=== PATIENT | female | born 1985 | race Caucasian/White ===

== ENCOUNTER 2017-12-31 10:14 | Emergency (ER) | payer OTHER ==
[2017-12-31] MEDS ORDERED: ONDANSETRON 4 MG (ODT) TAB ONE (10:39)
[2017-12-31] MEDS ORDERED: predniSONE 20 MG TAB ONE (10:39)
[2017-12-31] MEDS ORDERED: PROMETHAZINE 25 MG TABLET ONE (10:43)
--- NOTE | 2017-12-31 11:43 | EDPHYS ---
Physician Documentation [facility] Name: Laura De La O Age: 32 yrs Sex: Female : 1985 Arrival Date: 12/31/2017 Time: 10:15 Bed 19 Private MD: Sandeep Yi ED Physician Juma Sterling HPI: 12/31 10:33 This 32 yrs old Female presents to ER via Ambulatory with complaints of "flu jr8 like symptoms". 10:33 The patient or guardian reports cough, that is intermittent, described as moderate, jr8 with no sputum, flu symptoms, arthralgias, low-grade fever, myalgias, no appetite. Onset: The symptoms/episode began/occurred acutely, today. Severity of symptoms: At their worst the symptoms were moderate, in the emergency department the symptoms are unchanged. Modifying factors: The symptoms are alleviated by nothing, the symptoms are aggravated by nothing. Associated signs and symptoms: Pertinent positives: chest pain, with cough, with breathing, earache, nausea, rhinorrhea, sore throat. The patient has not experienced similar symptoms in the past. The patient has been recently seen at an urgent care. 10:33 Tested for influenza at urgent care but was negative. Patient came to ED after feeling jr8 worse and having chest pain. [employer]: 10:21 LMP 12/08/2017 ph Historical: - Allergies: 10:23 Bactrim; ph 10:23 Vancomycin; ph 10:23 Sulfa (Sulfonamide Antibiotics); ph 10:23 NSAIDS; due to Gastric Bypass; ph - Home Meds: 10:23 Cymbalta 60 mg Oral cpDR 1 cap once daily [Active]; hydroxyzine HCl 50 mg Oral tab at ph bedtime [Active]; levothyroxine 125 mcg tab once daily [Active]; Tylenol #3 Oral PRN for Back pain [Active]; - PMHx: 10:23 Anxiety; Depression; Hypertension; Hypothyroidism; ibs; Panic Attacks; ph - PSHx: 10:23 Gastric Bypass; foot surgery; Tonsillectomy; cardiac ablation; ph - Immunization history:: Adult Immunizations up to date. - Social history:: Smoking status: unknown. ROS: 10:33 Eyes: Negative for injury, pain, redness, and discharge, Neck: Negative for injury, jr8 pain, and swelling, Back: Negative for injury and pain, MS/Extremity: Negative for injury and deformity, Skin: Negative for injury, rash, and discoloration, Neuro: Negative for headache, weakness, numbness, tingling, and seizure. 10:33 Constitutional: Positive for body aches, chills, fever. 10:33 ENT: Positive for ear pain, rhinorrhea, sinus congestion, sinus pain, sore throat, Negative for drainage from ear(s), tinnitus, nasal discharge. 10:33 Cardiovascular: Positive for chest pain, with cough, Negative for edema, orthopnea, palpitations, paroxysmal nocturnal dyspnea. 10:33 Respiratory: Positive for cough, with no reported sputum, Negative for shortness of breath, sputum production, wheezing. 10:33 Abdomen/GI: Positive for nausea, vomiting, Negative for abdominal pain, diarrhea, abdominal cramps, abdominal distension, anorexia, dysphagia, hematemesis, black/tarry stool, rectal pain, rectal bleeding, bowel incontinence, flatulence. Exam: 10:33 Head/Face: Normocephalic, atraumatic. Eyes: Pupils equal round and reactive to light, jr8 extra-ocular motions intact. Lids and lashes normal. Conjunctiva and sclera are non-icteric and not injected. Cornea within normal limits. Periorbital areas with no swelling, redness, or edema. Neck: Trachea midline, no thyromegaly or masses palpated, and no cervical lymphadenopathy. Supple, full range of motion without nuchal rigidity, or vertebral point tenderness. No Meningismus. Cardiovascular: Regular rate and rhythm with a normal S1 and S2. No gallops, murmurs, or rubs. Normal PMI, no JVD. No pulse deficits. Respiratory: Lungs have equal breath sounds bilaterally, clear to auscultation and percussion. No rales, rhonchi or wheezes noted. No increased work of breathing, no retractions or nasal flaring. Abdomen/GI: Soft, non-tender, with normal bowel sounds. No distension or tympany. No guarding or rebound. No evidence of tenderness throughout. Back: No spinal tenderness. No costovertebral tenderness. Full range of motion. Skin: Warm, dry with normal turgor. Normal color with no rashes, no lesions, and no evidence of cellulitis. MS/ Extremity: Pulses equal, no cyanosis. Neurovascular intact. Full, normal range of motion. Neuro: Awake and alert, GCS 15, oriented to person, place, time, and situation. Cranial nerves II-XII grossly intact. Motor strength 5/5 in all extremities. Sensory grossly intact. Cerebellar exam normal. Normal gait. 10:33 ENT: External ear(s): are unremarkable, Ear canal(s): are normal, clear, TM's: are normal, no evidence of bulging, no dullness, no erythema, no fluid levels, no hemotympanum, no rupture, normal bony landmarks, normal mobility, Nose: External nose: no obvious acute abnormality, Nasal septum: is midline, Nasal mucosa: erythematous, moist, Turbinates: are swollen bilaterally, Mouth: Lips: moist, Oral mucosa: pink and intact, moist, Gums: pink, Tongue: is moist, Posterior pharynx: Airway: patent, Tonsils: are normal in appearance, no enlargement, no erythema, no exudate, no ulcerations, Uvula: midline, non-edematous, no erythema, swelling, is not appreciated. Vital Signs: 10:21 BP 150 / 99; Pulse 76; Resp 18; Temp 98.2(TE); Pulse Ox 100% on R/A; Weight 144.7 kg; ph Height 5 ft. 6 in. (167.64 cm); 11:41 BP 145 / 88; Pulse 70; Resp 17; Pulse Ox 100% ; mh5 10:21 Body Mass Index 51.49 (144.70 kg, 167.64 cm) ph MDM: 10:23 Patient medically screened. 8 11:40 Differential Diagnosis: Bronchitis Influenza Upper Respiratory Infection Sinusitis jr8 Pharyngitis Otitis Media Viral Syndrome Pneumonia. Data reviewed: vital signs, nurses notes, EKG, radiologic studies, plain films, and as a result, I will discharge patient. Data interpreted: Pulse oximetry: on room air is 100 %. Interpretation: normal. Counseling: I had a detailed discussion with the patient and/or guardian regarding: the historical points, exam findings, and any diagnostic results supporting the discharge/admit diagnosis, radiology results, the need for outpatient follow up, a family practitioner, to return to the emergency department if symptoms worsen or persist or if there are any questions or concerns that arise at home. 12/31 11:25 Order name: Urine Dipstick--Ancillary (enter results); Complete Time: 12:00 [facility] 12/31 11:25 Order name: Urine --Ancillary (enter results); Complete Time: 12:00 [facility] 12/31 10:31 Order name: XRAY Chest Pa And Lat (2 Views); Complete Time: 12:00 [facility] 12/31 10:31 Order name: EKG - Nurse/Tech; Complete Time: 10:53 [facility] 12/31 10:31 Order name: EKG; Complete Time: 10: [facility] 12/31 10:31 Order name: Urine Test (obtain specimen); Complete Time: 11: [facility] 12/31 10:31 Order name: Urine Dipstick-Ancillary (obtain specimen); Complete Time: : [facility] Administered Medications: 10:52 Not Given (Patient Refused): Zofran 4 mg PO once aj1 10:52 Drug: predniSONE 60 mg Route: PO; aj1 11:22 Follow up: Response: No adverse reaction aj1 10:52 Drug: Phenergan 25 mg Route: PO; aj1 11:23 Follow up: Response: No adverse reaction aj1 Disposition: 12/31/17 11:42 Discharged to Home. Impression: Viral infection, unspecified, Acute upper respiratory infection, unspecified. - Condition is Stable. - Discharge Instructions: Upper Respiratory Infection, Adult, Viral Infections. - Prescriptions for Prednisone 20 mg Oral Tablet - take 1 tablet by ORAL route once daily for 5 days; 5 tablet. Tessalon Perles 100 mg Oral Capsule - take 1 capsule by ORAL route every 8 hours As needed; 15 capsule. Albuterol Sulfate 90 mcg/actuation - inhale 1-2 puff by INHALATION route every 4-6 hours; 1 Inhaler. promethazine 25 mg Oral Tablet - take 1 tablet by ORAL route every 6 hours As needed; 20 tablet. - Medication Reconciliation Form, Thank You Letter, Antibiotic Education, Prescription Opioid Use form. - Follow up: Sandeep Yi DO; When: 5 - 6 days; Reason: Recheck today's complaints, Continuance of care, Re-evaluation by your physician. - Problem is new. - Symptoms have improved. Addendum: 01/02/2018 07:27 Co-signature as Attending Physician, Juma Sterling MD I agree with the assessment and w a plan of care. Signatures: Dispatcher [employer] EDMS Damián, Madison, RN RN aj1 Ryan Kimball PA PA jr8 Breanna Molina RN RN ph [facility]alsJuma MD MD ga
--- NOTE | 2017-12-31 11:43 | ER ---
Nurse's Notes [facility] Name: Laura De La O Age: 32 yrs Sex: Female : 1985 Arrival Date: 12/31/2017 Time: 10:15 Bed 19 Private MD: Sandeep Yi Diagnosis: Viral infection, unspecified;Acute upper respiratory infection, unspecified Presentation: 12/31 10:17 Presenting complaint: Patient states: I went to urgent care today because I started ph feeling bad yesterday. I tested positive for the flu but they said they think I still have it. My chest has been hurting so they sent me here for an xray but my chest started hurting more so I decided to come to the ER instead." Pt reports sharp pain in R chest, worse w/ inspiration, also reports nasla congestion, cough, fever TMAX 101 and sore throat. Transition of care: patient was not received from another setting of care. Onset of symptoms was December 31, 2017. 10:17 Method Of Arrival: Ambulatory ph 10:17 Acuity: BILL 3 ph 12:06 Care prior to arrival: None. aj1 [employer]: 10:21 LMP 12/08/2017 ph Historical: - Allergies: 10:23 Bactrim; ph 10:23 Vancomycin; ph 10:23 Sulfa (Sulfonamide Antibiotics); ph 10:23 NSAIDS; due to Gastric Bypass; ph - Home Meds: 10:23 Cymbalta 60 mg Oral cpDR 1 cap once daily [Active]; hydroxyzine HCl 50 mg Oral tab at ph bedtime [Active]; levothyroxine 125 mcg tab once daily [Active]; Tylenol #3 Oral PRN for Back pain [Active]; - PMHx: 10:23 Anxiety; Depression; Hypertension; Hypothyroidism; ibs; Panic Attacks; ph - PSHx: 10:23 Gastric Bypass; foot surgery; Tonsillectomy; cardiac ablation; ph - Immunization history:: Adult Immunizations up to date. - Social history:: Smoking status: unknown. Screenin:31 Abuse screen: Denies threats or abuse. Denies injuries from another. Nutritional aj1 screening: No deficits noted. Tuberculosis screening: No symptoms or risk factors identified. 12:05 Fall Risk None identified. aj1 Assessment: 10:31 General: Appears in no apparent distress. uncomfortable, Behavior is cooperative, aj1 anxious. Pain: Complains of pain in anterior aspect of left upper chest Pain does not radiate. Quality of pain is described as sharp, Pain began at midnight last night Alleviated by nothing. Aggravated by cough, deep breathing. Neuro: Level of Consciousness is awake, alert, obeys commands, Oriented to person, place, time, situation, Speech is normal, Facial symmetry appears normal. Cardiovascular: Reports chest pain, Heart tones S1 S2 present Patient's skin is warm and dry. Rhythm is regular Chest pain quality is sharp, is located in left anterior chest wall is aggravated by breathing. Respiratory: Reports cough that is persistent Airway is patent Respiratory effort is even, unlabored, Respiratory pattern is regular, symmetrical, Breath sounds are clear bilaterally. GI: Abdomen is non-distended, Abd is soft and non tender X 4 quads. : No signs and/or symptoms were reported regarding the genitourinary system. EENT: Reports nasal congestion nasal discharge ear pain, sinus pressure. Derm: No signs and/or symptoms reported regarding the dermatologic system. Skin is pink, warm \\T\\ dry. normal. 11:26 Reassessment: Patient appears in no apparent distress at this time. No changes from aj1 previously documented assessment. Patient and/or family updated on plan of care and expected duration. Pain level reassessed. Patient is alert, oriented x 3, equal unlabored respirations, skin warm/dry/pink. Vital Signs: 10:21 BP 150 / 99; Pulse 76; Resp 18; Temp 98.2(TE); Pulse Ox 100% on R/A; Weight 144.7 kg; ph Height 5 ft. 6 in. (167.64 cm); 11:41 BP 145 / 88; Pulse 70; Resp 17; Pulse Ox 100% ; mh5 10:21 Body Mass Index 51.49 (144.70 kg, 167.64 cm) ph ED Course: 10:15 Patient arrived in ED. as 10:15 Sandeep Yi DO is Private Physician. as 10:21 Triage completed. ph 10:23 Ryan Kimball PA is PHCP. jr8 10:23 Juma Sterling MD is Attending Physician. jr8 10:24 Madison Steel RN is Primary Nurse. aj1 10:31 Patient has correct armband on for positive identification. Pulse ox on. NIBP on. aj1 10:31 Arm band placed on. aj1 10:31 No provider procedures requiring assistance completed. Patient maintains SpO2 aj1 saturation greater than 95% on room air. 10:48 EKG done, by instructor adjunct surgical technician. reviewed by Ryan AZEVEDO. at1 11:27 XRAY Chest Pa And Lat (2 Views) In Process Unspecified. EDMS 11:41 Sandeep Yi DO is Referral Physician. jr8 12:05 Patient did not have IV access during this emergency room visit. aj1 Administered Medications: 10:52 Not Given (Patient Refused): Zofran 4 mg PO once aj1 10:52 Drug: predniSONE 60 mg Route: PO; aj1 11:22 Follow up: Response: No adverse reaction aj1 10:52 Drug: Phenergan 25 mg Route: PO; aj1 11:23 Follow up: Response: No adverse reaction aj1 Outcome: 11:42 Discharge ordered by MD. jr8 12:05 Discharged to home ambulatory. aj1 12:05 Condition: good 12:05 Discharge instructions given to patient, Instructed on discharge instructions, follow up and referral plans. medication usage, Demonstrated understanding of instructions, follow-up care, medications, Prescriptions given X 4. 12:07 Patient left the ED. aj1 Signatures: Dispatcher [employer] EDCO Madison Steel, RN RN [email or web address] Rohini Romo Josh, PA PA jrLaura martinez, principal developer EKG Tat1 Breanna Molina RN RN Shantel Romo [facility]
[2017-12-31 11:50] LABS: Urine Blood NEGATIVE (NEG); Urine Glucose NEGATIVE (NEG); Urine Protein NEGATIVE (NEG); Urine pH 6.5 (5.0-7.0)
--- NOTE | 2017-12-31 11:53 | RAD REPORT ---
EXAM DESCRIPTION: RAD - Chest Pa And Lat (2 Views) - 12/31/2017 11:30 am CLINICAL HISTORY: Cough, fever. COMPARISON: None. FINDINGS: The lungs are clear. The heart is normal in size. No displaced fractures. IMPRESSION: No acute or concerning finding suspected.
--- NOTE | 2017-12-31 12:36 | EKG ---
Test Date: 2017-12-31 Test Time: 10:43:52 Visual Display Manager: ALICIA MEASUREMENT RESULTS: Intervals: Rate: 64 NC: 154 QRSD: 82 QT: 392 QTc: 404 Seeley: P: 47 NC: 154 QRS: 16 T: 7 INTERPRETIVE STATEMENTS: Normal sinus rhythm Normal ECG Compared to ECG 02/07/2017 20:37:20 no significant change from previous ECG Electronically Signed On 12-31-17 12:36:02 CDT by Isiah Fink
== END 2017-12-31 12:07 | disposition home or self-care (01) ==
LOC: ER 10:14
DX: B34.9 Viral infection, unspecified (principal); J06.9 Acute upper respiratory infection, unspecified; I10 Essential (primary) hypertension; F41.9 Anxiety disorder, unspecified; F32.9 Major depressive disorder, single episode, unspecified; E03.9 Hypothyroidism, unspecified; Z88.1 Allergy status to other antibiotic agents; Z88.2 Allergy status to sulfonamides; Z88.3 Allergy status to other anti-infective agents; Z88.6 Allergy status to analgesic agent
CPT/HCPCS: 71046; 81003; 81025; 93005; 99284; J7512

== ENCOUNTER 2019-02-08 14:54 | Emergency (ER) | payer OTHER ==
--- OUTSIDE RECORDS SUMMARY | 2019-02-08 14:56 | XMS REPORT ---
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 Depression with anxiety F41.8 Active Problem Vitamin D deficiency E55.9 Active Assessment Bipolar disorder F31.9 Active Problem Vitamin B12 deficiency E53.8 Active Assessment GERD (gastroesophageal reflux K21.9 Active disease) Problem Other chronic pain G89.29 Active Problem Environmental allergies Z91.09 Active Problem 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 Problem Autoimmune thyroiditis E06.3 Active Problem Sore throat J02.9 Active Problem DDD (degenerative disc disease), M50.30 Active cervical Problem Osteoarthritis of multiple joints M15.9 Active Problem Acquired hypothyroidism E03.9 Active Problem Hypothyroidism E03.9 Active Problem Depression, unspecified depression F32.9 Active type Problem Low back pain M54.5 Active Problem Sinusitis, unspecified chronicity, J32.9 Active unspecified location Problem History of Cuskz-Qrhzuyasb-Aagmn Z86.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
--- OUTSIDE RECORDS SUMMARY | 2019-02-08 14:56 | XMS REPORT ---
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 Problem Vitamin B12 deficiency E53.8 Active Assessment Depression with anxiety F41.8 Active Problem Other chronic pain G89.29 Active Problem [...] J32.9 Active unspecified location Problem History of Repxo-Vmwlyqdvc-Ldbzp Z86.79 Active (WPW) syndrome Problem 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 Problem Irritable bowel syndrome K58.9 Active Problem Depression with anxiety F41.8 Active Problem HSV (herpes simplex virus) A60.9 Active anogenital infection Problem Diverticulitis K57.92 Active Problem GERD (gastroesophageal reflux K21.9 Active disease) Problem Bipolar disorder F31.9 Active Problem Degenerative disc disease, lumbar M51.36 Active Medications Medication Code Code Instructions Start End Status Dosage System Date Date Nasonex [facility] 34728376223 50 MCG/ACT Active 2 sprays Nasally Once a in each day nostril Tylenol # 3 NDC 0 30-500-15 MG Active 2 tablets Orally every 6 as needed hrs Levothyroxine ND 86647155621 125 MCG Orally Active 1 tablet Sodium Once a day on an empty stomach in the morning Synthroid [facility] 75829359408 200 MCG Orally Deisy Active 1 tablet Once a day 2017 on an empty stomach in the morning HydrOXYzine HCl [facility] 32250257573 50 MG Orally Active 1 tablet Twice a day as as needed needed for for anxiety anxiety Cymbalta [facility] 24845683639 60 MG Orally Active 1 capsule Twice a day Results No Known Results Summary Purpose eClinicalWorks Submission
--- OUTSIDE RECORDS SUMMARY | 2019-02-08 14:56 | XMS REPORT ---
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 Problem Autoimmune thyroiditis E06.3 Active Problem DDD (degenerative disc disease), M50.30 Active cervical Problem Sore throat J02.9 Active Problem Osteoarthritis of multiple joints M15.9 Active Problem Hypothyroidism E03.9 Active Problem Acquired hypothyroidism E03.9 Active Problem Depression, unspecified depression F32.9 Active type Problem Low back pain M54.5 Active Problem Sinusitis, unspecified chronicity, J32.9 Active unspecified location Problem History of Clrvb-Utmlgvhjf-Erpwg Z86.79 Active (WPW) syndrome Problem 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
--- OUTSIDE RECORDS SUMMARY | 2019-02-08 14:56 | XMS REPORT ---
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 Problem Irritable bowel syndrome K58.9 Active Problem Depression with anxiety F41.8 Active Problem HSV (herpes simplex virus) A60.9 Active anogenital infection Problem Diverticulitis K57.92 Active Problem GERD (gastroesophageal reflux K21.9 Active disease) Assessment Depression with anxiety F41.8 Active Problem Bipolar disorder F31.9 Active Problem Vitamin D deficiency E55.9 Active Problem Degenerative disc disease, lumbar M51.36 Active Problem Vitamin B12 deficiency E53.8 Active Medications Medication Code Code Instructions Start End Status Dosage System Date Date HydrOXYzine HCl [facility] 54788458495 50 MG Orally Active 1 tablet Twice a day as as needed needed for anxiety Results No Known Results Summary Purpose eClinicalWorks Submission
--- OUTSIDE RECORDS SUMMARY | 2019-02-08 14:57 | XMS REPORT ---
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 Problem Low back pain M54.5 Active Problem Environmental allergies Z91.09 Active Problem Acquired hypothyroidism E03.9 Active Problem Autoimmune thyroiditis E06.3 Active Problem Depression with anxiety F41.8 Active Problem DDD (degenerative disc disease), M50.30 Active cervical Problem Adult BMI 50.0-59.9 kg/sq m Z68.43 Active Problem Osteoarthritis of multiple joints M15.9 Active Problem History of Sudss-Oomvrenuq-Ldpex Z86.79 Active (WPW) syndrome Problem Depression, unspecified depression F32.9 Active type Problem Sore throat J02.9 Active Problem Sinusitis, unspecified chronicity, J32.9 Active unspecified location Problem Irritable bowel syndrome K58.9 Active Problem Bipolar disorder F31.9 Active Problem HSV (herpes simplex virus) A60.9 Active anogenital infection Problem 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
--- OUTSIDE RECORDS SUMMARY | 2019-02-08 14:57 | XMS REPORT ---
:1985 Author Organization eClinicalWorks Care Team Providers Name Role Phone Tien Yih Provider Role Unavailable Allergies, Adverse Reactions, Alerts Substance Reaction Event Type Zoloft Info Not Available Drug Allergy Seroquel Info Not Available Drug Allergy Paxil Info Not Available Drug Allergy Keflex Info Not Available Drug Allergy Problems Problem Type Condition Code Onset Dates Condition Status Assessment Vitamin B12 deficiency E53.8 Active Assessment Adult BMI 50.0-59.9 kg/sq m Z68.43 Active Assessment Bipolar disorder F31.9 Active Assessment Vitamin D deficiency E55.9 Active Assessment Osteoarthritis of multiple joints M15.9 Active Assessment GERD (gastroesophageal reflux K21.9 Active disease) Assessment 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 Assessment Depression with anxiety F41.8 Active Assessment Well adult on routine health check Z00.00 Active Problem Vitamin B12 deficiency E53.8 Active [...] multiple joints M15.9 Active Problem History of Tlenx-Ebuqoprwz-Yvnzy Z86.79 Active (WPW) syndrome Problem Depression, unspecified depression F32.9 Active type Problem Sore throat J02.9 Active Problem Sinusitis, unspecified chronicity, J32.9 Active unspecified location Problem Irritable bowel syndrome K58.9 Active Assessment Refused influenza vaccine Z28.21 Active Problem Bipolar disorder F31.9 Active Problem HSV (herpes simplex virus) A60.9 Active anogenital infection Problem 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 Problem GERD (gastroesophageal reflux K21.9 Active disease) Problem Vitamin D deficiency E55.9 Active Problem Degenerative disc disease, lumbar M51.36 Active Problem Diverticulitis K57.92 Active Medications Medication Code Code Instructions Start End Status Dosage System Date Date Levothyroxine [facility] 80449842477 175 MCG Orally Active 1 tablet Sodium Once a day on an empty stomach in the morning Nasonex [facility] 55912421050 50 MCG/ACT Active 2 sprays Nasally Once a in each day nostril Cymbalta [facility] 36156946330 60 MG Orally Active 1 capsule Twice a day Levothyroxine [facility] 57664370662 175 MCG Orally Active 1 tablet Sodium Once a day on an empty stomach in the morning HydrOXYzine HCl [facility] 43957636334 50 MG Orally Active 1 tablet Twice a day as as needed needed for for anxiety anxiety Synthroid [facility] 23504361740 175 MCG Orally Deisy Active 1 tablet Once a day 2017 on an empty stomach in the morning Tylenol # 3 OKC 0 30-500-15 MG Active 2 tablets Orally every 6 as needed hrs Results No Known Results Summary Purpose eClinicalWorks Submission
--- OUTSIDE RECORDS SUMMARY | 2019-02-08 14:57 | XMS REPORT ---
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92 Active Problem Other chronic pain G89.29 Active Medications No Known Medications Results No Known Results Summary Purpose eClinicalWorks Submission
--- NOTE | 2019-02-08 15:37 | ER ---
Nurse's Notes [facility] Name: Laura De La O Age: 33 yrs Sex: Female : 1985 Arrival Date: 02/08/2019 Time: 14:55 Bed 6 Private MD: Sandeep Yi Diagnosis: Migraine without aura Presentation: 02/08 15:11 Presenting complaint: Patient states: yesterday i started having a sharp chest pain hj that moves to the back and radiates to my L arm; pain is 6/10; my BP is santosh high, 175/102; reports nausea;. Transition of care: patient was not received from another setting of care. Onset of symptoms was February 08, 2019. Risk Assessment: Do you want to hurt yourself or someone else? Patient reports no desire to harm self or others. Initial Sepsis Screen: Does the patient meet any 2 criteria? No. Patient's initial sepsis screen is negative. Does the patient have a suspected source of infection? No. Patient's initial sepsis screen is negative. Care prior to arrival: None. 15:11 Method Of Arrival: Ambulatory 15:11 Acuity: BILL 3 Triage Assessment: 15:16 General: Appears in no apparent distress. uncomfortable, obese, Behavior is hj cooperative, appropriate for age, anxious. Pain: Complains of pain in chest Pain radiates to back and left arm. Cardiovascular: Reports chest pain. 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 LMP N/A - Irregular menses hj Historical: - Allergies: 15:14 Bactrim; hj 15:14 NSAIDS; due to Gastric Bypass; hj 15:14 Sulfa (Sulfonamide Antibiotics); hj 15:14 Vancomycin; hj - Home Meds: 15:14 Cymbalta 60 mg Oral cpDR 1 cap once daily [Active]; hydroxyzine HCl 50 mg Oral tab at bedtime [Active]; levothyroxine 125 mcg tab once daily [Active]; Tylenol #3 Oral PRN for Back pain [Active]; Ativan Oral [Active]; - PMHx: 15:14 Anxiety; Depression; Hypertension; Hypothyroidism; ibs; Panic Attacks; hj - PSHx: 15:14 Gastric Bypass; foot surgery; Tonsillectomy; cardiac ablation; hj - Immunization history:: Adult Immunizations up to date. - Social history:: Smoking status: Patient/guardian denies using tobacco, Patient/guardian denies using alcohol, Patient/guardian denies using street drugs, The patient lives alone. - Ebola Screening: : Patient negative for fever greater than or equal to 101.5 degrees Fahrenheit, and additional compatible Ebola Virus Disease symptoms Patient denies exposure to infectious person Patient denies travel to an Ebola-affected area in the 21 days before illness onset. - Family history:: not pertinent. Screenin:16 Abuse screen: Denies threats or abuse. Denies injuries from another. Nutritional hj screening: No deficits noted. Tuberculosis screening: No symptoms or risk factors identified. Fall Risk None identified. Assessment: 15:17 Pain: Complains of pain in chest Pain radiates to left arm and back Pain began. hj 15:17 General: Appears in no apparent distress. uncomfortable, obese, Behavior is calm, hj cooperative, appropriate for age. Neuro: Level of Consciousness is awake, alert, obeys commands, Oriented to person, place, time, situation, Appropriate for age. Cardiovascular: Reports chest pain, Heart tones S1 S2 present Capillary refill < 3 seconds Patient's skin is warm and dry. Rhythm is regular. Respiratory: Airway is patent Respiratory effort is even, unlabored, Respiratory pattern is regular, symmetrical. GI: No signs and/or symptoms were reported involving the gastrointestinal system. : No signs and/or symptoms were reported regarding the genitourinary system. EENT: No signs and/or symptoms were reported regarding the EENT system. Derm: No signs and/or symptoms reported regarding the dermatologic system. Musculoskeletal: No signs and/or symptoms reported regarding the musculoskeletal system. 15:20 Reassessment: provider in room;. Vital Signs: 15:15 BP 143 / 64; Pulse 74; Resp 18; Temp 98.1(TE); Pulse Ox 100% on R/A; Weight 144.24 kg; hj Height 5 ft. 5 in. (165.10 cm); Pain 6/10; 15:15 Body Mass Index 52.92 (144.24 kg, 165.10 cm) ED Course: 14:55 Patient arrived in ED. as 14:56 Sandeep Yi DO is Private Physician. as 14:59 Tam Burger MD is Attending Physician. ma2 15:02 Eduard, Armand, RN is Primary Nurse. hj 15:11 EKG done, by central sterile supply technician. reviewed by Tam Burger MD. sm3 15:12 Triage completed. hj 15:17 Arm band placed on left wrist. hj 15:17 Patient has correct armband on for positive identification. Placed in gown. Bed in low hj position. Call light in reach. Side rails up X 1. Adult w/ patient. shactor helper on. Pulse ox on. NIBP on. 15:18 Patient maintains SpO2 saturation greater than 95% on room air. hj 15:46 No provider procedures requiring assistance completed. Patient did not have IV access hj during this emergency room visit. Administered Medications: No medications were administered Outcome: 15:36 Discharge ordered by . [facility] 15:46 Discharged to home ambulatory, with family. hj 15:46 Condition: stable 15:46 Discharge instructions given to patient, Instructed on discharge instructions, follow up and referral plans. medication usage, Demonstrated understanding of instructions, follow-up care, medications, Prescriptions given X 1. 15:47 Patient left the ED. hj Signatures: Rohini Romo as Armand Chapa, JUHI RN Tam Burger MD MD nh2 Katy Dahl 3 Corrections: (The following items were deleted from the chart) 15:18 15:15 Pulse 74bpm; Resp 18bpm; Pulse Ox 100% RA; Temp 98.1F Temporal; 144.24 kg; Height hj 5 ft. 5 in.; BMI: 52.9; Pain 6/10; hj
--- NOTE | 2019-02-08 15:37 | EDPHYS ---
Physician Documentation [facility] [place], [place] Name: Laura De La O Age: 33 yrs Sex: Female : 1985 Arrival Date: 02/08/2019 Time: 14:55 Bed 6 Private MD: [facility] ED Physician Tam Burger HPI: 02/08 15:33 This 33 yrs old Female presents to ER via Ambulatory with complaints of Chest ma2 Pain, High Blood Pressure. 15:33 The patient or guardian reports chest pain that is located primarily in the anterior ma2 chest wall. Associated signs and symptoms: Pertinent negatives: cough, dizziness, lower extremity pain, shortness of breath, syncope. The chest pain is described as burning, left sided chest pain that is worse with deep breath and let arm movement. Severity of pain: At its worst the pain was very mild in the emergency department the pain is unchanged. 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 LMP N/A - Irregular menses hj Historical: - Allergies: 15:14 Bactrim; hj 15:14 NSAIDS; due to Gastric Bypass; hj 15:14 Sulfa (Sulfonamide Antibiotics); hj 15:14 Vancomycin; hj - Home Meds: 15:14 Cymbalta 60 mg Oral cpDR 1 cap once daily [Active]; hydroxyzine HCl 50 mg Oral tab at bedtime [Active]; levothyroxine 125 mcg tab once daily [Active]; Tylenol #3 Oral PRN for Back pain [Active]; Ativan Oral [Active]; - PMHx: 15:14 Anxiety; Depression; Hypertension; Hypothyroidism; ibs; Panic Attacks; hj - PSHx: 15:14 Gastric Bypass; foot surgery; Tonsillectomy; cardiac ablation; hj - Immunization history:: Adult Immunizations up to date. - Social history:: Smoking status: Patient/guardian denies using tobacco, Patient/guardian denies using alcohol, Patient/guardian denies using street drugs, The patient lives alone. - Ebola Screening: : Patient negative for fever greater than or equal to 101.5 degrees Fahrenheit, and additional compatible Ebola Virus Disease symptoms Patient denies exposure to infectious person Patient denies travel to an Ebola-affected area in the 21 days before illness onset. - Family history:: not pertinent. ROS: 15:33 Constitutional: Negative for fever, chills, and weight loss. ma2 15:33 Respiratory: Negative for shortness of breath, cough, wheezing, and pleuritic chest pain, Abdomen/GI: Negative for abdominal pain, nausea, diarrhea, and constipation, Back: Negative for injury and pain, MS/Extremity: Negative for injury and deformity, Skin: Negative for injury, rash, and discoloration, Neuro: Negative for headache, weakness, numbness, tingling, and seizure, Psych: Negative for depression, anxiety, suicide ideation, homicidal ideation, and hallucinations. 15:33 Cardiovascular: Positive for chest pain, Negative for edema, orthopnea, palpitations, paroxysmal nocturnal dyspnea, acute changes. Exam: 15:33 Constitutional: This is a well developed, well nourished patient who is awake, alert, ma2 and in no acute distress. ENT: Nares patent. No nasal discharge, no septal abnormalities noted. Tympanic membranes are normal and external auditory canals are clear. Oropharynx with no redness, swelling, or masses, exudates, or evidence of obstruction, uvula midline. Mucous membranes moist. Chest/axilla: Normal chest wall appearance and motion. Nontender with no deformity. No lesions are appreciated. Cardiovascular: Regular rate and rhythm with a normal S1 and S2. No gallops, murmurs, or rubs. Normal PMI, no JVD. No pulse deficits. Respiratory: Lungs have equal breath sounds bilaterally, clear to auscultation and percussion. No rales, rhonchi or wheezes noted. No increased work of breathing, no retractions or nasal flaring. Abdomen/GI: Soft, non-tender, with normal bowel sounds. No distension or tympany. No guarding or rebound. No evidence of tenderness throughout. Skin: Warm, dry with normal turgor. Normal color with no rashes, no lesions, and no evidence of cellulitis. MS/ Extremity: Pulses equal, no cyanosis. Neurovascular intact. Full, normal range of motion. Neuro: Awake and alert, GCS 15, oriented to person, place, time, and situation. Cranial nerves II-XII grossly intact. Motor strength 5/5 in all extremities. Sensory grossly intact. Cerebellar exam normal. Normal gait. 15:33 Chest/axilla: Inspection: normal, Palpation: tenderness, that is mild, of the anterior aspect of left upper chest, Axilla: are normal, Breasts: are normal. Vital Signs: 15:15 BP 143 / 64; Pulse 74; Resp 18; Temp 98.1(TE); Pulse Ox 100% on R/A; Weight 144.24 kg; hj Height 5 ft. 5 in. (165.10 cm); Pain 6/10; 15:15 Body Mass Index 52.92 (144.24 kg, 165.10 cm) hj MDM: 14:59 Patient medically screened. ma2 15:33 Differential diagnosis: anxiety, chest wall pain, costochondritis. Data reviewed: vital ma2 signs, nurses notes. Response to treatment: decline pain medicine, has migraine headache as well will give reglan for that . 02/08 15:00 Order name: EKG - Nurse/Tech; Complete Time: 15:02 ma2 Administered Medications: No medications were administered Disposition: 02/08/19 15:36 Discharged to Home. Impression: Migraine without aura. - Condition is Stable. - Discharge Instructions: Migraine Headache. - Prescriptions for Reglan 10 mg Oral Tablet - take 1 tablet by ORAL route every 6 hours take 30 minutes before meals and at bedtime; 20 tablet. - Medication Reconciliation Form, Thank You Letter, Antibiotic Education, Prescription Opioid Use form. - Follow up: Private Physician; When: Tomorrow; Reason: Continuance of care. Signatures: Armand Chapa RN RN Tam Burger MD MD ma2 Corrections: (The following items were deleted from the chart) 15:47 15:36 02/08/2019 15:36 Discharged to Home. Impression: Migraine without aura. Condition hj is Stable. Forms are Medication Reconciliation Form, Thank You Letter, Antibiotic Education, Prescription Opioid Use. Follow up: Private Physician; When: Tomorrow; Reason: Continuance of care. ma2
--- NOTE | 2019-02-09 06:18 | EKG ---
Test Date: 2019-02-08 Test Time: 15:11:11 Residential Door Unit Installer: ZAC MEASUREMENT RESULTS: Intervals: Rate: 72 AK: 154 QRSD: 80 QT: 378 QTc: 413 Udell: P: 52 AK: 154 QRS: 52 T: 29 INTERPRETIVE STATEMENTS: Normal sinus rhythm Low voltage QRS Abnormal ECG Compared to ECG 12/31/2017 10:43:52 Low QRS voltage now present Electronically Signed On 02-09-19 06:17:51 CDT by Isiah Fink
== END 2019-02-08 15:47 | disposition home or self-care (01) ==
LOC: ER 14:54
DX: G43.009 Migraine without aura, not intractable, without status migrainosus (principal); F32.9 Major depressive disorder, single episode, unspecified; F41.9 Anxiety disorder, unspecified; I10 Essential (primary) hypertension; E03.9 Hypothyroidism, unspecified; Z88.6 Allergy status to analgesic agent; Z88.1 Allergy status to other antibiotic agents; Z88.2 Allergy status to sulfonamides
CPT/HCPCS: 93005; 99284

== ENCOUNTER 2019-04-08 11:12 | Emergency (ER) | payer OTHER ==
--- OUTSIDE RECORDS SUMMARY | 2019-04-08 11:15 | XMS REPORT ---
[...] J32.9 Active unspecified location Problem History of Lkhne-Qnibeledn-Qqgwc Z86.79 Active (WPW) syndrome Problem Dominique's thyroiditis [...] Status Dosage System Date Date HydrOXYzine HCl [facility] 65541894961 50 MG Orally Active 1 tablet Twice a day as as needed needed for anxiety Results No Known Results Summary Purpose eClinicalWorks Submission
--- OUTSIDE RECORDS SUMMARY | 2019-04-08 11:15 | XMS REPORT ---
[...] kg/sq m Z68.43 Active Problem History of Aqmko-Hwtzynria-Oyiks Z86.79 Active (WPW) syndrome Problem Depression, unspecified [...]
--- OUTSIDE RECORDS SUMMARY | 2019-04-08 11:15 | XMS REPORT ---
[...] multiple joints M15.9 Active Problem History of Yllso-Uxapbfqdt-Dssas Z86.79 Active (WPW) syndrome Problem Depression, unspecified [...] End Status Dosage System Date Date Levothyroxine [facility] 45153025346 175 MCG Orally Active 1 tablet Sodium Once a day on an empty stomach in the morning Nasonex [facility] 35436860149 50 MCG/ACT Active 2 sprays Nasally Once a in each day nostril Cymbalta [facility] 20793468662 60 MG Orally Active 1 capsule Twice a day Levothyroxine [facility] 04498049674 175 MCG Orally Active 1 tablet Sodium Once a day on an empty stomach in the morning HydrOXYzine HCl [facility] 62272515778 50 MG Orally Active 1 tablet Twice a day as as needed needed for for anxiety anxiety Synthroid [facility] 45314123005 175 MCG Orally Deisy Active 1 tablet Once a day 2017 on an empty stomach in the morning Tylenol # 3 DEC 0 30-500-15 MG Active 2 tablets Orally every 6 as needed hrs Results No Known Results Summary Purpose eClinicalWorks Submission
--- OUTSIDE RECORDS SUMMARY | 2019-04-08 11:16 | XMS REPORT ---
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 Problem Depression with anxiety F41.8 Active Problem Hypothyroidism E03.9 Active Problem Environmental allergies Z91.09 Active Problem Low back pain M54.5 Active Problem Osteoarthritis of multiple joints M15.9 Active Problem Depression, unspecified depression F32.9 Active type Problem History of Wexor-Zqudryihw-Kmjwh Z86.79 Active (WPW) syndrome Problem 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 Problem Otalgia of right ear H92.01 Active Problem Adult BMI 50.0-59.9 kg/sq m Z68.43 Active Problem 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 Problem HSV (herpes simplex virus) A60.9 Active anogenital infection Problem Seasonal allergies J30.2 Active Problem DDD (degenerative disc disease), M50.30 Active cervical Problem Sore throat J02.9 Active Problem Sinusitis, unspecified chronicity, J32.9 Active unspecified location Problem Acquired hypothyroidism E03.9 Active Problem Autoimmune thyroiditis E06.3 Active Problem Degenerative disc disease, lumbar M51.36 Active Problem Diverticulitis K57.92 Active Problem Irritable bowel syndrome K58.9 Active Problem Bipolar disorder F31.9 Active Problem Vitamin B12 deficiency E53.8 Active Problem Other chronic pain G89.29 Active Problem GERD (gastroesophageal reflux K21.9 Active disease) Problem Vitamin D deficiency E55.9 Active Medications Medication Code Code Instructions Start End Status Dosage System Date Date Levothyroxine [facility] 96382217154 125 MCG Orally Active 1 tablet Sodium Once a day on an empty stomach in the morning Synthroid [facility] 31544307750 175 MCG Orally December Inactive 1 tablet Once a day 2017 on an empty stomach in the morning Results No Known Results Summary Purpose eClinicalWorks Submission
--- OUTSIDE RECORDS SUMMARY | 2019-04-08 11:16 | XMS REPORT ---
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 Active Assessment Depression with anxiety F41.8 Active Problem Depression with anxiety F41.8 Active Problem Hypothyroidism E03.9 Active Problem Environmental allergies Z91.09 Active Problem Low back pain M54.5 Active Problem Osteoarthritis of multiple joints M15.9 Active Problem Depression, unspecified depression F32.9 Active type Problem History of Mcnys-Fcxvukaih-Pdmbq Z86.79 Active (WPW) syndrome Problem Dominique's disease [...] E03.9 Active Problem Autoimmune thyroiditis E06.3 Active Assessment Vitamin B12 deficiency E53.8 Active Problem Degenerative disc disease, lumbar M51.36 Active Assessment Vitamin D deficiency E55.9 Active Problem Diverticulitis K57.92 Active Problem Irritable bowel syndrome K58.9 Active Assessment Adult BMI 50.0-59.9 kg/sq m Z68.43 Active Problem Bipolar disorder F31.9 Active Problem Vitamin B12 deficiency E53.8 Active Problem Other chronic pain G89.29 Active Problem GERD (gastroesophageal reflux K21.9 Active disease) Problem Vitamin D deficiency E55.9 Active Medications Medication Code Code Instructions Start End Status Dosage System Date Date Synthroid [facility] 33770754351 175 MCG Orally December Active 1 tablet Once a day 2017 on an empty stomach in the morning Cetirizine HCl [facility] 37712494731 10 MG Orally February 13, Active 1 tablet Once a day for 2018 allergies HydrOXYzine HCl [facility] 30351422185 50 MG Orally Active 1 tablet Twice a day as as needed needed for for anxiety anxiety Nasonex [facility] 98480283088 50 MCG/ACT Active 2 sprays Nasally Once a in each day nostril Vitamin D3 [facility] [id number] 03645 UNIT March 03, Active 1 capsule Orally Once a 2019 week x 12 weeks Deconex DMX [facility] 67721400460 10-17.5-385 MG February 13, Active one tab Orally Four 2019 times a day Cymbalta [facility] 65430729593 60 MG Orally Active 1 capsule Twice a day Levothyroxine [facility] 59250662852 175 MCG Orally Active 1 tablet Sodium Once a day on an empty stomach in the morning Tylenol # 3 ND 0 30-500-15 MG Active 2 tablets Orally every 6 as needed hrs Results No Known Results Summary Purpose eClinicalWorks Submission
--- OUTSIDE RECORDS SUMMARY | 2019-04-08 11:16 | XMS REPORT ---
[...] multiple joints M15.9 Active Problem History of Nwuae-Qdprzufse-Wbfft Z86.79 Active (WPW) syndrome Problem Depression, unspecified [...] Status Dosage System Date Date Levothyroxine [facility] 04700739367 175 MCG Orally Active 1 tablet Sodium Once a day on an empty stomach in the morning Results No Known Results Summary Purpose eClinicalWorks Submission
--- OUTSIDE RECORDS SUMMARY | 2019-04-08 11:16 | XMS REPORT ---
:1985 Author Organization eClinicalWorks Care Team Providers Name Role Phone [place] Provider Role Unavailable Allergies No Known Allergies Problems Problem Type Condition Code Onset Dates Condition Status Problem Depression with anxiety F41.8 Active Problem Hypothyroidism E03.9 Active Problem Environmental allergies Z91.09 Active Problem Low back pain M54.5 Active Problem Osteoarthritis of multiple joints M15.9 Active Problem Depression, unspecified depression F32.9 Active type Problem History of Bnrgm-Wsqkwtuwe-Siajf Z86.79 Active (WPW) syndrome Problem Dominique's disease [...] Problem Vitamin D deficiency E55.9 Active Medications No Known Medications Results No Known Results Summary Purpose eClinicalWorks Submission
--- OUTSIDE RECORDS SUMMARY | 2019-04-08 11:16 | XMS REPORT ---
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 Assessment Pain, joint, knee, left M25.562 Active Problem Hypothyroidism E03.9 Active Problem Depression with anxiety F41.8 Active Problem Osteoarthritis of multiple joints M15.9 Active Problem DDD (degenerative disc disease), M50.30 Active cervical Problem Depression, unspecified depression F32.9 Active type Problem 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 Problem HSV (herpes simplex virus) A60.9 Active anogenital infection Problem History of Tgqcv-Awakqvtbg-Yxecz Z86.79 Active (WPW) syndrome Problem Sore throat J02.9 Active Problem Sinusitis, unspecified chronicity, J32.9 Active unspecified location Problem 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92 Active Problem Environmental allergies Z91.09 Active Problem Low back pain M54.5 Active Problem Vitamin B12 deficiency E53.8 Active Problem Other chronic pain G89.29 Active Medications Medication Code Code Instructions Start End Status Dosage System Date Date Cetirizine HCl [facility] 83955428834 10 MG Orally February 13, Active 1 tablet Once a day for [address]X [facility] 74363938297 10-17.5-385 MG February 13, Active one tab Orally Four 2019 times a day Vitamin D3 [facility] 14332106910 32954 UNIT March 03, Active 1 capsule Orally Once a 2019 week x [address] [facility] 85667187207 60 MG Orally Active 1 capsule Twice a day HydrOXYzine HCl [facility] 56329780317 50 MG Orally Active 1 tablet Twice a day as as needed needed for for anxiety anxiety Nasonex [facility] 05367770159 50 MCG/ACT Active 2 sprays Nasally Once a in each day nostril Synthroid [facility] [address]-63 Active not defined Levothyroxine [facility] 45422071415 125 MCG Orally Active 1 tablet Sodium Once a day on an empty stomach in the morning Tylenol # [address] [facility] 0 30-500-15 MG Active 2 tablets Orally every 6 as needed hrs Results No Known Results Summary Purpose eClinicalWorks Submission
--- OUTSIDE RECORDS SUMMARY | 2019-04-08 11:16 | XMS REPORT ---
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
[2019-04-08 13:00] LABS: Absolute Lymphocytes (CBC) 1.7 K/uL (0.7-4.9); Basophils % 0.7 % (0-1.3); Eosinophils % 0.9 % (0-4.4); Lymphocytes % 22.9 % (15.3-44.8); MPV 9.3 fL (7.6-11.3); Monocytes % 10.1 % (3.3-12.3); RBC Red Blood Cell Count 5.08 M/uL (3.86-4.86)
[2019-04-08 13:09] LABS: Urine Blood NEGATIVE (NEG); Urine Glucose NEGATIVE (NEG); Urine Protein NEGATIVE (NEG)
[2019-04-08] MEDS ORDERED: ONDANSETRON 4 MG/2 ML VIAL ONE (13:19)
[2019-04-08] MEDS ORDERED: NA CHLORIDE 0.9% 1,000 ML ONE (13:19)
[2019-04-08] MEDS ORDERED: MORPHINE 4 MG/ML SYR ONE (13:19)
[2019-04-08 14:11] LABS: ALT/SGPT 20 U/L (12-78); AST/SGOT 14 U/L (15-37); Albumin 3.4 g/dL (3.4-5.0); Alkaline Phosphatase 93 U/L (45-117); BUN Blood Urea Nitrogen 9 mg/dL (7-18); Bicarbonate 26 mmol/L (21-32); Bilirubin Direct < 0.1 mg/dL (0-0.2); Bilirubin Total 0.2 mg/dL (0.2-1.0); Glucose Level 95 mg/dL (74-106); Protein, Total 7.1 g/dL (6.4-8.2); Sodium Level 142 mmol/L (136-145)
--- NOTE | 2019-04-08 14:40 | EDPHYS ---
Physician Documentation [facility] Name: Laura De La O Age: 34 yrs Sex: Female : 1985 Arrival Date: 04/08/2019 Time: 11:15 Bed 17 Private MD: [facility] ED Physician Rodney Cuevas HPI: 04/08 13:15 This 34 yrs old Female presents to ER via Ambulatory with complaints of pm1 Weakness, Pain All Over, History of Autoimmune disease. 13:15 The patient presents to the emergency department with weakness of the entire body, pm1 generalized weakness, and generalized pain. 13:15 Onset: The symptoms/episode began/occurred 3 day(s) ago. Associated signs and symptoms: pm1 Pertinent negatives: chills, dizziness, fever, headache, nausea, cough. Severity of symptoms: in the emergency department the symptoms are unchanged. Patient reports polyuria, polydipsia and is concerned that she might have diabetes. 13:15 Patient also concerned about her thyroid levels. 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: 11:22 LMP 03/18/2019 hb Historical: - Allergies: 11:24 Bactrim; hb 11:24 NSAIDS; due to Gastric Bypass; hb 11:24 Sulfa (Sulfonamide Antibiotics); hb 11:24 Vancomycin; hb - Home Meds: 11:24 Ativan Oral [Active]; Cymbalta 60 mg Oral cpDR 1 cap once daily [Active]; hydroxyzine hb HCl 50 mg Oral tab at bedtime [Active]; levothyroxine 125 mcg tab once daily [Active]; Tylenol #3 Oral PRN for Back pain [Active]; - PMHx: 11:24 Anxiety; Depression; Hypertension; Hypothyroidism; ibs; Panic Attacks; hb - PSHx: 11:24 Gastric Bypass; foot surgery; Tonsillectomy; cardiac ablation; hb - Immunization history:: Adult Immunizations up to date. - Social history:: Smoking status: Patient/guardian denies using tobacco. - Ebola Screening: : No symptoms or risks identified at this time. ROS: 13:15 Eyes: Negative for injury, pain, redness, and discharge, ENT: Negative for injury, pm1 pain, and discharge, Neck: Negative for injury, pain, and swelling, Cardiovascular: Negative for chest pain, palpitations, and edema, Respiratory: Negative for shortness of breath, cough, wheezing, and pleuritic chest pain. 13:15 Abdomen/GI: Negative for abdominal pain, nausea, vomiting, diarrhea, and constipation, Back: Negative for injury and pain, MS/Extremity: Negative for injury and deformity, Skin: Negative for injury, rash, and discoloration, Neuro: Negative for headache, weakness, numbness, tingling, and seizure. 13:15 Constitutional: Positive for malaise, Negative for fever, poor PO intake. 13:15 : Positive for urinary frequency, Negative for burning with urination. Exam: 13:15 Constitutional: This is a well developed, well nourished patient who is awake, alert, pm1 and in no acute distress. Head/Face: Normocephalic, atraumatic. Eyes: Pupils equal round and reactive to light, extra-ocular motions intact. Lids and lashes normal. Conjunctiva and sclera are non-icteric and not injected. Cornea within normal limits. Periorbital areas with no swelling, redness, or edema. ENT: Nares patent. No nasal discharge, no septal abnormalities noted. Tympanic membranes are normal and external auditory canals are clear. Oropharynx with no redness, swelling, or masses, exudates, or evidence of obstruction, uvula midline. Mucous membranes moist. Neck: Trachea midline, no thyromegaly or masses palpated, and no cervical lymphadenopathy. Supple, full range of motion without nuchal rigidity, or vertebral point tenderness. No Meningismus. Chest/axilla: Normal chest wall appearance and motion. Nontender with no deformity. No lesions are appreciated. Cardiovascular: Regular rate and rhythm with a normal S1 and S2. No gallops, murmurs, or rubs. Normal PMI, no JVD. No pulse deficits. Respiratory: Lungs have equal breath sounds bilaterally, clear to auscultation and percussion. No rales, rhonchi or wheezes noted. No increased work of breathing, no retractions or nasal flaring. Abdomen/GI: Soft, non-tender, with normal bowel sounds. No distension or tympany. No guarding or rebound. No evidence of tenderness throughout. Back: No spinal tenderness. No costovertebral tenderness. Full range of motion. Skin: Warm, dry with normal turgor. Normal color with no rashes, no lesions, and no evidence of cellulitis. MS/ Extremity: Pulses equal, no cyanosis. Neurovascular intact. Full, normal range of motion. 13:15 Neuro: Orientation: is normal, Motor: is normal, moves all fours, Sensation: is normal, no obvious gross deficits. Vital Signs: 11:22 BP 188 / 85; Pulse 92; Resp 16; Temp 97.9; Pulse Ox 100% on R/A; Weight 143.34 kg; hb Height 5 ft. 5 in. (165.10 cm); Pain 7/10; 12:56 BP 119 / 77; Pulse 89; Resp 16; Temp 98.7(O); Pulse Ox 99% on R/A; mh5 14:32 BP 102 / 62; Pulse 52; Resp 17; Temp 98.4(O); Pulse Ox 99% on R/A; mh5 15:00 BP 112 / 68; Pulse 71; Resp 18; Temp 97.6; Pulse Ox 99% on R/A; ph 11:22 Body Mass Index 52.58 (143.34 kg, 165.10 cm) hb MDM: 11:45 Patient medically screened. pm1 14:26 ED course: Recommended urine microscopy. Patient does not think that it is a urinary pm1 tract infection with her frequency due to urinary frequency since delivery of her child. Since patient does not want to wait for result I recommended sending a sample and I will contact her if there are any abnormalities. 14:27 Data reviewed: vital signs. Data interpreted: Pulse oximetry: on room air is 99 %. pm1 Interpretation: normal. Counseling: I had a detailed discussion with the patient and/or guardian regarding: the historical points, exam findings, and any diagnostic results supporting the discharge/admit diagnosis, lab results, the need for outpatient follow up, to return to the emergency department if symptoms worsen or persist or if there are any questions or concerns that arise at home. 16:15 ED course: Called in a prescription for Diflucan 150 mg PO x 1 now to [facility] pm1 pharmacy for the patient after informing her of the yeast infection. 04/08 11:53 Order name: Basic Metabolic Panel; Complete Time: 14:14 pm1 04/08 11:53 Order name: CBC with Diff; Complete Time: 14:11 pm1 04/08 11:53 Order name: Hepatic Function; Complete Time: 14:14 pm1 04/08 11:53 Order name: TSH; Complete Time: 14:14 pm1 04/08 12:48 Order name: Urine Dipstick--Ancillary (enter results); Complete Time: 13:14 eb 04/08 12:48 Order name: Urine --Ancillary (enter results); Complete Time: 13:14 eb 04/08 11:53 Order name: IV Saline Lock; Complete Time: 12:40 pm1 04/08 11:53 Order name: Labs collected and sent; Complete Time: 12:40 pm1 04/08 11:53 Order name: Urine Dipstick-Ancillary (obtain specimen); Complete Time: 12:39 pm1 04/08 14:38 Order name: Urine Microscopic Only; Complete Time: 16:04 pm1 04/08 15:02 Order name: Urine Culture [facility] 04/08 11:53 Order name: Urine Test (obtain specimen); Complete Time: 12:39 pm1 Administered Medications: 13:12 Drug: morphine 4 mg Route: IVP; Site: right antecubital; ph 13:45 Follow up: Response: No adverse reaction; Pain is decreased ph 13:12 Drug: Zofran 4 mg Route: IVP; Site: right antecubital; ph 13:45 Follow up: Response: No adverse reaction ph 13:13 Drug: NS 0.9% 1000 ml Route: IV; Rate: 1000 ml; Site: right antecubital; ph 15:00 Follow up: Response: No adverse reaction; IV Status: Completed infusion; IV Intake: ph 1000ml Disposition: 04/08/19 14:39 Discharged to Home. Impression: Malaise and fatigue. - Condition is Stable. - Discharge Instructions: Fatigue. - Medication Reconciliation Form, Thank You Letter, Antibiotic Education, Prescription Opioid Use form. - Follow up: Emergency Department; When: As needed; Reason: Worsening of condition. Follow up: Private Physician; When: 2 - 3 days; Reason: Recheck today's complaints, Continuance of care, Re-evaluation by your physician. - Problem is new. - Symptoms have improved. Addendum: 04/10/2019 07:34 Co-signature as Attending Physician, Rodney Cuevas MD. g s Signatures: Dispatcher [employer] [facility] Breanna Molina RN Arie Farias ph, FULLING MACHINE OPERATOR FULLING MACHINE OPERATOR pm1 Luciana Gill RN RN hb Shantel Romo 5 Rodney Cuevas MD MD gs Corrections: (The following items were deleted from the chart) 04/08 15:02 14:39 04/08/2019 14:39 Discharged to Home. Impression: Malaise and fatigue. Condition mh5 is Stable. Forms are Medication Reconciliation Form, Thank You Letter, Antibiotic Education, Prescription Opioid Use. Follow up: Emergency Department; When: As needed; Reason: Worsening of condition. Follow up: Private Physician; When: 2 - 3 days; Reason: Recheck today's complaints, Continuance of care, Re-evaluation by your physician. Problem is new. Symptoms have improved. pm1
--- NOTE | 2019-04-08 14:40 | ER ---
Nurse's Notes [facility] Name: Laura De La O Age: 34 yrs Sex: Female : 1985 Arrival Date: 04/08/2019 Time: 11:15 Bed 17 Private MD: Sandeep Yi Diagnosis: Malaise and fatigue Presentation: 04/08 11:21 Presenting complaint: Pain all over, headache, fatigue, and malaise x 2-3 days, worse hb today. Transition of care: patient was not received from another setting of care. 11:21 Method Of Arrival: Ambulatory hb 11:22 Onset of symptoms was April 06, 2019. Risk Assessment: Do you want to hurt yourself or hb someone else? Patient reports no desire to harm self or others. Initial Sepsis Screen: Does the patient meet any 2 criteria? No. Patient's initial sepsis screen is negative. Does the patient have a suspected source of infection? No. Patient's initial sepsis screen is negative. Care prior to arrival: None. 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 03/18/2019 hb Historical: - Allergies: 11:24 Bactrim; hb 11:24 NSAIDS; due to Gastric Bypass; hb 11:24 Sulfa (Sulfonamide Antibiotics); hb 11:24 Vancomycin; hb - Home Meds: 11:24 Ativan Oral [Active]; Cymbalta 60 mg Oral cpDR 1 cap once daily [Active]; hydroxyzine hb HCl 50 mg Oral tab at bedtime [Active]; levothyroxine 125 mcg tab once daily [Active]; Tylenol #3 Oral PRN for Back pain [Active]; - PMHx: 11:24 Anxiety; Depression; Hypertension; Hypothyroidism; ibs; Panic Attacks; hb - PSHx: 11:24 Gastric Bypass; foot surgery; Tonsillectomy; cardiac ablation; hb - Immunization history:: Adult Immunizations up to date. - Social history:: Smoking status: Patient/guardian denies using tobacco. - Ebola Screening: : No symptoms or risks identified at this time. Screenin:30 Abuse screen: Denies threats or abuse. Denies injuries from another. Nutritional ph screening: No deficits noted. Tuberculosis screening: No symptoms or risk factors identified. Fall Risk None identified. Assessment: 11:45 General: Appears in no apparent distress. comfortable, obese, well groomed, Behavior is ph calm, cooperative, appropriate for age, Reports fatigue for 2-3 days, Denies fever. Pain: Complains of pain in "all over". Neuro: Level of Consciousness is awake, alert, obeys commands, Oriented to person, place, time, situation, Reports headache. Cardiovascular: Capillary refill < 3 seconds in bilateral fingers Patient's skin is warm and dry. Respiratory: Airway is patent Respiratory effort is even, unlabored, Respiratory pattern is regular, symmetrical. GI: Patient currently denies abdominal pain, nausea, vomiting. : Reports urinary frequency, Denies burning with urination, cramping. Derm: Skin is intact, is healthy with good turgor, Skin is pink, warm \\T\\ dry. Musculoskeletal: Circulation, motion, and sensation intact. Range of motion: intact in all extremities. 13:00 Reassessment: Patient appears in no apparent distress at this time. Patient and/or ph family updated on plan of care and expected duration. Pain level reassessed. Patient is alert, oriented x 3, equal unlabored respirations, skin warm/dry/pink. 14:00 Reassessment: Patient appears in no apparent distress at this time. Patient and/or ph family updated on plan of care and expected duration. Pain level reassessed. Patient is alert, oriented x 3, equal unlabored respirations, skin warm/dry/pink. 15:00 Reassessment: Patient appears in no apparent distress at this time. Patient and/or ph family updated on plan of care and expected duration. Pain level reassessed. Patient is alert, oriented x 3, equal unlabored respirations, skin warm/dry/pink. Vital Signs: 11:22 BP 188 / 85; Pulse 92; Resp 16; Temp 97.9; Pulse Ox 100% on R/A; Weight 143.34 kg; hb Height 5 ft. 5 in. (165.10 cm); Pain 7/10; 12:56 BP 119 / 77; Pulse 89; Resp 16; Temp 98.7(O); Pulse Ox 99% on R/A; mh5 14:32 BP 102 / 62; Pulse 52; Resp 17; Temp 98.4(O); Pulse Ox 99% on R/A; mh5 15:00 BP 112 / 68; Pulse 71; Resp 18; Temp 97.6; Pulse Ox 99% on R/A; ph 11:22 Body Mass Index 52.58 (143.34 kg, 165.10 cm) hb ED Course: 11:15 Patient arrived in ED. dp 11:16 Sandeep Yi DO is Private Physician. dp 11:22 Triage completed. hb 11:22 Arm band placed on. hb 11:37 Breanna Molina, RN is Primary Nurse. ph 11:45 Arie Gottlieb NP is PHCP. pm1 11:45 Rodney Cuevas MD is Attending Physician. pm1 12:41 Patient has correct armband on for positive identification. Bed in low position. Call mh5 light in reach. Side rails up X 1. Warm blanket given. Pulse ox on. NIBP on. 12:41 Urine collected: clean catch specimen, clear, Amount Voided: 240mL. mh5 13:15 Inserted saline lock: 22 gauge in right antecubital area, using aseptic technique. ph 15:00 No provider procedures requiring assistance completed. IV discontinued, intact, ph bleeding controlled, No redness/swelling at site. Pressure dressing applied. Administered Medications: 13:12 Drug: morphine 4 mg Route: IVP; Site: right antecubital; ph 13:45 Follow up: Response: No adverse reaction; Pain is decreased ph 13:12 Drug: Zofran 4 mg Route: IVP; Site: right antecubital; ph 13:45 Follow up: Response: No adverse reaction ph 13:13 Drug: NS 0.9% 1000 ml Route: IV; Rate: 1000 ml; Site: right antecubital; ph 15:00 Follow up: Response: No adverse reaction; IV Status: Completed infusion; IV Intake: ph 1000ml Intake: 15:00 IV: 1000ml; Total: 1000ml. ph Outcome: 14:39 Discharge ordered by . pm1 15:02 Patient left the ED. 5 15:02 Discharged to home ambulatory. ph 15:02 Condition: good 15:02 Discharge instructions given to patient, Instructed on discharge instructions, follow up and referral plans. Demonstrated understanding of instructions, follow-up care. Addendum: 04/11/2019 12:26 Addendum: Culture Results: Positive urine culture. Prescription called-in to pharmacy h b of choice. Macrobid 100mg PO BID x 10 days, #20 per SALES COMPENSATION ANALYST Vidya Arce called in to [facility]. Signatures: Breanna Molina, RN RN Arie Cisse, SALES COMPENSATION ANALYST SALES COMPENSATION ANALYST pm1 Luciana Gill RN RN Shantel Brice 5 Armando Looney
[2019-04-08 14:59] LABS: Urine Yeast FEW (NONE SEEN)
[2019-04-08 15:00] LABS: Urine Bacteria <20 /HPF (<20); Urine Culture Reflex Order REFLEXED; Urine RBC <5 /HPF (NONE SEEN)
== END 2019-04-08 15:02 | disposition home or self-care (01) ==
LOC: ER 11:12
DX: R53.83 Other fatigue (principal); R53.81 Other malaise; F41.9 Anxiety disorder, unspecified; F32.9 Major depressive disorder, single episode, unspecified; I10 Essential (primary) hypertension; E03.9 Hypothyroidism, unspecified; Z88.6 Allergy status to analgesic agent; Z88.1 Allergy status to other antibiotic agents; Z88.2 Allergy status to sulfonamides
CPT/HCPCS: 36415; 80048; 80076; 81003; 81015; 81025; 84443; 85025; 87077; 87086; 87088; 87186; 96361; 96374; 96375; 99284; J2405; J7030

== ENCOUNTER 2019-09-26 12:07 | Emergency (ER) | payer OTHER ==
--- OUTSIDE RECORDS SUMMARY | 2019-09-26 12:08 | XMS REPORT ---
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
--- OUTSIDE RECORDS SUMMARY | 2019-09-26 12:08 | XMS REPORT ---
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
--- OUTSIDE RECORDS SUMMARY | 2019-09-26 12:08 | XMS REPORT ---
:1985 Author Organization [facility] Address [address] [place] [address] Dr. Tron[address]o [address] [place] [id number] Care Team Providers Name Role Phone Unavailable Unavailable Unavailable Problems This patient has no known problems. Allergies, Adverse Reactions, Alerts This patient has no known allergies or adverse reactions. Medications This patient has no known medications.
--- OUTSIDE RECORDS SUMMARY | 2019-09-26 12:08 | XMS REPORT ---
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 03715784451 125 MCG Orally Active 1 tablet Sodium Once a day on an empty stomach in the morning Results No Known Results Summary Purpose eClinicalWorks Submission
--- OUTSIDE RECORDS SUMMARY | 2019-09-26 12:09 | XMS REPORT ---
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 Problem 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 Problem Sinusitis, unspecified chronicity, J32.9 Active unspecified location Problem Autoimmune thyroiditis E06.3 Active Problem Sore throat J02.9 Active Problem 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 Problem Primary osteoarthritis of left knee M17.12 Active Problem Degenerative disc disease, lumbar M51.36 Active Problem Bipolar disorder F31.9 Active Assessment Adult BMI 50.0-59.9 kg/sq m Z68.43 Active Problem Allergic rhinitis, unspecified J30.9 Active seasonality, unspecified trigger Problem Irritable bowel syndrome K58.9 Active Assessment Allergic rhinitis, unspecified J30.9 Active seasonality, unspecified trigger Problem Adult BMI 50.0-59.9 kg/sq m Z68.43 Active Problem Acquired hypothyroidism E03.9 Active Problem Seasonal allergies J30.2 Active Problem Otalgia of right ear H92.01 Active Assessment GERD (gastroesophageal reflux K21.9 Active disease) Problem Vitamin D deficiency E55.9 Active Assessment Prediabetes R73.03 Active Problem Vitamin B12 deficiency E53.8 Active Assessment Bipolar disorder F31.9 Active Problem Diverticulitis K57.92 Active Assessment Osteoarthritis of multiple joints M15.9 Active Problem GERD (gastroesophageal reflux K21.9 Active disease) Assessment Vitamin B12 deficiency E53.8 Active Problem Low back pain M54.5 Active Assessment Vitamin D deficiency E55.9 Active Problem Depression, unspecified depression F32.9 Active type Problem Other chronic pain G89.29 Active Problem Environmental allergies Z91.09 Active Medications Medication Code Code Instructions Start End Status Dosage System Date Date Tylenol # 3 [facility] 0 30-500-15 MG Active 2 tablets Orally every 6 as needed hrs HydrOXYzine HCl [facility] 73640375012 50 MG Orally Active 1 tablet Twice a day as as needed needed for for anxiety anxiety Azithromycin [facility] 12064791212 250 MG Orally Aug 09, Aug 14, Active 2 tablets Once a day 2018 2018 on the first day, then 1 tablet daily for 4 days Nasonex [facility] 91729582831 50 MCG/ACT Active 2 sprays Nasally Once a in each day nostril Cymbalta [facility] 91480870309 60 MG Orally Active 1 capsule Twice a day Acetaminophen-C [facility] [address]-02 Active not odeine defined Synthroid [facility] 29819813018 125 MCG Oral Active tk 1 t po Once a day qam oes Vitamin D3 [facility] 12327892098 42225 UNIT Active 1 capsule Orally Once a week x 12 weeks Deconex DMX [facility] 21200338269 10-17.5-385 MG February 13, Active one tab Orally Four 2019 times a day Cetirizine HCl [facility] 08972241257 10 MG Orally February 13, Active 1 tablet Once a day for 2019 allergies Results No Known Results Summary Purpose eClinicalWorks Submission
--- OUTSIDE RECORDS SUMMARY | 2019-09-26 12:09 | XMS REPORT ---
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 Active Problem Primary osteoarthritis of left knee M17.12 Active Problem Degenerative disc disease, lumbar M51.36 Active Problem Bipolar disorder F31.9 Active Problem Allergic rhinitis, unspecified J30.9 Active seasonality, unspecified trigger Problem Irritable bowel syndrome K58.9 Active Problem Adult BMI 50.0-59.9 kg/sq m Z68.43 Active Problem Acquired hypothyroidism E03.9 Active Problem Seasonal allergies J30.2 Active Problem Otalgia of right ear H92.01 Active Problem Vitamin D deficiency E55.9 Active Problem Vitamin B12 deficiency E53.8 Active Problem Diverticulitis K57.92 Active Problem GERD (gastroesophageal reflux K21.9 Active disease) Problem Low back pain M54.5 Active Problem Depression, unspecified depression F32.9 Active type Problem Other chronic pain G89.29 Active Problem Environmental allergies Z91.09 Active Medications No Known Medications Results No Known Results Summary Purpose eClinicalWorks Submission
[2019-09-26] MEDS ORDERED: IPRATROPIUM BROM 0.5MG/2.5ML ONE (12:42)
[2019-09-26] MEDS ORDERED: Levofloxacin 750mg IV 0 MG/0 ML BAG IV ONE (12:42)
[2019-09-26] MEDS ORDERED: ALBUTEROL 2.5 MG/3 ML NEB SOL ONE (12:42)
[2019-09-26] MEDS ORDERED: METHYLPREDNISOLONE 125 MG INJ ONE (12:42)
[2019-09-26] MEDS ORDERED: NA CHLORIDE 0.9% 100 ML IV ONE (12:42)
[2019-09-26] MEDS ORDERED: NA CHLORIDE 0.9% 2,000 ML ONE (12:43)
[2019-09-26] MEDS ORDERED: CEFTRIAXONE/SWI 1gm 1 GM/10 ML SYR ONE (12:43)
--- NOTE | 2019-09-26 13:16 | RAD REPORT ---
EXAM DESCRIPTION: RAD - Chest Single View - 09/26/2019 1:06 pm CLINICAL HISTORY: Congestion;Cough;Dyspnea Chest pain. COMPARISON: Chest Pa And Lat (2 Views) dated 12/31/2017 FINDINGS: Portable technique limits examination quality. The lungs are grossly clear. The heart is upper limit of normal in size. No displaced fractures. IMPRESSION: No acute intrathoracic process suspected.
[2019-09-26 13:17] LABS: Absolute Lymphocytes (CBC) 1.8 K/uL (0.7-4.9); Basophils % 0.8 % (0-1.3); Hematocrit 36.2 % (36.0-45.0); Lymphocytes % 37.8 % (15.3-44.8); MPV 8.6 fL (7.6-11.3); RBC Red Blood Cell Count 4.82 M/uL (3.86-4.86)
[2019-09-26 13:17] LABS: Urine Blood 2+ (NEG); Urine Glucose NEGATIVE (NEG); Urine Protein NEGATIVE (NEG); Urine Specific Gravity 1.015 (1.005-1.030)
[2019-09-26 13:33] LABS: Protime INR 0.94
[2019-09-26 13:41] LABS: ALT/SGPT 23 U/L (12-78); AST/SGOT 19 U/L (15-37); Albumin 3.3 g/dL (3.4-5.0); Alkaline Phosphatase 96 U/L (45-117); BUN Blood Urea Nitrogen 11 mg/dL (7-18); Bicarbonate 28 mmol/L (21-32); Bilirubin Direct < 0.1 mg/dL (0-0.2); Bilirubin Total 0.2 mg/dL (0.2-1.0); Glucose Level 97 mg/dL (74-106); Magnesium 2.2 mg/dL (1.8-2.4); NT PRO-BNP 85 pg/mL (<125); Potassium 3.8 mmol/L (3.5-5.1); Sodium Level 143 mmol/L (136-145); Troponin (Emerg Dept Use Only) < 0.02 ng/mL (0.0-0.045)
--- NOTE | 2019-09-26 14:48 | RAD REPORT ---
EXAM DESCRIPTION: CT - Chest For Pe Angio - 09/26/2019 2:39 pm CLINICAL HISTORY: Chest pain. Chest pain;Dyspnea;Cough;PE COMPARISON: <Comparisons> TECHNIQUE: CT angiogram of the pulmonary arteries was performed with MIP. All CT scans are performed using dose optimization technique as appropriate and may include automated exposure control or mA/KV adjustment according to patient size. FINDINGS: No evidence of pulmonary thromboembolism. No acute aortic finding demonstrated. Small ground-glass opacity is seen in superior segment left lower lobe most compatible with mild infi ltrate. 8 mm noncalcified nodule is seen the anterior right upper lobe (38/79). No significant pericardial or pleural fluid. No concerning bony finding. IMPRESSION: No evidence of pulmonary thromboembolism. Mild infiltrate is noted superior segment left lower lobe. 8 mm noncalcified pulmonary nodule anterior right upper lobe. Consider follow-up CT chest 6-12 months for surveillance purposes.
--- NOTE | 2019-09-26 15:01 | ER ---
Nurse's Notes [facility] Name: Laura De La O Age: 34 yrs Sex: Female : 1985 Arrival Date: 09/26/2019 Time: 12:08 Bed 20 Private MD: Sandeep Yi Diagnosis: Pneumonia due to other specified bacteria;Solitary pulmonary nodule;Dyspnea;Urinary tract infection, site not specified Presentation: 09/26 12:21 Presenting complaint: Patient states: L sided chest pain, hurts to breathe and laying ca1 flat and during coughing. Reports cough x 1 week. "[facility]ent [facility] 5 days ago they said there was "infiltration on the L lung", was prescribed antibiotics and inhaler but I still do not feel better, I feel dizzy after walking a few steps and short of breath". Transition of care: patient was not received from another setting of care. Onset of symptoms was September 26, 2019. Risk Assessment: Do you want to hurt yourself or someone else? Patient reports no desire to harm self or others. Initial Sepsis Screen: Does the patient meet any 2 criteria? No. Patient's initial sepsis screen is negative. Does the patient have a suspected source of infection? No. Patient's initial sepsis screen is negative. Care prior to arrival: None. 12:21 Method Of Arrival: Ambulatory ca1 12:21 Acuity: BILL 3 ca1 Triage Assessment: 12:30 General: Appears in no apparent distress. comfortable, obese, Behavior is cooperative, bp appropriate for age, anxious. Pain: Complains of pain in chest. 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 - Social history:: Smoking status: Patient/guardian denies using tobacco. - Ebola Screening: : Patient negative for fever greater than or equal to 101.5 degrees Fahrenheit, and additional compatible Ebola Virus Disease symptoms Patient denies exposure to infectious person Patient denies travel to an Ebola-affected area in the 21 days before illness onset No symptoms or risks identified at this time. - Family history:: not pertinent. Screenin:45 Abuse screen: Denies threats or abuse. Denies injuries from another. Nutritional bp screening: No deficits noted. Tuberculosis screening: No symptoms or risk factors identified. Fall Risk None identified. Assessment: 12:30 General: SEE TRIAGE NOTE. Pain: Complains of pain in back and chest Pain does not bp radiate. Pain began 1 day ago. Cardiovascular: Rhythm is sinus rhythm. 13:30 Reassessment: SECOND BLOOD CX SENT. HOSPITALIST AT B/S. bp 15:12 Reassessment: PT REFUSING ADMIT. D/C HOME AMBULATORY WITH FAMILY, DX WITH PNEUMONIA. bp GIVEN INCENTIVE SPIROMETER FOR HOME CARE. Vital Signs: 12:25 BP 162 / 110; Pulse 76; Resp 17 S; Pulse Ox 100% on R/A; Weight 145.15 kg (R); Height 5 ca1 ft. 5 in. (165.10 cm) (R); Pain 7/10; 13:40 BP 139 / 92; Pulse 78; Resp 16; Pulse Ox 100% ; bp 15:13 BP 137 / 95; Pulse 81; Resp 17; Temp 98.5; Pulse Ox 99% ; bp 12:25 Body Mass Index 53.25 (145.15 kg, 165.10 cm) ca1 ED Course: 12:08 Patient arrived in ED. mr 12:09 Sandeep Yi, is Private Physician. mr 12:12 Gabriel Cardozo MD is Attending Physician. chadd 12:12 Priyank Gallegos, JUHI is Primary Nurse. bp 12:23 Triage completed. ca1 12:25 Arm band placed on right wrist. ca1 12:26 Patient maintains SpO2 saturation greater than 95% on room air. ca1 12:27 Patient has correct armband on for positive identification. Placed in gown. Bed in low ca1 position. Call light in reach. Side rails up X 1. front desk monitor on. Pulse ox on. NIBP on. 12:33 Radiology exam delayed due to lab results not completed at this time. (BUN/Creatinine) mw3 test not completed at this time. 12:45 No provider procedures requiring assistance completed. IV discontinued, intact, bp bleeding controlled, No redness/swelling at site. Pressure dressing applied. 13:02 XRAY Chest (1 view) In Process Unspecified. EDMS 13:11 Inserted saline lock: 22 gauge in right antecubital area, using aseptic technique. ss Blood collected. 14:08 Radiology exam delayed due to IV insertion attempt and/or patient not having bq appropriate IV at this time. 14:40 CT Chest For PE Angio In Process Unspecified. EDMS 14:59 Sandeep Yi DO is Referral Physician. chadd 15:14 INCENTIVE SPIROMETRY Sent. bp Administered Medications: Discontinued: NS 0.9% 1000 ml IV at 1 bolus Per protocol; 1000 mL bolus 12:45 Drug: Albuterol - atroVENT (3:1) (2.5 mg - 0.5 mg) 3 ml Route: Nebulizer; bp 15:15 Follow up: Response: Marked relief of symptoms bp 13:11 Drug: SOLU-Medrol 125 mg Route: IVP; Site: right antecubital; bp 15:15 Follow up: Response: Marked relief of symptoms bp 13:11 Drug: NS 0.9% 1000 ml Route: IV; Rate: 1 bolus; Site: right antecubital; bp 15:15 Follow up: IV Status: Completed infusion bp 13:30 Drug: Rocephin 1 grams Route: IV; Rate: per protocol; Site: right antecubital; bp 15:16 Follow up: IV Status: Completed infusion; IV Intake: 50ml bp 13:30 Drug: NS 0.9% 1000 ml Route: IV; Rate: 1 bolus; Site: right antecubital; bp 15:17 Not Given (Patient Refused): LevaQUIN 750 mg 150 ml IVPB once over 90 mins bp Intake: 15:16 IV: 50ml; Total: 50ml. bp Outcome: 14:59 Discharge ordered by . chadd 15:12 Discharged to home ambulatory, with family. bp 15:12 Condition: stable 15:12 Discharge instructions given to patient, Instructed on discharge instructions, follow up and referral plans. medication usage, Demonstrated understanding of instructions, follow-up care, medications, Prescriptions given X 3. 15:17 Patient left the ED. bp Signatures: Dispatcher [employer] EDGabriel Tracy MD MD cha Rivera, Susan mr Annie Freedman Shelby, RN RN ss Priyank Gallegos RN RN Albertina Villagran 3 Elise Dc RN RN ca1
--- NOTE | 2019-09-26 15:02 | EDPHYS ---
Physician Documentation [facility] Name: Laura De La O Age: 34 yrs Sex: Female : 1985 Arrival Date: 09/26/2019 Time: 12:08 Bed 20 Private MD: [facility] ED Physician Gabriel Cardozo HPI: 09/26 12:26 This 34 yrs old Female presents to ER via Ambulatory with complaints of Chest chadd Pain, Shortness Of Breath. 12:26 The patient or guardian reports chest pain that is located primarily in the anterior chadd chest wall, left. The pain does not radiate. Associated signs and symptoms: Pertinent positives: cough, lightheadedness, shortness of breath. The chest pain is described as aching. Duration: The patient or guardian reports a single episode, that is still ongoing. Severity of pain: At its worst the pain was mild in the emergency department the pain is actually worse. The patient has not experienced similar symptoms in the past. 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 - Social history:: Smoking status: Patient/guardian denies using tobacco. - Ebola Screening: : Patient negative for fever greater than or equal to 101.5 degrees Fahrenheit, and additional compatible Ebola Virus Disease symptoms Patient denies exposure to infectious person Patient denies travel to an Ebola-affected area in the 21 days before illness onset No symptoms or risks identified at this time. - Family history:: not pertinent. ROS: 12:26 Constitutional: Negative for fever, chills, and weight loss, Eyes: Negative for injury, chadd pain, redness, and discharge, ENT: Negative for injury, pain, and discharge, Neck: Negative for injury, pain, and swelling, Cardiovascular: Negative for chest pain, palpitations, and edema, Abdomen/GI: Negative for abdominal pain, nausea, vomiting, diarrhea, and constipation, Back: Negative for injury and pain, : Negative for injury, bleeding, discharge, and swelling, MS/Extremity: Negative for injury and deformity, Skin: Negative for injury, rash, and discoloration, Neuro: Negative for headache, weakness, numbness, tingling, and seizure, Psych: Negative for depression, anxiety, suicide ideation, homicidal ideation, and hallucinations, Allergy/Immunology: Negative for hives, rash, and allergies, Endocrine: Negative for neck swelling, polydipsia, polyuria, polyphagia, and marked weight changes, Hematologic/Lymphatic: Negative for swollen nodes, abnormal bleeding, and unusual bruising. 12:26 Respiratory: Positive for cough, shortness of breath, wheezing, inspiratory, expiratory, of the left posterior upper lobe and left posterior lower lobe. Exam: 12:26 Constitutional: This is a well developed, well nourished patient who is awake, alert, chadd and in no acute distress. Head/Face: Normocephalic, atraumatic. Eyes: Pupils equal round and reactive to light, extra-ocular motions intact. Lids and lashes normal. Conjunctiva and sclera are non-icteric and not injected. Cornea within normal limits. Periorbital areas with no swelling, redness, or edema. ENT: Nares patent. No nasal discharge, no septal abnormalities noted. Tympanic membranes are normal and external auditory canals are clear. Oropharynx with no redness, swelling, or masses, exudates, or evidence of obstruction, uvula midline. Mucous membranes moist. Neck: Trachea midline, no thyromegaly or masses palpated, and no cervical lymphadenopathy. Supple, full range of motion without nuchal rigidity, or vertebral point tenderness. No Meningismus. Chest/axilla: Normal chest wall appearance and motion. Nontender with no deformity. No lesions are appreciated. Cardiovascular: Regular rate and rhythm with a normal S1 and S2. No gallops, murmurs, or rubs. Normal PMI, no JVD. No pulse deficits. Abdomen/GI: Soft, non-tender, with normal bowel sounds. No distension or tympany. No guarding or rebound. No evidence of tenderness throughout. Back: No spinal tenderness. No costovertebral tenderness. Full range of motion. Skin: Warm, dry with normal turgor. Normal color with no rashes, no lesions, and no evidence of cellulitis. MS/ Extremity: Pulses equal, no cyanosis. Neurovascular intact. Full, normal range of motion. Neuro: Awake and alert, GCS 15, oriented to person, place, time, and situation. Cranial nerves II-XII grossly intact. Motor strength 5/5 in all extremities. Sensory grossly intact. Cerebellar exam normal. Normal gait. Psych: Awake, alert, with orientation to person, place and time. Behavior, mood, and affect are within normal limits. 12:26 Respiratory: mild respiratory distress is noted, Respirations: labored breathing, is not present, Breath sounds: bronchial sounds, decreased breath sounds, rhonchi, wheezing: inspiratory expiratory that is mild, is heard in the left posterior upper lobe and left posterior lower lobe. Vital Signs: 12:25 BP 162 / 110; Pulse 76; Resp 17 S; Pulse Ox 100% on R/A; Weight 145.15 kg (R); Height 5 ca1 ft. 5 in. (165.10 cm) (R); Pain 7/10; 13:40 BP 139 / 92; Pulse 78; Resp 16; Pulse Ox 100% ; bp 15:13 BP 137 / 95; Pulse 81; Resp 17; Temp 98.5; Pulse Ox 99% ; bp 12:25 Body Mass Index 53.25 (145.15 kg, 165.10 cm) ca1 MDM: 12:13 Patient medically screened. [facility] 12:33 Data reviewed: vital signs, nurses notes, lab test result(s), EKG, radiologic studies, [facility] CT scan, plain films. 09/26 12:26 Order name: Basic Metabolic Panel; Complete Time: 13:53 [facility] 09/26 12:26 Order name: CBC with Diff; Complete Time: 13:36 [facility] 09/26 12:26 Order name: LFT's; Complete Time: 13:53 [facility] 09/26 12:26 Order name: Magnesium; Complete Time: 13:53 [facility] 09/26 12:26 Order name: NT PRO-BNP; Complete Time: 13:53 [facility] 09/26 12:26 Order name: PT-INR; Complete Time: 13:53 [facility] 09/26 12:26 Order name: Troponin (emerg Dept Use Only); Complete Time: 13:53 [facility] 09/26 12:26 Order name: XRAY Chest (1 view); Complete Time: 13:19 [facility] 09/26 12:26 Order name: Urine Culture 09/26 12:26 Order name: Blood Culture Adult (2) 09/26 12:54 Order name: Urine Dipstick--Ancillary (enter results); Complete Time: 13:19 ms 09/26 12:54 Order name: Urine --Ancillary (enter results); Complete Time: 13:19 ms 09/26 13:12 Order name: Procalcitonin; Complete Time: 14:58 [facility] 09/26 13:12 Order name: Lactate; Complete Time: 14:58 [facility] 09/26 12:26 Order name: EKG; Complete Time: 12:27 [facility] 09/26 12:26 Order name: Cardiac monitoring; Complete Time: 12:28 [facility] 09/26 12:26 Order name: EKG - Nurse/Tech; Complete Time: 12:27 [facility] 09/26 12:26 Order name: IV Saline Lock; Complete Time: 13:11 [facility] 09/26 12:26 Order name: Labs collected and sent; Complete Time: 13:11 [facility] 09/26 12:26 Order name: O2 Per Protocol; Complete Time: 12:27 [facility] 09/26 12:26 Order name: O2 Sat Monitoring; Complete Time: 12:27 [facility] 09/26 12:26 Order name: Urine Dipstick-Ancillary (obtain specimen); Complete Time: 13:03 [facility] 09/26 12:26 Order name: CT Chest For PE Angio; Complete Time: 14:58 [facility] 09/26 15:01 Order name: INCENTIVE SPIROMETRY 09/26 12:26 Order name: Urine Test (obtain specimen); Complete Time: 13:03 [facility] Administered Medications: Discontinued: NS 0.9% 1000 ml IV at 1 bolus Per protocol; 1000 mL bolus 12:45 Drug: Albuterol - atroVENT (3:1) (2.5 mg - 0.5 mg) 3 ml Route: Nebulizer; bp 15:15 Follow up: Response: Marked relief of symptoms bp 13:11 Drug: SOLU-Medrol 125 mg Route: IVP; Site: right antecubital; bp 15:15 Follow up: Response: Marked relief of symptoms bp 13:11 Drug: NS 0.9% 1000 ml Route: IV; Rate: 1 bolus; Site: right antecubital; bp 15:15 Follow up: IV Status: Completed infusion bp 13:30 Drug: Rocephin 1 grams Route: IV; Rate: per protocol; Site: right antecubital; bp 15:16 Follow up: IV Status: Completed infusion; IV Intake: 50ml bp 13:30 Drug: NS 0.9% 1000 ml Route: IV; Rate: 1 bolus; Site: right antecubital; bp 15:17 Not Given (Patient Refused): LevaQUIN 750 mg 150 ml IVPB once over 90 mins bp Disposition: 09/26/19 14:59 Discharged to Home. Impression: Pneumonia due to other specified bacteria, Solitary pulmonary nodule, Dyspnea, Urinary tract infection, site not specified. - Condition is Stable. - Discharge Instructions: Community-Acquired Pneumonia, Adult, Urinary Tract Infection, Adult, Urinary Tract Infection, Adult, Qdup-[id number], Community-Acquired Pneumonia, Adult, Laax-fz-Gmem, Pulmonary Nodule, Pulmonary Nodule, [id number]-[id number]. - Prescriptions for Levaquin 750 mg Oral Tablet - take 1 tablet by ORAL route once daily for 8-10 days; 9 tablet. Albuterol Sulfate 90 mcg/actuation - inhale 1-2 puff by INHALATION route every 4-6 hours; 1 Inhaler. Fluconazole 200 mg Oral Tablet - take 1 tablet by ORAL route once daily; 2 tablet. - Medication Reconciliation Form, Thank You Letter, Antibiotic Education, Prescription Opioid Use form. - Follow up: Sandeep Yi, DO; When: 2 - 3 days; Reason: Recheck today's complaints, Continuance of care, Re-evaluation by your physician. - Problem is new. - Symptoms have improved. Signatures: Dispatcher [employer] EDAK Garbiel Cardozo MD MD cha Roszak, Josh, PA PA [id number] Priyank Gallegos RN RN Elise Roberson RN RN ca1 Corrections: (The following items were deleted from the chart) 15:01 14:59 09/26/2019 14:59 Discharged to Home. Impression: Pneumonia due to other specified chadd bacteria; Solitary pulmonary nodule; Dyspnea. Condition is Stable. Forms are Medication Reconciliation Form, Thank You Letter, Antibiotic Education, Prescription Opioid Use. Follow up: Sandeep Yi; When: 2 - 3 days; Reason: Recheck today's complaints, Continuance of care, Re-evaluation by your physician. Problem is new. Symptoms have improved. [facility] 15:17 15:01 09/26/2019 14:59 Discharged to Home. Impression: Pneumonia due to other specified bp bacteria; Solitary pulmonary nodule; Dyspnea; Urinary tract infection, site not specified. Condition is Stable. Discharge Instructions: Community-Acquired Pneumonia, Adult, Community-Acquired Pneumonia, Adult, Dxfr-rf-Qcuy, Pulmonary Nodule, Pulmonary Nodule, Fmbx-sd-[id number]. Prescriptions for Levaquin 750 mg Oral Tablet - take 1 tablet by ORAL route once daily for 8-10 days; 9 tablet, Albuterol Sulfate 90 mcg/actuation - inhale 1-2 puff by INHALATION route every 4-6 hours; 1 Inhaler. and Forms are Medication Reconciliation Form, Thank You Letter, Antibiotic Education, Prescription Opioid Use. Follow up: Sandeep Yi; When: 2 - 3 days; Reason: Recheck today's complaints, Continuance of care, Re-evaluation by your physician. Problem is new. Symptoms have improved. [facility]
[2019-09-26 15:28] VITALS: BP 137/95; TEMP 98.5; O2SAT 99
--- NOTE | 2019-09-27 05:32 | EKG ---
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
== END 2019-09-26 15:17 | disposition home or self-care (01) ==
LOC: ER 12:07
DX: J15.8 Pneumonia due to other specified bacteria (principal); R91.1 Solitary pulmonary nodule; N39.0 Urinary tract infection, site not specified; R06.00 Dyspnea, unspecified; I10 Essential (primary) hypertension; E03.9 Hypothyroidism, unspecified; F32.9 Major depressive disorder, single episode, unspecified; Z88.1 Allergy status to other antibiotic agents; Z88.2 Allergy status to sulfonamides; Z88.6 Allergy status to analgesic agent
CPT/HCPCS: 96365; 93005; 87040 ×2; 87088; 85025; 87086; 80048; 36415; 83735; 81025; 85610; 80076; 83605; 81003; 84484; 84145; 83880; 71275; 71045; 94640; 96375; 99285; 96366; Q9967; J0696; J7030; J2930

== ENCOUNTER 2019-11-12 07:24 | Emergency (ER) | payer OTHER ==
--- OUTSIDE RECORDS SUMMARY | 2019-11-12 07:26 | XMS REPORT ---
[...] A60.9 Active anogenital infection Problem History of Mlclz-Cnedmdjlx-Ntywm Z86.79 Active (WPW) syndrome Problem Sore throat [...] Status Dosage System Date Date HydrOXYzine HCl [facility] 84838283776 50 MG Orally Active 1 tablet Twice a day as needed for anxiety Results No Known Results Summary Purpose eClinicalWorks Submission
--- OUTSIDE RECORDS SUMMARY | 2019-11-12 07:26 | XMS REPORT ---
[...] A60.9 Active anogenital infection Problem History of Otepy-Lqhrvvgge-Kgqjp Z86.79 Active (WPW) syndrome Problem Sore throat [...]
--- OUTSIDE RECORDS SUMMARY | 2019-11-12 07:26 | XMS REPORT ---
:1985 [facility] Address [address] [place] [address] Dr. Troncoso [address] [place] [id number] Care Team Providers Name Role Phone Unavailable Unavailable Unavailable Problems This patient has no known problems. Allergies, Adverse Reactions, Alerts This patient has no known allergies or adverse reactions. Medications This patient has no known medications.
--- OUTSIDE RECORDS SUMMARY | 2019-11-12 07:26 | XMS REPORT ---
[...] A60.9 Active anogenital infection Problem History of Lhpme-Norykhnzh-Ovham Z86.79 Active (WPW) syndrome Problem Sore throat [...] System Date Date Levothyroxine [facility] 44896049656 125 MCG Orally Active 1 tablet Sodium Once a day on an empty stomach in the morning Results No Known Results Summary Purpose eClinicalWorks Submission
--- OUTSIDE RECORDS SUMMARY | 2019-11-12 07:27 | XMS REPORT ---
:1985 Author Organization eClinicalWorks Care Team Providers Name Role Phone Kd Sandeep Provider Role Unavailable Allergies, Adverse Reactions, Alerts Substance Reaction Event Type Zoloft Info Not Available Drug Allergy Seroquel Info Not Available Drug Allergy Paxil Info Not Available Drug Allergy Keflex Info Not Available Drug Allergy Problems Problem Type Condition Code Onset Dates Condition Status Assessment Left hand pain M79.642 Active Assessment Laceration of left hand, foreign S61.412D Active body presence unspecified, subsequent encounter Problem Hypothyroidism E03.9 Active Problem Depression with anxiety F41.8 Active Assessment Allergic rhinitis, unspecified J30.9 Active seasonality, unspecified trigger Problem Osteoarthritis of multiple joints M15.9 Active Assessment Adult BMI 50.0-59.9 kg/sq m Z68.43 Active Problem DDD (degenerative disc disease), M50.30 Active cervical Problem HSV (herpes simplex virus) A60.9 Active anogenital infection Problem 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 Problem Irritable bowel syndrome K58.9 Active Problem Sinusitis, unspecified chronicity, J32.9 Active unspecified location Problem Sore throat J02.9 Active Problem Bipolar disorder F31.9 Active Problem Autoimmune thyroiditis E06.3 Active Problem Adult BMI 50.0-59.9 kg/sq m Z68.43 Active Problem Acquired hypothyroidism E03.9 Active Problem Right upper lobe pulmonary nodule R91.1 Active Problem Allergic rhinitis, unspecified J30.9 Active seasonality, unspecified trigger Problem GERD (gastroesophageal reflux K21.9 Active disease) Problem Diverticulitis K57.92 Active Assessment GERD (gastroesophageal reflux K21.9 Active disease) Problem Pulmonary nodule, right R91.1 Active Problem Degenerative disc disease, lumbar M51.36 Active Assessment Osteoarthritis of multiple joints M15.9 Active Problem Seasonal allergies J30.2 Active Assessment Bipolar disorder F31.9 Active Problem Otalgia of right ear H92.01 Active Assessment Vitamin D deficiency E55.9 Active Problem 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 Assessment Vitamin B12 deficiency E53.8 Active Problem Primary osteoarthritis of left M17.12 Active knee Assessment Acute bronchitis, unspecified J20.9 Active organism Problem Other chronic pain G89.29 Active Assessment Right upper lobe pulmonary nodule R91.1 Active Problem Environmental allergies Z91.09 Active Assessment Chondromalacia, left knee M94.262 Active Problem Vitamin D deficiency E55.9 Active Assessment Depression with anxiety F41.8 Active Problem Vitamin B12 deficiency E53.8 Active Assessment Prediabetes R73.03 Active Problem 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 Assessment 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 Problem History of Irxfn-Atdiwisro-Yvzvv Z86.79 Active (WPW) syndrome Problem Low back pain M54.5 Active Problem Depression, unspecified depression F32.9 Active type Medications Medication Code Code Instructions Start End Status Dosage System Date Date Levothyroxine [facility] 18848926858 125 MCG Active TAKE 1 Sodium TABLET BY MOUTH EVERY MORNING ON AN EMPTY STOMACH Zofran [facility] 78301176239 4 MG Orally Sep 27, Oct 04, Active 1 tablet Twice a day 2019 2019 as needed for nausea HydrOXYzine HCl [facility] 47572919281 50 MG Orally Active 1 tablet Twice a day as as needed needed for for anxiety anxiety Tylenol # 3 NDC 0 30-500-15 MG Active 2 tablets Orally every 6 as needed hrs Nasonex [facility] 49120291602 50 MCG/ACT Active 2 sprays Nasally Once a in each day nostril Deconex DMX [facility] 84196684527 10-17.5-385 MG February 13, Active one tab Orally Four 2019 times a day Cymbalta [facility] 65640361775 60 MG Orally Active 1 capsule Twice a day Synthroid [facility] 19019768834 125 MCG Oral Active tk 1 t po Once a day qam oes Vitamin D3 [facility] 71509624254 28408 UNIT Active 1 capsule Orally Once a week x 12 weeks Cetirizine HCl [facility] 94609584712 10 MG Orally February 13, Active 1 tablet Once a day for 2019 allergies Acetaminophen-Co [facility] [address]-97 Active not deine defined Results No Known Results Summary Purpose eClinicalWorks Submission
--- OUTSIDE RECORDS SUMMARY | 2019-11-12 07:27 | XMS REPORT ---
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 Problem History of Rjvuk-Qxkeaxunr-Urzfa Z86.79 Active (WPW) syndrome Problem Dominique's thyroiditis [...] Dosage System Date Date Tylenol # 3 [facility] 0 30-500-15 MG Active 2 tablets Orally every 6 as needed hrs HydrOXYzine HCl [facility] 10652828388 50 MG Orally Active 1 tablet Twice a day as as needed needed for for anxiety anxiety Azithromycin [facility] 46574467335 250 MG Orally Aug 09, Aug 14, Active 2 tablets Once a day 2018 2018 on the first day, then 1 tablet daily for 4 days Nasonex [facility] 93729903398 50 MCG/ACT Active 2 sprays Nasally Once a in each day nostril Cymbalta [facility] 98331608206 60 MG Orally Active 1 capsule Twice a day Acetaminophen-C [facility] [address]-09 Active not odeine defined Synthroid [facility] 92653016195 125 MCG Oral Active tk 1 t po Once a day qam oes Vitamin D3 [facility] 29361125857 25504 UNIT Active 1 capsule Orally Once a week x 12 weeks Deconex DMX [facility] 56625021387 10-17.5-385 MG February 13, Active one tab Orally Four 2019 times a day Cetirizine HCl [facility] 60480508757 10 MG Orally February 13, Active 1 tablet Once a day for 2019 allergies Results No Known Results Summary Purpose eClinicalWorks Submission
--- OUTSIDE RECORDS SUMMARY | 2019-11-12 07:27 | XMS REPORT ---
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
--- OUTSIDE RECORDS SUMMARY | 2019-11-12 07:27 | XMS REPORT ---
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
--- OUTSIDE RECORDS SUMMARY | 2019-11-12 07:27 | XMS REPORT ---
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
--- OUTSIDE RECORDS SUMMARY | 2019-11-12 07:28 | XMS REPORT ---
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 Problem Irritable bowel syndrome K58.9 Active Problem Bipolar disorder F31.9 Active Problem Sore throat J02.9 Active Problem Acquired hypothyroidism E03.9 Active Problem Degenerative disc disease, lumbar M51.36 Active Problem Autoimmune thyroiditis E06.3 Active Problem Otalgia of right ear H92.01 Active Problem Adult BMI 50.0-59.9 kg/sq m Z68.43 Active Problem Pulmonary nodule, right R91.1 Active Problem Right upper lobe pulmonary nodule R91.1 Active Problem Vitamin D deficiency E55.9 Active Problem GERD (gastroesophageal reflux K21.9 Active disease) Problem Anxiety F41.9 Active Problem Diverticulitis K57.92 Active Problem Primary osteoarthritis of left knee M17.12 Active Problem Seasonal allergies J30.2 Active Problem Allergic rhinitis, unspecified J30.9 Active seasonality, unspecified trigger Problem 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 Active Assessment Upper respiratory tract infection, J06.9 Active unspecified type Problem 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 55268407008 50 MG Orally Active 1 tablet every 8 hrs PRN as needed Anxiety for anxiety Levothyroxine [facility] 91829486938 125 MCG Active TAKE 1 Sodium TABLET BY MOUTH EVERY MORNING ON AN EMPTY STOMACH Tylenol # [address] [facility] 0 30-500-15 MG Active 2 tablets Orally every 6 as needed hrs Xofluza [facility] 19805104873 2 x 40 MG Nov 09, Active as Orally Once 2019 directed Azithromycin [facility] 39458431322 250 MG Orally Nov 09, Oct Active 2 tablets Once a day 2019, on the 2019 first day, then 1 tablet daily for 4 days Acetaminophen-Co [facility] [address]-81 Active not deine defined Cymbalta [facility] 41460424973 60 MG Orally Active 1 capsule Twice a day Vitamin D3 [facility] 00776353680 14196 UNIT Active 1 capsule Orally Once a week x 12 weeks Cetirizine HCl [facility] 19153546422 10 MG Orally February 13, Active 1 tablet Once a day for 2018 allergies Results Name Result Date Reference Range Unit Abnormality Flag STREP A RAPID ----Result Neg [id number] FLU TEST A/B ----B Neg [id number] ----A Pos [id number] Summary Purpose eClinicalWorks Submission
[2019-11-12] MEDS ORDERED: LORazepam 2 MG/ML VIAL ONE (08:31)
[2019-11-12] MEDS ORDERED: LEVALBUTEROL 1.25 MG/3 ML NEB ONE (08:31)
[2019-11-12] MEDS ORDERED: NA CHLORIDE 0.9% 1,000 ML ONE (08:31)
[2019-11-12] MEDS ORDERED: ONDANSETRON 4 MG/2 ML VIAL ONE (09:11)
[2019-11-12 09:12] LABS: Absolute Lymphocytes (CBC) 0.9 K/uL (0.7-4.9); Basophils % 0.4 % (0-1.3); Hematocrit 38.8 % (36.0-45.0); Lymphocytes % 14.3 % (15.3-44.8); MPV 8.9 fL (7.6-11.3); RBC Red Blood Cell Count 5.28 M/uL (3.86-4.86)
--- NOTE | 2019-11-12 09:12 | RAD REPORT ---
EXAM DESCRIPTION: RAD - Chest Pa And Lat (2 Views) - 11/12/2019 8:27 am CLINICAL HISTORY: fever, cough COMPARISON: Chest Single View dated 09/26/2019; Chest Pa And Lat (2 Views) dated 12/31/2017 TECHNIQUE: Frontal and lateral views of the chest were obtained. FINDINGS: The lungs are clear. Interstitial pattern matches comparison studies. Heart size is cristian l and central vasculature is within normal limits. No pleural effusion or pneumothorax seen. No acu te bony finding noted. No aortic abnormality. IMPRESSION: No acute cardiopulmonary process.
[2019-11-12 09:39] LABS: Albumin 3.9 g/dL (3.4-5.0); Bilirubin Total 0.2 mg/dL (0.2-1.0); Potassium 3.4 mmol/L (3.5-5.1); Protein, Total 7.9 g/dL (6.4-8.2)
--- NOTE | 2019-11-12 09:56 | EDPHYS ---
Physician Documentation [facility] Name: Laura De La O Age: 34 yrs Sex: Female : 1985 Arrival Date: 11/12/2019 Time: 07:25 Bed 14 Private MD: ED Physician Stefan Alvarez HPI: 11/12 07:46 This 34 yrs old Female presents to ER via Ambulatory with complaints of jmm Shortness Of Breath, Cough - flu a+. 07:46 The patient has shortness of breath at rest. Onset: The symptoms/episode began/occurred jmm gradually, 5 day(s) ago. Duration: The symptoms are continuous. The patient's shortness of breath is aggravated by nothing, is alleviated by nothing. Associated signs and symptoms: Pertinent positives: non-productive cough, fever, nausea, vomiting. This is a 34 year old female with a history of htn that presents to the ED with complaints of cough, body aches, congestion, vomiting, diarrhea, nausea beginning 5 days ago. Patient states being diagnosed with influenza this past Friday. . Historical: - Allergies: 07:43 Bactrim; hb 07:43 NSAIDS; due to Gastric Bypass; hb 07:43 Sulfa (Sulfonamide Antibiotics); hb 07:43 Vancomycin; hb - Home Meds: 07:43 Ativan Oral [Active]; Cymbalta 60 mg Oral cpDR 1 cap once daily [Active]; Cymbalta Oral hb [Active]; Hydroxyzine Oral [Active]; hydroxyzine HCl 50 mg Oral tab at bedtime [Active]; levothyroxine 125 mcg tab once daily [Active]; Loratab [Active]; Tylenol #3 Oral PRN for Back pain [Active]; Synthroid Oral [Active]; - PMHx: 07:43 Chronic pain; Hypothyroidism; ibs; Hypertension; Dominique's; Depression; Anxiety; hb Panic Attacks; WPW; - PSHx: 07:43 Gastric Bypass; Cardiac Ablation for WPW; hb - Immunization history:: Adult Immunizations up to date. - Coronavirus screen:: The patient has NOT traveled to [place] in the past 14 days. The patient has NOT had contact with known/suspected case of Coronavirus? Proceed with normal triage procedures. - Social history:: Smoking status: Patient denies any tobacco usage or history of. - Ebola Screening: : No symptoms or risks identified at this time. ROS: 07:46 Constitutional: Positive for body aches, fever. [facility] 07:46 Respiratory: Positive for cough, shortness of breath, wheezing. 07:46 Abdomen/GI: Positive for nausea and vomiting, diarrhea. 07:46 All other systems are negative. Exam: 07:46 Head/Face: atraumatic. Eyes: EOMI, no conjunctival erythema appreciated ENT: Moist [facility] Mucus Membranes Neck: Trachea midline, Supple Chest/axilla: Normal chest wall appearance and motion. Cardiovascular: Regular rate and rhythm. No edema appreciated 07:46 Constitutional: The patient appears alert, awake, anxious, uncomfortable. 07:46 Respiratory: the patient does not display signs of respiratory distress, Respirations: normal, Breath sounds: wheezing: that is mild, is scattered. 07:46 Abdomen/GI: Inspection: abdomen appears normal, Bowel sounds: normal. 07:46 Back: ROM is normal. 07:46 Musculoskeletal/extremity: ROM: intact in all extremities. 07:46 Skin: Appearance: Color: normal in color. 07:46 Neuro: Orientation: is normal, Mentation: is normal, Memory: is normal, Gait: is steady. 07:46 Psych: Behavior/mood is pleasant, cooperative. Vital Signs: 07:43 BP 159 / 109; Pulse 84; Resp 18; Temp 98.2; Pulse Ox 98% on R/A; Weight 145.15 kg; hb Height 5 ft. 4 in. (162.56 cm); Pain 8/10; 09:41 BP 98 / 77; Pulse 80; Resp 16; Pulse Ox 100% on R/A; em1 10:07 BP 112 / 087; Pulse 82; Resp 18; Temp 97.9; Pulse Ox 99% on R/A; ph 07:43 Body Mass Index 54.93 (145.15 kg, 162.56 cm) hb [facility]: 07:46 Patient medically screened. [facility] 09:54 Data reviewed: vital signs, nurses notes. Counseling: I had a detailed discussion with roderick the patient and/or guardian regarding: the historical points, exam findings, and any diagnostic results supporting the discharge/admit diagnosis, lab results, radiology results, the need for outpatient follow up, to return to the emergency department if symptoms worsen or persist or if there are any questions or concerns that arise at home. ED course: Patient is alert and non toxic in appearance in the ED. Patient is advised to follow up with pcp. No signs of resp distress in the ED. Patient is otherwise given strict return precautions. patient understood and agrees with the plan of care. . 11/12 07:50 Order name: CBC with Diff; Complete Time: 09:18 [facility] 11/12 07:50 Order name: CMP; Complete Time: 09:40 [facility] 11/12 07:50 Order name: Procalcitonin; Complete Time: 09:47 [facility] 11/12 07:50 Order name: Blood Culture Adult (2) [facility] 11/12 07:51 Order name: Chest Pa And Lat (2 Views) XRAY; Complete Time: 09:17 [facility] 11/12 07:50 Order name: Saline Lock; Complete Time: 09:56 [facility] 11/12 09:11 Order name: Labs - recollect needed: Lactic acid; Complete Time: 09:52 dh4 Administered Medications: 08:55 Drug: NS 0.9% 1000 ml Route: IV; Rate: 1 bolus; Site: right antecubital; ph 10:16 Follow up: Response: No adverse reaction; IV Status: Completed infusion; IV Intake: ph 1000ml 08:55 Drug: Xopenex (3) 1.25 mg Route: Inhalation; ph 10:17 Follow up: Response: No adverse reaction ph 08:55 Drug: Ativan 0.5 mg Route: IVP; Site: right antecubital; ph 10:18 Follow up: Response: No adverse reaction ph 09:05 Drug: Zofran 4 mg Route: IVP; Site: right antecubital; ph 10:18 Follow up: Response: No adverse reaction; Nausea is decreased ph Disposition: 12:59 Co-signature as Attending Physician, Stefan Alvarez MD I agree with the assessment and kdr plan of care. Disposition: 11/12/19 09:55 Discharged to Home. Impression: Acute bronchitis. - Condition is Stable. - Discharge Instructions: Acute Bronchitis, Adult. - Prescriptions for Ativan 1 mg Oral Tablet - take 1 tablet by ORAL route every 8 hours As needed; 10 tablet. Medrol (Ernesto) 4 mg Oral Tablets, Dose Pack - take 1 tablet by ORAL route as directed - follow package instructions; 1 packet. Albuterol Sulfate 90 mcg/actuation - inhale 1-2 puff by INHALATION route every 4-6 hours; 1 Inhaler. - Medication Reconciliation Form, Thank You Letter, Antibiotic Education, Prescription Opioid Use form. - Follow up: Private Physician; When: 2 - 3 days; Reason: Recheck today's complaints, Continuance of care, Re-evaluation by your physician. Signatures: Dispatcher [employer] EDStefan Waldron MD MD kdr Mickail, Joel, PA PA jmm Hall, Patricia, RN RN Luciana Gill RN RN Bennie Reid [facility] Corrections: (The following items were deleted from the chart) 10:19 09:55 11/12/2019 09:55 Discharged to Home. Impression: Acute bronchitis. Condition is ph Stable. Forms are Medication Reconciliation Form, Thank You Letter, Antibiotic Education, Prescription Opioid Use. Follow up: Private Physician; When: 2 - 3 days; Reason: Recheck today's complaints, Continuance of care, Re-evaluation by your physician. roderick
--- NOTE | 2019-11-12 09:56 | ER ---
Nurse's Notes [facility] Name: Laura De La O Age: 34 yrs Sex: Female : 1985 Arrival Date: 11/12/2019 Time: 07:25 Bed 14 [facility] MD: Diagnosis: Acute bronchitis Presentation: 11/12 07:38 Presenting complaint: N/V/D, body aches, cough, and SOB x [address] Kd calvin Friday, given Xofluza for Flu A. Pt stated "I feel like I am going to .". Transition of care: patient was not received from another setting of care. Onset of symptoms was November 12, 2019. Risk Assessment: Do you want to hurt yourself or someone else? Patient reports no desire to harm self or others. 07:38 Method Of Arrival: Ambulatory hb 07:38 Acuity: BILL 3 hb 10:08 Initial Sepsis Screen: Does the patient meet any 2 criteria? No. Patient's initial ph sepsis screen is negative. Does the patient have a suspected source of infection? No. Patient's initial sepsis screen is negative. Care prior to arrival: None. Historical: - Allergies: 07:43 Bactrim; hb 07:43 NSAIDS; due to Gastric Bypass; hb 07:43 Sulfa (Sulfonamide Antibiotics); hb 07:43 Vancomycin; hb - Home Meds: 07:43 Ativan Oral [Active]; Cymbalta 60 mg Oral cpDR 1 cap once daily [Active]; Cymbalta Oral hb [Active]; Hydroxyzine Oral [Active]; hydroxyzine HCl 50 mg Oral tab at bedtime [Active]; levothyroxine 125 mcg tab once daily [Active]; Loratab [Active]; Tylenol #3 Oral PRN for Back pain [Active]; Synthroid Oral [Active]; - PMHx: 07:43 Chronic pain; Hypothyroidism; ibs; Hypertension; Dominique's; Depression; Anxiety; hb Panic Attacks; WPW; - PSHx: 07:43 Gastric Bypass; Cardiac Ablation for WPW; hb - Immunization history:: Adult Immunizations up to date. - Coronavirus screen:: The patient has NOT traveled to [place] in the past 14 days. The patient has NOT had contact with known/suspected case of Coronavirus? Proceed with normal triage procedures. - Social history:: Smoking status: Patient denies any tobacco usage or history of. - Ebola Screening: : No symptoms or risks identified at this time. Screenin:07 Abuse screen: Denies threats or abuse. Denies injuries from another. Nutritional ph screening: No deficits noted. Tuberculosis screening: No symptoms or risk factors identified. Fall Risk None identified. Assessment: 08:30 General: Appears in no apparent distress. uncomfortable, obese, well groomed, Behavior ph is cooperative, appropriate for age, anxious, crying, Reports feeling ill for 1-2 days, Denies fever. Pain: Complains of pain in abdomen, right arm, left arm, right leg and left leg. Neuro: Level of Consciousness is awake, alert, obeys commands, Oriented to person, place, time, situation. Cardiovascular: Capillary refill < 3 seconds in bilateral fingers Patient's skin is warm and dry. Rhythm is regular. Respiratory: Reports shortness of breath cough that is Airway is patent Respiratory effort is even, unlabored, Respiratory pattern is regular, symmetrical, Breath sounds with wheezes. GI: Reports lower abdominal pain, upper abdominal pain, nausea. Derm: Skin is intact, is healthy with good turgor, Skin is pink, warm \\T\\ dry. 09:30 Reassessment: Patient appears in no apparent distress at this time. Patient and/or ph family updated on plan of care and expected duration. Pain level reassessed. Patient is alert, oriented x 3, equal unlabored respirations, skin warm/dry/pink. Vital Signs: 07:43 BP 159 / 109; Pulse 84; Resp 18; Temp 98.2; Pulse Ox 98% on R/A; Weight 145.15 kg; hb Height 5 ft. 4 in. (162.56 cm); Pain 8/10; 09:41 BP 98 / 77; Pulse 80; Resp 16; Pulse Ox 100% on R/A; em1 10:07 BP 112 / 087; Pulse 82; Resp 18; Temp 97.9; Pulse Ox 99% on R/A; ph 07:43 Body Mass Index 54.93 (145.15 kg, 162.56 cm) hb ED Course: 07:25 Patient arrived in ED. as 07:37 Crow Johnston PA is PHCP. [facility] 07:37 Stefan Alvarez MD is Attending Physician. jmm 07:42 Triage completed. hb 07:43 Arm band placed on. hb 07:56 Breanna Molina, RN is Primary Nurse. ph 08:32 Chest Pa And Lat (2 Views) XRAY In Process Unspecified. EDMS 08:55 Inserted saline lock: 22 gauge in right antecubital area, using aseptic technique. ph Blood collected. 10:13 No provider procedures requiring assistance completed. IV discontinued, intact, ph bleeding controlled, No redness/swelling at site. Pressure dressing applied. 10:15 Patient has correct armband on for positive identification. Placed in gown. Bed in low ph position. Call light in reach. Side rails up X 1. Pulse ox on. NIBP on. Door closed. Noise minimized. Warm blanket given. Head of bed elevated. Administered Medications: 08:55 Drug: NS 0.9% 1000 ml Route: IV; Rate: 1 bolus; Site: right antecubital; ph 10:16 Follow up: Response: No adverse reaction; IV Status: Completed infusion; IV Intake: ph 1000ml 08:55 Drug: Xopenex (3) 1.25 mg Route: Inhalation; ph 10:17 Follow up: Response: No adverse reaction ph 08:55 Drug: Ativan 0.5 mg Route: IVP; Site: right antecubital; ph 10:18 Follow up: Response: No adverse reaction ph 09:05 Drug: Zofran 4 mg Route: IVP; Site: right antecubital; ph 10:18 Follow up: Response: No adverse reaction; Nausea is decreased ph Intake: 10:16 IV: 1000ml; Total: 1000ml. ph Outcome: 09:55 Discharge ordered by . [facility] 10:15 Discharged to home ambulatory, with significant other. ph 10:15 Condition: improved 10:15 Discharge instructions given to patient, Instructed on discharge instructions, follow up and referral plans. medication usage, Demonstrated understanding of instructions, follow-up care, Prescriptions given X 3. 10:19 Patient left the ED. ph Signatures: Dispatcher [employer] EDMS Crow Johnston PA PA jmm Martinez, Amelia as Martinez, Eric em1 Breanna Molina, RN RN ph Luciana Gill, JUHI RN hb
[2019-11-12 10:51] VITALS: BP 159/109; TEMP 98.2; O2SAT 98
== END 2019-11-12 10:19 | disposition home or self-care (01) ==
LOC: ER 07:24
DX: J20.9 Acute bronchitis, unspecified (principal); Z88.1 Allergy status to other antibiotic agents; Z88.2 Allergy status to sulfonamides; Z88.3 Allergy status to other anti-infective agents; E03.9 Hypothyroidism, unspecified; I10 Essential (primary) hypertension; F41.9 Anxiety disorder, unspecified
CPT/HCPCS: 96361; 87040 ×2; 85025; 80053; 84145; 71046; 96375; 96374; 99284; J7030; J2405

== ENCOUNTER 2020-04-27 18:08 | Emergency (ER) | payer OTHER ==
--- OUTSIDE RECORDS SUMMARY | 2020-04-27 18:11 | XMS REPORT ---
:1985 Author Organization [employer] Care Team Providers Name Role Phone Tien Yih Provider Role Unavailable Allergies, Adverse Reactions, Alerts Substance Reaction Event Type Zoloft Info Not Available Drug Allergy Seroquel Info Not Available Drug Allergy Paxil Info Not Available Drug Allergy Keflex Info Not Available Drug Allergy Problems Problem Type Condition Code Onset Dates Condition Statu s Problem DDD (degenerative disc disease), M50.30 Active cervical Problem Osteoarthritis of multiple joints M15.9 Active Problem Irritable bowel syndrome K58.9 Act tobi Problem Depression with anxiety F41.8 Acti ve Problem Bipolar disorder F31.9 Active Problem Degenerative disc disease, lumbar M51.36 Active Problem HSV (herpes simplex virus) A60.9 A ctive anogenital infection Problem 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 ve Problem Hypothyroidism E03.9 Active Problem Diverticulitis K57.92 Active Problem Acquired hypothyroidism E03.9 Acti ve Problem Adult BMI 50.0-59.9 kg/sq m Z68.43 Active Problem GERD (gastroesophageal reflux K21.9 Active disease) Problem Otalgia of right ear H92.01 Active Problem Primary osteoarthritis of left knee M17.12 Active Problem Seasonal allergies J30.2 Active Problem Panic disorder [episodic paroxysmal F41.0 Active anxiety] Problem Anxiety F41.9 Active Problem Depression, unspecified depression F32.9 Active type Problem Vitamin B12 deficiency E53.8 Activ e Assessment Generalized anxiety disorder F41.1 Active Problem Generalized anxiety disorder F41.1 Active Problem Vitamin D deficiency E55.9 Active Problem Allergic rhinitis, unspecified J30.9 Active seasonality, unspecified trigger Problem 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 Active Problem Pulmonary nodule, right R91.1 Acti ve Problem Right upper lobe pulmonary nodule R91.1 Active Assessment of Z63.4 Active Problem History of Nlbfb-Tyhexramg-Wmlbd Z86.79 Active (WPW) syndrome Problem Other chronic pain G89.29 Active Assessment Depression with anxiety F41.8 Acti ve Problem 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 Assessment Bereavement counseling Z71.89 Activ e Problem Environmental allergies Z91.09 Acti ve Assessment Panic disorder [episodic paroxysmal F41.0 Active anxiety] Problem Sinusitis, unspecified chronicity, J32.9 Active unspecified location Assessment Bipolar disorder F31.9 Active Problem Autoimmune thyroiditis E06.3 Activ e Problem Low back pain M54.5 Active Problem Sore throat J02.9 Active Medications Medication Code Code Instructions Start End Status Dosage System Date Date Vitamin D3 [facility] 88562280780 [id number] UNIT Active 1 caps ule Orally Once a week x 12 weeks Alprazolam [facility] 65055590609 0.5 MG Orally February 14, Active 1 t ablet Once a DAY PRN 2019 SEVERE ANXIETY Levothyroxine [facility] [id number] 125 MCG Orally Active 1 tablet Sodium Once a day in the morning on an empty stomach HydrOXYzine HCl [facility] 62259971359 50 MG Orally Active 1 tablet Twice a day as as needed needed for for anxiety anxiety Tylenol # 3 NDC 0 30-500-15 MG Active 2 table ts Orally every 6 as needed hrs Cymbalta [facility] 31872172978 60 MG Orally Active 1 caps ule Twice a day Acetaminophen-Co [facility] [address]-36 Active n ot deine defined Cetirizine HCl [facility] 06317139270 10 MG Orally February 13, Active 1 tablet Once a day for 2019 allergies Results No Known Results Summary Purpose [employer]ClinicalWorks Submission
--- OUTSIDE RECORDS SUMMARY | 2020-04-27 18:11 | XMS REPORT ---
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
--- OUTSIDE RECORDS SUMMARY | 2020-04-27 18:11 | XMS REPORT ---
[...] pulmonary nodule R91.1 Active Problem History of Ilzqd-Imgoihjqe-Yecqp Z86.79 Active (WPW) syndrome Problem Other chronic [...]
--- OUTSIDE RECORDS SUMMARY | 2020-04-27 18:11 | XMS REPORT ---
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 ve Problem Irritable bowel syndrome K58.9 Act tobi Problem Bipolar disorder F31.9 Active Problem Sore throat J02.9 Active Problem Acquired hypothyroidism E03.9 Acti ve Problem Degenerative disc disease, lumbar M51.36 Active Problem Autoimmune thyroiditis E06.3 Activ e Problem Otalgia of right ear H92.01 Active Problem Adult BMI 50.0-59.9 kg/sq m Z68.43 Active Problem Pulmonary nodule, right R91.1 Acti [...] patellae of left knee M22.42 Active Problem 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
--- OUTSIDE RECORDS SUMMARY | 2020-04-27 18:11 | XMS REPORT | Continuity of Care Document ---
:1985 Author Organization Formerly [facility] t Address [address] [place] [address] Care Team Providers Name Role Phone Unavailable Unavailable Unavailable Problems Condition Condition Condition Status Onset Resolution Last Treating Co mments Source Name Details Category Date Date Treatment Clinician Date HSV HSV Problem Active [facility] (herpes (herpes [facility] - simplex simplex Memoria virus) virus) l anogenital anogenital Ou tpati infection infection ent Clinics Depression Depression Problem Active [facility] with with [facility] - anxiety anxiety Mem[facility] l Outpat[facility] ent Clinics Autoimmune Autoimmune Problem Active [facility] thyroiditi thyroiditi Emma kes - s s [facility] ent Clin[facility] Vitamin D Vitamin D Problem Active [facility] deficiency deficiency Emma kes - Memoria l Outpati ent Clinics GERD GERD Problem Active [facility] (gastroeso (gastroeso Emma kes - phageal phageal Memoria reflux reflux l disease) disease) Outpat i ent Clinics Vitamin Vitamin Problem Active [facility] B12 B12 [facility] - deficiency deficiency Me moria l Outpati ent Clinics Bipolar Bipolar Problem Active [facility] disorder disorder [facility] Irritable Irritable Problem Active [facility] bowel bowel [facility] - syndrome syndrome Memori a l Outpati ent Clinics Diverticul Diverticul Problem Active [facility] itis itis [facility] - [facility] Degenerati Degenerati Problem Active [facility] ve disc ve disc [facility] - disease, disease, Memori a lumbar lumbar l Outpati ent Clinics Osteoarthr Osteoarthr Problem Active [facility] itis of itis of [facility] - multiple multiple Memori a joints joints l Outpati ent Clinics Acquired Acquired Problem Active [facility] hypothyroi hypothyroi Emma kes - dism dism [facility] l Out[facility] ent Clinics DDD DDD Problem Active [facility] (degenerat (degenerat Emma kes - tobi disc tobi disc Memori a disease), disease), l cervical cervical Outpat i ent Clinics Sinusitis, Sinusitis, Problem Active [facility] unspecifie unspecifie Emma kes - d d Memoria chronicity chronicity l , , Outpati unspecifie unspecifie en t d location d location Cl inics Sore Sore Problem Active [facility] throat throat [facility] - [facility] l [facility] Other Other Problem Active [facility] chronic chronic [facility] - pain pain Memoria l [facility]ics Environmen Environmen Problem Active [facility] tavon tavon Lukes - allergies allergies Og keke l [facility] Clinics Depression Depression Problem Active [facility] , , L[facility] - unspecifie unspecifie Me moria d d l depression depression Ou tpati type type ent Clinics Low back Low back Problem Active [facility] pain pain [facility] History of History of Problem Active [facility] [place] Emma kes - inson-Whit inson-Whit Me moria e (WPW) e (WPW) l syndrome syndrome Outpat i ent Clinics Adult BMI Adult BMI Problem Active [facility] 50.0-59.9 50.0-59.9 Luke s - kg/sq m kg/sq m Memoria l [facility] Clinics Otalgia of Otalgia of Problem Active [facility] right ear right ear Luke s - Memoria l [facility]ics Seasonal Seasonal Problem Active [facility] allergies allergies Luke s - Memoria l [facility]ics Chondromal Chondromal Problem Active [facility] acia acia [facility] - patellae patellae Memori a of left of left l knee knee [facility]ics Primary Primary Problem Active [facility] osteoarthr osteoarthr Emma kes - itis of itis of Memoria left knee left knee l [facility] Clinics Allergic Allergic Problem Active [facility] rhinitis, rhinitis, Luke s - unspecifie unspecifie Me moria d d l seasonalit seasonalit Ou tpati y, y, ent unspecifie unspecifie Cl inics d trigger d trigger Pulmonary Pulmonary Problem Active [facility] nodule, nodule, [facility] - right right Memoria l [facility]ics Anxiety Anxiety Problem Active [facility] - [facility] Panic Panic Problem Active [facility] disorder disorder [facility] - [episodic [episodic Og keke paroxysmal paroxysmal l anxiety] anxiety] Outpat i ent Clinics Generalize Generalize Problem Active [facility] d anxiety d anxiety Luke s - disorder disorder Memori a l [facility] ent Clinics Contact Contact Problem Active [facility] with and with and [facility] - (suspected (suspected Me moria ) exposure ) exposure l to other to other Outpat i viral viral ent communicab communicab Cl inics le le diseases diseases Allergies, Adverse Reactions, Alerts Allergy Allergy Status Severity Reaction(s) Onset Inactive Treating Comm ents Source Name Type Date Date Clinician Zoloft Adverse Active Info Not [facility] Reaction Available [facility] Seroquel Adverse Active Info Not [facility] Reaction Available [facility] Paxil Adverse Active Info Not [facility] Reaction Available [facility] Keflex Adverse Active Info Not [facility] Reaction Available [facility] Medications Ordered Filled Start Stop Current Ordering Indication Dosage Frequency Signature Comments Components Source Medication Medication Date Date Medication? Clinician (SIG) Name Name Valacyclovi Valacyclovi 2019- Yes Sandeep [address] [facility] r HCl r HCl 804-29 Yi [facility] - 00:00: 00:00 Memoria 00 :00 [facility] ent [facility] Procedures This patient has no known procedures. Encounters Start End Encounter Admission Attending Care Care Encounter Source Date/Time Date/Time Type Type Clinicians Facility Department ID 2020-04-21 2020-04-21 [facility] [id number] [facility] 15:55:00 15:55:[address] 2020-03-23 2020-03-23 [facility] [id number] 13:15:00 13:15:00 [employer] [facility] Medicine [facility] 2020-03-22 2020-03-22 [facility] [id number] 17:02:00 17:02:00 [employer] [facility] ent Clinics 2020-03-21 2020-03-21 [facility] [id number] 13:23:00 13:23:[address] [facility] Clinics 2020-03-21 2020-03-21 [facility] [id number] 13:00:00 13:00:00 [place] [employer] [facility] Medicine l Medicine Outpati ent Clinics 2020-03-20 2020-03-20 [facility] [id number] [address] 16:07:00 16:07:00 [place] [employer] [facility] [employer] [facility] Medicine l Medicine Outpati ent Clinics 2020-03-13 2020-03-13 [facility] [id number] 10:08:00 10:08:00 [place] [employer] [facility] Medicine l Medicine Outpati ent Clinics 2020-02-15 2020-02-15 [facility] [id number] [facility] 09:30:00 09:30:00 t [employer] [facility] l Medicine Outpati ent Clinics 2020-02-15 2020-02-15 [facility] [id number] 08:12:00 08:12:00 t [employer] [facility] Medicine l Medicine Outpati ent Clinics 2020-02-01 2020-02-01 [facility] [id number] [facility] 16:14:00 16:14:00 [facility] l Medicine Outpati ent Clinics 2019-12-16 2019-12-16 [facility] [id number] [facility] 15:26:00 15:26:00 t [employer] [facility] Medicine l Medicine Outpati ent Clinics 2019-12-07 2019-12-07 [facility] [id number] [facility] 10[facility]43:00 10:43:00 t [employer] [facility] Medicine l Medicine Outpati ent Clinics 2019-11-09 2019-11-09 [facility] [id number] [facility] 16[facility]30:00 16:30:00 t [employer] [facility] Medicine l Medicine Outpati ent Clinics 2019-10-27 2019-10-27 [facility] [id number] [facility] 16:00:00 16:00:00 t [employer] [facility] l Medicine Outpati ent Clinics 2019-10-04 2019-10-04 [facility] [id number] 14:30:00 14:30:00 [place] [employer] [facility] Medicine Outpati ent Clinics 2019-09-27 2019-09-27 [facility] [id number] [facility] 11:30:00 11:30:00 [place] [employer] [facility] - Drive [facility] Medicine Outpati ent Clinics 2019-08-18 2019-08-18 [facility] [id number] 09:36:00 09:36:00 [place] [employer] [facility] - Drive [facility] Medicine Outpati ent Clinics 2019-08-09 2019-08-09 [facility] [id number] 09:30:00 09:30:00 [place] [employer] - Drive [facility] Medicine Outpati ent Clinics 2019-08-05 2019-08-05 [facility] [id number] [address] 08:38:00 08:38:00 [place] [employer] - Drive [facility] Medicine Outpati ent Clinics 2019-07-30 2019-07-30 [facility] [id number] 15:01:00 15:01:00 [place] [employer] - Drive [facility] Medicine Outpati ent Clinics 2019-07-12 2019-07-12 [facility] [id number] 10:46:00 10:46:00 [place] [employer] [facility] Medicine Outpati ent Clinics 2019-06-15 2019-06-15 [facility] [id number] 11:16:00 11:16:00 t [facility] - [facility] ent Clinics 2019-06-02 2019-06-02 [facility] [id number] [address] 11:19:00 11:19:00 t [facility] and [facility] - [facility] ent Clinics 2019-05-25 2019-05-25 [facility] [id number] 16:16:00 16:16:00 t [facility] and [facility] - and Joint Joint [facility] a Clinic of [facility] ent Clinics 2019-05-17 2019-05-17 [facility] [id number] 13:07:00 13:07:00 t [facility] and [facility] - and Joint [facility] ent Clinics 2019-05-04 2019-05-04 [facility] [id number] 13:49:00 13:49:00 t [facility] and [facility] - [facility] Clinic of [facility] ent Clinics 2019-05-03 2019-05-03 [facility] [id number] [address] 10:30:00 10:30:00 t [facility] - [facility] ent Clinics 2019-03-23 2019-03-23 [facility] [id number] 17:29:00 17:29:00 t [facility] - [facility] of [facility] ent Clinics 2019-03-23 2019-03-23 [facility] [id number] 08:00:00 08:00:00 t [facility] - [facility] ent Clinics 2019-03-16 2019-03-16 [facility] [id number] [facility] 10:12:00 10:12:00 t [facility] 2019-03-04 2019-03-04 [facility] [id number] 13:46:00 13:46:00 t Bone [facility] and [facility] - [facility] of [facility] ent Clinics 2019-03-03 2019-03-03 [facility] [id number] 16:30:00 16:30:00 t [facility] 2019-02-01 2019-02-01 [facility] [id number] [facility] 16:45:00 16:45:[address] Luke s - [address] [facility] l Medicine Outpati ent Clinics 2019-01-01 2019-01-01 [facility] [id number] 11:02:00 11:02:[address] Luke s - [address] [facility] Medicine l Medicine Outpati ent Clinics 2018-11-30 2018-11-30 [facility] [id number] 16:30:00 16:30:[address] Luke s - [address] [facility] Medicine l Medicine Outpati ent Clinics 2018-07-08 2018-07-08 [facility] [id number] 10:02:00 10:02:[address] Luke s - Drive [facility] Medicine l Medicine Outpati ent Clinics 2018-03-16 2018-03-16 [facility] [id number] 11:00:00 11:00:[address] Luke s - [address] [facility] Medicine l Medicine Outpati ent Clinics 2018-03-09 2018-03-09 [facility] [id number] 09:15:00 09:15:[address] Luke s - [address] [facility] Medicine l Medicine Outpati ent Clinics 2018-03-02 2018-03-02 [facility] [id number] 09:32:00 09:32:[address] Luke s - [address] [facility] Medicine l Medicine Outpati ent Clinics 2018-01-12 2018-01-12 [facility] [id number] [facility] 12:15:00 12:15:[address] Luke s - Drive [facility] Medicine l Medicine Outpati ent Clinics 2018-01-12 2018-01-12 [facility] [id number] [facility] 08:45:00 08:45:[address] Luke s - Drive [facility] Medicine l Medicine Outpati ent Clinics 2018-01-08 2018-01-08 [facility] [id number] [facility] 09:53:00 09:53:[address] Luke s - Drive [facility] Medicine l Medicine Outpati ent Clinics 2018-01-01 2018-01-01 Outpatient Jose Navarro [id number] [facility] 09:15:00 09:15:00 t [employer] [facility] Clinics 2017-12-09 2017-12-09 Outpatient Jose Navarro [id number] [facility] [address] 15:15:00 15:15:00 [employer] [facility] Clinics Results This patient has no known results.
--- OUTSIDE RECORDS SUMMARY | 2020-04-27 18:12 | XMS REPORT ---
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 Problem Hypothyroidism E03.9 Active Problem Diverticulitis K57.92 Active Problem GERD (gastroesophageal reflux K21.9 Active disease) Problem Adult BMI 50.0-59.9 kg/sq m Z68.43 Active Problem Otalgia of right ear H92.01 Active Problem Vitamin D deficiency E55.9 Active Problem Seasonal allergies J30.2 Active Problem 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 Problem Primary osteoarthritis of left knee M17.12 Active Problem Panic disorder [episodic paroxysmal F41.0 Active anxiety] Problem Generalized anxiety disorder F41.1 Active Problem 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 Problem Environmental allergies Z91.09 Acti ve Problem Contact with and (suspected) Z20.828 Active exposure to other viral communicable diseases Problem Vitamin B12 deficiency E53.8 Activ e Problem Right upper lobe pulmonary nodule R91.1 Active Problem Allergic rhinitis, unspecified J30.9 Active seasonality, unspecified trigger Problem Anxiety F41.9 Active Problem Pulmonary nodule, right R91.1 Acti ve Problem Other chronic pain G89.29 Active Problem Depression with anxiety F41.8 Acti ve Problem Low back pain M54.5 Active Problem Depression, unspecified depression F32.9 Active type Problem 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
--- OUTSIDE RECORDS SUMMARY | 2020-04-27 18:12 | XMS REPORT ---
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
--- OUTSIDE RECORDS SUMMARY | 2020-04-27 18:13 | XMS REPORT ---
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9 Active seasonality, unspecified trigger Assessment Vitamin D deficiency E55.9 Active Assessment Osteoarthritis of multiple joints M15.9 Active Assessment GERD (gastroesophageal reflux K21.9 Active disease) Assessment Prediabetes R73.03 Active Problem Adult BMI 50.0-59.9 kg/sq m Z68.43 Active Assessment Vitamin B12 deficiency E53.8 Activ e Problem Otalgia of right ear H92.01 Active Problem Seasonal allergies J30.2 Active Problem 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 Problem Primary osteoarthritis of left knee M17.12 Active Problem Panic disorder [episodic paroxysmal F41.0 Active anxiety] Problem Generalized anxiety disorder F41.1 Active Problem Contact with and (suspected) Z20.828 Active exposure to other viral communicable diseases Assessment Right upper lobe pulmonary nodule R91.1 Active Problem Right upper lobe pulmonary nodule R91.1 Active Assessment Panic disorder [episodic paroxysmal F41.0 Active anxiety] Problem Allergic rhinitis, unspecified J30.9 Active seasonality, unspecified trigger Assessment Generalized anxiety disorder F41.1 Active Problem Anxiety F41.9 Active Assessment Chondromalacia, left knee M94.262 Ac tive Problem Pulmonary nodule, right R91.1 Acti ve Assessment 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 ve Problem Depression with anxiety F41.8 Acti ve Assessment Bereavement counseling Z71.89 Activ e Assessment of Z63.4 Active Assessment Bipolar disorder F31.9 Active Assessment Depression with anxiety F41.8 Acti ve Medications Medication Code Code Instructions Start End Status Dosage System Date Date Synthroid [facility] 85687621139 125 MCG Active TAKE 1 TABLET BY MOUTH EVERY DAY IN THE MORNING ON AN EMPTY STOMACH Acetaminophen-C [facility] [address]-82 Active no t odeine defined Alprazolam [facility] 48088760159 0.5 MG Orally Active 1 t ablet Once a DAY PRN SEVERE ANXIETY Vitamin D3 [facility] 89014024050 09050 UNIT Active 1 caps ule Orally Once a week x 12 weeks Tylenol # 3 [facility] 0 30-500-15 MG Active 2 table ts Orally every 6 as needed hrs Cetirizine HCl [facility] 20452487996 10 MG Orally February 13, Active 1 tablet Once a day for 2019 allergies HydrOXYzine HCl [facility] 07598458794 50 MG Orally Active 1 tablet Twice a day as as needed needed for for anxiety anxiety Cymbalta [facility] 89975416214 60 MG Orally Active 1 caps ule Twice a day Synthroid [facility] 74173877776 150 MCG Oral Active 1 tab let Once a day in the morning on an empty stomach Results No Known Results Summary Purpose eClinicalWorks Submission
--- OUTSIDE RECORDS SUMMARY | 2020-04-27 18:13 | XMS REPORT ---
[...] depression F32.9 Active type Problem History of Ecuuy-Izzdfbfyu-Bhmhh Z86.79 Active (WPW) syndrome Problem Acquired hypothyroidism E03.9 Acti ve Problem Autoimmune thyroiditis E06.3 Activ e Problem Sore throat J02.9 Active Problem Sinusitis, unspecified chronicity, J32.9 Active unspecified location Medications No Known Medications Results No Known Results Summary Purpose eClinicalWorks Submission
--- OUTSIDE RECORDS SUMMARY | 2020-04-27 18:13 | XMS REPORT ---
:1985 Author Organization eClinicalWorks Care Team Providers Name Role Phone Ferrera, Na Provider Role Unavailable Allergies No Known Allergies [...] ve Problem Low back pain M54.5 Active Assessment Intractable headache, unspecified R51 Active chronicity pattern, unspecified headache type Problem Depression, unspecified depression F32.9 Active type Assessment Contact with and (suspected) Z20.828 Active exposure to other viral communicable diseases Problem History of Osqsq-Vbnyscaod-Rfkmy Z86.79 Active (WPW) syndrome Problem Acquired hypothyroidism E03.9 Acti ve Problem Autoimmune thyroiditis E06.3 Activ e Problem Sore throat J02.9 Active Problem Sinusitis, unspecified chronicity, J32.9 Active unspecified location Medications Medication Code Code Instructions Start End Status Dosage System Date Date Tylenol # [address] [facility] 0 30-500-15 MG Active 2 table ts Orally every 6 as needed hrs Cymbalta [facility] 38139667233 60 MG Orally Active 1 caps ule Twice a day Synthroid [facility] 62483004050 125 MCG Active TAKE 1 TABLET BY MOUTH EVERY DAY IN THE MORNING ON AN EMPTY STOMACH Acetaminophen-Co [facility] [address]-56 Active n ot deine defined Cetirizine HCl [facility] 38161407395 10 MG Orally February 13, Active 1 tablet Once a day for 2019 allergies Levothyroxine [facility] 72030798995 125 MCG Orally Active 1 tablet Sodium Once a day in the morning on an empty stomach Vitamin D3 [facility] 17168014856 71602 UNIT Active 1 caps ule Orally Once a week x 12 weeks HydrOXYzine HCl [facility] 57600720785 50 MG Orally Active 1 tablet Twice a day as as needed needed for for anxiety anxiety Alprazolam [facility] 44553576595 0.5 MG Orally February 14, Active 1 t ablet Once a DAY PRN 2019 SEVERE ANXIETY Results No Known Results Summary Purpose eClinicalWorks Submission
--- OUTSIDE RECORDS SUMMARY | 2020-04-27 18:14 | XMS REPORT ---
[...] depression F32.9 Active type Problem History of Zxxnu-Rdyididba-Ifaal Z86.79 Active (WPW) syndrome Problem Acquired hypothyroidism E03.9 Acti ve Problem Autoimmune thyroiditis E06.3 Activ e Problem Sore throat J02.9 Active Problem Sinusitis, unspecified chronicity, J32.9 Active unspecified location Medications Medication Code Code Instructions Start End Status Dosage System Date Date Valacyclovir HCl [facility] [id number] 500 MG Orally Apr 24, Apr 29, Activ e 1 tablet Once a day 2019 2019 Results No Known Results Summary Purpose eClinicalWorks Submission
[2020-04-27] MEDS ORDERED: METOCLOPRAMIDE 10 MG/2mL INJ ONE (19:45)
[2020-04-27] MEDS ORDERED: DIPHENHYDRAMINE 50 MG/ML VIAL ONE (19:45)
[2020-04-27] MEDS ORDERED: TETRACAINE HCL 0.5% 4ML OPTH ONE (19:46)
[2020-04-27] MEDS ORDERED: ACETAMINOPHEN 500 MG TAB ONE (19:46)
[2020-04-27] MEDS ORDERED: NA CHLORIDE 0.9% 1,000 ML ONE (19:46)
[2020-04-27] MEDS ORDERED: FLUORESCEIN SODIUM 1 MG/WRAP ONE (19:46)
--- NOTE | 2020-04-27 20:09 | RAD REPORT ---
EXAM DESCRIPTION: CT - Head Brain Wo Cont - 04/27/2020 7:58 pm CLINICAL HISTORY: HEADACHE Headache, drowsiness, blurry vision COMPARISON: No comparisons TECHNIQUE: All CT scans are performed using dose optimization technique as appropriate and may inclu de automated exposure control or mA/KV adjustment according to patient size. FINDINGS: No intracranial hemorrhage, hydrocephalus or extra-axial fluid collection.No areas of brai n edema or evidence of midline shift. The paranasal sinuses and mastoids are clear. The calvarium is intact. IMPRESSION: No acute intracranial abnormality.
[2020-04-27 20:10] LABS: Absolute Lymphocytes (CBC) 2.3 K/uL (0.7-4.9); Basophils % 0.7 % (0-1.3); Hematocrit 38.4 % (36.0-45.0); Lymphocytes % 22.8 % (15.3-44.8); MPV 9.5 fL (7.6-11.3); RBC Red Blood Cell Count 5.36 M/uL (3.86-4.86)
[2020-04-27 20:22] LABS: Protime INR 1.07
[2020-04-27 20:23] LABS: Albumin 4.3 g/dL (3.4-5.0); Barbiturates NEGATIVE (NEGATIVE); Benzodiazepines POSITIVE (NEGATIVE); Bilirubin Direct 0.1 mg/dL (0-0.2); Bilirubin Total 0.3 mg/dL (0.2-1.0); C-Reactive Protein 4.95 mg/L (<3.00); Cocaine NEGATIVE (NEGATIVE); METHAMPHETAM NEGATIVE (NEGATIVE); Methadone NEGATIVE (NEGATIVE); Opiates POSITIVE (NEGATIVE); Phencyclidine NEGATIVE (NEGATIVE); Potassium 3.5 mmol/L (3.5-5.1); Protein, Total 8.4 g/dL (6.4-8.2); THC Cannibis NEGATIVE (NEGATIVE)
[2020-04-27 21:17] LABS: Urine Blood NEGATIVE (NEG); Urine Glucose NEGATIVE (NEG); Urine Protein NEGATIVE (NEG); Urine Specific Gravity 1.025 (1.005-1.030); Urine pH 5.5 (5.0-7.0)
--- NOTE | 2020-04-27 22:13 | EDPHYS ---
Physician Documentation [facility] Name: Laura De La O Age: 35 yrs Sex: Female : 1985 Arrival Date: 04/27/2020 Time: 18:11 Bed 26 Private MD: ED Physician Nader Mccormack HPI: 04/27 20:39 This 35 yrs old Female presents to ER via Ambulatory with complaints of mh7 Blurred Vision R Eye, Headache. 20:39 The patient complains of pain to the right frontal area and right temporal area. The mh7 patient describes the headache as intermittent, waxing and waning, burning. Onset: The symptoms/episode began/occurred today. Associated signs and symptoms: Pertinent positives: blurred vision, Pertinent negatives: altered mental status, dizziness, fever, malaise, nausea, neck stiffness, paresthesias, rash, sinus congestion, sinus tenderness, vision loss, vomiting, weakness, vertigo. Severity of symptoms: At its worst the pain was moderate, earlier today, in the emergency department the pain has improved, moderately. Headache History: The patient has had previous headaches and this one is similar to previous episodes. The symptoms are alleviated by Darkened room, quiet, the symptoms are aggravated by lights, noise, stress. Historical: - Allergies: 18:28 Sulfa (Sulfonamide Antibiotics); ll1 18:28 Vancomycin; ll1 18:28 NSAIDS; due to Gastric Bypass; ll1 18:28 Bactrim; ll1 - PMHx: 18:28 Chronic pain; Hypothyroidism; Dominique's; Depression; Hypertension; WPW; Panic ll1 Attacks; Anxiety; ibs; - PSHx: 18:28 Gastric Bypass; ll1 18:29 Cardiac Ablation for WPW; ll1 - Immunization history:: Flu vaccine is up to date. - Social history:: Smoking status: Patient reports the use of cigarette tobacco products, smokes one-half pack cigarettes per day, Patient/guardian denies using alcohol, street drugs. ROS: 20:39 Constitutional: Negative for fever, chills, and weight loss, ENT: Negative for injury, mh7 pain, and discharge, Neck: Negative for injury, pain, and swelling, Cardiovascular: Negative for chest pain, palpitations, and edema, Respiratory: Negative for shortness of breath, cough, wheezing, and pleuritic chest pain, Abdomen/GI: Negative for abdominal pain, nausea, vomiting, diarrhea, and constipation, Back: Negative for injury and pain, : Negative for injury, bleeding, discharge, and swelling, MS/Extremity: Negative for injury and deformity, Skin: Negative for injury, rash, and discoloration, Psych: Negative for depression, anxiety, suicide ideation, homicidal ideation, and hallucinations, Allergy/Immunology: Negative for hives, rash, and allergies, Endocrine: Negative for neck swelling, polydipsia, polyuria, polyphagia, and marked weight changes, Hematologic/Lymphatic: Negative for swollen nodes, abnormal bleeding, and unusual bruising. 20:39 Eyes: Positive for wears soft contact lenses. mh7 Exam: 20:39 Constitutional: This is a well developed, well nourished patient who is awake, alert, mh7 and in no acute distress. 20:39 ENT: Nares patent. No nasal discharge, no septal abnormalities noted. Tympanic membranes are normal and external auditory canals are clear. Oropharynx with no redness, swelling, or masses, exudates, or evidence of obstruction, uvula midline. Mucous membranes moist. Neck: Trachea midline, no thyromegaly or masses palpated, and no cervical lymphadenopathy. Supple, full range of motion without nuchal rigidity, or vertebral point tenderness. No Meningismus. Chest/axilla: Normal chest wall appearance and motion. Nontender with no deformity. No lesions are appreciated. Cardiovascular: Regular rate and rhythm with a normal S1 and S2. No gallops, murmurs, or rubs. Normal PMI, no JVD. No pulse deficits. Respiratory: Lungs have equal breath sounds bilaterally, clear to auscultation and percussion. No rales, rhonchi or wheezes noted. No increased work of breathing, no retractions or nasal flaring. Abdomen/GI: Soft, non-tender, with normal bowel sounds. No distension or tympany. No guarding or rebound. No evidence of tenderness throughout. Back: No spinal tenderness. No costovertebral tenderness. Full range of motion. Skin: Warm, dry with normal turgor. Normal color with no rashes, no lesions, and no evidence of cellulitis. MS/ Extremity: Pulses equal, no cyanosis. Neurovascular intact. Full, normal range of motion. Neuro: Awake and alert, GCS 15, oriented to person, place, time, and situation. Cranial nerves II-XII grossly intact. Motor strength 5/5 in all extremities. Sensory grossly intact. Cerebellar exam normal. Normal gait. Psych: Awake, alert, with orientation to person, place and time. Behavior, mood, and affect are within normal limits. 20:39 Eyes: Periorbital structures: appear normal, Pupils: equal, round, and reactive to light and accomodation, Extraocular movements: intact throughout, Conjunctiva: normal, Corneas: abrasion, that is small, on the right, at 6 o'clock, a fluorescein strip employed to appreciate the findings, Sclera: no appreciated abnormality, Lids and lashes: appear normal, funduscopic exam reveals no obvious abnormalities, Nystagmus: is not appreciated, Examination of the other eye reveals no obvious gross abnormality. 04/28 05:33 Eyes: Intraocular pressure: right eye = 17mmHg, left eye = 17mmHg. [facility] Vital Signs: 04/27 18:29 BP 149 / 84; Pulse 79; Resp 18; Temp 98.3; Pulse Ox 100% ; Weight 127.01 kg; Height 5 ll1 ft. 5 in. (165.10 cm); Pain 8/10; 21:00 BP 152 / 80; Pulse 80; Resp 18; Pulse Ox 100% on R/A; vc 18:29 Body Mass Index 46.59 (127.01 kg, 165.10 cm) ll1 Bill[place] Coma Score: 22:08 Eye Response: spontaneous(4). Verbal Response: oriented(5). Motor Response: obeys [facility] commands(6). Total: 15. Visual Acuity: 20:58 Left Eye Visual acuity 20/25, ; Right Eye Visual acuity 20/50, ; Both Eyes Visual vc acuity 20/25; With Lenses; MDM: 19:25 Patient medically screened. 7 22:08 Differential diagnosis: cluster headache, hypertensive headache, hypoglycemia, mh7 intracerebral hemorrhage, migraine, neoplasm, temporal arteritis, tension headache, vasomotor headache, Corneal Abrasion, Corneal Ulcer, Iritis. Data reviewed: vital signs, nurses notes, lab test result(s), CBC, electrolytes, urinalysis, urine drug screen, radiologic studies, CT scan. Data interpreted: Pulse oximetry: on room air is 100 %. Interpretation: normal. Counseling: I had a detailed discussion with the patient and/or guardian regarding: the historical points, exam findings, and any diagnostic results supporting the discharge/admit diagnosis, the presence of at least one elevated blood pressure reading (>120/80) during this emergency department visit, lab results, radiology results. Response to treatment: the patient's symptoms have resolved after treatment, the patient's blood pressure is in an acceptable range, mental status has returned to baseline, the patient no longer shows bradycardia, the patient is not short of breath, the patient is not tachycardic, the patient's pain is gone, the patient's temperature has normalized. 04/28 05:33 Refusal of service: The patient/guardian displays adequate decision making capability [facility] and despite a detailed discussion of alternatives, benefits, risks, and consequences refuses: Medications. 04/27 19:27 Order name: CBC with Diff [facility] 04/27 19:27 Order name: Basic Metabolic Panel [facility] 04/27 19:27 Order name: Protime (+inr) [facility] 04/27 19:27 Order name: Ptt, Activated [facility] 04/27 19:27 Order name: C-Reactive Protein [facility] 04/27 19:27 Order name: Westergren Sedrate [facility] 04/27 19:27 Order name: LFT's [facility] 04/27 19:27 Order name: UDS [facility] 04/27 20:05 Order name: Urine Dipstick--Ancillary (enter results) [facility] 04/27 20:05 Order name: Urine --Ancillary (enter results) [facility] 04/27 20:15 Order name: CBC with Automated Diff; Complete Time: 21:17 [facility] 04/27 20:23 Order name: Protime (+INR); Complete Time: 20:25 [facility] 04/27 20:23 Order name: PTT, Activated Partial Thromb; Complete Time: 20:25 [facility] 04/27 20:23 Order name: Basic Metabolic Panel; Complete Time: 20:25 [facility] 04/27 19:27 Order name: Urine Dipstick-Ancillary (obtain specimen); Complete Time: 21:29 [facility] 04/27 19:27 Order name: Urine Test (obtain specimen); Complete Time: 21:29 [facility] 04/27 19:27 Order name: CT Head Brain wo Cont [facility] 04/27 19:30 Order name: Fluoresene Opth strip; Complete Time: 01:41 [facility] 04/27 20:10 Order name: CT; Complete Time: 20:25 EDMS 04/27 20:23 Order name: Liver (Hepatic) Function; Complete Time: 20:25 EDMS 04/27 20:23 Order name: C-Reactive Protein; Complete Time: 20:25 EDMS 08 20:23 Order name: Urine Drug Screen; Complete Time: 20:25 EDMS 04/27 21:00 Order name: Sedimentation Rate, Westergren; Complete Time: 21:17 EDMS 04/27 21:18 Order name: Urine --Ancillary; Complete Time: 21:58 EDMS 04/27 21:18 Order name: Urine Dipstick-Ancillary; Complete Time: 21:58 EDMS 04/27 19:30 Order name: Visual Acuity; Complete Time: 20:59 7 Administered Medications: 04/27 20:00 Drug: Reglan 10 mg Route: IVP; Site: right antecubital; vc 21:00 Follow up: Response: No adverse reaction vc 20:00 Drug: NS 0.9% 1000 ml Route: IV; Rate: 1000 ml; Site: right antecubital; vc 20:20 Follow up: IV Status: Completed infusion; IV Intake: 250ml ; Patient didn't want fluids vc 20:39 Not Given (Patient Refused): Tylenol 1000 mg PO once vc 21:00 Drug: Tetracaine Drops 0.5 % 1 drops Route: Ophthalmic; Site: right eye; vc 21:30 Follow up: Response: No adverse reaction vc 21:30 Not Given (Patient Refused): Benadryl 50 mg IVP once vc Disposition: 04/28 05:34 Co-signature as Attending Physician, Nader Mccormack MD. [facility] Disposition: 04/27/20 22:12 Discharged to Home. Impression: Headache, Corneal Abrasion, Blurred Vision. - Condition is Stable. - Discharge Instructions: Blurred Vision, Adult, Corneal Abrasion, [id number], General Headache Without Cause, [id number]. - Prescriptions for Ciloxan 0.3 % Ophthalmic Drops - instill 2 drop by OPHTHALMIC route every 6 hours for 7 days; 5 milliliter. - Medication Reconciliation Form, Thank You Letter, Antibiotic Education, Prescription Opioid Use form. - Follow up: Private Physician; When: 1 - 2 days; Reason: Worsening of condition, Recheck today's complaints, Continuance of care, Re-evaluation by your physician. Follow up: Mitchel Valles MD; When: 1 - 2 days; Reason: Worsening of condition, Recheck today's complaints. Follow up: Brigitte Kim MD; When: Tomorrow; Reason: Worsening of condition, Recheck today's complaints. - Problem is an acute exacerbation. - Symptoms have improved. Signatures: Dispatcher [employer] EDMS Xiomy Resendez RN RN Jam Johnson RN RN ll1 Nader Mccormack MD MD mh7 Corrections: (The following items were deleted from the chart) 04/27 22:36 22:12 04/27/2020 22:12 Discharged to Home. Impression: Headache; Corneal Abrasion; vc Blurred Vision. Condition is Stable. Forms are Medication Reconciliation Form, Thank You Letter, Antibiotic Education, Prescription Opioid Use. Follow up: Private Physician; When: 1 - 2 days; Reason: Worsening of condition, Recheck today's complaints, Continuance of care, Re-evaluation by your physician. Follow up: Mitchel Valles; When: 1 - 2 days; Reason: Worsening of condition, Recheck today's complaints. Follow up: Brigitte Kim; When: Tomorrow; Reason: Worsening of condition, Recheck today's complaints. Problem is an acute exacerbation. Symptoms have improved. mh7
--- NOTE | 2020-04-27 22:13 | ER ---
Nurse's Notes [facility] Name: Laura De La O Age: 35 yrs Sex: Female : 1985 Arrival Date: 04/27/2020 Time: 18:11 Bed 26 Private MD: Diagnosis: Headache;Corneal Abrasion;Blurred Vision Presentation: 04/27 18:29 Coronavirus screen: Client denies travel out of the [place] in the last 14 days. At this ll1 time, the client does not indicate any symptoms associated with coronavirus-19. The client reports previous COVID testing was negative. Ebola Screen: Patient denies travel to an Ebola-affected area in the 21 days before illness onset. Initial Sepsis Screen: Does the patient meet any 2 criteria? No. Patient's initial sepsis screen is negative. Risk Assessment: Do you want to hurt yourself or someone else? Patient reports no desire to harm self or others. Onset of symptoms was April 27, 2020. 18:29 Method Of Arrival: Ambulatory ll1 18:29 Acuity: BILL 3 ll1 18:31 Chief complaint: Patient states: Driving home at 1730 today. Started to have distorted ll1 vision out of her right eye. States it seems the vision is smaller through that eye. Reports burning behind right eye and JIMENEZ. Right eye feels "gritty". 19:00 Initial Sepsis Screen: Does the patient have a suspected source of infection? No. vc Patient's initial sepsis screen is negative. Triage Assessment: 19:00 Headache History: The patient has had previous headaches and this one is less severe vc than previous episodes. General: Appears in no apparent distress. uncomfortable, obese, Behavior is agitated, anxious, crying. Pain: Complains of pain in right temporal area Pain currently is 2 out of 10 on a pain scale. Pain began suddenly, Also complains of photophobia. Neuro: Level of Consciousness is awake, alert, obeys commands, Oriented to person, place, time, situation. Historical: - Allergies: 18:28 Sulfa (Sulfonamide Antibiotics); ll1 18:28 Vancomycin; ll1 18:28 NSAIDS; due to Gastric Bypass; ll1 18:28 Bactrim; ll1 - PMHx: 18:28 Chronic pain; Hypothyroidism; Dominique's; Depression; Hypertension; WPW; Panic ll1 Attacks; Anxiety; ibs; - PSHx: 18:28 Gastric Bypass; ll1 18:29 Cardiac Ablation for WPW; ll1 - Immunization history:: Flu vaccine is up to date. - Social history:: Smoking status: Patient reports the use of cigarette tobacco products, smokes one-half pack cigarettes per day, Patient/guardian denies using alcohol, street drugs. Screenin:00 Abuse screen: Denies threats or abuse. Nutritional screening: No deficits noted. vc Tuberculosis screening: No symptoms or risk factors identified. Fall Risk None identified. Assessment: 19:00 General: Appears in no apparent distress. uncomfortable, obese, well groomed, Behavior vc is agitated, anxious, crying. Pain: Complains of pain in right temporal area. Neuro: Level of Consciousness is awake, alert, obeys commands, Oriented to person, place, time, situation. Cardiovascular: Denies chest pain, lightheadedness, Capillary refill < 3 seconds Patient's skin is warm and dry. Respiratory: Airway is patent Respiratory effort is even, unlabored, Respiratory pattern is regular, symmetrical. GI: No signs and/or symptoms were reported involving the gastrointestinal system. : No signs and/or symptoms were reported regarding the genitourinary system. EENT: Reports blurred vision in right eye. 20:00 Reassessment: Patient appears in no apparent distress at this time. Patient and/or vc family updated on plan of care and expected duration. Pain level reassessed. Patient is alert, oriented x 3, equal unlabored respirations, skin warm/dry/pink. 20:00 Reassessment: Patient refuses to take Tylenol and benadryl the provider ordered,patient vc states, "I would rather just take my Tylenol #4's, plus I take a lot of medication at night to sleep and I don't want the Benadryl to interfere with any of it.". 21:00 Reassessment: Patient appears in no apparent distress at this time. Patient and/or vc family updated on plan of care and expected duration. Pain level reassessed. Patient is alert, oriented x 3, equal unlabored respirations, skin warm/dry/pink. 21:30 Reassessment: Patient states her IV is hurting and she would like it taken out. Removed vc IV, notified provider. 22:00 Reassessment: Patient appears in no apparent distress at this time. Patient and/or vc family updated on plan of care and expected duration. Pain level reassessed. Patient is alert, oriented x 3, equal unlabored respirations, skin warm/dry/pink. Vital Signs: 18:29 BP 149 / 84; Pulse 79; Resp 18; Temp 98.3; Pulse Ox 100% ; Weight 127.01 kg; Height 5 ll1 ft. 5 in. (165.10 cm); Pain 8/10; 21:00 BP 152 / 80; Pulse 80; Resp 18; Pulse Ox 100% on R/A; vc 18:29 Body Mass Index 46.59 (127.01 kg, 165.10 cm) ll1 Visual Acuity: 20:58 Left Eye Visual acuity 20/25, ; Right Eye Visual acuity 20/50, ; Both Eyes Visual vc acuity 20/25; With Lenses; [place] Coma Score: 22:08 Eye Response: spontaneous(4). Verbal Response: oriented(5). Motor Response: obeys [facility] commands(6). Total: 15. ED Course: 18:11 Patient arrived in ED. ds1 18:29 Arm band placed on Patient notified of wait time. ll1 18:31 Triage completed. ll1 19:00 Patient has correct armband on for positive identification. Bed in low position. Call vc light in reach. Side rails up X 1. Pulse ox on. NIBP on. 19:04 Nader Mccormack MD is Attending Physician. 7 19:09 Xiomy Resendez, RN is Primary Nurse. vc 21:30 No provider procedures requiring assistance completed. IV discontinued. vc 22:11 Mitchel Valles MD is Referral Physician. 7 22:11 Brigitte Kim MD is Referral Physician. [facility] 04/28 01:29 Urine --Ancillary (enter results) Sent. vc 01:29 Urine Dipstick--Ancillary (enter results) Sent. vc Administered Medications: 04/27 20:00 Drug: Reglan 10 mg Route: IVP; Site: right antecubital; vc 21:00 Follow up: Response: No adverse reaction vc 20:00 Drug: NS 0.9% 1000 ml Route: IV; Rate: 1000 ml; Site: right antecubital; vc 20:20 Follow up: IV Status: Completed infusion; IV Intake: 250ml ; Patient didn't want fluids vc 20:39 Not Given (Patient Refused): Tylenol 1000 mg PO once vc 21:00 Drug: Tetracaine Drops 0.5 % 1 drops Route: Ophthalmic; Site: right eye; vc 21:30 Follow up: Response: No adverse reaction vc 21:30 Not Given (Patient Refused): Benadryl 50 mg IVP once vc Intake: 20:20 IV: 250ml; Total: 250ml. vc Outcome: 22:12 Discharge ordered by MD. piper 22:35 Discharged to home ambulatory. vc 22:35 Condition: good 22:35 Discharge instructions given to patient. 22:35 Discharge instructions given to patient, Instructed on discharge instructions, follow vc up and referral plans. medication usage, Demonstrated understanding of instructions, follow-up care, medications, Prescriptions given X 1. 22:36 Patient left the ED. vc Signatures: Nilda Sharif ds1 Xiomy Resendez RN RN vc Lewis, Lynsay, RN RN 1 Nader Mccormack MD MD mh7 Corrections: (The following items were deleted from the chart) 04/28 01:35 01:33 Condition: good vc vc 01:35 01:33 Discharged to home ambulatory, vc vc 01:35 01:33 Discharge instructions given to patient, vc vc
[2020-04-27 22:42] VITALS: BP 149/84; TEMP 98.3; O2SAT 100
== END 2020-04-27 22:36 | disposition home or self-care (01) ==
LOC: ER 18:08
DX: S05.01XA Injury of conjunctiva and corneal abrasion without foreign body, right eye, initial encounter (principal); H53.8 Other visual disturbances; F17.210 Nicotine dependence, cigarettes, uncomplicated; I10 Essential (primary) hypertension; Z88.1 Allergy status to other antibiotic agents; Z88.2 Allergy status to sulfonamides; Z88.6 Allergy status to analgesic agent; Z98.84 Bariatric surgery status
CPT/HCPCS: 85025; 80048; 36415; 81025; 85610; 80076; 80307 ×8; 85730; 85652; 81003; 86140; 70450; 96374; 99284; J2765; J1200; J7030

== ENCOUNTER 2023-07-14 18:05 | Emergency (ER) | payer OTHER ==
--- OUTSIDE RECORDS SUMMARY | 2023-07-14 18:12 | XMS REPORT | Continuity of Care Document ---
:1985 Author Organization [facility] t Address [address] [facility] [address] [place] [address] Care Team Providers Name Role Phone Sandeep Yi Primary Care Physician Sandeep Yi Attending Clinician Unavailable TORREY YI Attending Clinician Unavailable Therapy, [facility] Attending Clinician Unavailable Torrey Yi MD Attending Clinician Doctor Unassigned, [place] Attending Clinician Unavailable Courtney Leung RN Attending Clinician Unavailable Only, Ang Db Test Attending Clinician Unavailable Yanet Pettit Attending Clinician YANET CAMPBELL Attending Clinician Unavailable ZACH LESTER Attending Clinician Unavailable Pcp-Lab Attending Clinician Unavailable Zach Lester DO Attending Clinician Payers Payer Name Policy Type Policy Number Effective Date Expiration Date Tammy RIVERANA 53 [id number] 2021 Common 00:00:00 [facility] [employer] C1 [id number] 2016 Common 00:00:00 [facility] [employer] C1 [id number] 2016 Common 00:00:00 [facility] [id number] 2016 CHOICE 00:00:00 [facility] Market[employer] C1 [id number] 2016 Common 00:00:00 [facility] [employer] [id number] 2016 Common 00:00:00 [facility] Problems Condition Condition Condition Status Onset Resolution Last Treating Co mments Source Name Details Category Date Date Treatment Clinician Date Primary Primary Disease Active Univers hypothyroi hypothyroi 7-10 it y of dism dism 00:00: [place] [address] Medical Branch Abnormal Abnormal Disease Active Unive rs weight weight 7-10 ity of gain gain 00:00: [place] [facility] Fatigue, Fatigue, Disease Active Unive rs unspecifie unspecifie 7-10 it y of d type d type 00:00: [place] [facility] Cushingoid Cushingoid Disease Active U nivers facies facies 7-10 ity of 00:00: [address] Branch [id number] Rheumatoid Problem Co mmon arthritis Spirit involving - [facility] multiple [facility] unspecifie Medica l d whether Center rheumatoid factor present Diverticul Diverticul Problem C ommon itis itis [facility] [id number] Vitamin D Problem Comm on deficiency [facility] disease [facility] Gastroesop GERD Problem Commo n hageal (gastroeso Spirit reflux phageal - [facility] disease reflux St disease) [facility] [id number] Other Problem Common chronic [facility] pain [facility] [id number] Vitamin Problem Commo n B12 Spirit deficiency [facility] [id number] Low back Problem Comm on pain [facility] Dominique' Dominique' Problem C ommon s s Spirit thyroiditi thyroiditi - CHI s s [facility] [id number] Allergic Problem Commo n rhinitis, Spirit unspecifie - CHI d [facility]ie Center d trigger [id number] Degenerati Problem Com mon ve disc Spirit disease, - CHI lumbar [facility] [id number] Chondromal Problem C ommon [id number] acia Spirit patellae - CHI of left knee [facility] Bipolar Bipolar Problem Common disorder disorder [facility] Hypothyroi Hypothyroi Problem C ommon dism dism Spirit - CHI [facility] Mixed Depression Problem Commo n anxiety with Spirit and anxiety - CHI depressive [facility] [id number] Sore Problem Common throat [facility] [id number] Sinusitis, Problem Com mon unspecifie Spirit d - CHI chronicity [facility] unspecifie Medica l d location Center Autoimmune Autoimmune Problem C ommon thyroiditi thyroiditi Sp ricarda s s - [facility] 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 [facility] infection [facility] Acquired Acquired Problem Commo n hypothyroi hypothyroi Sp ricarda dism dism - CHI [facility] [id number] Otalgia of Problem C ommon [id number] right ear [facility] Osteoarthr Osteoarthr Problem C ommon itis of itis of Spirit multiple multiple - CHI joints joints [facility] [id number] BMI Problem Common 40.0-44.9, Spirit adult - CHI [facility] [id number] Primary Problem Comm on osteoarthr Spirit itis of - CHI left knee [facility] Irritable Irritable Problem Com mon bowel bowel Spirit syndrome syndrome - [facility] [id number] Seasonal Problem Comm on allergies [facility] Cervical DDD Problem Common disc (degenerat Spirit disorder tobi disc - CHI disease), cervical [facility] [id number] Pulmonary Problem Com mon nodule, Spirit right [facility] [id number] Anxiety Problem Common Spirit CHI [facility] [id number] Depression Problem Com mon , Spirit unspecifie - CHI d [facility] [id number] Systemic Problem Commo n lupus Spirit erythemato - [facility] Medical type, Center unspecifie d organ involvemen t status [id number] Environmen Problem Co mmon tavon Spirit allergies - [facility] [id number] History of Problem Co mmon [place] Spirit inson-Whit - CHI e (WPW) [facility] [id number] Generalize Problem Com mon d anxiety Spirit disorder [facility] [id number] Panic Problem Common disorder Spirit [episodic - CHI paroxysmal St anxiety] [facility] [id number] Contact Problem Commo n with and Spirit (suspected - CHI ) exposure St to [facility] le diseases Chronic Chronic Problem Common fatigue fatigue Spirit [facility] Allergies, Adverse Reactions, Alerts Allergy Allergy Status Severity Reaction(s) Onset Inactive Treating Comm ents Source Name Type Date Date Clinician Nsaids Propensi Active Other - See Uni vers (Non-[place] ty to comments 4-22 ity of roidal adverse 00:00: [place] Anti-Inf reaction 00 Medica l lammator s Branch y Drug) Sulfa Propensi Active Rash Univers (Sulfona ty to 422 ity of mide adverse 00:00: [place] Antibiot reaction 00 Medica l ics) s Branch Vancomyc Propensi Active Rash Univer s in ty to 422 ity of (Bulk) adverse 00:00: [place] reaction 00 Medical s Branch NSAIDS Drug Active Other-Cmnt Univer s (NON-VINNIE Class 4-22 ity of ROIDAL 00:00: [place] ANTI-INF 00 Medical LAMMATOR Branch Y DRUG) SULFA Drug Active Rash Univers (SULFONA Class 4-22 ity of MIDE 00:00: [place] ANTIBIOT 00 Medical ICS) Branch VANCOMYC DRUG Active Rash Univers IN 4-22 ity of (BULK) 00:00: [place] 00 Medical Branch Nsaids Propensi Active Other - See Uni vers (Non-[place] ty to comments 4-22 ity of roidal adverse 00:00: [place] Anti-Inf reaction 00 Medica l lammator s Branch y Drug) Sulfa Propensi Active Rash Univers (Sulfona ty to 4-22 ity of mide adverse 00:00: [place] Antibiot reaction 00 Medica l ics) s Branch Vancomyc Vancomyc Active Unknown Commo n in in [facility] 8091 Drug Active Unknown Common allergy [facility] sertrali sertrali Active Unknown Commo n ne ne [facility] paroxeti paroxeti Active Unknown Commo n ne ne [facility] tramadol tramadol Active Unknown Commo n [facility] quetiapi quetiapi Active Unknown Commo n ne ne [facility] Social History Social Habit Start Date Stop Date Quantity Comments Source Sexual orientation Univer sity [facility] Exposure to Not sure University of SARS-CoV-2 (event) [facility] History of Tobacco Current Smoker Co mmon Spirit - Use [facility] Sex Assigned At Common Sp ricarda - [facility] Alcohol intake 2020-10-11 2020-10-11 0 /d University of 00:00:00 00:00:00 [facility] History of Social 2020-10-11 2020-10-11 Univers ity of function 00:00:00 00:00:00 [facility] Tobacco use and 2016-12-18 2016-12-18 Smokeless Universit y of exposure 00:00:00 00:00:00 tobacco non-user [facility] Smoking Status Start Date Stop Date Source Current Smoker 2022-09-06 00:00:00 Common Spiri t - [facility] Never smoked tobacco [facility] Medications Ordered Filled Start Stop Current Ordering Indication Dosage Frequency Signature Comments Components Source Medication Medication Date Date Medication? Clinician (SIG) Name Name Benzonatate Benzonatate 2021-09- No 1{capsu TID Benzonatat 200 MG 200 MG 2-16 12-30 le} e 200 MG 00:00: 00:00 00 :00 Benzonatate Benzonatate 2021-09- No 1{capsu TID Benzonatat 200 MG 200 MG 2-16 12-30 le} e 200 MG 00:00: 00:00 00 :00 Benzonatate Benzonatate 2021-09- No 1{capsu TID Benzonatat 200 MG 200 MG 2-16 12-30 le} e 200 MG 00:00: 00:00 00 :00 Benzonatate Benzonatate 2021-09- No 1{capsu TID Benzonatat 200 MG 200 MG 2-16 12-30 le} e 200 MG 00:00: 00:00 00 :00 Ondansetron Ondansetron No 1{table Ondansetro 4 MG 4 MG 3-07 t_on_th n 4 MG 00:00: e_tongu 00 e_and_a llow_to _dissol ve} Ondansetron Ondansetron 2022-0 No 1{table Ondansetro 4 MG 4 MG 3-07 t_on_th n 4 MG 00:00: e_tongu 00 e_and_a llow_to _dissol ve} Ondansetron Ondansetron 2021-0 No 1{table Ondansetro 4 MG 4 MG 3-07 t_onth n 4 MG 00:00: e_tongu 00 e_and_a llow_to _dissol ve} Ondansetron Ondansetron 2021-0 No 1{table Ondansetro 4 MG 4 MG 3-07 t_on n 4 MG 00:00: e_tongu 00 e_and_a llow_to _dissol ve} Ondansetron Ondansetron 2021-0 No 1{table Ondansetro 4 MG 4 MG 3-07 t_on n 4 MG 00:00: e_tongu 00 e_and_a llow_to _dissol ve} Ondansetron Ondansetron 2021-0 No 1{table Ondansetro 4 MG 4 MG 3-07 t_on n 4 MG 00:00: e_tongu 00 e_and_a llow_to _dissol ve} Ondansetron Ondansetron 2021-0 No 1{table Ondansetro 4 MG 4 MG 3-07 t_on n 4 MG 00:00: e_tongu 00 e_and_a llow_to _dissol ve} Ondansetron Ondansetron 2021-0 No 1{table Ondansetro 4 MG 4 MG 3-07 t_on n 4 MG 00:00: e_tongu 00 e_and_a llow_to _dissol ve} Ondansetron Ondansetron 2-0 No 1{table Ondansetro 4 MG 4 MG 3-07 t_on n 4 MG 00:00: e_tongu 00 e_and_a llow_to _dissol ve} Ondansetron Ondansetron 2-0 No 1{table Ondansetro 4 MG 4 MG 3-07 t_on n 4 MG 00:00: e_tongu 00 e_and_a llow_to _dissol ve} valACYclovi valACYclovi 2021- No 1{table QD valACYclov r HCl 500 r HCl 500 11-2605 t} ir HCl 500 MG MG 00:00: 00:00 MG 00 :00 valACYclovi valACYclovi 0 2022- No 1{table QD valACYclov r HCl 500 r HCl 500 11-26 t} ir HCl 500 MG MG 00:00: 00:00 MG 00 :00 valACYclovi valACYclovi 2021-0 2021- No 1{table QD valACYclov r HCl 500 r HCl 500 11-26 t} ir HCl 500 MG MG 00:00: 00:00 MG 00 :00 valACYclovi valACYclovi 0 2021- No 1{table QD valACYclov r HCl 500 r HCl 500 11-26 t} ir HCl 500 MG MG 00:00: 00:00 MG 00 :00 Azithromyci Azithromyci 2020-09- No QD Azithromyc n 250 MG n 250 MG 2-20 12-25 in 250 MG 00:00: 00:00 00 :00 Azithromyci Azithromyci 2020-09- No QD Azithromyc n 250 MG n 250 MG 2-20 12-25 in 250 MG 00:00: 00:00 00 :00 casirivimab 2020-0 2020- No [id number] 1200mg 1,200 mg, Univers -imdevimab 05-25 Subcutaneo it y of (REGEN-COV 17:13: 17:08 us, ONCE, [place] (EUA)) 00 :00 1 dose, Medical injection 05/25/21 Bran ch 1,200 mg at 1215, Routine Vitamin B12 Vitamin B12 No 1000ug Common (Cyanocobal (Cyanocobal 1-12 S pirit tobin) tobin) 00:00: - CHI 00 [facility] Vitamin B12 Vitamin B12 No 1000ug Common (Cyanocobal (Cyanocobal 1-12 S pirit tobin) tobin) 00:00: - CHI [facility] Vitamin B12 Vitamin B12 2021-0 No 1000ug Common (Cyanocobal (Cyanocobal 1-12 S pirit tobin) tobin) 00:00: - CHI 00 [facility] Vitamin B12 Vitamin B12 2020-0 No 1000ug Common (Cyanocobal (Cyanocobal 1-12 S pirit tobni) tobin) 00:00: - CHI 00 [facility] Vitamin B12 Vitamin B12 2020-0 No 1000ug Common (Cyanocobal (Cyanocobal 1-12 S pirit tobin) tobin) 00:00: - CHI 00 [facility] Vitamin B12 Vitamin B12 2020-0 No 1000ug Common (Cyanocobal (Cyanocobal 1-12 S pirit tobin) tobin) 00:00: - CHI 00 [facility] Vitamin B12 Vitamin B12 2020-0 No 1000ug Common (Cyanocobal (Cyanocobal 1-12 S pirit tobin) tobin) 00:00: - CHI 00 [facility] Vitamin B12 Vitamin B12 2020-0 No 1000ug Common (Cyanocobal (Cyanocobal 1-12 S pirit tobin) tobin) 00:00: - CHI 00 [facility] Vitamin B12 Vitamin B12 2020-0 No 1000ug Common (Cyanocobal (Cyanocobal 1-12 S pirit tobin) tobin) 00:00: - CHI 00 [facility] Vitamin B12 Vitamin B12 2020-0 No 1000ug Common (Cyanocobal (Cyanocobal 1-12 S pirit tobin) tobin) 00:00: - CHI 00 [facility] DULoxetine 2019- Yes 60mg Take 60 mg U nivers (CYMBALTA) 2-15 by mouth ity o f 60 mg 15:35: daily. [place] capsule 30 Medical Branch acetaminoph 2019-09 Yes 1{tbl} Take 1 Un diana en-codeine 2-15 tablet by ity of (TYLENOL 15:35: mouth at [place] #3) 300-30 30 bedtime. Medic al mg tablet Branch DULoxetine 2019-09 Yes 60mg Take 60 mg U nivers (CYMBALTA) 2-15 by mouth ity o f 60 mg 15:35: daily. [place] capsule 30 Medical [place] acetaminoph 2019-09 Yes 1{tbl} Take 1 Un diana en-codeine 2-15 tablet by ity of (TYLENOL 15:35: mouth at [place] #3) 300-30 30 bedtime. Medic al mg tablet Branch DULoxetine 2019-09 Yes 60mg Take 60 mg U nivers (CYMBALTA) 2-15 by mouth ity o f 60 mg 15:35: daily. [place] capsule 30 Medical Branch acetaminoph 2019-09 Yes 1{tbl} Take 1 Un diana en-codeine 2-15 tablet by ity of (TYLENOL 15:35: mouth at [place] #3) 300-30 30 bedtime. Medic al mg tablet Branch DULoxetine 2019-09 Yes 60mg Take 60 mg U nivers (CYMBALTA) 2-15 by mouth ity o f 60 mg 15:35: daily. [place] capsule 30 Medical Branch acetaminoph 2019-09 Yes 1{tbl} Take 1 Un diana en-codeine 2-15 tablet by ity of (TYLENOL 15:35: mouth at [place] #3) 300-30 30 bedtime. Medic al mg tablet Branch DULoxetine 2019-09 Yes 60mg Take 60 mg U nivers (CYMBALTA) 2-15 by mouth ity o f 60 mg 15:35: daily. [place] capsule 30 Medical Branch acetaminoph 2019-09 Yes 1{tbl} Take 1 Un diana en-codeine 2-15 tablet by ity of (TYLENOL 15:35: mouth at [place] #3) 300-30 30 bedtime. Medic al mg tablet Branch DULoxetine 2019-09 Yes 60mg Take 60 mg U nivers (CYMBALTA) 2-15 by mouth ity o f 60 mg 15:35: daily. [place] capsule 30 Medical Branch acetaminoph 2019-09 Yes 1{tbl} Take 1 Un diana en-codeine 2-15 tablet by ity of (TYLENOL 15:35: mouth at [place] #3) 300-30 30 bedtime. Medic al mg tablet Branch DULoxetine 2019-09 Yes 60mg Take 60 mg U nivers (CYMBALTA) 2-15 by mouth ity o f 60 mg 15:35: daily. [place] capsule 30 Medical Branch acetaminoph 2019-09 Yes 1{tbl} Take 1 Un diana en-codeine 2-15 tablet by ity of (TYLENOL 15:35: mouth at [place] #3) 300-30 30 bedtime. Medic al mg tablet Branch DULoxetine 2019-09 Yes 60mg Take 60 mg U nivers (CYMBALTA) 2-15 by mouth ity o f 60 mg 15:35: daily. [place] capsule 30 [facility] [place] acetaminoph 2019-09 Yes 1{tbl} Take 1 Un diana en-codeine 2-15 tablet by ity of (TYLENOL 15:35: mouth at [place] #3) 300-30 30 bedtime. Medic al mg tablet Branch DULoxetine 2019-09 Yes 60mg Take 60 mg U nivers (CYMBALTA) 2-15 by mouth ity o f 60 mg 15:35: daily. [place] capsule 30 Medical [place] acetaminoph 2019-09 Yes 1{tbl} Take 1 Un diana en-codeine 2-15 tablet by ity of (TYLENOL 15:35: mouth at [place] #3) 300-30 30 bedtime. Medic al mg tablet Branch DULoxetine 2019-09 Yes 60mg Take 60 mg U nivers (CYMBALTA) 2-15 by mouth ity o f 60 mg 09:35: daily. [place] capsule 30 [facility] acetaminoph 2019-09 Yes 1{tbl} Take 1 Un diana en-codeine 2-15 tablet by ity of (TYLENOL 09:35: mouth at [place] #3) 300-30 30 bedtime. Medic al mg tablet Branch DULoxetine 2019-09 Yes 60mg Take 60 mg U nivers (CYMBALTA) 2-15 by mouth ity o f 60 mg 09:35: daily. [place] capsule 30 [facility] acetaminoph 2019-09 Yes 1{tbl} Take 1 Un diana en-codeine 2-15 tablet by ity of (TYLENOL 09:35: mouth at [place] #3) 300-30 30 bedtime. Medic al mg tablet Branch ALPRAZolam 2019-09 Yes Univers 0.5 mg 1-23 ity of tablet 00:00: [facility] ALPRAZolam 2019-09 Yes Univers 0.5 mg 1-23 ity of tablet 00:00: [facility] ALPRAZolam 2019-09 Yes Univers 0.5 mg 1-23 ity of tablet 00:00: [facility] ALPRAZolam 2019-09 Yes Univers 0.5 mg 1-23 ity of tablet 00:00: Medical Branch ALPRAZolam 2020- Yes Univers 0.5 mg 1-23 ity of tablet 00:00: [place] [facility] ALPRAZolam 2020-1 Yes Univers 0.5 mg 1-23 ity of tablet 00:00: [place] [facility] ALPRAZolam 2020-1 Yes Univers 0.5 mg 1-23 ity of tablet 00:00: [place] [facility] ALPRAZolam 2020- Yes Univers 0.5 mg 1-23 ity of tablet 00:00: [place] [facility] ALPRAZolam 2020- Yes Univers 0.5 mg 1-23 ity of tablet 00:00: [place] [facility] ALPRAZolam 2020- Yes Univers 0.5 mg 1-23 ity of tablet 00:00: [place] [facility] ALPRAZolam 2020- Yes Univers 0.5 mg 1-23 ity of tablet 00:00: [place] [facility] Vitamin B12 Vitamin B12 2020- No 1000ug Common (Cyanocobal (Cyanocobal 0-08 S pirit tobin) tobin) 00:00: - CHI 00 [facility] Vitamin B12 Vitamin B12 2020-1 No 1000ug Common (Cyanocobal (Cyanocobal 0-08 S pirit tobin) tobin) 00:00: - CHI 00 [facility] Vitamin B12 Vitamin B12 2020-1 No 1000ug Common (Cyanocobal (Cyanocobal 0-08 S pirit tobin) tobin) 00:00: - CHI 00 [facility] Vitamin B12 Vitamin B12 2020-1 No 1000ug Common (Cyanocobal (Cyanocobal 0-08 S pirit tobin) tobin) 00:00: - CHI 00 [facility] Vitamin B12 Vitamin B12 2020-1 No 1000ug Common (Cyanocobal (Cyanocobal 0-08 S pirit tobin) tobin) 00:00: - CHI 00 [facility] Vitamin B12 Vitamin B12 2020-1 No 1000ug Common (Cyanocobal (Cyanocobal 0-08 S pirit tobin) tobin) 00:00: - CHI 00 [facility] Vitamin B12 Vitamin B12 2020-1 No 1000ug Common (Cyanocobal (Cyanocobal 0-08 S pirit tobin) tobin) 00:00: - CHI 00 [facility] Vitamin B12 Vitamin B12 2020-1 No 1000ug Common (Cyanocobal (Cyanocobal 0-08 S pirit tobin) tobin) 00:00: - CHI 00 [facility] Vitamin B12 Vitamin B12 2020-1 No 1000ug Common (Cyanocobal (Cyanocobal 0-08 S pirit tboin) tobin) 00:00: - CHI 00 [facility] Vitamin B12 Vitamin B12 2020-1 No 1000ug Common (Cyanocobal (Cyanocobal 0-08 S pirit tobin) tobin) 00:00: - CHI 00 [facility] valACYclovi 2020-0 Yes Univer s r 500 mg 9-22 ity of tablet 00:00: [place] 00 Medical Branch valACYclovi 2020-0 Yes Univer s r 500 mg 9-22 ity of tablet 00:00: [place] [address] Medical Branch valACYclovi 2020-0 Yes Univer s r 500 mg 9-22 ity of tablet 00:00: [place] [address] Medical Branch valACYclovi 2020-0 Yes Univer s r 500 mg 9-22 ity of tablet 00:00: [place] [address] Medical Branch valACYclovi 2020-0 Yes Univer s r 500 mg 9-22 ity of tablet 00:00: [place] [address] Medical Branch valACYclovi 2020-0 Yes Univer s r 500 mg 9-22 ity of tablet 00:00: [place] [address] Medical Branch valACYclovi 2020-0 Yes Univer s r 500 mg 9-22 ity of tablet 00:00: [place] [address] Medical Branch valACYclovi 2020-0 Yes Univer s r 500 mg 9-22 ity of tablet 00:00: [place] [address] Medical Branch valACYclovi 2020-0 Yes Univer s r 500 mg 9-22 ity of tablet 00:00: [place] [address] Medical Branch valACYclovi 2020-0 Yes Univer s r 500 mg 9-22 ity of tablet 00:00: [place] [address] Medical Branch valACYclovi 2020-0 Yes Univer s r 500 mg 9-22 ity of tablet 00:00: [place] [address] Medical Branch Valacyclovi Valacyclovi 2020-0 2020- No Sandeep 1 tablet Common r HCl r HCl 8-03 08-08 Yi Spirit 00:00: 00:00 - CHI 00 :00 [facility] Vitamin B12 Vitamin B12 2020-0 No 1000ug Common (Cyanocobal (Cyanocobal 1-14 S pirit tobin) tobin) 00:00: - CHI 00 [facility] Vitamin B12 Vitamin B12 2020-0 No 1000ug Common (Cyanocobal (Cyanocobal 1-14 S pirit tobin) tobin) 00:00: - CHI 00 [facility] Vitamin B12 Vitamin B12 2020-0 No 1000ug Common (Cyanocobal (Cyanocobal 1-14 S pirit tobin) tobin) 00:00: - CHI 00 [facility] Vitamin B12 Vitamin B12 2020-0 No 1000ug Common (Cyanocobal (Cyanocobal 1-14 S pirit tobin) tobin) 00:00: - CHI 00 [facility] Vitamin B12 Vitamin B12 2020-0 No 1000ug Common (Cyanocobal (Cyanocobal 1-14 S pirit tobin) tobin) 00:00: - CHI 00 [facility] Vitamin B12 Vitamin B12 2020-0 No 1000ug Common (Cyanocobal (Cyanocobal 1-14 S pirit tobin) tobin) 00:00: - CHI 00 [facility] Vitamin B12 Vitamin B12 2020-0 No 1000ug Common (Cyanocobal (Cyanocobal 1-14 S pirit tobin) tobin) 00:00: - CHI 00 [facility] Vitamin B12 Vitamin B12 2020-0 No 1000ug Common (Cyanocobal (Cyanocobal 1-14 S pirit tobin) tobin) 00:00: - CHI 00 [facility] Vitamin B12 Vitamin B12 2020-0 No 1000ug Common (Cyanocobal (Cyanocobal 1-14 S pirit tobin) tobin) 00:00: - CHI 00 [facility] Vitamin B12 Vitamin B12 2020-0 No 1000ug Common (Cyanocobal (Cyanocobal 1-14 S pirit tobin) tobin) 00:00: - CHI 00 [facility] Vitamin B12 Vitamin B12 2019-1 No 1000ug Common (Cyanocobal (Cyanocobal 1-18 S pirit tobin) tobin) 00:00: - CHI 00 [facility] Vitamin B12 Vitamin B12 2019-1 No 1000ug Common (Cyanocobal (Cyanocobal 1-18 S pirit tobin) tobin) 00:00: - CHI 00 [facility] Vitamin B12 Vitamin B12 2019-1 No 1000ug Common (Cyanocobal (Cyanocobal 1-18 S pirit tobin) tobin) 00:00: - CHI 00 [facility] Vitamin B12 Vitamin B12 2019-1 No 1000ug Common (Cyanocobal (Cyanocobal 1-18 S pirit tobin) tobin) 00:00: - CHI 00 [facility] Vitamin B12 Vitamin B12 2019-1 No 1000ug Common (Cyanocobal (Cyanocobal 1-18 S pirit tobin) tobin) 00:00: - CHI 00 [facility] Vitamin B12 Vitamin B12 2019-1 No 1000ug Common (Cyanocobal (Cyanocobal 1-18 S pirit tobin) tobin) 00:00: - CHI 00 [facility] Vitamin B12 Vitamin B12 2019-1 No 1000ug Common (Cyanocobal (Cyanocobal 1-18 S pirit tobin) tobin) 00:00: - CHI 00 [facility] Vitamin B12 Vitamin B12 2019-1 No 1000ug Common (Cyanocobal (Cyanocobal 1-18 S pirit tobin) tobin) 00:00: - CHI 00 [facility] Vitamin B12 Vitamin B12 2019-1 No 1000ug Common (Cyanocobal (Cyanocobal 1-18 S pirit tobin) tobin) 00:00: - CHI 00 [facility] Vitamin B12 Vitamin B12 2019-1 No 1000ug Common (Cyanocobal (Cyanocobal 1-18 S pirit tobin) tobin) 00:00: - CHI 00 [facility] Vitamin B12 Vitamin B12 2019-1 No 1000ug Common (Cyanocobal (Cyanocobal 0-08 S pirit tobin) tobin) 00:00: - CHI 00 [facility] Vitamin B12 Vitamin B12 2019-1 No 1000ug Common (Cyanocobal (Cyanocobal 0-08 S pirit tobin) tobin) 00:00: - CHI 00 [facility] Vitamin B12 Vitamin B12 2019-1 No 1000ug Common (Cyanocobal (Cyanocobal 0-08 S pirit tobin) tobin) 00:00: - CHI 00 [facility] Vitamin B12 Vitamin B12 2019-1 No 1000ug Common (Cyanocobal (Cyanocobal 0-08 S pirit tobin) tobin) 00:00: - CHI 00 [facility] Vitamin B12 Vitamin B12 2019-1 No 1000ug Common (Cyanocobal (Cyanocobal 0-08 S pirit tobin) tobin) 00:00: - CHI 00 [facility] Vitamin B12 Vitamin B12 2019-1 No 1000ug Common (Cyanocobal (Cyanocobal 0-08 S pirit tobin) tobin) 00:00: - CHI 00 [facility] Vitamin B12 Vitamin B12 2019-1 No 1000ug Common (Cyanocobal (Cyanocobal 0-08 S pirit tobin) tobin) 00:00: - CHI 00 [facility] Vitamin B12 Vitamin B12 2019-1 No 1000ug Common (Cyanocobal (Cyanocobal 0-08 S pirit tobin) tobin) 00:00: - CHI 00 [facility] Vitamin B12 Vitamin B12 2019-1 No 1000ug Common (Cyanocobal (Cyanocobal 0-08 S pirit tobin) tobin) 00:00: - CHI 00 [facility] Vitamin B12 Vitamin B12 2019-1 No 1000ug Common (Cyanocobal (Cyanocobal 0-08 S pirit tobin) tobin) 00:00: - CHI 00 [facility] Vitamin B12 Vitamin B12 2019-0 No 1000ug Common (Cyanocobal (Cyanocobal 9-10 S pirit tobin) tobin) 00:00: - CHI 00 [facility] Vitamin B12 Vitamin B12 2019-0 No 1000ug Common (Cyanocobal (Cyanocobal 9-10 S pirit tobin) tobin) 00:00: - CHI 00 [facility] Vitamin B12 Vitamin B12 2019-0 No 1000ug Common (Cyanocobal (Cyanocobal 9-10 S pirit tobin) tobin) 00:00: - [facility] Vitamin B12 Vitamin B12 2019-0 No 1000ug Common (Cyanocobal (Cyanocobal 9-10 S pirit tobin) tobin) 00:00: - [facility] Vitamin B12 Vitamin B12 2019-0 No 1000ug Common (Cyanocobal (Cyanocobal 9-10 S pirit tobin) tobin) 00:00: - [facility] Vitamin B12 Vitamin B12 2019-0 No 1000ug Common (Cyanocobal (Cyanocobal 9-10 S pirit tobin) tobin) 00:00: - [facility] Vitamin B12 Vitamin B12 2019-0 No 1000ug Common (Cyanocobal (Cyanocobal 9-10 S pirit tobin) tobin) 00:00: - [facility] Vitamin B12 Vitamin B12 2019-0 No 1000ug Common (Cyanocobal (Cyanocobal 9-10 S pirit tobin) tobin) 00:00: - [facility] Vitamin B12 Vitamin B12 2019-0 No 1000ug Common (Cyanocobal (Cyanocobal 9-10 S pirit tobin) tobin) 00:00: - [facility] Vitamin B12 Vitamin B12 2019-0 No 1000ug Common (Cyanocobal (Cyanocobal 9-10 S pirit tobin) tobin) 00:00: - [facility] LIDOCAINE LIDOCAINE 2019-0 No 4mL Com mon HCL 10MG/ML HCL 10MG/ML 8-12 S pirit 00:00: - [facility] Kenalog Kenalog 2019-0 No 1mL Common (Triamcinol (Triamcinol 8-12 S pirit one) one) 00:00: - [facility] LIDOCAINE LIDOCAINE 2019-0 No 4mL Com mon HCL 10MG/ML HCL 10MG/ML 8-12 S pirit 00:00: - [facility] Kenalog Kenalog 2019-0 No 1mL Common (Triamcinol (Triamcinol 8-12 S pirit one) one) 00:00: - [facility] LIDOCAINE LIDOCAINE 2019-0 No 4mL Com mon HCL 10MG/ML HCL 10MG/ML 8-12 S pirit 00:00: - [facility] Kenalog Kenalog 2019-0 No 1mL Common (Triamcinol (Triamcinol 8-12 S pirit one) one) 00:00: - [facility] LIDOCAINE LIDOCAINE 2019-0 No 4mL Com mon HCL 10MG/ML HCL 10MG/ML 8-12 S pirit 00:00: - [facility] Kenalog Kenalog 2019-0 No 1mL Common (Triamcinol (Triamcinol 8-12 S pirit one) one) 00:00: - [facility] LIDOCAINE LIDOCAINE 2019-0 No 4mL Com mon HCL 10MG/ML HCL 10MG/ML 8-12 S pirit 00:00: - [facility] Kenalog Kenalog 2019-0 No 1mL Common (Triamcinol (Triamcinol 8-12 S pirit one) one) 00:00: - [facility] LIDOCAINE LIDOCAINE 2019-0 No 4mL Com mon HCL 10MG/ML HCL 10MG/ML 8-12 S pirit 00:00: - [facility] Kenalog Kenalog 2019-0 No 1mL Common (Triamcinol (Triamcinol 8-12 S pirit one) one) 00:00: - [facility] LIDOCAINE LIDOCAINE 2019-0 No 4mL Com mon HCL 10MG/ML HCL 10MG/ML 8-12 S pirit 00:00: - [facility] Kenalog Kenalog 2019-0 No 1mL Common (Triamcinol (Triamcinol 8-12 S pirit one) one) 00:00: - [facility] LIDOCAINE LIDOCAINE 2019-0 No 4mL Com mon HCL 10MG/ML HCL 10MG/ML 8-12 S pirit 00:00: - [facility] Kenalog Kenalog 2019-0 No 1mL Common (Triamcinol (Triamcinol 8-12 S pirit one) one) 00:00: - [facility] LIDOCAINE LIDOCAINE 2019-0 No 4mL Com mon HCL 10MG/ML HCL 10MG/ML 8-12 S pirit 00:00: - [facility] Kenalog Kenalog 2019-0 No 1mL Common (Triamcinol (Triamcinol 8-12 S pirit one) one) 00:00: - [facility] LIDOCAINE LIDOCAINE 2019-0 No 4mL Com mon HCL 10MG/ML HCL 10MG/ML 8-12 S pirit 00:00: - [facility] Kenalog Kenalog 2019-0 No 1mL Common (Triamcinol (Triamcinol 8-12 S pirit one) one) 00:00: - [facility] Vitamin B12 Vitamin B12 2019-0 No 1000ug Common (Cyanocobal (Cyanocobal 6-12 S pirit tobin) tobin) 00:00: - [facility] Vitamin B12 Vitamin B12 2019-0 No 1000ug Common (Cyanocobal (Cyanocobal 6-12 S pirit tobin) tobin) 00:00: - [facility] Vitamin B12 Vitamin B12 2019-0 No 1000ug Common (Cyanocobal (Cyanocobal 6-12 S pirit tobin) tobin) 00:00: - [facility] Vitamin B12 Vitamin B12 2019-0 No 1000ug Common (Cyanocobal (Cyanocobal 6-12 S pirit tobin) tobin) 00:00: - [facility] Vitamin B12 Vitamin B12 2019-0 No 1000ug Common (Cyanocobal (Cyanocobal 6-12 S pirit tobin) tobin) 00:00: - [facility] Vitamin B12 Vitamin B12 2019-0 No 1000ug Common (Cyanocobal (Cyanocobal 6-12 S pirit tobin) tobin) 00:00: - [facility] Vitamin B12 Vitamin B12 2019-0 No 1000ug Common (Cyanocobal (Cyanocobal 6-12 S pirit tobin) tobin) 00:00: - [facility] Vitamin B12 Vitamin B12 2019-0 No 1000ug Common (Cyanocobal (Cyanocobal 6-12 S pirit tobin) tobin) 00:00: - [facility] Vitamin B12 Vitamin B12 2019-0 No 1000ug Common (Cyanocobal (Cyanocobal 6-12 S pirit tobin) tobin) 00:00: - [facility] Vitamin B12 Vitamin B12 2019-0 No 1000ug Common (Cyanocobal (Cyanocobal 6-12 S pirit tobin) tobin) 00:00: - [facility] Cetirizine Cetirizine 2019-0 No 1{table Cetirizine HCl 10 MG HCl 10 MG 5-25 t} HCl 10 MG 00:00: 00 Cetirizine Cetirizine 2019-0 No 1{table Cetirizine HCl 10 MG HCl 10 MG 5-25 t} HCl 10 MG 00:00: 00 Cetirizine Cetirizine 2019-0 No 1{table Cetirizine HCl 10 MG HCl 10 MG 5-25 t} HCl 10 MG 00:00: 00 Cetirizine Cetirizine 2019-0 No 1{table Cetirizine HCl 10 MG HCl 10 MG 5-25 t} HCl 10 MG 00:00: 00 Cetirizine Cetirizine 2019-0 No 1{table Cetirizine HCl 10 MG HCl 10 MG 5-25 t} HCl 10 MG 00:00: 00 Cetirizine Cetirizine 2018-0 No 1{table Cetirizine HCl 10 MG HCl 10 MG 5-25 t} HCl 10 MG 00:00: 00 Cetirizine Cetirizine 2018-0 No 1{table Cetirizine HCl 10 MG HCl 10 MG 5-25 t} HCl 10 MG 00:00: 00 Cetirizine Cetirizine 2018-0 No 1{table Cetirizine HCl 10 MG HCl 10 MG 5-25 t} HCl 10 MG 00:00: 00 Cetirizine Cetirizine 2018-0 No 1{table Cetirizine HCl 10 MG HCl 10 MG 5-25 t} HCl 10 MG 00:00: 00 Cetirizine Cetirizine 2018-0 No 1{table Cetirizine HCl 10 MG HCl 10 MG 5-25 t} HCl 10 MG 00:00: 00 Cetirizine Cetirizine 2018-0 No 1{table Cetirizine HCl 10 MG HCl 10 MG 5-25 t} HCl 10 MG 00:00: 00 Cetirizine Cetirizine 2018-0 No 1{table Cetirizine HCl 10 MG HCl 10 MG 5-25 t} HCl 10 MG 00:00: 00 Cetirizine Cetirizine 2018-0 No 1{table Cetirizine HCl 10 MG HCl 10 MG 5-25 t} HCl 10 MG 00:00: 00 Cetirizine Cetirizine 2018-0 No 1{table Cetirizine HCl 10 MG HCl 10 MG 5-25 t} HCl 10 MG 00:00: 00 Cetirizine Cetirizine 2018-0 No 1{table Cetirizine HCl 10 MG HCl 10 MG 5-25 t} HCl 10 MG 00:00: 00 Cetirizine Cetirizine 2018-0 No 1{table Cetirizine HCl 10 MG HCl 10 MG 5-25 t} HCl 10 MG 00:00: 00 Cetirizine Cetirizine 2018-0 No 1{table Cetirizine HCl 10 MG HCl 10 MG 5-25 t} HCl 10 MG 00:00: 00 levothyroxi 2017-0 Yes 175ug Take 1 Uni vers ne 175 mcg 7-14 tablet by ity of tablet 00:00: mouth [place] 00 every Medical morning. Branch levothyroxi 2017-0 Yes 175ug Take 1 Uni vers ne 175 mcg 7-14 tablet by ity of tablet 00:00: mouth [place] 00 every Medical morning. Branch levothyroxi 2017-0 Yes 175ug Take 1 Uni vers ne 175 mcg 7-14 tablet by ity of tablet 00:00: mouth [place] 00 every Medical morning. Branch levothyroxi 2017-0 Yes 175ug Take 1 Uni vers ne 175 mcg 7-14 tablet by ity of tablet 00:00: mouth [place] 00 every Medical morning. Branch levothyroxi 2017-0 Yes 175ug Take 1 Uni vers ne 175 mcg 7-14 tablet by ity of tablet 00:00: mouth [place] 00 every Medical morning. Branch levothyroxi 2016-0 Yes 175ug Take 1 Uni vers ne 175 mcg 7-14 tablet by ity of tablet 00:00: mouth [place] 00 every Medical morning. Branch levothyroxi 2016- Yes 175ug Take 1 Uni vers ne 175 mcg 7-14 tablet by ity of tablet 00:00: mouth [place] 00 every Medical morning. Branch levothyroxi 2016- Yes 175ug Take 1 Uni vers ne 175 mcg 7-14 tablet by ity of tablet 00:00: mouth [place] 00 every Medical morning. Branch levothyroxi 2016- Yes 175ug Take 1 Uni vers ne 175 mcg 7-14 tablet by ity of tablet 00:00: mouth [place] 00 every Medical morning. Branch levothyroxi Yes 175ug Take 1 Uni vers ne 175 mcg 7-14 tablet by ity of tablet 00:00: mouth [place] 00 every Medical morning. Branch levothyroxi 2016-0 Yes 175ug Take 1 Uni vers ne 175 mcg 7-14 tablet by ity of tablet 00:00: mouth [place] 00 every Medical morning. Branch levothyroxi Yes 175ug Take 1 Uni vers ne 175 mcg 7-14 tablet by ity of tablet 00:00: mouth [place] 00 every Medical morning. Branch acetaminoph Yes 1{tbl} Take 1 Un diana en-codeine 3-29 tablet by ity of (TYLENOL 18:18: mouth at [place] #3) 300-30 48 bedtime. Medic al mg tablet Branch DULoxetine Yes 60mg Take 60 mg U nivers (CYMBALTA) 3-29 by mouth ity o f 60 mg 18:17: daily. [facility] 30 [facility] Synthroid Synthroid No QD Synthroid 150 MCG 150 MCG 150 MCG Synthroid Synthroid No QD Synthroid 150 MCG 150 MCG 150 MCG Tylenol # 3 Tylenol # 3 No 2{table QID Tylenol # 500500 ts_as_n 3 MG MG eeded} 500-15 MG Cymbalta 60 Cymbalta 60 No 1{capsu BID Cymbalta MG MG le} 60 MG hydrOXYzine hydrOXYzine No hydrOXYzin HCl 50 MG HCl 50 MG e HCl 50 MG valACYclovi valACYclovi No 1{table QD valACYclov r HCl 500 r HCl 500 t} ir HCl 500 MG MG MG ALPRAZolam ALPRAZolam No 1{table ALPRAZolam 0.5 MG 0.5 MG t} 0.5 MG Vitamin D3 Vitamin D3 No 1{capsu Vitamin D3 28727 UNIT 92815 UNIT le} 17433 UNIT Acetaminoph Acetaminoph No Acetaminop en-Codeine en-Codeine hen-Codein e Synthroid Synthroid No Synthroid 125 MCG 125 MCG 125 MCG Montelukast Montelukast No Montelukas Sodium 10 Sodium 10 t Sodium MG MG 10 MG predniSONE predniSONE No QD predniSONE 10 MG 10 MG 10 MG Synthroid Synthroid No Synthroid 125 MCG 125 MCG 125 MCG Tylenol # 3 Tylenol # 3 No 2{table QID Tylenol # 500 ts_as_n 3 MG MG eeded} 50015 MG Azithromyci Azithromyci No QD Azithromyc n 250 MG n 250 MG in 250 MG Synthroid Synthroid No QD Synthroid 150 MCG 150 MCG 150 MCG Benzonatate Benzonatate No 1{capsu TID Benzonatat 200 MG 200 MG le} e 200 MG Cymbalta 60 Cymbalta 60 No 1{capsu BID Cymbalta MG MG le} 60 MG hydrOXYzine hydrOXYzine No hydrOXYzin HCl 50 MG HCl 50 MG e HCl 50 MG valACYclovi valACYclovi No 1{table QD valACYclov r HCl 500 r HCl 500 t} ir HCl 500 MG MG MG Synthroid Synthroid No QD Synthroid 150 MCG 150 MCG 150 MCG ALPRAZolam ALPRAZolam No 1{table ALPRAZolam 0.5 MG 0.5 MG t} 0.5 MG Vitamin D3 Vitamin D3 No 1{capsu Vitamin D3 02509 UNIT 31592 UNIT le} 93776 UNIT Azelastine- Azelastine- No 1{spray BID Azelastine Fluticasone Fluticasone _in_eac -Fluticaso 137-50 137-50 h_nostr ne 137-50 MCG/ACT MCG/ACT il} MCG/ACT Acetaminoph Acetaminoph No Acetaminop en-Codeine en-Codeine hen-Codein e Montelukast Montelukast No Montelukas Sodium 10 Sodium 10 t Sodium MG MG 10 MG predniSONE predniSONE No QD predniSONE 10 MG 10 MG 10 MG hydrOXYzine hydrOXYzine No hydrOXYzin HCl 50 MG HCl 50 MG e HCl 50 MG valACYclovi valACYclovi No 1{table QD valACYclov r HCl 500 r HCl 500 t} ir HCl 500 MG MG MG Azithromyci Azithromyci No QD Azithromyc n 250 MG n 250 MG in 250 MG Tylenol # 3 Tylenol # 3 No 2{table QID Tylenol # 30-500-15 30-500-15 ts_as_n 3 MG MG eeded} 30-500-15 MG Benzonatate Benzonatate No 1{capsu TID Benzonatat 200 MG 200 MG le} e 200 MG Vitamin D3 Vitamin D3 No 1{capsu Vitamin D3 51607 UNIT 42243 UNIT le} 98167 UNIT Cymbalta 60 Cymbalta 60 No 1{capsu BID Cymbalta MG MG le} 60 MG Synthroid Synthroid No QD Synthroid 150 MCG 150 MCG 150 MCG Synthroid Synthroid No Synthroid 125 MCG 125 MCG 125 MCG Synthroid Synthroid No QD Synthroid 150 MCG 150 MCG 150 MCG Azelastine- Azelastine- No 1{spray BID Azelastine Fluticasone Fluticasone _in_eac -Fluticaso 137-50 137-50 h_nostr ne 137-50 MCG/ACT MCG/ACT il} MCG/ACT ALPRAZolam ALPRAZolam No 1{table ALPRAZolam 0.5 MG 0.5 MG t} 0.5 MG Acetaminoph Acetaminoph No Acetaminop en-Codeine en-Codeine hen-Codein e Montelukast Montelukast No Montelukas Sodium 10 Sodium 10 t Sodium MG MG 10 MG predniSONE predniSONE No QD predniSONE 10 MG 10 MG 10 MG Cymbalta 60 Cymbalta 60 No 1{capsu BID Cymbalta MG MG le} 60 MG Azithromyci Azithromyci No QD Azithromyc n 250 MG n 250 MG in 250 MG Tylenol # 3 Tylenol # 3 No 2{table QID Tylenol # 30500-15 30-500-15 ts_as_n 3 MG MG eeded} 30-500-15 MG Benzonatate Benzonatate No 1{capsu TID Benzonatat 200 MG 200 MG le} e 200 MG Synthroid Synthroid No QD Synthroid 150 MCG 150 MCG 150 MCG Vitamin D3 Vitamin D3 No 1{capsu Vitamin D3 70225 UNIT 10479 UNIT le} 62260 UNIT ALPRAZolam ALPRAZolam No 1{table ALPRAZolam 0.5 MG 0.5 MG t} 0.5 MG Acetaminoph Acetaminoph No Acetaminop en-Codeine en-Codeine hen-Codein e hydrOXYzine hydrOXYzine No hydrOXYzin HCl 50 MG HCl 50 MG e HCl 50 MG Synthroid Synthroid No QD Synthroid 150 MCG 150 MCG 150 MCG Azelastine- Azelastine- No 1{spray BID Azelastine Fluticasone Fluticasone _in_eac -Fluticaso 137-50 137-50 h_nostr ne 137-50 MCG/ACT MCG/ACT il} MCG/ACT Synthroid Synthroid No Synthroid 125 MCG 125 MCG 125 MCG valACYclovi valACYclovi No 1{table QD valACYclov r HCl 500 r HCl 500 t} ir HCl 500 MG MG MG Synthroid Synthroid No QD Synthroid 150 MCG 150 MCG 150 MCG Cymbalta 60 Cymbalta 60 No 1{capsu BID Cymbalta MG MG le} 60 MG Benzonatate Benzonatate No 1{capsu TID Benzonatat 200 MG 200 MG le} e 200 MG Vitamin D3 Vitamin D3 No 1{capsu Vitamin D3 85098 UNIT 22212 UNIT le} 61334 UNIT Synthroid Synthroid No Synthroid 125 MCG 125 MCG 125 MCG Synthroid Synthroid No QD Synthroid 150 MCG 150 MCG 150 MCG Azelastine- Azelastine- No 1{spray BID Azelastine Fluticasone Fluticasone _in_eac -Fluticaso 137-50 137-50 h_nostr ne 137-50 MCG/ACT MCG/ACT il} MCG/ACT Montelukast Montelukast No Montelukas Sodium 10 Sodium 10 t Sodium MG MG 10 MG Acetaminoph Acetaminoph No Acetaminop en-Codeine en-Codeine hen-Codein e ALPRAZolam ALPRAZolam No 1{table ALPRAZolam 0.5 MG 0.5 MG t} 0.5 MG valACYclovi valACYclovi No 1{table QD valACYclov r HCl 500 r HCl 500 t} ir HCl 500 MG MG MG predniSONE predniSONE No QD predniSONE 10 MG 10 MG 10 MG Tylenol # 3 Tylenol # 3 No 2{table QID Tylenol # 30500-15 30500-15 ts_as_n 3 MG MG eeded} 30500-15 MG Azithromyci Azithromyci No QD Azithromyc n 250 MG n 250 MG in 250 MG hydrOXYzine hydrOXYzine No hydrOXYzin HCl 50 MG HCl 50 MG e HCl 50 MG Vitamin D3 Vitamin D3 No 1{capsu Vitamin D3 78948 UNIT 45760 UNIT le} 29811 UNIT Synthroid Synthroid No Synthroid 125 MCG 125 MCG 125 MCG Synthroid Synthroid No QD Synthroid 150 MCG 150 MCG 150 MCG ALPRAZolam ALPRAZolam No 1{table ALPRAZolam 0.5 MG 0.5 MG t} 0.5 MG valACYclovi valACYclovi No 1{table QD valACYclov r HCl 500 r HCl 500 t} ir HCl 500 MG MG MG Cymbalta 60 Cymbalta 60 No 1{capsu BID Cymbalta MG MG le} 60 MG Azithromyci Azithromyci No QD Azithromyc n 250 MG n 250 MG in 250 MG Synthroid Synthroid No QD Synthroid 150 MCG 150 MCG 150 MCG Montelukast Montelukast No Montelukas Sodium 10 Sodium 10 t Sodium MG MG 10 MG Azelastine- Azelastine- No 1{spray BID Azelastine Fluticasone Fluticasone _in_eac -Fluticaso 137-50 137-50 h_nostr ne 137-50 MCG/ACT MCG/ACT il} MCG/ACT Tylenol # 3 Tylenol # 3 No 2{table QID Tylenol # ts_as_n 3 MG MG eeded} MG Acetaminoph Acetaminoph No Acetaminop en-Codeine en-Codeine hen-Codein e hydrOXYzine hydrOXYzine No hydrOXYzin HCl 50 MG HCl 50 MG e HCl 50 MG Benzonatate Benzonatate No 1{capsu TID Benzonatat 200 MG 200 MG le} e 200 MG predniSONE predniSONE No QD predniSONE 10 MG 10 MG 10 MG Vitamin D3 Vitamin D3 No 1{capsu Vitamin D3 88950 UNIT 79332 UNIT le} 82182 UNIT Synthroid Synthroid No Synthroid 125 MCG 125 MCG 125 MCG Synthroid Synthroid No QD Synthroid 150 MCG 150 MCG 150 MCG ALPRAZolam ALPRAZolam No 1{table ALPRAZolam 0.5 MG 0.5 MG t} 0.5 MG valACYclovi valACYclovi No 1{table QD valACYclov r HCl 500 r HCl 500 t} ir HCl 500 MG MG MG Cymbalta 60 Cymbalta 60 No 1{capsu BID Cymbalta MG MG le} 60 MG Azithromyci Azithromyci No QD Azithromyc n 250 MG n 250 MG in 250 MG Synthroid Synthroid No QD Synthroid 150 MCG 150 MCG 150 MCG Montelukast Montelukast No Montelukas Sodium 10 Sodium 10 t Sodium MG MG 10 MG Azelastine- Azelastine- No 1{spray BID Azelastine Fluticasone Fluticasone _in_eac -Fluticaso 137-50 137-50 h_nostr ne 137-50 MCG/ACT MCG/ACT il} MCG/ACT Tylenol # 3 Tylenol # 3 No 2{table QID Tylenol # ts_as_n 3 MG MG eeded} MG Acetaminoph Acetaminoph No Acetaminop en-Codeine en-Codeine hen-Codein e hydrOXYzine hydrOXYzine No hydrOXYzin HCl 50 MG HCl 50 MG e HCl 50 MG Benzonatate Benzonatate No 1{capsu TID Benzonatat 200 MG 200 MG le} e 200 MG predniSONE predniSONE No QD predniSONE 10 MG 10 MG 10 MG ALPRAZolam ALPRAZolam No 1{table ALPRAZolam 0.5 MG 0.5 MG t} 0.5 MG Tylenol # 3 Tylenol # 3 No 2{table QID Tylenol # 50015 30500-15 ts_as_n 3 MG MG eeded} 30500-15 MG Acetaminoph Acetaminoph No Acetaminop en-Codeine en-Codeine hen-Codein e predniSONE predniSONE No QD predniSONE 10 MG 10 MG 10 MG Synthroid Synthroid No Synthroid 150 MCG 150 MCG 150 MCG Azelastine- Azelastine- No 1{spray BID Azelastine Fluticasone Fluticasone _in_eac -Fluticaso 137-50 137-50 h_nostr ne 137-50 MCG/ACT MCG/ACT il} MCG/ACT Synthroid Synthroid No QD Synthroid 150 MCG 150 MCG 150 MCG valACYclovi valACYclovi No 1{table QD valACYclov r HCl 500 r HCl 500 t} ir HCl 500 MG MG MG Cymbalta 60 Cymbalta 60 No 1{capsu BID Cymbalta MG MG le} 60 MG Synthroid Synthroid No Synthroid 125 MCG 125 MCG 125 MCG Vitamin D3 Vitamin D3 No 1{capsu Vitamin D3 02008 UNIT 26613 UNIT le} 41138 UNIT Benzonatate Benzonatate No 1{capsu TID Benzonatat 200 MG 200 MG le} e 200 MG Montelukast Montelukast No Montelukas Sodium 10 Sodium 10 t Sodium MG MG 10 MG Azithromyci Azithromyci No QD Azithromyc n 250 MG n 250 MG in 250 MG ALPRAZolam ALPRAZolam No 1{table ALPRAZolam 0.5 MG 0.5 MG t} 0.5 MG Tylenol # 3 Tylenol # 3 No 2{table QID Tylenol # 500500-15 ts_as_n 3 MG MG eeded} 30500-15 MG Acetaminoph Acetaminoph No Acetaminop en-Codeine en-Codeine hen-Codein e predniSONE predniSONE No QD predniSONE 10 MG 10 MG 10 MG Synthroid Synthroid No Synthroid 150 MCG 150 MCG 150 MCG Azelastine- Azelastine- No 1{spray BID Azelastine Fluticasone Fluticasone _in_eac -Fluticaso 137-50 137-50 h_nostr ne 137-50 MCG/ACT MCG/ACT il} MCG/ACT Synthroid Synthroid No QD Synthroid 150 MCG 150 MCG 150 MCG valACYclovi valACYclovi No 1{table QD valACYclov r HCl 500 r HCl 500 t} ir HCl 500 MG MG MG Cymbalta 60 Cymbalta 60 No 1{capsu BID Cymbalta MG MG le} 60 MG Synthroid Synthroid No Synthroid 125 MCG 125 MCG 125 MCG Vitamin D3 Vitamin D3 No 1{capsu Vitamin D3 70254 UNIT 27408 UNIT le} 67381 UNIT Benzonatate Benzonatate No 1{capsu TID Benzonatat 200 MG 200 MG le} e 200 MG Montelukast Montelukast No Montelukas Sodium 10 Sodium 10 t Sodium MG MG 10 MG Azithromyci Azithromyci No QD Azithromyc n 250 MG n 250 MG in 250 MG ALPRAZolam ALPRAZolam No 1{table ALPRAZolam 0.5 MG 0.5 MG t} 0.5 MG Tylenol # 3 Tylenol # 3 No 2{table QID Tylenol # 30-500-15 30-500-15 ts_as_n 3 MG MG eeded} 30-500-15 MG Acetaminoph Acetaminoph No Acetaminop en-Codeine en-Codeine hen-Codein e predniSONE predniSONE No QD predniSONE 10 MG 10 MG 10 MG Synthroid Synthroid No Synthroid 150 MCG 150 MCG 150 MCG Azelastine- Azelastine- No 1{spray BID Azelastine Fluticasone Fluticasone _in_eac -Fluticaso 137-50 137-50 h_nostr ne 137-50 MCG/ACT MCG/ACT il} MCG/ACT Synthroid Synthroid No QD Synthroid 150 MCG 150 MCG 150 MCG valACYclovi valACYclovi No 1{table QD valACYclov r HCl 500 r HCl 500 t} ir HCl 500 MG MG MG Cymbalta 60 Cymbalta 60 No 1{capsu BID Cymbalta MG MG le} 60 MG Synthroid Synthroid No Synthroid 125 MCG 125 MCG 125 MCG Vitamin D3 Vitamin D3 No 1{capsu Vitamin D3 50263 UNIT 88453 UNIT le} 17188 UNIT Benzonatate Benzonatate No 1{capsu TID Benzonatat 200 MG 200 MG le} e 200 MG Montelukast Montelukast No Montelukas Sodium 10 Sodium 10 t Sodium MG MG 10 MG Azithromyci Azithromyci No QD Azithromyc n 250 MG n 250 MG in 250 MG Vitamin D3 Vitamin D3 No 1{capsu Vitamin D3 63254 UNIT 21790 UNIT le} 89366 UNIT Azithromyci Azithromyci No QD Azithromyc n 250 MG n 250 MG in 250 MG Synthroid Synthroid No Synthroid 125 MCG 125 MCG 125 MCG Synthroid Synthroid No Synthroid 150 MCG 150 MCG 150 MCG Montelukast Montelukast No Montelukas Sodium 10 Sodium 10 t Sodium MG MG 10 MG Cymbalta 60 Cymbalta 60 No 1{capsu BID Cymbalta MG MG le} 60 MG hydrOXYzine hydrOXYzine No hydrOXYzin HCl 50 MG HCl 50 MG e HCl 50 MG Synthroid Synthroid No QD Synthroid 150 MCG 150 MCG 150 MCG ALPRAZolam ALPRAZolam No 1{table ALPRAZolam 0.5 MG 0.5 MG t} 0.5 MG Azelastine- Azelastine- No 1{spray BID Azelastine Fluticasone Fluticasone _in_eac -Fluticaso 137-50 137-50 h_nostr ne 137-50 MCG/ACT MCG/ACT il} MCG/ACT Acetaminoph Acetaminoph No Acetaminop en-Codeine en-Codeine hen-Codein e predniSONE predniSONE No QD predniSONE 10 MG 10 MG 10 MG Tylenol # 3 Tylenol # 3 No 2{table QID Tylenol # 30-500-15 30-500-15 ts_as_n 3 MG MG eeded} 30-500-15 MG valACYclovi valACYclovi No 1{table QD valACYclov r HCl 500 r HCl 500 t} ir HCl 500 MG MG MG Benzonatate Benzonatate No 1{capsu TID Benzonatat 200 MG 200 MG le} e 200 MG Acetaminoph Acetaminoph No Acetaminop en-Codeine en-Codeine hen-Codein e valACYclovi valACYclovi No 1{table QD valACYclov r HCl 500 r HCl 500 t} ir HCl 500 MG MG MG Synthroid Synthroid No Synthroid 125 MCG 125 MCG 125 MCG predniSONE predniSONE No QD predniSONE 10 MG 10 MG 10 MG Albuterol Albuterol No 2{puff_ 6xD Albuterol Sulfate HFA Sulfate HFA as_need Sulfate 108 (90 108 (90 ed} HFA 108 Base) Base) (90 Base) MCG/ACT MCG/ACT MCG/ACT Azithromyci Azithromyci No QD Azithromyc n 250 MG n 250 MG in 250 MG Montelukast Montelukast No Montelukas Sodium 10 Sodium 10 t Sodium MG MG 10 MG Benzonatate Benzonatate No 1{capsu TID Benzonatat 200 MG 200 MG le} e 200 MG Vitamin D3 Vitamin D3 No 1{capsu Vitamin D3 81624 UNIT 18823 UNIT le} 73287 UNIT Cymbalta 60 Cymbalta 60 No 1{capsu BID Cymbalta MG MG le} 60 MG hydrOXYzine hydrOXYzine No hydrOXYzin HCl 50 MG HCl 50 MG e HCl 50 MG Azelastine- Azelastine- No 1{spray BID Azelastine Fluticasone Fluticasone _in_eac -Fluticaso 137-50 137-50 h_nostr ne 137-50 MCG/ACT MCG/ACT il} MCG/ACT Azithromyci Azithromyci No QD Azithromyc n 250 MG n 250 MG in 250 MG ALPRAZolam ALPRAZolam No 1{table ALPRAZolam 0.5 MG 0.5 MG t} 0.5 MG Tylenol # 3 Tylenol # 3 No 2{table QID Tylenol # 500-15 500-15 ts_as_n 3 MG MG eeded} 500-15 MG Benzonatate Benzonatate No 1{capsu TID Benzonatat 200 MG 200 MG le} e 200 MG Synthroid Synthroid No QD Synthroid 150 MCG 150 MCG 150 MCG Acetaminoph Acetaminoph No Acetaminop en-Codeine en-Codeine hen-Codein e valACYclovi valACYclovi No 1{table QD valACYclov r HCl 500 r HCl 500 t} ir HCl 500 MG MG MG Synthroid Synthroid No Synthroid 125 MCG 125 MCG 125 MCG predniSONE predniSONE No QD predniSONE 10 MG 10 MG 10 MG Albuterol Albuterol No 2{puff_ 6xD Albuterol Sulfate HFA Sulfate HFA as_need Sulfate 108 (90 108 (90 ed} HFA 108 Base) Base) (90 Base) MCG/ACT MCG/ACT MCG/ACT Azithromyci Azithromyci No QD Azithromyc n 250 MG n 250 MG in 250 MG Montelukast Montelukast No Montelukas Sodium 10 Sodium 10 t Sodium MG MG 10 MG Benzonatate Benzonatate No 1{capsu TID Benzonatat 200 MG 200 MG le} e 200 MG Vitamin D3 Vitamin D3 No 1{capsu Vitamin D3 06031 UNIT 67416 UNIT le} 80250 UNIT Cymbalta 60 Cymbalta 60 No 1{capsu BID Cymbalta MG MG le} 60 MG hydrOXYzine hydrOXYzine No hydrOXYzin HCl 50 MG HCl 50 MG e HCl 50 MG Azelastine- Azelastine- No 1{spray BID Azelastine Fluticasone Fluticasone _in_eac -Fluticaso 137-50 137-50 h_nostr ne 137-50 MCG/ACT MCG/ACT il} MCG/ACT Azithromyci Azithromyci No QD Azithromyc n 250 MG n 250 MG in 250 MG ALPRAZolam ALPRAZolam No 1{table ALPRAZolam 0.5 MG 0.5 MG t} 0.5 MG Tylenol # 3 Tylenol # 3 No 2{table QID Tylenol # 500-15 30500-15 ts_as_n 3 MG MG eeded} 30-500-15 MG Benzonatate Benzonatate No 1{capsu TID Benzonatat 200 MG 200 MG le} e 200 MG Synthroid Synthroid No QD Synthroid 150 MCG 150 MCG 150 MCG Levothyroxi Levothyroxi No Levothyrox ne Sodium ne Sodium ine Sodium 150 MCG 150 MCG 150 MCG Vitamin D3 Vitamin D3 No 1{capsu Vitamin D3 53371 UNIT 10458 UNIT le} 44661 UNIT Benzonatate Benzonatate No 1{capsu TID Benzonatat 200 MG 200 MG le} e 200 MG Montelukast Montelukast No Montelukas Sodium 10 Sodium 10 t Sodium MG MG 10 MG predniSONE predniSONE No QD predniSONE 10 MG 10 MG 10 MG Tylenol # 3 Tylenol # 3 No 2{table QID Tylenol # ts_as_n 3 MG MG eeded} MG hydrOXYzine hydrOXYzine No hydrOXYzin HCl 50 MG HCl 50 MG e HCl 50 MG Synthroid Synthroid No QD Synthroid 150 MCG 150 MCG 150 MCG Albuterol Albuterol No 2{puff_ 6xD Albuterol Sulfate HFA Sulfate HFA as_need Sulfate 108 (90 108 (90 ed} HFA 108 Base) Base) (90 Base) MCG/ACT MCG/ACT MCG/ACT Azithromyci Azithromyci No QD Azithromyc n 250 MG n 250 MG in 250 MG Azithromyci Azithromyci No QD Azithromyc n 250 MG n 250 MG in 250 MG ALPRAZolam ALPRAZolam No 1{table ALPRAZolam 0.5 MG 0.5 MG t} 0.5 MG Synthroid Synthroid No QD Synthroid 150 MCG 150 MCG 150 MCG Acetaminoph Acetaminoph No Acetaminop en-Codeine en-Codeine hen-Codein e Benzonatate Benzonatate No 1{capsu TID Benzonatat 200 MG 200 MG le} e 200 MG valACYclovi valACYclovi No 1{table QD valACYclov r HCl 500 r HCl 500 t} ir HCl 500 MG MG MG Synthroid Synthroid No Synthroid 125 MCG 125 MCG 125 MCG Azelastine- Azelastine- No 1{spray BID Azelastine Fluticasone Fluticasone _in_eac -Fluticaso 137-50 137-50 h_nostr ne 137-50 MCG/ACT MCG/ACT il} MCG/ACT Pseudoeph-B Pseudoeph-B No 5{ml_as QID Pseudoeph- romphen-DM romphen-DM _needed Bromphen-D } M MG/5ML MG/5ML MG/5ML Cymbalta 60 Cymbalta 60 No 1{capsu BID Cymbalta MG MG le} 60 MG Tylenol # 3 Tylenol # 3 No 2{table QID Tylenol # -500-15 ts_as_n 3 MG MG eeded} 500-15 MG Vitamin D3 Vitamin D3 No 1{capsu Vitamin D3 97442 UNIT 03241 UNIT le} 73151 UNIT Azithromyci Azithromyci No QD Azithromyc n 250 MG n 250 MG in 250 MG Synthroid Synthroid No QD Synthroid 150 MCG 150 MCG 150 MCG predniSONE predniSONE No QD predniSONE 10 MG 10 MG 10 MG Montelukast Montelukast No Montelukas Sodium 10 Sodium 10 t Sodium MG MG 10 MG hydrOXYzine hydrOXYzine No hydrOXYzin HCl 50 MG HCl 50 MG e HCl 50 MG Synthroid Synthroid No Synthroid 125 MCG 125 MCG 125 MCG Azithromyci Azithromyci No QD Azithromyc n 250 MG n 250 MG in 250 MG Albuterol Albuterol No 2{puff_ 6xD Albuterol Sulfate HFA Sulfate HFA as_need Sulfate 108 (90 108 (90 ed} HFA 108 Base) Base) (90 Base) MCG/ACT MCG/ACT MCG/ACT Levothyroxi Levothyroxi No QD Levothyrox ne Sodium ne Sodium ine Sodium 150 MCG 150 MCG 150 MCG ALPRAZolam ALPRAZolam No 1{table ALPRAZolam 0.5 MG 0.5 MG t} 0.5 MG Synthroid Synthroid No QD Synthroid 150 MCG 150 MCG 150 MCG Acetaminoph Acetaminoph No Acetaminop en-Codeine en-Codeine hen-Codein e Azelastine- Azelastine- No 1{spray BID Azelastine Fluticasone Fluticasone _in_eac -Fluticaso 137-50 137-50 h_nostr ne 137-50 MCG/ACT MCG/ACT il} MCG/ACT valACYclovi valACYclovi No 1{table QD valACYclov r HCl 500 r HCl 500 t} ir HCl 500 MG MG MG Benzonatate Benzonatate No 1{capsu TID Benzonatat 200 MG 200 MG le} e 200 MG Benzonatate Benzonatate No 1{capsu TID Benzonatat 200 MG 200 MG le} e 200 MG Pseudoeph-B Pseudoeph-B No 5{ml_as QID Pseudoeph- romphen-DM romphen-DM _needed Bromphen-D 30-2-10 30-2-10 } M 30-2-10 MG/5ML MG/5ML MG/5ML Cymbalta 60 Cymbalta 60 No 1{capsu BID Cymbalta MG MG le} 60 MG Tylenol # 3 Tylenol # 3 No 2{table QID Tylenol # 500-15 30500-15 ts_as_n 3 MG MG eeded} 500-15 MG Vitamin D3 Vitamin D3 No 1{capsu Vitamin D3 86911 UNIT 38483 UNIT le} 29391 UNIT Azithromyci Azithromyci No QD Azithromyc n 250 MG n 250 MG in 250 MG Synthroid Synthroid No QD Synthroid 150 MCG 150 MCG 150 MCG predniSONE predniSONE No QD predniSONE 10 MG 10 MG 10 MG Montelukast Montelukast No Montelukas Sodium 10 Sodium 10 t Sodium MG MG 10 MG hydrOXYzine hydrOXYzine No hydrOXYzin HCl 50 MG HCl 50 MG e HCl 50 MG Synthroid Synthroid No Synthroid 125 MCG 125 MCG 125 MCG Azithromyci Azithromyci No QD Azithromyc n 250 MG n 250 MG in 250 MG Albuterol Albuterol No 2{puff_ 6xD Albuterol Sulfate HFA Sulfate HFA as_need Sulfate 108 (90 108 (90 ed} HFA 108 Base) Base) (90 Base) MCG/ACT MCG/ACT MCG/ACT Levothyroxi Levothyroxi No QD Levothyrox ne Sodium ne Sodium ine Sodium 150 MCG 150 MCG 150 MCG ALPRAZolam ALPRAZolam No 1{table ALPRAZolam 0.5 MG 0.5 MG t} 0.5 MG Synthroid Synthroid No QD Synthroid 150 MCG 150 MCG 150 MCG Acetaminoph Acetaminoph No Acetaminop en-Codeine en-Codeine hen-Codein e Azelastine- Azelastine- No 1{spray BID Azelastine Fluticasone Fluticasone _in_eac -Fluticaso 137-50 137-50 h_nostr ne 137-50 MCG/ACT MCG/ACT il} MCG/ACT valACYclovi valACYclovi No 1{table QD valACYclov r HCl 500 r HCl 500 t} ir HCl 500 MG MG MG Benzonatate Benzonatate No 1{capsu TID Benzonatat 200 MG 200 MG le} e 200 MG Benzonatate Benzonatate No 1{capsu TID Benzonatat 200 MG 200 MG le} e 200 MG Pseudoeph-B Pseudoeph-B No 5{ml_as QID Pseudoeph- romphen-DM romphen-DM _needed Bromphen-D 30-2-10 30-2-10 } M 30-2-10 MG/5ML MG/5ML MG/5ML Cymbalta 60 Cymbalta 60 No 1{capsu BID Cymbalta MG MG le} 60 MG Tylenol # 3 Tylenol # 3 No 2{table QID Tylenol # 500-15 500-15 ts_as_n 3 MG MG eeded} 500-15 MG Vitamin D3 Vitamin D3 No 1{capsu Vitamin D3 83514 UNIT 16675 UNIT le} 72644 UNIT Azithromyci Azithromyci No QD Azithromyc n 250 MG n 250 MG in 250 MG Synthroid Synthroid No QD Synthroid 150 MCG 150 MCG 150 MCG predniSONE predniSONE No QD predniSONE 10 MG 10 MG 10 MG Montelukast Montelukast No Montelukas Sodium 10 Sodium 10 t Sodium MG MG 10 MG hydrOXYzine hydrOXYzine No hydrOXYzin HCl 50 MG HCl 50 MG e HCl 50 MG Synthroid Synthroid No Synthroid 125 MCG 125 MCG 125 MCG Azithromyci Azithromyci No QD Azithromyc n 250 MG n 250 MG in 250 MG Albuterol Albuterol No 2{puff_ 6xD Albuterol Sulfate HFA Sulfate HFA as_need Sulfate 108 (90 108 (90 ed} HFA 108 Base) Base) (90 Base) MCG/ACT MCG/ACT MCG/ACT Levothyroxi Levothyroxi No QD Levothyrox ne Sodium ne Sodium ine Sodium 150 MCG 150 MCG 150 MCG ALPRAZolam ALPRAZolam No 1{table ALPRAZolam 0.5 MG 0.5 MG t} 0.5 MG Synthroid Synthroid No QD Synthroid 150 MCG 150 MCG 150 MCG Acetaminoph Acetaminoph No Acetaminop en-Codeine en-Codeine hen-Codein e Azelastine- Azelastine- No 1{spray BID Azelastine Fluticasone Fluticasone _in_eac -Fluticaso 137-50 137-50 h_nostr ne 137-50 MCG/ACT MCG/ACT il} MCG/ACT valACYclovi valACYclovi No 1{table QD valACYclov r HCl 500 r HCl 500 t} ir HCl 500 MG MG MG Benzonatate Benzonatate No 1{capsu TID Benzonatat 200 MG 200 MG le} e 200 MG Benzonatate Benzonatate No 1{capsu TID Benzonatat 200 MG 200 MG le} e 200 MG Pseudoeph-B Pseudoeph-B No 5{ml_as QID Pseudoeph- romphen-DM romphen-DM _needed Bromphen-D 30-2-10 30-2-10 } M 30-2-10 MG/5ML MG/5ML MG/5ML Cymbalta 60 Cymbalta 60 No 1{capsu BID Cymbalta MG MG le} 60 MG Vital Signs Vital Name Observation Time Observation Value Comments Source height 2022-05-21 65 [in_i] [facility]00 [facility] weight 2022-05-21 240 [lb_av] [facility] 09:20:00 [facility] bmi 2022-05-21 39.93 kg/m2 [facility] - 09:20:00 [facility] height 2022-02-27 65 [in_i] [facility] - 11:20:00 [facility] weight 2022-02-27 250 [lb_av] [facility] - 11:20:00 [facility] temperature 2022-02-27 98 [degF] [facility] - 11:20:00 [facility] bmi 2022-02-27 41.60 kg/m2 [facility] - 11:20:00 [facility] blood pressure 2022-02-27 130 mm[Hg] [facility] - systolic 11:20:00 [facility] blood pressure 2022-02-27 70 mm[Hg] [facility] - diastolic 11:20:00 [facility] height 2021-11-26 65 [in_i] [facility] - 15:40:00 [facility] weight 2021-11-26 256.9 [lb_av] [facility] - 15:40:00 [facility] temperature 2021-11-26 97.4 [degF] [facility] - 15:40:00 [facility] bmi 2021-11-26 42.75 kg/m2 [facility] - 15:40:00 [facility] oximetry 2021-11-26 100 % [facility] - 15:40:00 [facility] respiratory rate 2021-11-26 17 /min [facility] - 15:40:00 [facility] blood pressure 2021-11-26 135 mm[Hg] [facility] - systolic 15:40:00 [facility] blood pressure 2021-11-26 74 mm[Hg] [facility] - diastolic 15:40:00 [facility] height 2021-09-10 65 [in_i] [facility] - 10:50:00 [facility] weight 2021-09-10 240 [lb_av] [facility] - 10:50:00 [facility] temperature 2021-09-10 97.4 [degF] [facility] - 10:50:00 [facility] bmi 2021-09-10 39.93 kg/m2 [facility] - 10:50:00 [facility] Systolic blood 2021-05-25 143 mm[Hg] [facility] pressure 17:53:00 [facility] Diastolic blood 2021-05-25 98 mm[Hg] [facility] f pressure 17:53:00 [facility] Heart rate 2021-05-25 70 /min University 17:53:00 [facility] Body temperature 2021-05-25 36.67 Myriam University of 17:53:00 [facility] Respiratory rate 2021-05-25 20 /min [facility] of 17:53:00 [facility] Oxygen saturation 2021-05-25 98 /min [facility] Arterial blood 17:53:00 [facility] Pulse oximetry [place] Body height 2021-05-25 162.6 cm University of 17:07:00 [facility] Body weight 2021-05-25 108.863 kg [facility] 17:07:00 [facility] BMI 2021-05-25 41.20 kg/m2 [facility] of 17:07:00 [facility] height 2021-05-24 65 [in_i] [facility] - 10:30:00 [facility] weight 2021-05-24 240 [lb_av] [facility] - 10:30:00 [facility] temperature 2021-05-24 98 [degF] [facility] - 10:30:00 [facility] bmi 2021-05-24 39.93 kg/m2 [facility] - 10:30:00 [facility] blood pressure 2021-05-24 131 mm[Hg] [facility] - systolic 10:30:00 [facility] blood pressure 2021-05-24 70 mm[Hg] [facility] - diastolic 10:30:00 [facility] Body weight 2020-09-05 116.983 kg [facility] 15:24: [facility] BMI 2020-09-05 44.27 kg/m2 University 15:24: [facility] Oxygen saturation 2020-09-05 99 /min room air [facility] Arterial blood 15:24:00 [facility] by Pulse oximetry [place] Systolic blood 2020-09-05 153 mm[Hg] pt states being [facility] pressure 15:24:00 [facility] Diastolic blood 2020-09-05 104 mm[Hg[facility]:24[facility]00 [facility] Heart rate 2020-09-05 86 /min [facility] 15:24:00 [facility] Body temperature 2020-09-05 37 Myriam University 15:24: [facility] Respiratory rate 2020-09-05 18 /min [facility] 15:24:00 [facility] Body height 2020-09-05 162.6 cm [facility] 15:24:00 [facility] Procedures Procedure Date / Time Performing Clinician Source Performed [id number] CONSENT 2021-05-25 05:01:00 Doctor Unassigned, No [facility] [place] URINALYSIS 2020-09-05 16:56:00 Zach Lester [facility] CREATINE KINASE 2020-09-05 16:25:00 Zach Lester [facility] RHEUMATOID FACTOR 2020-09-05 16:25:00 [facility] C-REACTIVE PROTEIN 2020-09-05 16:25:00 Zach Lester [facility] C4 COMPLEMENT 2020-09-05 16:25:00 Zach Lester [facility] THYROID STIMULATING 2020-09-05 16:25:00 [facility] HORMONE [facility] COMP. METABOLIC PANEL 2020-09-05 16:25:00 Zach Lester [facility] ([id number]) [facility] SEDIMENTATION RATE 2020-09-05 16:25:00 Zach Lester [facility] CBC WITH DIFF 2020-09-05 16:25:00 Zach Lester [facility] HEPATITIS B SURFACE 2020-09-05 16:25:00 [facility] ANTIGEN [facility] HCV ANTIBODY 2020-09-05 16:25:00 Zach Lester [facility] VITAMIN D, 25-OH 2020-09-05 16:25:00 Zach Lester [facility] ANTI-CENTROMERE B 2020-09-05 16:25:00 [facility] ANTI-SSA(RO) 2020-09-05 16:25:00 Zach Lester [facility] ANTI-DOUBLE STRANDED DNA 2020-09-05 16:25:[address] [facility] ASSIGNMENT OF BENEFITS 2020-09-05 15:13:04 [facility] Encounters Start End Encounter Admission Attending Care Care Encounter Source Date/Time Date/Time Type Type Clinicians Facility Department ID 2023-06-03 Outpatient Yi, [facility] [id number] Common 16:08:00 Sandeep [id number] [facility] 2022-12-31 Outpatient Yi, [facility] [id number] Common 08:38:00 Sandeep 87775 [facility] 2022-12-26 Outpatient Yi, [facility] [id number] Common 16:43:00 Sandeep 66065 [facility] 2022-05-21 Outpatient Yi, [facility] [id number] Common 09:02:01 Sandeep 22724 [facility] 2021-10-17 Outpatient Yi, STLMLC ST[facility] [id number] Common 14:22:29 Sandeep 95060 [facility] 2021-10-17 Outpatient Yi, STLMLC STLMLC [id number] Common 14:16:37 Sandeep 29225 [facility] 2021-10-17 Outpatient Yi, STLMLC STLMLC [id number] Common 13:27:44 Sandeep 20635 [facility] 2021-10-17 Outpatient Yi, STLMLC STLMLC [id number] Common 13:24:52 Sandeep 81319 [facility] 2021-10-17 Outpatient Yi, STLMLC STLMLC [id number] Common 12:44:19 Sandeep 13518 [facility] 2021-10-17 Outpatient Yi, STLMLC STLMLC [id number] Common 12:37:26 Sandeep [id number] [facility] 2021-10-17 Outpatient Yi, STLMLC STLMLC [id number] Common 12:35:43 Sandeep [id number] [facility] 2021-10-17 Outpatient Yi, STLMLC STLMLC [id number] Common 12:35:24 Sandeep 52792 [facility] 2021-10-17 Outpatient Yi, STLMLC STLMLC [id number] Common 12:20:04 Sandeep [id number] [facility] 2021-10-17 Outpatient Yi, STLMLC STLMLC [id number] Common 12:09:05 Sandeep 22500 [facility] 2021-10-17 Outpatient Yi, STLMLC STL[facility]C [id number] Common 11:53:31 Asndeep 02973 [facility] 2021-10-17 Outpatient Yi, STLMLC STLMLC [id number] Common 11:28:47 Sandeep [id number] [facility] 2021-10-17 Outpatient Yi, STLMLC STLMLC [id number] Common 11:24:19 Sandeep 72534 [facility] 2021-10-17 Outpatient Yi, STLMLC STLMLC [id number] Common 11:17:40 [facility] [address] [facility] 2021-10-17 Outpatient Yi, STLMLC STLMLC [id number] Common 11:00:14 [facility] [address] [facility] 2022-09-11 2022-09-11 (TEL) STLMLC STLMLC [id number] Co mmon 00:00:00 00:00:00 [facility] 2022-09-06 2022-09-06 OFFICE STLMLC STLMLC [id number] Co mmon 00:00:00 00:00:00 VISIT [facility] PT - CHI LEVEL 4 [facility] 2022-09-05 2022-09-05 (TEL) STLMLC STLMLC [id number] Co mmon 00:00:00 00:00:00 [facility] 2022-09-05 2022-09-05 (TEL) STLMLC STLMLC [id number] Co mmon 00:00:00 00:00:00 [facility] 2022-05-21 2022-05-21 OFFICE STLMLC STLMLC [id number] Co mmon 00:00:00 00:00:00 VISIT [facility] PT LEVEL 3 [facility] 2022-05-21 2022-05-21 (TEL) STLMLC STLMLC [id number] Co mmon 00:00:00 00:00:00 [facility] 2022-02-27 2022-02-27 OFFICE STLMLC STLMLC [id number] Co mmon 00:00:00 00:00:00 VISIT [facility] PT - CHI LEVEL 4 [facility] 2021-11-27 2021-11-27 (TEL) STLMLC STLMLC [id number] Co mmon 00:00:00 00:00:00 [facility] 2021-11-26 2021-11-26 (TEL) STLMLC STLMLC [id number] Co mmon 00:00:00 00:00:00 [facility] 2021-11-26 2021-11-26 PREV VISIT STLMLC STLMLC [id number] Common 00:00:00 00:00:00 EST AGE [facility] 18-39 - [facility] 2021-09-10 2021-09-10 OFFICE STLMLC STLMLC [id number] Co mmon 00:00:00 00:00:00 VISIT [facility] PT LEVEL 3 - [facility] 2021-09-10 2021-09-10 (TEL) STLMLC STLMLC [id number] Co mmon 00:00:00 00:00:00 [facility] 2021-08-29 2021-08-29 (TEL) STLMLC STLMLC [id number] Co mmon 00:00:00 00:00:00 [facility] 2021-07-03 2021-07-03 (TEL) STLMLC STLMLC [id number] Co mmon 00:00:00 00:00:00 [facility] 2021-06-18 2021-06-18 (TEL) STLMLC STLMLC [id number] Co mmon 00:00:00 00:00:00 [facility] 2021-05-25 2021-05-25 Outpatient R JUSTEN [facility] [id number] Univers 12:00:00 12:00:00 TORREY combs of [facility] 2021-05-25 2021-05-25 Nurse Therapy, Adc Covid Infusion [facility] [id number] Univers 09:31:54 10:31:54 Visit Torrey Yi [id number] [id number] [phone] [facility] [address] 2021-05-25 2021-05-25 Orders Doctor GALINA [id number] Univers 00:00:00 00:00:00 Only Unassigned, HANNAH [id number] [place] [facility] [id number] Gt as [phone] [place] [address] [place] 2021-05-24 2021-05-24 OFFICE STLMLC STLMLC [id number] Co mmon 00:00:00 00:00:00 VISIT [facility] LEVEL 4 [facility] 2021-05-24 2021-05-24 Patient Doctor GALINA [id number] Univers 00:00:00 00:00:00 Secure Msg Unassigned, HANNAH [id number] [place] [facility] [id number] [place] [phone] [address] 2021-05-24 2021-05-24 Letter GALINA Leung [id number] Univers 00:00:00 00:00:00 (Out) Courtney Nunez HANNAH [id number] it y of [facility] [id number] [place]t as [phone] [address] 2021-05-23 2021-05-23 (TEL) [facility] [id number] Co mmon 00:00:00 00:00:00 [facility] 2021-05-22 2021-05-22 Laboratory Only, Ang Db Test [facility] [id number] Univers 15:09:54 15:24:54 Only Fredo [facility] [id number] ity of [place] [id number] Gt as Leland?Blea [phone] [address] Medical Office Building 2021-05-22 2021-05-22 Outpatient Bill CAMPBELL [facility] [id number] Univers 15:10:00 15:10:00 YANET [facility] 2021-04-02 2021-04-02 [facility] [id number] Common 00:00:00 00:00:00 [facility] 2021-03-13 2021-03-13 Outpatient Bill LESTER [facility] [id number] Univers 09:20:00 09:20:00 [facility] 2021-01-10 2021-01-10 Outpatient Bill LESTER [facility] [id number] Univers 10:20:00 10:20:00 [facility] 2020-12-28 2020-12-28 Outpatient STLMLC STLMLC [id number] Common 00:00:00 00:00:00 [facility] 2020-12-14 2020-12-14 Outpatient STLMLC STLMLC [id number] Common 00:00:00 00:00:00 [facility] 2020-12-14 2020-12-14 Outpatient STLMLC STLMLC [id number] Common 00:00:00 00:00:00 [facility] 2020-12-01 2020-12-01 Outpatient STLMLC STLMLC [id number] Common 00:00:00 00:00:00 [facility] 2020-11-29 2020-11-29 Outpatient STLMLC STLMLC [id number] Common 00:00:00 00:00:00 [facility] 2020-10-25 2020-10-25 Outpatient STLMLC STLMLC [id number] Common 00:00:00 00:00:00 [facility] 2020-10-11 2020-10-11 Outpatient R HEIDE [facility] [id number] Univers 11:20:00 11:20:00 [facility] 2020-09-05 2020-09-05 [employer] Pcp-Lab [facility] [id number] Univers 10:07:02 11:18:11 Visit Zach Lester PRIMARY [id number] [id number] [phone] [facility] [address] [place] 2020-09-05 2020-09-05 Office Heide [facility] [id number] Univers 09:13:13 10:04:30 Visit Zach Ann PRIMARY [id number] [id number] [phone] [facility] [address] [place] 2020-09-05 2020-09-05 Outpatient Bill LESTER [facility] [id number] Univers 09:00:00 09:00:00 [facility] 2020-09-05 2020-09-05 Orders Doctor GALINA [id number] Univers 00:00:00 00:00:00 Only Unassigned, HANNAH [id number] [place] [facility] [id number] [place]t as [phone] [address] 2020-08-22 2020-08-22 Outpatient STLMLC STL[facility]C [id number] Common 00:00:00 00:00:00 [facility] 2020-06-29 2020-06-29 Outpatient STLMLC STLMLC [id number] Common 00:00:00 00:00:00 [facility] 2020-06-26 2020-06-26 Outpatient STLMLC STLMLC [id number] Common 00:00:00 00:00:00 [facility] 2020-06-22 2020-06-22 Outpatient STLMLC STLMLC [id number] Common 00:00:00 00:00:00 [facility] 2020-04-21 2020-04-21 [id number] Common 15:55:00 15:55:[address] [facility] 2020-03-23 2020-03-23 [facility] [id number] Common 13:15:00 13:15:[address] [facility] 2020-03-22 2020-03-22 [facility] [id number] Common 17:02:00 17:02:[address] [facility] 2020-03-21 2020-03-21 [facility] [id number] Common 13:23:00 13:23:[address] [facility] 2020-03-21 2020-03-21 [facility] [id number] Common 13:00:00 13:00:[address] [facility] 2020-03-20 2020-03-20 [facility] [id number] Common 16:07:00 16:07:[address] [facility] 2020-03-13 2020-03-13 [facility] [id number] Common 10:08:00 10:08:[address] [facility] 2020-02-15 2020-02-15 [facility] [id number] Common 09:30:00 09:30:[address] [facility] 2020-02-15 2020-02-15 [facility] [id number] Common 08:12:00 08:12:[address] [facility] 2020-02-01 2020-02-01 [facility] [id number] Common 16:14:00 16:14:[address] [facility] 2019-12-16 2019-12-16 [facility] [id number] Common 15:26:00 15:26:[address] [facility] 2019-12-07 2019-12-07 [facility] [id number] Common 10:43:00 10:43:[address] [facility] 2019-11-09 2019-11-09 [facility] [id number] Common 16:30:00 16:30:[address] [facility] 2019-10-27 2019-10-27 [facility] [id number] Common 16:00:00 16:00:[address] [facility] 2019-10-04 2019-10-04 [facility] [id number] Common 14:30:00 14:30:[address] [facility] 2019-09-27 2019-09-27 [facility] [id number] Common 11:30:00 11:30:[address] [facility] [place] 2019-08-18 2019-08-18 [id number] Common 09:36:00 09:36:[address] [facility] 2019-08-09 2019-08-09 [facility] [id number] Common 09:30:00 09:30:[address] [facility] 2019-08-05 2019-08-05 [facility] [id number] Common 08:38:00 08:38:[address] [facility] 2019-07-30 2019-07-30 [facility] [id number] Common 15:01:00 15:01:[address] [facility] 2019-07-12 2019-07-12 [facility] [id number] Common 10:46:00 10:46:[address] [facility] 2019-06-15 2019-06-15 [facility] [id number] Common 11:16:00 11:16:00 t [facility] 2019-06-02 2019-06-02 [facility] [id number] Common 11:19:00 11:19:00 t Bone Bone and Spiri t and Joint Joint - [facility] 2019-05-25 2019-05-25 [facility] [id number] Common 16:16:00 16:16:00 t Bone Bone and Spiri t and Joint Joint - [facility] 2019-05-17 2019-05-17 [facility] [id number] Common 13:07:00 13:07:00 t Bone Bone and Spiri t and Joint Joint - [facility] 2019-05-04 2019-05-04 [facility] [id number] Common 13:49:00 13:49:00 t Bone Bone and Spiri t and Joint [facility] 2019-05-03 2019-05-03 [facility] [id number] Common 10:30:00 10:30:00 t Bone Bone and Spiri t and Joint Joint - [facility] 2019-03-23 2019-03-23 [facility] [id number] Common 17:29:00 17:29:00 t Bone Bone and Spiri t and Joint Joint - [facility] 2019-03-23 2019-03-23 [facility] [id number] Common 08:00:00 08:00:00 t Bone Bone and Spiri t and Joint Joint - [facility] 2019-03-16 2019-03-16 [facility] [id number] Common 10:12:00 10:12:[address] [facility] 2019-03-04 2019-03-04 [facility] [id number] Common 13:46:00 13:46:00 t Bone Bone and Spiri t and Joint Joint - [facility] 2019-03-03 2019-03-03 [facility] [id number] Common 16:30:00 16:30:[address] [facility] 2019-02-01 2019-02-01 [facility] [id number] Common 16:45:00 16:45:[address] [facility] 2019-01-01 2019-01-01 [facility] [id number] Common 11:02:00 11:02:[address] [facility] 2018-11-30 2018-11-30 [facility] [id number] Common 16:30:00 16:30:[address] [facility] 2018-07-08 2018-07-08 [facility] [id number] Common 10:02:00 10:02:[address] [facility] 2018-03-16 2018-03-16 [facility] [id number] Common 11:00:00 11:00:[address] [facility] 2018-03-09 2018-03-09 [facility] [id number] Common 09:15:00 09:15:[address] [facility] 2018-03-02 2018-03-02 [facility] [id number] Common 09:32:00 09:32:[address] [facility] 2018-01-12 2018-01-12 [facility] [id number] Common 12:15:00 12:15:[address] [facility] 2018-01-12 2018-01-12 [facility] [id number] Common 08:45:00 08:45:[address] [facility] 2018-01-08 2018-01-08 [facility] [id number] Common 09:53:00 09:53:[address] [facility] 2018-01-01 2018-01-01 [facility] 13 [id number] Common 09:15:00 09:15:[address] [facility] 2017-12-09 2017-12-09 [facility] [id number] Common 15:15:00 15:15:[address] [facility] Results Test Description Test Time Test Comments Results Result Comments Source Lipid Panel With LDL/HDL Ratio 2021-11-26 00:00:00 Test Item Value Reference Range Interpretation Comme nts Cholesterol, Total (test code = 2093-3) 176 100-199 Triglycerides (test code = 2571-8) 87 0-149 HDL Cholesterol (test code = 2085-9) 62 >39 UA/M w/rflx Culture, [id number] 00:00:00 Test Item Value Reference Range Interpretation Comments Specific [place] (test code = 1.020 1.005-1.030 2965-2) pH (test code = 5803-2) 5.5 5.0-7.5 Urine-Color (test code = 5778-6) Yellow Yellow Appearance (test code = 5767-9) Clear Clear WBC Esterase (test code = 5799-2) Negative Negative Protein (test code = 23311-7) Negative Negative/Trace Glucose (test code = 2349-9) Negative Negative Ketones (test code = 2514-8) Negative Negative Occult Blood (test code = 5794-3) 2+ Negative Bilirubin (test code = 5770-3) Negative Negative Urobilinogen,Semi-Qn (test code = 0.2 0.2-1.0 83165-1) Nitrite, Urine (test code = Negative Negative 5802-4) Microscopic Examination (test code See below: = 41897-4) Urinalysis Reflex (test code = UNLOINC) Hemoglobin [id number] 00:00:00 Test Item Value Reference Range Interpretation Comments Hemoglobin A1c (test code = 4548-4) 5.5 4.8-5.6 Comp. Metabolic Panel (14) (CMP)2021-11-26 00:00:00 Test Item Value Reference Range Interpretation Comments Glucose (test code = 2345-7) 93 65-99 BUN (test code = 3094-0) 10 6-20 Creatinine (test code = 2160-0) 0.81 0.57-1.00 BUN/Creatinine Ratio (test code = 06-14 3097-3) Sodium (test code = 2951-2) 141 134-144 Potassium (test code = 2823-3) 4.5 3.5-5.2 Chloride (test code = 2075-0) 104 96-106 Carbon Dioxide, Total (test code = -2028-05) Calcium (test code = 88053-1) 9.2 8.7-10.2 Protein, Total (test code = 2885-2) 7.0 6.0-8.5 Albumin (test code = 1751-7) 4.3 3.8-4.8 Globulin, Total (test code = 88441-2) 2.7 1.5-4.5 A/G Ratio (test code = 1759-0) 1.6 1.2-2.2 Bilirubin, Total (test code = 1974-2) <0.2 0.0-1.2 Alkaline Phosphatase (test code = 85 44-121 6768-6) AST (SGOT) (test code = 1920-8) 15 0-40 ALT (SGPT) (test code = 1742-6) 10 0-32 Uric Acid, [id number] 00:00:00 Test Item Value Reference Range Interpretation Comments Uric Acid (test code = 3084-1) 4.1 2.6-6.2 CBC With Differential/[id number] 00:00:00 Test Item Value Reference Range Interpretation Comments WBC (test code = 6690-2) 8.0 3.4-10.8 RBC (test code = 789-8) 4.79 3.77-5.28 Hemoglobin (test code = 718-7) 10.4 11.1-15.9 Hematocrit (test code = 4544-3) 35.5 34.0-46.6 MCV (test code = 787-2) 74 79-97 MCH (test code = 785-6) 21.7 26.6-33.0 MCHC (test code = 786-4) 29.3 31.5-35.7 RDW (test code = 788-0) 16.1 11.7-15.4 Platelets (test code = 777-3) 405 150-450 Neutrophils (test code = 770-8) 66 Not Estab. Lymphs (test code = 736-9) 24 Not Estab. Monocytes (test code = 5905-5) 7 Not Estab. Eos (test code = 713-8) 2 Not Estab. Basos (test code = 706-2) 1 Not Estab. Immature Cells (test code = UNLOINC) Neutrophils (Absolute) (test code = 5.3 1.4-7.0 751-8) Lymphs (Absolute) (test code = 731-0) 1.9 0.7-3.1 Monocytes(Absolute) (test code = 742-7) 0.6 0.1-0.9 Eos (Absolute) (test code = 711-2) 0.2 0.0-0.4 Baso (Absolute) (test code = 704-7) 0.1 0.0-0.2 Immature Granulocytes (test code = 0 Not Estab. 65509-2) Immature Grans (Abs) (test code = 0.0 0.0-0.1 53793-1) NRBC (test code = 36657-0) Hematology Comments: (test code = 56558-8) TSH reflex to [id number] 00:00:00 Test Item Value Reference Range Interpretation Comments TSH (test code = 61566-5) 4.210 0.450-4.500 ANTI-CENTROMERE [id number] 15:51:00 Test Item Value Reference Range Interpretation Comments ANTI-CENTR (test code = Negative Negative 4233073435) ESTELLA (test code = ESTELLA) Positive - Antibody detected.Negative - No antibody detected. Lab Interpretation (test Normal code = 75310-1) [facility]-DOUBLE STRANDED [id number] 15:51:00 Test Item Value Reference Range Interpretation Comments ANTI-DSDNA (test code See_Comment H [Auto mated = [id number]) message] The system which generated this result transmit nicole reference range : 0.0 - 4.0 IU/mL . The reference range was not u sed to interpret th is result as normal/abnormal . ESTELLA (test code = ESTELLA) Negative ? ?< or = 4 IU/mLPositive ? ? ?> or = 10 IU/mLIndetermin ate ?5-9 IU/mL Lab Interpretation Abnormal (test code = 38469-8) [facility]-[id number] 15:51:00 Test Item Value Reference Range Interpretation Comments ANTI-SCL70 (test code = Negative Negative 2398398457) ESTELLA (test code = ESTELLA) Positive - Antibody detected.Negative - No antibody detected. Lab Interpretation (test Normal code = 31667-2) [facility]-SM/[id number] 15:51:00 Test Item Value Reference Range Interpretation Comments ANTI-SMRNP (test code = Negative Negative 8372068603) ESTELLA (test code = ESTELLA) Positive - Antibody detected.Negative - No antibody detected. Lab Interpretation (test Normal code = 66516-9) [facility] 15:51:00 Test Item Value Reference Range Interpretation Comments ANTI-SSA(RO) (test code = Negative Negative 8472526896) ESTELLA (test code = ESTELLA) Positive - Antibody detected.Negative - No antibody detected. Lab Interpretation (test Normal code = 55354-2) [facility] D, [id number] 04:42:00 Test Item Value Reference Range Interpretation Comments VIT D 25OH (test code = 28 ng/mL 25-80 59833-0) ESTELLA (test code = ESTELLA) Deficiency: <20 ng/mLInsufficiency : 20-24 ng/mLOptimal: 25-80 ng/mL Lab Interpretation (test Normal code = 53208-9) [facility] Hospital[facility]HEUMATOID [id number] 21:16:00 Test Item Value Reference Range Interpretation Comments RF (test code = <20 See_Comment [Automated message] 9238388506) The system [employer] generated this result transmitted ref erence range: <20 IU/m L. The reference range was not used to int erpret this result as normal/abnormal . Lab Interpretation (test Normal code = 49459-9) [facility]-REACTIVE [id number] 21:15:00 Test Item Value Reference Range Interpretation Comments CRP (test code = 1954798243) 0.3 mg/dL <0.8 Lab Interpretation (test code = Normal 61725-0) [facility] [id number] 21:15:00 Test Item Value Reference Range Interpretation Comments C4 (test code = 4935562192) 23 mg/dL 20-59 Lab Interpretation (test code = Normal 31353-9) [facility] [id number] 21:14:00 Test Item Value Reference Range Interpretation Comments C3 (test code = 0544654448) 97 mg/dL 86-184 Lab Interpretation (test code = Normal 53561-8) [facility] [id number] 20:24:00 Test Item Value Reference Range Interpretation Comments HCV Ab (test code = 66326-0) Negative HCV Semi-Quantitative (test code = 44816-2) [facility] HospitalSEDIMENTATION [id number] 20:23:00 Test Item Value Reference Range Interpretation Comments ESR (test code = See_Comment [Automated message] 3064579394) The system [employer] generated this result transmitted ref erence range: 0 - 20 m m/HR. The reference r cuong was not used to interpret this result as normal/abnor mal. Lab Interpretation (test Normal code = 82702-0) [facility]IS2020-12-15 20:13:00 Test Item Value Reference Range Interpretation Comments APPEARANCE (test code = Clear Clear 3642318313) COLOR (test code = Straw Yellow A 9377545095) PH (test code = 4.8-8.0 6359290437) SP GRAVITY (test code = 1.003-1.030 3923496938) GLU U QUAL (test code = Normal Normal 6413266677) BLOOD (test code = 2+ Negative A 8795325517) KETONES (test code = Negative Negative 0235687482) PROTEIN (test code = Negative Negative 2887-8) UROBILIN (test code = Normal Normal 7928397264) BILIRUBIN (test code = Negative Negative 0376634686) NITRITE (test code = Negative Negative 5564001518) LEUK OBED (test code = Negative Negative 2657873113) RBC/HPF (test code = See_Comment [Autom ated message] 3637508340) The system [employer] generated this result transmitted ref erence range: 0 - 3 HP F. The reference range was not used to int erpret this result as normal/abnormal . WBC/HPF (test code = See_Comment [Autom ated message] 1670696270) The system [employer] generated this result transmitted ref erence range: 0 - 5 HP F. The reference range was not used to int erpret this result as normal/abnormal . BACTERIA (test code = Few Negative A 4035268950) SQ EPITH (test code = See_Comment [Auto mated message] 0137763184) The system [employer] generated this result transmitted ref erence range: <=2 HPF. The reference range was not used to int erpret this result as normal/abnormal . Lab Interpretation (test Abnormal code = 95093-5) [facility] HospitalTHYROID STIMULATING [id number] 20:06:00 Test Item Value Reference Range Interpretation Comments TSH (test code = See_Comment [Automated message] 4077035511) The system [employer] generated this result transmitted ref erence range: 0.45 - 4 .70 mIU/L. The refe rence range was not u sed to interpret this result as normal/abnor mal. Lab Interpretation (test Normal code = 57617-7) [facility] HospitalHEPATITIS B SURFACE [id number] 20:06:00 Test Item Value Reference Range Interpretation Comments HBsAg Semi-Quantitative (test code = Negative Negative 5195-3) [facility] HospitalCOM[facility] METABOLIC PANEL (32454)2020-09-05 19:33:00 Test Item Value Reference Range Interpretation Comments NA (test code = 140 mmol/L 135-145 1751220933) K (test code = 4.3 mmol/L 3.5-5 7443811406) CL (test code = 106 mmol/L 98-108 6916626870) CO2 TOTAL (test code = 23 mmol/L 23-31 7145075959) AGAP (test code = 2-16 8445087117) BUN (test code = 13 mg/dL 7-23 2867718209) GLUCOSE (test code = 101 mg/dL 70-110 7284709054) CREATININE (test code 0.66 mg/dL 0.5-1.04 = 8351616913) TOTAL BILI (test code 0.3 mg/dL 0.1-1.1 = 7185865178) CALCIUM (test code = 9.5 mg/dL 8.6-10.6 1853082997) T PROTEIN (test code = 7.4 g/dL 6.3-8.2 4456473762) ALBUMIN (test code = 4.4 g/dL 3.5-5 9079085750) ALK PHOS (test code = 77 U/L 34-122 8327219822) ALTv (test code = 16 U/L 5-35 1742-6) AST(SGOT) (test code = 29 U/L 13-40 5581441066) eGFR Calculation mL/min/1.73m2 (Non-) (test code = 9754221769) eGFR Calculation mL/min/1.73m2 () (test code = 9342191925) ESTELLA (test code = ESTELLA) Association of Glomerular Filtration Rate (GFR) and Staging of Kidney Disease* + -+ + ---+| GFR (mL/min/1.73 m2) ?| With Kidney Damage ?| ?Without Kidney Damage+ -------+ ------+ ---------+| ?>90 ?| ?Stage one ?| ? Normal ?+ --+ -+ ----+| ?60-89 ?| ?Stage two ?| ? Decreased GFR ? + -+ + ---+| ?30-59 ?| ?Stage three ?| ? Stage three ? + -+ + ---+| ?15-29 ?| ?Stage four ? | ? Stage four ?+ --+ -+ ----+| ?<15 (or dialysis) ? ?| ?Stage five ? | ? Stage five ?+ --+ -+ ----+ *Each stage assumes the associated GFR level has been in effect for at least three months. ?Stages 1 to 5, with or without kidney disease, indicate chronic kidney disease. Notes: Determination of stages one and two (with eGFR >59mL/min/1.73 m2) requires estimation of kidney damage for at least three months as defined by structural or functional abnormalities of the kidney, manifested by either:Pathological abnormalities or Markers of kidney damage (including abnormalities in the composition of the blood or urine or abnormalities in imaging tests). [facility] HospitalCREAT[facility] [id number] 19:33:00 Test Item Value Reference Range Interpretation Comments CK (test code = 9577096045) 335 U/L 33-194 H Lab Interpretation (test code = Abnormal 59370-7) [facility] WITH [id number] 19:00:00 Test Item Value Reference Range Interpretation Comments WBC (test code = See_Comment [Automated 1492-2) message] The sy stem which generated this result transmitted reference range : 4.30 - 11.10 10*3/?L. The reference range was not used to interpret this result as normal/abnormal . RBC (test code = See_Comment [Automated 157-8) message] The sy stem which generated this result transmitted reference range : 3.93 - 5.25 10*6/?L. The reference range was not used to interpret this result as normal/abnormal . HGB (test code = 11.9 g/dL 11.6-15 718-7) HCT (test code = 39.1 % 35.7-45.2 4544-3) MCV (test code = 75.8 fL 80.6-95.5 L 787-2) MCH (test code = 23.1 pg 25.9-32.8 L 785-6) MCHC (test code = 30.4 g/dL 31.6-35.1 L 786-4) RDW-SD (test code = 45.8 fL 39-49.9 90238-1) RDW-CV (test code = 16.9 % 12-15.5 H 788-0) PLT (test code = See_Comment [Automated 777-3) message] The sy stem which generated this result transmitted reference range : 166 - 358 10*3/ ?L. The reference r cuong was not used to interpret this result as normal/abnormal . MPV (test code = 11.6 fL 9.5-12.9 39438-9) NRBC/100 WBC (test See_Comment [Automat ed code = 7863073976) message] The system which generated this result transmitted reference range : 0.0 - 10.0 /100 WBCs. The refer ence range was not u sed to interpret th is result as normal/abnormal . NRBC x10^3 (test code <0.01 See_Comment [Auto mated = 5031455040) message] The s ystem which generated this result transmitted reference range : 10*3/?L. The reference range was not used to interpret this result as normal/abnormal . GRAN MAT (NEUT) % 77.5 % (test code = 770-8) IMM GRAN % (test code 0.30 % = 7133792232) LYMPH % (test code = 16.8 % 736-9) MONO % (test code = 4.4 % 5905-5) EOS % (test code = 0.4 % 713-8) BASO % (test code = 0.6 % 706-2) GRAN MAT x10^3(ANC) 6.14 10*3/uL 1.88-7.09 (test code = 6735820946) IMM GRAN x10^3 (test <0.03 0-0.06 code = 1291931911) LYMPH x10^3 (test code 1.33 10*3/uL 1.32-3.29 = 731-0) MONO x10^3 (test code 0.35 10*3/uL 0.33-0.92 = 742-7) EOS x10^3 (test code = 0.03 10*3/uL 0.03-0.39 711-2) BASO x10^3 (test code 0.05 10*3/uL 0.01-0.07 = 704-7) Lab Interpretation Abnormal (test code = 40541-8) [facility]"
[2023-07-14 19:05] LABS: Absolute Lymphocytes (CBC) 1.7 K/uL (0.7-4.9); Hematocrit 31.2 % (36.0-45.0); Lymphocytes % 24.2 % (15.3-44.8); MCV 66.1 fL (80-100); MPV 8.3 fL (7.6-11.3); Platelets 381 thou/uL (152-406); RBC Red Blood Cell Count 4.72 M/uL (3.86-4.86)
[2023-07-14 19:17] LABS: Protime INR 0.96
[2023-07-14 19:22] LABS: Specific Gravity 1.005 (1.005-1.030)
[2023-07-14 19:25] LABS: Specific Gravity 1.005 (1.005-1.030); Urine Bacteria None Seen /HPF (<20); Urine Bilirubin NEGATIVE (Negative); Urine Blood 3+ (OVER) (Negative); Urine Clarity Turbid (Clear); Urine Color Colorless (Yellow); Urine Crystals Unidentified Few /HPF (None Seen); Urine Glucose NEGATIVE (Negative); Urine Protein NEGATIVE (Negative); Urine RBC >50 /HPF (None Seen); Urine Urobilinogen Normal (Normal); Urine pH 5.5 (5.0-7.0)
[2023-07-14 19:27] LABS: Albumin 3.5 g/dL (3.4-5.0); Bilirubin Total 0.2 mg/dL (0.2-1.0); Ferritin 3.7 ng/mL (8-388); Potassium 3.8 mEq/L (3.5-5.1); Protein, Total 7.3 g/dL (6.4-8.2)
[2023-07-14 20:16] LABS: White Blood Cell Scan OK (OK)
[2023-07-14 20:17] LABS: Anisocytosis 1+; Blood Morphology Comment NOTED (NOT SEEN); Platelet Estimate ADEQ; Poikilocytosis 2+
--- NOTE | 2023-07-14 20:18 | RAD REPORT ---
EXAM DESCRIPTION: CT - Abdomen Pelvis Wo Contrast - 07/14/2023 7:50 pm CLINICAL HISTORY: Abdominal pain COMPARISON: 2017 TECHNIQUE: Computed axial tomography of the abdomen and pelvis was obtained. IV and oral contrast we re not requested. All CT scans are performed using dose optimization technique as appropriate and may include automated exposure control or mA/KV adjustment according to patient size. FINDINGS: The evaluation of solid organs, vessels and bowel is limited secondary to the lack of con trast administration. The liver, spleen, pancreas, adrenals and kidneys appear grossly normal. No adnexal mass No evidence diverticulitis Postsurgical changes involve stomach small bowel. Mild dilatation of a loop of jejunum within the lef t abdomen has diminished in caliber since the prior exam and probably is not significant. An abnormal appendix is not visualized IMPRESSION: No acute abnormality is displayed.
--- NOTE | 2023-07-14 20:34 | EDPHYS ---
Physician Documentation [facility] Name: Laura Lopez Age: 38 yrs Sex: Female : 1985 Arrival Date: 07/14/2023 Time: 18:05 Bed 24 Private MD: ED Physician Ken Garcia HPI: 07/14 18:47 This 38 yrs old Unknown Female presents to ER via Ambulatory with complaints of rn Confusion, Abdominal Pain, Fatigue. 18:47 Patient reports history of anemia, for the last 2 months has been seeing her PCP who rn has been ordering test to evaluate anemia without clear etiology. Has had an iron transfusion. Infusion. Reports last hemoglobin in the eights and has results with her, drawn a month ago. Reports currently on her menstrual cycle but not heavy bleeding and is regular for her. Denies blood in the stool or hematemesis. Denies hematuria. Patient has brother with hemophilia but patient denies any bleeding episodes. Reports increased fatigue and malaise. Told by PCP to come to ER if felt worse. Onset: The symptoms/episode began/occurred at an unknown time. Severity of symptoms: At their worst the symptoms were moderate in the emergency department the symptoms are unchanged. The patient has experienced similar episodes in the past. 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 - Social history:: Smoking status: Patient reports the use of cigarette tobacco products, unknown amount Reported history of juuling and/or vaping. - Family history:: not pertinent. - Hospitalizations: : No recent hospitalization is reported. ROS: 18:47 Constitutional: Negative for fever, chills, and weight loss, Cardiovascular: Negative rn for chest pain, palpitations, and edema, Respiratory: Negative for shortness of breath, cough, wheezing, and pleuritic chest pain, Abdomen/GI: Positive for abdominal cramping, negative for vomiting or diarrhea, negative for blood in stool Back: Negative for injury and pain, MS/Extremity: Negative for injury and deformity, Skin: Negative for injury, rash, and discoloration, Neuro: Positive for generalized weakness Exam: 18:47 Constitutional: This is a well developed, well nourished patient who is awake, alert, rn and in no acute distress. Head/Face: Normocephalic, atraumatic. Eyes: Pale conjunctiva Cardiovascular: Regular rate and rhythm. No pulse deficits. Respiratory: No increased work of breathing, no retractions or nasal flaring. Abdomen/GI: Soft, non-tender Skin: Warm, dry MS/ Extremity: Pulses equal, no cyanosis Neuro: Awake and alert, GCS 15 Vital Signs: 18:34 BP 145 / 83; Pulse 82; Resp 18 S; Temp 98.4(TE); Pulse Ox 100% ; Weight 122.47 kg (R); cm10 Height 5 ft. 4 in. (R); Pain 4/10; 19:10 BP 138 / 77; Pulse 62; Resp 18; Pulse Ox 99% ; jj7 20:35 BP 143 / 84; Pulse 61; Resp 17; Pulse Ox 100% ; Pain 0/10; jj7 18:34 Body Mass Index 46.34 (122.47 kg, 162.56 cm) cm10 18:34 Pain Scale: Adult cm10 20:35 Pain Scale: Adult jj7 MDM: 18:33 Patient medically screened. rn 20:33 Differential Diagnosis Anemia, iron deficiency anemia, fibroids, malabsorption. Data rn reviewed: vital signs, nurses notes, lab test result(s), radiologic studies, CT scan, and as a result, I will discharge patient. Care significantly affected by the following chronic conditions: Anemia. Counseling: I had a detailed discussion with the patient and/or guardian regarding the historical points, exam findings, and any diagnostic results supporting the discharge/admit diagnosis, lab results, radiology results, the need for outpatient follow up, to return to the emergency department if symptoms worsen or persist or if there are any questions or concerns that arise at home. Special discussion: I discussed with the patient/guardian in detail that at this point there is no indication for admission to the hospital. It is understood, however, that if the symptoms persist or worsen the patient needs to return immediately for re-evaluation. Based on the history and exam findings, there is no indication for further emergent testing or inpatient evaluation. I discussed with the patient/guardian the need to see the primary care provider for further evaluation of the symptoms. 07/14 18:43 Order name: CBC with Diff; Complete Time: 20:28 rn 07/14 18:43 Order name: CMP; Complete Time: 20:28 rn 07/14 18:43 Order name: Lipase; Complete Time: 20: rn 07/14 18:43 Order name: Test, Urine; Complete Time: 19:26 rn 07/14 18:43 Order name: Urinalysis w/ reflexes; Complete Time: 19: rn 07/14 18:43 Order name: Protime (+inr); Complete Time: 19: rn 07/14 18:43 Order name: Ptt, Activated; Complete Time: 19:22 rn 07/14 18:43 Order name: Ferritin; Complete Time: 20:28 07/14 18:43 Order name: TRANSFERRIN SAT/IRON BINDING; Complete Time: 20: 07/14 20:18 Order name: CBC Smear Scan; Complete Time: 20:28 [facility] 07/14 18:57 Order name: CT Abd/Pelvis - Without Contrast; Complete Time: 20: rn 07/14 18:43 Order name: IV Saline Lock; Complete Time: 18:58 rn 07/14 18:43 Order name: Labs collected and sent; Complete Time: 18:58 rn Administered Medications: No medications were administered Disposition Summary: 07/14/23 20:34 Discharge Ordered Notes: Location: Home rn Problem: an ongoing problem rn Symptoms: have improved rn Condition: Stable rn Diagnosis - Anemia, unspecified rn - Iron deficiency anemia, unspecified rn Followup: rn - With: Private Physician - When: As needed - Reason: Recheck today's complaints, Re-evaluation by your physician Discharge Instructions: - Discharge Summary Sheet rn - Iron Deficiency Anemia, Adult rn - Anemia rn Forms: - Medication Reconciliation Form rn - Thank You Letter rn - Antibiotic tangled yarn spool straightener - Prescription Opioid Use rn - Patient Portal Instructions rn - Leadership Thank You Letter rn Signatures: Dispatcher [employer] EDKen Loo MD MD rn Martinez, Clarissa, RN RN 10
--- NOTE | 2023-07-14 20:34 | ER ---
Nurse's Notes [facility] Name: Laura Lopez Age: 38 yrs Sex: Female : 1985 Arrival Date: 07/14/2023 Time: 18:05 Bed 24 Private MD: Diagnosis: Anemia, unspecified;Iron deficiency anemia, unspecified Presentation: 07/14 18:34 Chief complaint: Patient states: RUQ abdominal pain onset months ago that is worse with cm10 eating. Pt also reports that she has been feeling more tired. Pt states that she has a history of anemia. Coronavirus screen: Vaccine status: Patient reports being unvaccinated. Client denies travel out of the [place] in the last 14 days. Ebola Screen: Patient denies travel to an Ebola-affected area in the 21 days before illness onset. No symptoms or risks identified at this time. Initial Sepsis Screen: Does the patient meet any 2 criteria? No. Patient's initial sepsis screen is negative. Does the patient have a suspected source of infection? No. Patient's initial sepsis screen is negative. Risk Assessment: Do you want to hurt yourself or someone else? Patient reports no desire to harm self or others. Onset of symptoms was July 14, 2023. 18:34 Method Of Arrival: Ambulatory cm10 18:34 Acuity: BILL 3 cm10 Triage Assessment: 18:39 General: Appears in no apparent distress. comfortable. General: Behavior is calm, cm10 cooperative. Neuro: No deficits noted. Kohli Agitation-Sedation Scale (RASS): 0 - Alert and Calm Level of Consciousness is awake, alert, obeys commands, Oriented to person, place, time, situation. Cardiovascular: Patient's skin is warm and dry. Respiratory: No deficits noted. Airway is patent Respiratory effort is even, unlabored, Respiratory pattern is regular, symmetrical. 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 - Social history:: Smoking status: Patient reports the use of cigarette tobacco products, unknown amount Reported history of juuling and/or vaping. - Family history:: not pertinent. - Hospitalizations: : No recent hospitalization is reported. Screenin:04 [facility] ED Fall Risk Assessment (Adult) History of falling in the last 3 months, ap3 including since admission No falls in past 3 months (0 pts). Abuse screen: Denies threats or abuse. Nutritional screening: No deficits noted. Tuberculosis screening: No symptoms or risk factors identified. Assessment: 19:10 Reassessment: ASSUMED CARE OF PT. PT MOVED TO BE. PT STATES SHE IS ANEMIC AND HAS BEEN jj7 FEELING VERY TIRED, TACHY AND CAN'T SLEEP. VS STABLE. AT BEDSIDE. General: Appears in no apparent distress. uncomfortable, PALE. Behavior is calm, cooperative, appropriate for age. 19:24 Pain: Denies pain. GI: No deficits noted. jj7 Vital Signs: 18:34 BP 145 / 83; Pulse 82; Resp 18 S; Temp 98.4(TE); Pulse Ox 100% ; Weight 122.47 kg (R); cm10 Height 5 ft. 4 in. (R); Pain 4/10; 19:10 BP 138 / 77; Pulse 62; Resp 18; Pulse Ox 99% ; jj7 20:35 BP 143 / 84; Pulse 61; Resp 17; Pulse Ox 100% ; Pain 0/10; jj7 18:34 Body Mass Index 46.34 (122.47 kg, 162.56 cm) cm10 18:34 Pain Scale: Adult cm10 20:35 Pain Scale: Adult jj7 ED Course: 18:09 Patient arrived in ED. mg5 18:33 Ken Garcia MD is Attending Physician. rn 18:37 Triage completed. cm10 18:39 Arm band placed on Patient placed in waiting room. cm10 18:58 Initial lab(s) drawn, by me, sent to lab. Inserted saline lock: 22 gauge in right ap3 antecubital area, using aseptic technique. Blood collected. 19:10 Patient has correct armband on for positive identification. Bed in low position. Call jj7 light in reach. Side rails up X2. Adult w/ patient. Warm blanket given. 19:10 Provided Education on: HGB LEVELS AND AND POSSIBILITY FOR BLOOD TRANSFUSION. jj7 19:13 Urinalysis w/ reflexes Sent. ap3 19:13 Test, Urine Sent. ap3 19:16 Juan Steel, RN is Primary Nurse. jj7 19:42 No provider procedures requiring assistance completed. IV discontinued, intact, jj7 bleeding controlled, No redness/swelling at site. Pressure dressing applied. 19:52 CT Abd/Pelvis - Without Contrast In Process Unspecified. EDMS Administered Medications: No medications were administered Medication: 19:10 VIS not applicable for this client. jj7 Outcome: 19:42 Discharged to home ambulatory, with significant other, jj7 19:42 Condition: good 19:42 Discharge instructions given to patient, Instructed on discharge instructions, follow up and referral plans. Demonstrated understanding of instructions, follow-up care, 20:34 Discharge ordered by MD. rn 20:47 Patient left the ED. jj7 Signatures: Dispatcher [employer] EDMS Ken Garcia MD MD rn Prokisch, Amanda RN RN ap3 Juan Steel, RN RN jjAlison Santoyo RN RN cm10 Michelle Basurto mg5 Corrections: (The following items were deleted from the chart) 19:25 19:10 Reassessment: ASSUMED CARE OF PT. PT MOVED TO BE. PT STATES SHE IS ANEMIC AND HAS jj7 BEEN FEELING VERY TIRED, TACHY AND CAN'T SLEEP. VS STABLE. AT BEDSIDE. jj7
== END 2023-07-14 20:47 | disposition home or self-care (01) ==
LOC: ER 18:05
DX: D50.9 Iron deficiency anemia, unspecified (principal); R10.11 Right upper quadrant pain; R53.83 Other fatigue; Z88.2 Allergy status to sulfonamides; Z88.1 Allergy status to other antibiotic agents; Z88.8 Allergy status to other drugs, medicaments and biological substances; F41.9 Anxiety disorder, unspecified; G89.29 Other chronic pain; I10 Essential (primary) hypertension; L93.0 Discoid lupus erythematosus
CPT/HCPCS: 36415; 74176; 80053; 81001; 81025; 82728; 83540; 83690; 84466; 85025; 85610; 85730

== ENCOUNTER 2024-08-11 04:43 | Observation (INO) | payer OTHER ==
--- OUTSIDE RECORDS SUMMARY | 2024-08-11 04:46 | XMS REPORT | Continuity of Care Document ---
Author Name Unknown Address [address] [facility] [facility] [address] [place] [address] [facility] thconnect Address [address] [place] [address] Care Team Providers Care Machine Operations Supervisor Name Role Phone Sandeep Yi Primary Care Physician [phone] Sandeep Yi Attending Clinician Unavailable Nita Attending Clinician Unavaila TORREY Tavares Attending Clinician Unavailable Therapy, [facility] Attending Clinician Unavailable Torrey Yi MD Attending Clinician [phone] Doctor Unassigned, [place]ador Attending Clinician U odette Leung RN, Courtney Nunez Attending Clinician Unavailab le Only, Ang Db Test Attending Clinician UnavailYanet Marcelo Attending Clinician [phone] YANET CAMPBELL Attending Clinician Unavailable ZACH JAEGER Attending Clinician Unavailab ted Pcp-Lab Attending Clinician Unavailable Zach Jaeger DO Attending Clinician [phone] Nita Admitting Clinician Unavaila ble Payers Payer Name Policy Type Policy Number Effective Date Expirati on Date Source [employer]ET[employer] 53 [id number] 2021 00:00:00 [facility] AETNA (EPO) [id number] 2021 00:00:00 [facility] [employer] C1 [id number] 2016 00:00:00 [facility] [employer] C1 [id number] 2016 00:00:00 [facility] [employer] [id number] 2016 00:00:00 [facility] [employer] C1 [id number] 2016 00:00:00 [facility] [employer] [id number] 2016 00:00:00 [facility] Problems Condition Name Condition Details Condition Category Status Onset Date Resolution Date Last Treatment Date Treating Clinician Comments Source Chondromal acia of bilateral patellas Chondromal acia of Bilateral Patellas Problem Active 11-23 00:00: 00 [facility] Primary hypothyroi dism Primary hypothyroi dism Disease Active 03-31 00:00: 00 [facility] Abnormal weight gain Abnormal weight gain Disease Active 03-31 00:00: 00 [facility] Fatigue, unspecifie d type Fatigue, unspecifie d type Disease Active 03-31 00:00: 00 [facility] Cushingoid facies Cushingoid facies Disease Active 03-31 00:00: 00 [facility] [id number] Primary osteoarthr itis of both knees Problem [facility] [id number] Rheumatoid arthritis involving multiple sites, unspecifie d whether rheumatoid factor present Problem [facility] Diverticul itis Diverticul itis Problem [facility] [id number] Morbid obesity due to excess calories Problem [facility] [id number] Vitamin D deficiency disease Problem [facility] Iron deficiency anemia Iron deficiency anemia, unspecifie d iron deficiency anemia type Problem [facility] Gastroesop hageal reflux disease GERD (gastroeso phageal reflux disease) Problem [facility] [id number] Other chronic pain Problem [facility] [id number] Vitamin B12 deficiency Problem [facility] [id number] Low back pain Problem [facility] Dominique' s thyroiditi s Dominique' s thyroiditi s Problem [facility] [id number] Allergic rhinitis, unspecifie d seasonalit y, unspecifie d trigger Problem [facility] [id number] Degenerati ve disc disease, lumbar Problem [facility] [id number] Chondromal acia patellae of left knee Problem [facility] Bipolar disorder Bipolar disorder Problem [facility] Hypothyroi dism Hypothyroi dism Problem [facility] Mixed anxiety and depressive disorder Depression with anxiety Problem [facility] [id number] Sore throat Problem [facility] [id number] Sinusitis, unspecifie d chronicity , unspecifie d location Problem [facility] Autoimmune thyroiditi s Autoimmune thyroiditi s Problem [facility] Genital herpes simplex HSV (herpes simplex virus) anogenital infection Problem [facility] Acquired hypothyroi dism Acquired hypothyroi dism Problem [facility] [id number] Otalgia of right ear Problem [facility] Osteoarthr itis of multiple joints Osteoarthr itis of multiple joints Problem [facility] [id number] BMI 40.0-44.9, adult Problem [facility] [id number] Primary osteoarthr itis of left knee Problem [facility] Irritable bowel syndrome Irritable bowel syndrome Problem [facility] [id number] Seasonal allergies Problem [facility] Chronic anemia Anemia in other chronic diseases classified elsewhere Problem [facility] Cervical disc disorder DDD (degenerat tobi disc disease), cervical Problem [facility] [id number] Pulmonary nodule, right Problem [facility] [id number] Anxiety Problem [facility] [id number] Depression , unspecifie d depression type Problem [facility] [id number] Systemic lupus erythemato edwin, unspecifie d SLE type, unspecifie d organ involvemen t status Problem [facility] Anemia due to chronic blood loss Iron deficiency anemia secondary to blood loss (chronic) Problem [facility] [id number] Environmen tavon allergies Problem [facility] [id number] History of Hansa-Park inson-Whit e (WPW) syndrome Problem [facility] [id number] Generalize d anxiety disorder Problem [facility] [id number] Panic disorder [episodic paroxysmal anxiety] Problem [facility] [id number] Contact with and (suspected ) exposure to other viral communicab le diseases Problem [facility] Chronic fatigue syndrome Chronic fatigue Problem [facility] Allergies, Adverse Reactions, Alerts Allergy Name Allergy Type Status Severity Reaction(s) Onset Date Inactive Date Treating Clinician Comments Source Nsaids (Non-Vinnie roidal Anti-Inf lammator y Drug) Propensi ty to adverse reaction s Active Other - See comments 01-11 00:00: 00 [facility] Sulfa (Sulfona mide Antibiot ics) Propensi ty to adverse reaction s Active Rash 01-11 00:00: 00 [facility] Nsaids (Non-Vinnie roidal Anti-Inf lammator y Drug) Propensi ty to adverse reaction s Active Other - See comments 01-11 00:00: 00 [facility] Sulfa (Sulfona mide Antibiot ics) Propensi ty to adverse reaction s Active Rash 01-11 00:00: 00 [facility] Vancomyc in (Bulk) Propensi ty to adverse reaction s Active Rash 01-11 00:00: 00 [facility] NSAIDS (NON-VINNIE ROIDAL ANTI-INF LAMMATOR Y DRUG) Drug Class Active Other-Cmnt 01-11 00:00: 00 [facility] SULFA (SULFONA MIDE ANTIBIOT ICS) Drug Class Active Rash 01-11 00:00: 00 [facility] VANCOMYC IN (BULK) DRUG Active Rash 01-11 00:00: 00 [facility] Vancomyc in Vancomyc in Active Unknown [facility] 8091 Drug allergy Active Unknown [facility] sertrali ne sertrali ne Active Unknown [facility] quetiapi ne quetiapi ne Active Unknown [facility] paroxeti ne paroxeti ne Active Unknown [facility] tramadol tramadol Active Unknown [facility] Lactose Allergy to substanc e Active [facility] Mold Allergy to substanc e Active [facility] Social History Social Habit Start Date Stop Date Quantity Comments Source Sexual orientation U [facility] Exposure to SARS-CoV-2 (event) Not sure [facility] History of Tobacco Use Current Smoker [facility] Sex Assigned At [facility] Alcohol intake 2020-10-11 00:00:00 2020-10-11 00:00:00 0 /d [facility] History of Social function 2020-10-11 00:00:00 2020-10-11 00:00:00 [facility] Tobacco use and exposure 2016-12-18 00:00:00 2016-12-18 00:00:00 Smokeless tobacco non-user [facility] Smoking Status Start Date Stop Date Source Light Tobacco Smoker [facility] Current Smoker 2024-07-23 00:00:00 [facility] Never smoked tobacco [facility] Medications Ordered Medication Name Filled Medication Name Start Date Stop Date Current Medication? Ordering Clinician Indication Dosage Frequency Signature (SIG) Comments Components Source Cyanocobala min Cyanocobala min 2022-09 2-13 00:00: 00 No 1000ug [facility] casirivimab -imdevimab (REGEN-COV (EUA)) injection 1,200 mg 05-25 17:13: 00 05-25 17:08 :00 No [id number] 1200mg 1,200 mg, Subcutaneo us, ONCE, 1 dose, Fri05/25/21 at 1215, Routine [facility] Vitamin B12 (Cyanocobal tobin) Vitamin B12 (Cyanocobal tobin) 10-03 00:00: 00 No 1000ug [facility] acetaminoph en-codeine (TYLENOL #3) 300-30 mg tablet 2019-09 15:35: 30 Yes 1{tbl} Take 1 tablet by mouth at bedtime. [facility] acetaminoph en-codeine (TYLENOL #3) 300-30 mg tablet 2019-09 09:35: 30 Yes 1{tbl} Take 1 tablet by mouth at bedtime. [facility] valACYclovi r 500 mg tablet 06-13 00:00: 00 Yes [facility] LIDOCAINE HCL 10MG/ML LIDOCAINE HCL 10MG/ML 05-03 00:00: 00 No 4mL [facility] Kenalog (Triamcinol one) Kenalog (Triamcinol one) 05-03 00:00: 00 No 1mL [facility] levothyroxi ne 175 mcg tablet 04-04 00:00: 00 Yes 175ug Take 1 tablet by mouth every morning. [facility] acetaminoph en-codeine (TYLENOL #3) 300-30 mg tablet 12-18 18:18: 48 Yes 1{tbl} Take 1 tablet by mouth at bedtime. [facility] acetaminoph en 300 mg-codeine 60 mg tablet TAKE ONE (1) TABLET(S) BY MOUTH EVERY SIX HOURS NEEDED. acetaminoph en 300 mg-codeine 60 mg tablet TAKE ONE (1) TABLET(S) BY MOUTH EVERY SIX HOURS NEEDED. No acetaminop hen 300 mg-codeine 60 mg tablet TAKE ONE (1) TABLET(S) BY MOUTH EVERY SIX HOURS NEEDED. [facility] cholecalcif chhaya (vitamin D3) 1,250 mcg (50,000 unit) capsule TAKE ONE (1) CAPSULE(S) BY MOUTH ONCE A WEEK. cholecalcif chhaya (vitamin D3) 1,250 mcg (50,000 unit) capsule TAKE ONE (1) CAPSULE(S) BY MOUTH ONCE A WEEK. No cholecalci ferol (vitamin D3) 1,250 mcg (50,000 unit) capsule TAKE ONE (1) CAPSULE(S) BY MOUTH ONCE A WEEK. [facility] clindamycin 2 % vaginal cream clindamycin 2 % vaginal cream No clindamyci n 2 % vaginal cream [facility] cyanocobala min (vit B-12) 1,000 mcg/mL injection solution INJECT ONE (1) ML(S) SUBCUTANEOU SLY ONCE EVERY WEEK. cyanocobala min (vit B-12) 1,000 mcg/mL injection solution INJECT ONE (1) ML(S) SUBCUTANEOU SLY ONCE EVERY WEEK. No cyanocobal tobin (vit B-12) 1,000 mcg/mL injection solution INJECT ONE (1) ML(S) SUBCUTANEO USLY ONCE EVERY WEEK. [facility] diclofenac 1 % topical gel diclofenac 1 % topical gel No diclofenac 1 % topical gel [facility] duloxetine 60 mg capsule,del ayed release TAKE ONE (1) CAPSULE(S) BY MOUTH ONCE A DAY. duloxetine 60 mg capsule,del ayed release TAKE ONE (1) CAPSULE(S) BY MOUTH ONCE A DAY. No duloxetine 60 mg capsule,de layed release TAKE ONE (1) CAPSULE(S) BY MOUTH ONCE A DAY. [facility] fluconazole 150 mg tablet fluconazole 150 mg tablet No fluconazol e 150 mg tablet [facility] folic acid 1 mg tablet TAKE ONE (1) TABLET(S) BY MOUTH DAILY. folic acid 1 mg tablet TAKE ONE (1) TABLET(S) BY MOUTH DAILY. No folic acid 1 mg tablet TAKE ONE (1) TABLET(S) BY MOUTH DAILY. [facility] levothyroxi ne 150 mcg tablet TAKE ONE (1) TABLET(S) BY MOUTH DAILY IN THE MORNING ON AN EMPTY STOMACH. levothyroxi ne 150 mcg tablet TAKE ONE (1) TABLET(S) BY MOUTH DAILY IN THE MORNING ON AN EMPTY STOMACH. No levothyrox ine 150 mcg tablet TAKE ONE (1) TABLET(S) BY MOUTH DAILY IN THE MORNING ON AN EMPTY STOMACH. [facility] lidocaine 5 % topical patch lidocaine 5 % topical patch No lidocaine 5 % topical patch [facility] methotrexat e sodium 2.5 mg tablet TAKE FOUR (4) TABLET(S) BY MOUTH ONCE WEEKLY. methotrexat e sodium 2.5 mg tablet TAKE FOUR (4) TABLET(S) BY MOUTH ONCE WEEKLY. No methotrexa te sodium 2.5 mg tablet TAKE FOUR (4) TABLET(S) BY MOUTH ONCE WEEKLY. [facility] metronidazo le 500 mg tablet metronidazo le 500 mg tablet No metronidaz ole 500 mg tablet [facility] morphine ER 15 mg tablet,exte nded release TAKE ONE (1) TABLET(S) BY MOUTH EVERY EIGHT HOURS. morphine ER 15 mg tablet,exte nded release TAKE ONE (1) TABLET(S) BY MOUTH EVERY EIGHT HOURS. No morphine ER 15 mg tablet,ext ended release TAKE ONE (1) TABLET(S) BY MOUTH EVERY EIGHT HOURS. [facility] omeprazole 20 mg capsule,del ayed release TAKE ONE (1) CAPSULE(S) BY MOUTH DAILY. omeprazole 20 mg capsule,del ayed release TAKE ONE (1) CAPSULE(S) BY MOUTH DAILY. No omeprazole 20 mg capsule,de layed release TAKE ONE (1) CAPSULE(S) BY MOUTH DAILY. [facility] ondansetron 4 mg disintegrat ing tablet TAKE ONE (1) TABLET(S) BY MOUTH DAILY. ondansetron 4 mg disintegrat ing tablet TAKE ONE (1) TABLET(S) BY MOUTH DAILY. No ondansetro n 4 mg disintegra ting tablet TAKE ONE (1) TABLET(S) BY MOUTH DAILY. [facility] ondansetron HCl 4 mg tablet TAKE ONE (1) TABLET(S) BY MOUTH DAILY. ondansetron HCl 4 mg tablet TAKE ONE (1) TABLET(S) BY MOUTH DAILY. No ondansetro n HCl 4 mg tablet TAKE ONE (1) TABLET(S) BY MOUTH DAILY. [facility] Xtampza ER 9 mg capsule sprinkle Xtampza ER 9 mg capsule sprinkle No Xtampza ER 9 mg capsule sprinkle [facility] Ondansetron 4 MG Ondansetron 4 MG No 1{table t__ e_tongu e_and_a llow_to _dissol ve} Ondansetro n 4 MG ALPRAZolam 0.5 MG ALPRAZolam 0.5 MG No 1{table t} ALPRAZolam 0.5 MG Cymbalta 60 MG Cymbalta 60 MG No 1{capsu le} BID Cymbalta 60 MG Valtrex 500 MG Valtrex 500 MG No 1{table t} QD Valtrex 500 MG Levothyroxi ne Sodium 150 MCG Levothyroxi ne Sodium 150 MCG No QD Levothyrox ine Sodium 150 MCG Zofran 4 MG Zofran 4 MG No 1{capsu le} BID Zofran 4 MG Vital Signs Vital Name Observation Time Observation Value Comments S ource height 2024-07-23 11:00:00 65 [in_i] [facility] weight 2024-07-23 11:00:00 240 [lb_av] [facility] bmi 2024-07-23 11:00:00 39.93 kg/m2 [facility] height 2024-05-10 16:20:00 65 [in_i] [facility] weight 2024-05-10 16:20:00 260 [lb_av] [facility] bmi 2024-05-10 16:20:00 43.26 kg/m2 [facility] blood pressure systolic 2024-05-10 16:20:00 129 mm[Hg] [facility] blood pressure diastolic 2024-05-10 16:20:00 87 mm[Hg] [facility] height 2024-01-29 08:20:00 65 [in_i] [facility] weight 2024-01-29 08:20:00 265 [lb_av] [facility] bmi 2024-01-29 08:20:00 44.09 kg/m2 [facility] oximetry 2024-01-29 08:20:00 97 % [facility] blood pressure systolic 2024-01-29 08:20:00 138 mm[Hg] [facility] blood pressure diastolic 2024-01-29 08:20:00 80 mm[Hg] [facility] BMI (Body Mass Index) 2023-11-24 00:00:00 48.1 kg/m2 [facility] Height 2023-11-24 00:00:00 64 [in_i] [facility] Body Weight 2023-11-24 00:00:00 280 [lb_av] [facility] bmi 2023-09-24 16:20:00 44.09 kg/m2 [facility] blood pressure systolic 2023-09-24 16:20:00 128 mm[Hg] [facility] blood pressure diastolic 2023-09-24 16:20:00 72 mm[Hg] [facility] height 2023-09-24 16:20:00 65 [in_i] [facility] weight 2023-09-24 16:20:00 265 [lb_av] [facility] height 2023-06-05 11:00:00 65 [in_i] [facility] weight 2023-06-05 11:00:00 264.0 [lb_av] [facility] temperature 2023-06-05 11:00:00 98.0 [degF] [facility] bmi 2023-06-05 11:00:00 43.93 kg/m2 [facility] oximetry 2023-06-05 11:00:00 99 % [facility] respiratory rate 2023-06-05 11:00:00 18 /min [facility] blood pressure systolic 2023-06-05 11:00:00 124 mm[Hg] [facility] blood pressure diastolic 2023-06-05 11:00:00 72 mm[Hg] [facility] height 2023-01-22 10:30:00 65 [in_i] [facility] weight 2023-01-22 10:30:00 258 [lb_av] [facility] temperature 2023-01-22 10:30:00 98 [degF] [facility] bmi 2023-01-22 10:30:00 42.93 kg/m2 [facility] blood pressure systolic 2023-01-22 10:30:00 132 mm[Hg] [facility] blood pressure diastolic 2023-01-22 10:30:00 72 mm[Hg] [facility] height 2022-12-31 08:40:00 65 [in_i] [facility] weight 2022-12-31 08:40:00 260.7 [lb_av] [facility] temperature 2022-12-31 08:40:00 96.8 [degF] [facility] bmi 2022-12-31 08:40:00 43.38 kg/m2 [facility] oximetry 2022-12-31 08:40:00 100 % [facility] respiratory rate 2022-12-31 08:40:00 16 /min [facility] blood pressure systolic 2022-12-31 08:40:00 138 mm[Hg] [facility] blood pressure diastolic 2022-12-31 08:40:00 76 mm[Hg] [facility] height 2022-05-21 09:20:00 65 [in_i] [facility] weight 2022-05-21 09:20:00 240 [lb_av] [facility] bmi 2022-05-21 09:20:00 39.93 kg/m2 [facility] height 2022-02-27 11:20:00 65 [in_i] [facility] weight 2022-02-27 11:20:00 250 [lb_av] [facility] temperature 2022-02-27 11:20:00 98 [degF] [facility] bmi 2022-02-27 11:20:00 41.60 kg/m2 [facility] blood pressure systolic 2022-02-27 11:20:00 130 mm[Hg] [facility] blood pressure diastolic 2022-02-27 11:20:00 70 mm[Hg] [facility] height 2021-11-26 15:40:00 65 [in_i] [facility] weight 2021-11-26 15:40:00 256.9 [lb_av] [facility] temperature 2021-11-26 15:40:00 97.4 [degF] [facility] bmi 2021-11-26 15:40:00 42.75 kg/m2 [facility] oximetry 2021-11-26 15:40:00 100 % [facility] respiratory rate 2021-11-26 15:40:00 17 /min [facility] blood pressure systolic 2021-11-26 15:40:00 135 mm[Hg] [facility] blood pressure diastolic 2021-11-26 15:40:00 74 mm[Hg] [facility] height 2021-09-10 10:50:00 65 [in_i] [facility] weight 2021-09-10 10:50:00 240 [lb_av] [facility] temperature 2021-09-10 10:50:00 97.4 [degF] [facility] bmi 2021-09-10 10:50:00 39.93 kg/m2 [facility] Systolic blood pressure 2021-05-25 17:53:00 143 mm[Hg] [facility] Diastolic blood pressure 2021-05-25 17:53:00 98 mm[Hg] [facility] Heart rate 2021-05-25 17:53:00 70 /min [facility] Body temperature 2021-05-25 17:53:00 36.67 Myriam [facility] Respiratory rate 2021-05-25 17:53:00 20 /min [facility] Oxygen saturation in Arterial blood by Pulse oximetry 2021-05-25 17:53:00 98 /min [facility] Body height 2021-05-25 17:07:00 162.6 cm [facility] Body weight 2021-05-25 17:07:00 108.863 kg [facility] BMI 2021-05-25 17:07:00 41.20 kg/m2 [facility] height 2021-05-24 10:30:00 65 [in_i] [facility] weight 2021-05-24 10:30:00 240 [lb_av] [facility] temperature 2021-05-24 10:30:00 98 [degF] [facility] bmi 2021-05-24 10:30:00 39.93 kg/m2 [facility] blood pressure systolic 2021-05-24 10:30:00 131 mm[Hg] [facility] blood pressure diastolic 2021-05-24 10:30:00 70 mm[Hg] [facility] Body weight 2020-09-05 15:24:00 116.983 kg [facility] BMI 2020-09-05 15:24:00 44.27 kg/m2 [facility] Oxygen saturation in Arterial blood by Pulse oximetry 2020-09-05 15:24:00 99 /min room air [facility] Systolic blood pressure 2020-09-05 15:24:00 153 mm[Hg] pt states being nervous [facility] Diastolic blood pressure 2020-09-05 15:24:00 104 mm[Hg] pt states being nervous [facility] Heart rate 2020-09-05 15:24:00 86 /min [facility] Body temperature 2020-09-05 15:24:00 37 Myriam [facility] Respiratory rate 2020-09-05 15:24:00 18 /min [facility] Body height 2020-09-05 15:24:00 162.6 cm [facility] Procedures Procedure Date / Time Performed Performing Clinician Source [id number] CONSENT 2021-05-25 05:01:00 Doctor Ambrose signed, Matador [facility] URINALYSIS 2020-09-05 16:56:00 Zach Jaeger [facility] CREATINE KINASE 2020-09-05 16:25:00 Zach Jaeger [facility] RHEUMATOID FACTOR 2020-09-05 16:25:00 Zach Jaeger [facility] C-REACTIVE PROTEIN 2020-09-05 16:25:00 Bertin Jaeger [facility] C4 COMPLEMENT 2020-09-05 16:25:00 Zach Jaeger [facility] THYROID STIMULATING HORMONE 2020-09-05 16:25:00 Zach Jaeger [facility] COMP. METABOLIC PANEL ([id number]) 2020-09-05 16:25:00 Zach Jaeger [facility] SEDIMENTATION RATE 2020-09-05 16:25:00 Bertin Jaeger [facility] CBC WITH DIFF 2020-09-05 16:25:00 Zach Jaeger [facility] HEPATITIS B SURFACE ANTIGEN 2020-09-05 16:25:00 Zach Jaeger [facility] HCV ANTIBODY 2020-09-05 16:25:00 Zach Jaeger [facility] VITAMIN D, 25-OH 2020-09-05 16:25:00 Zach Jaeger [facility] ANTI-CENTROMERE B 2020-09-05 16:25:00 Zach Jaeger [facility] ANTI-SSA(RO) 2020-09-05 16:25:00 [facility] 2020-09-05 16:25:00 Zach Jaeger [facility] ASSIGNMENT OF BENEFITS 2020-09-05 15:13:04 Shadito r Unassigned, Matador [facility] Encounters Start Date/Time End Date/Time Encounter Type Admission Type Attending [facility] Care Department Encounter ID Source 2024-05-07 10:30:00 Outpatient Yi, Sandeep [facility] [id number] [facility] 2024-01-28 11:02:00 Outpatient Yi, Sandeep [facility] [id number] [facility] 2023-06-03 16:08:00 Outpatient Yi, Sandeep [facility] [id number] [facility] 2022-12-31 08:38:00 Outpatient Yi, Sandeep [facility] [id number] [facility] 2022-12-26 16:43:00 Outpatient Yi, Sandeep [facility] [id number] [facility] 2022-05-21 09:02:01 Outpatient Yi, Sandeep STLC STLMLC [id number] [facility] 2021-10-17 14:22:29 Outpatient Yi, Sandeep STLC STLMLC [id number] [facility] 2021-10-17 14:16:37 Outpatient Yi, Sandeep STLC STLMLC [id number] [facility] 2021-10-17 13:27:44 Outpatient Yi, Sandeep STLC STLMLC [id number] [facility] 2021-10-17 13:24:52 Outpatient Yi, Sandeep STLC STLMLC [id number] [facility] 2021-10-17 12:44:19 Outpatient Yi, Sandeep STLC STLMLC [id number] [facility] 2021-10-17 12:37:26 Outpatient Yi, Sandeep STLMLC STLMLC [id number] [facility] 2021-10-17 12:35:43 Outpatient Yi, Sandeep STLMLC STLMLC [id number] [facility] 2021-10-17 12:35:24 Outpatient Yi, Sandeep STLMLC STLMLC [id number] [facility] 2021-10-17 12:20:04 Outpatient Yi, Sandeep STLMLC STLMLC [id number] [facility] 2021-10-17 12:09:05 Outpatient Yi, Sandeep STLMLC STLMLC [id number] [facility] 2021-10-17 11:53:31 Outpatient Yi, Sandeep STLMLC STLMLC [id number] [facility] 2021-10-17 11:28:47 Outpatient Yi, Sandeep STLMLC STLMLC [id number] [facility] 2021-10-17 11:24:19 Outpatient Yi, Sandeep STLMLC STLMLC [id number] [facility] 2021-10-17 11:17:40 Outpatient Yi, Sandeep STLMLC STLMLC [id number] [facility] 2021-10-17 11:00:14 Outpatient Yi, Sandeep STLMLC STLMLC [id number] [facility] 2024-07-23 00:00:00 2024-07-23 00:00:00 OFFICE VISIT ESTAB PT LEVEL 3 STLMLC STLMLC [id number] [facility] 2024-07-09 00:00:00 2024-07-09 00:00:00 (TEL) STLMLC STLMLC [id number] [facility] 2024-07-09 00:00:00 2024-07-09 00:00:00 (TEL) STLMLC STLMLC [id number] [facility] 2024-05-12 00:00:00 2024-05-12 00:00:00 (TEL) STLMLC STLMLC [id number] [facility] 2024-05-10 00:00:00 2024-05-10 00:00:00 OFFICE VISIT ESTAB PT LEVEL 4 STLMLC STLMLC [id number] [facility] 2024-05-05 00:00:00 2024-05-05 00:00:00 (TEL) STLMLC STLMLC [id number] [facility] 2024-05-04 00:00:00 2024-05-04 00:00:00 (TEL) STLMLC STLMLC [id number] [facility] 2024-04-27 00:00:00 2024-04-27 00:00:00 (TEL) STLMLC STLMLC [id number] [facility] 2024-04-22 00:00:00 2024-04-22 00:00:00 (TEL) STLMLC STLMLC [id number] [facility] 2024-02-27 00:00:00 2024-02-27 00:00:00 (TEL) STLMLC STLMLC [id number] [facility] 2024-02-08 00:00:00 2024-02-08 00:00:00 (TEL) STLMLC STLMLC [id number] [facility] 2024-01-29 00:00:00 2024-01-29 00:00:00 OFFICE VISIT ESTAB PT LEVEL 4 STLMLC STLMLC [id number] [facility] 2024-01-21 00:00:00 2024-01-21 00:00:00 (TEL) STLMLC STLMLC [id number] [facility] 2024-01-12 00:00:00 2024-01-12 00:00:00 (TEL) STLMLC STLMLC [id number] [facility] 2023-11-25 00:00:00 2023-11-25 00:00:00 (TEL) STLC STLC [id number] [facility] 2023-11-24 00:00:00 2023-11-24 00:00:00 Outpatient FOG_Adi_Bill Love AOSM AOSM [id number] [facility] 2023-11-24 00:00:00 2023-11-24 00:00:00 Tray Joshi MD: [id number] [place] [address] , Ph. AOSM [place] [facility] - FOG_Ofc [facility] [id number] [facility] 2023-11-23 00:00:00 2023-11-23 00:00:00 Outpatient FOG_Robbie Love AOSM AOSM [id number] [facility] 2023-11-21 00:00:00 2023-11-21 00:00:00 Outpatient FOG_Austine_R Ivan AOSM AOSM [id number] [facility] 2023-11-18 00:00:00 2023-11-18 00:00:00 Outpatient FOG_Robbie Love AOSM AOSM [id number] [facility] 2023-09-30 00:00:00 2023-09-30 00:00:00 (WEB) STLC STLC [id number] [facility] 2023-09-24 00:00:00 2023-09-24 00:00:00 (TEL) STLC STLC [id number] [facility] 2023-09-24 00:00:00 2023-09-24 00:00:00 OFFICE VISIT ESTAB PT LEVEL 4 STLC STLC [id number] [facility] 2023-06-06 00:00:00 2023-06-06 00:00:00 (WEB) STLMLC STLMLC [id number] [facility] 2023-06-05 00:00:00 2023-06-05 00:00:00 OFFICE VISIT ESTAB PT LEVEL 4 STLMLC STLMLC [id number] [facility] 2023-05-31 00:00:00 2023-05-31 00:00:00 (TEL) STLMLC STLMLC [id number] [facility] 2023-04-23 00:00:00 2023-04-23 00:00:00 (TEL) STLMLC STLMLC [id number] [facility] 2023-01-24 00:00:00 2023-01-24 00:00:00 (TEL) STLMLC STLMLC [id number] [facility] 2023-01-22 00:00:00 2023-01-22 00:00:00 OFFICE VISIT ESTAB PT LEVEL 4 STLMLC STLMLC [id number] [facility] 2023-01-03 00:00:00 2023-01-03 00:00:00 (TEL) STLMLC STLMLC [id number] [facility] 2022-12-31 00:00:00 2022-12-31 00:00:00 PREV VISIT EST AGE 17-39 STLMLC STLMLC [id number] [facility] 2022-12-23 00:00:00 2022-12-23 00:00:00 (TEL) STLMLC STLMLC [id number] [facility] 2022-09-11 00:00:00 2022-09-11 00:00:00 (TEL) STLMLC STLMLC [id number] [facility] 2022-09-06 00:00:00 2022-09-06 00:00:00 OFFICE VISIT ESTAB PT LEVEL 4 STLMLC STLMLC [id number] [facility] 2022-09-05 00:00:00 2022-09-05 00:00:00 (TEL) STLMLC STLMLC [id number] [facility] 2022-09-05 00:00:00 2022-09-05 00:00:00 (TEL) STLMLC STLMLC [id number] [facility] 2022-05-21 00:00:00 2022-05-21 00:00:00 OFFICE VISIT EST PT LEVEL 3 STLMLC STLMLC [id number] [facility] 2022-05-21 00:00:00 2022-05-21 00:00:00 (TEL) STLMLC STLMLC [id number] [facility] 2022-02-27 00:00:00 2022-02-27 00:00:00 OFFICE VISIT ESTAB PT LEVEL 4 STLMLC STLMLC [id number] [facility] 2021-11-27 00:00:00 2021-11-27 00:00:00 (TEL) STLMLC STLMLC [id number] [facility] 2021-11-26 00:00:00 2021-11-26 00:00:00 (TEL) STLMLC STLMLC [id number] [facility] 2021-11-26 00:00:00 2021-11-26 00:00:00 PREV VISIT EST AGE 17-39 STLMLC STLMLC [id number] [facility] 2021-09-10 00:00:00 2021-09-10 00:00:00 OFFICE VISIT EST PT LEVEL 3 STLMLC STLMLC [id number] [facility] 2021-09-10 00:00:00 2021-09-10 00:00:00 (TEL) STLMLC STLMLC [id number] [facility] 2021-08-29 00:00:00 2021-08-29 00:00:00 (TEL) STLMLC STLMLC [id number] [facility] 2021-07-03 00:00:00 2021-07-03 00:00:00 (TEL) STLMLC STLMLC [id number] [facility] 2021-06-18 00:00:00 2021-06-18 00:00:00 (TEL) STLMLC STLMLC [id number] [facility] 2021-05-25 12:00:00 2021-05-25 12:00:00 Outpatient TORREY SNEED [facility] [id number] [facility] 2021-05-25 09:31:54 2021-05-25 10:31:54 Nurse Visit Therapy, Adc Covid Torrey Bledsoe [facility] 1.840.114 350.1.13.10 4.2.7.2.686 [id number] [facility] 2021-05-25 00:00:00 2021-05-25 00:00:00 Orders Only Doctor Unassigned, Matador [facility] 1.2840.114 350.1.13.10 4.2.7.2.686 [id number] [facility] 2021-05-24 00:00:00 2021-05-24 00:00:00 OFFICE VISIT ESTAB PT LEVEL 4 STLMLC STLC [id number] [facility] 2021-05-24 00:00:00 2021-05-24 00:00:00 Patient Secure Msg Doctor Unassigned, Matador [facility] 1.2840.114 350.1.13.10 4.2.7.2.686 [id number] [facility] 2021-05-24 00:00:00 2021-05-24 00:00:00 Letter (Out) Courtney Leung [facility] 1.2840.114 350.1.13.10 4.2.7.2.686 [id number] [facility] 2021-05-23 00:00:00 2021-05-23 00:00:00 (TEL) STLMLC STLMLC [id number] [facility] 2021-05-22 15:09:54 2021-05-22 15:24:54 Laboratory Only Only, Ang Db Test Fredo Yanet [facility] [id number] 350.1.13.10 4.2.7.2.686 [id number] [facility] 2021-05-22 15:10:00 2021-05-22 15:10:00 Outpatient YANET BARR [facility] [id number] [facility] 2021-04-02 00:00:00 2021-04-02 00:00:00 Outpatient STLMLC STLMLC [id number] [facility] 2021-03-13 09:20:00 2021-03-13 09:20:00 Outpatient ZACH FENTON [facility] [id number] [facility] 2021-01-10 10:20:00 2021-01-10 10:20:00 Outpatient ZACH FENTON [facility] [id number] [facility] 2020-12-28 00:00:00 2020-12-28 00:00:00 Outpatient STLMLC STLMLC [id number] [facility] 2020-12-14 00:00:00 2020-12-14 00:00:00 Outpatient STLMLC STLMLC [id number] [facility] 2020-12-14 00:00:00 2020-12-14 00:00:00 Outpatient STLMLC STLMLC [id number] [facility] 2020-12-01 00:00:00 2020-12-01 00:00:00 Outpatient STLMLC STLMLC [id number] [facility] 2020-11-29 00:00:00 2020-11-29 00:00:00 Outpatient STLMLC STLMLC [id number] [facility] 2020-10-25 00:00:00 2020-10-25 00:00:00 Outpatient STLMLC STLMLC [id number] [facility] 2020-10-11 11:20:00 2020-10-11 11:20:00 Outpatient ZACH FENTON [facility] [id number] [facility] 2020-09-05 10:07:02 2020-09-05 11:18:11 Audio/Visual Operator Visit Pcp-Lab Zach Jaeger [facility] 1.2.840.114 350.1.13.10 4.2.7.2.686 [id number] [facility] 2020-09-05 09:13:13 2020-09-05 10:04:30 Office Visit Zach Jaeger [facility] 1.2.840.114 350.1.13.10 4.2.7.2.686 [id number] [facility] 2020-09-05 09:00:00 2020-09-05 09:00:00 Outpatient ZACH FENTON [facility] [id number] [facility] 2020-09-05 00:00:00 2020-09-05 00:00:00 Orders Only Doctor Unassigned, Matador [facility] [id number] 350.1.13.10 4.2.7.2.686 [id number] [facility] 2020-08-22 00:00:00 2020-08-22 00:00:00 Outpatient STLMLC STLMLC [id number] [facility] 2020-06-29 00:00:00 2020-06-29 00:00:00 Outpatient STLMLC STLMLC [id number] [facility] 2020-06-26 00:00:00 2020-06-26 00:00:00 Outpatient STLMLC STLMLC [id number] [facility] 2020-06-22 00:00:00 2020-06-22 00:00:00 Outpatient STLMLC STLMLC [id number] [facility] 2020-04-21 15:55:00 2020-04-21 15:55:[address] [facility] [id number] [facility] 2020-03-23 13:15:00 2020-03-23 13:15:[address] [facility] [id number] [facility] 2020-03-22 17:02:00 2020-03-22 17:02:[address] [facility] [id number] [facility] 2020-03-21 13:23:00 2020-03-21 13:23:[address] [facility] [id number] [facility] 2020-03-21 13:00:00 2020-03-21 13:00:[address] [facility] [id number] [facility] 2020-03-20 16:07:00 2020-03-20 16:07:[address] [facility] [id number] [facility] 2020-03-13 10:08:00 2020-03-13 10:08:00 [address] [facility] [id number] [facility] 2020-02-15 09:30:00 2020-02-15 09:30:[address] [facility] [facility] [id number] [facility] 2020-02-15 08:12:00 2020-02-15 08:12:[address] [facility] [id number] [facility] 2020-02-01 16:14:00 2020-02-01 16:14:[address] [facility] [id number] [facility] 2019-12-16 15:26:00 2019-12-16 15:26:[address] [facility] [id number] [facility] 2019-12-07 10:43:00 2019-12-07 10:43:[address] [facility] [id number] [facility] 2019-11-09 16:30:00 2019-11-09 16:30:[address] [facility] [id number] [facility] 2019-10-27 16:00:00 2019-10-27 16:00:00 [facility] [id number] [facility] 2019-10-04 14:30:00 2019-10-04 14:30:[address] [facility] [id number] [facility] 2019-09-27 11:30:00 2019-09-27 11:30:[address] [facility] [id number] [facility] 2019-08-18 09:36:00 2019-08-18 09:36:[address] [facility] [id number] [facility] 2019-08-09 09:30:00 2019-08-09 09:30:[address] [facility] [facility] [id number] [facility] 2019-08-05 08:38:00 2019-08-05 08:38:[address] [facility] [id number] [facility] 2019-07-30 15:01:00 2019-07-30 15:01:00 [facility] [facility] [id number] [facility] 2019-07-12 10:46:00 2019-07-12 10:46:[address] [facility] [id number] [facility] 2019-06-15 11:16:00 2019-06-15 11:16:00 [facility] [id number] [facility] 2019-06-02 11:19:00 2019-06-02 11:19:00 [facility] [id number] [facility] 2019-05-25 16:16:00 2019-05-25 16:16:00 [facility] [id number] [facility] 2019-05-17 13:07:00 2019-05-17 13:07:00 [facility] [id number] [facility] 2019-05-04 13:49:00 2019-05-04 13:49:00 [facility] [id number] [facility] 2019-05-03 10:30:00 2019-05-03 10:30:00 [facility] [id number] [facility] 2019-03-23 17:29:00 2019-03-23 17:29:00 [facility] [id number] [facility] 2019-03-23 08:00:00 2019-03-23 08:00:00 [facility] [id number] [facility] 2019-03-16 10:12:00 2019-03-16 10:12:00 [facility] [id number] [facility] 2019-03-04 13:46:00 2019-03-04 13:46:00 [facility] [id number] [facility] 2019-03-03 16:30:00 2019-03-03 16:30:[address] [facility] [id number] [facility] 2019-02-01 16:45:00 2019-02-01 16:45:[address] [facility] [facility] [id number] [facility] 2019-01-01 11:02:00 2019-01-01 11:02:00 [facility] [id number] [facility] 2018-11-30 16:30:00 2018-11-30 16:30:00 [facility] [id number] [facility] 2018-07-08 10:02:00 2018-07-08 10:02:00 [facility] [id number] [facility] 2018-03-16 11:00:00 2018-03-16 11:00:00 [facility] [id number] [facility] 2018-03-09 09:15:00 2018-03-09 09:15:00 [facility] [id number] [facility] 2018-03-02 09:32:00 2018-03-02 09:32:00 [facility] [id number] [facility] 2018-01-12 12:15:00 2018-01-12 12:15:00 [facility] [id number] [facility] 2018-01-12 08:45:00 2018-01-12 08:45:00 [facility] [id number] [facility] 2018-01-08 09:53:00 2018-01-08 09:53:00 [facility] [id number] [facility] 2018-01-01 09:15:00 2018-01-01 09:15:00 Outpatient [facility] [id number] [facility] 2017-12-09 15:15:00 2017-12-09 15:15:00 Outpatient [facility] [id number] [facility] Results Test Description Test Time Test Comments Results Result Co mments Source [id number] 00:00:00* Test Item Value Reference Range Interpretation Comme nts FERRITIN (test code = 59826-9) 3 NG/ML See_Comment L [Automated [employer] ge] The system which generated this result transmitted reference range: 13-200 NG/ML. The reference range was not used to interpret this result as normal/abnormal. Lipid Panel With LDL/HDL [id number] 00:00:00* Test Item Value Reference Range Interpretation Comme nts Cholesterol, Total (test code = 2093-3) 176 100-199 Triglycerides (test code = 2571-8) 87 0-149 HDL Cholesterol (test code = 2085-9) 62 >39 ANTI-CENTROMERE [id number] 15:51:00* Test Item Value Reference Range Interpretation Comme nts ANTI-CENTR (test code = 3977364272) Negative Negative ESTELLA (test code = ESTELLA) Positive - Antibod y detected.Negative - No antibody detected. Lab Interpretation (test code = 56089-5) Normal [facility] [id number] 15:51:00* Test Item Value Reference Range Interpretation Comme nts ANTI-DSDNA (test code = 8919721964) See_Comment H [Automated message] The system which generated this result transmitted reference range: 0.0 - 4.0 IU/mL. The reference range was not used to interpret this result as normal/abnormal. ESTELLA (test code = ESTELLA) Negative ? ?< or = 4 IU/mLPositive ? ? ?> or = 10 IU/mLIndetermin ate ?5-9 IU/mL Lab Interpretation (test code = 86540-2) Abnormal [facility][id number] 15:51:00* Test Item Value Reference Range Interpretation Comme nts ANTI-SCL70 (test code = 7404600595) Negative Negative ESTELLA (test code = ESTELLA) Positive - Antibod y detected.Negative - No antibody detected. Lab Interpretation (test code = 77593-7) Normal [facility]/[id number] 15:51:00* Test Item Value Reference Range Interpretation Comme nts ANTI-SMRNP (test code = 1047231920) Negative Negative ESTELLA (test code = ESTELLA) Positive - Antibod y detected.Negative - No antibody detected. Lab Interpretation (test code = 23053-4) Normal [facility]SSA(RO)2020-09-06 15:51:00* Test Item Value Reference Range Interpretation Comme nts ANTI-SSA(RO) (test code = 2146393835) Negative Negative ESTELLA (test code = ESTELLA) Positive - Antibod y detected.Negative - No antibody detected. Lab Interpretation (test code = 69586-7) [facility] [id number] 04:42:00* Test Item Value Reference Range Interpretation Comme nts VIT D 25OH (test code = 40095-4) 28 ng/mL 25-80 ESTELLA (test code = ESTELLA) Deficiency: <20 ng/mLInsufficiency : 20-24 ng/mLOptimal: 25-80 ng/mL Lab Interpretation (test code = 45086-2) [facility]HE[facility] [id number] 21:16:00* Test Item Value Reference Range Interpretation Comme nts RF (test code = 5822642658) <20 See_Comment [Automated messa ge] The system which generated this result transmitted reference range: <20 IU/mL. The reference range was not used to interpret this result as normal/abnormal. Lab Interpretation (test code = 56587-3) Normal [facility] Texas[facility]-REACTIVE [id number] 21:15:00* Test Item Value Reference Range Interpretation Comme nts CRP (test code = 5736599263) 0.3 mg/dL <0.8 Lab Interpretation (test cod e = 71714-4) [facility]4 [id number] 21:15:00* Test Item Value Reference Range Interpretation Comme nts C4 (test code = 3660406785) 23 mg/dL 20-59 Lab Interpretation (test cod e = 31407-6) Normal [facility] [id number] 21:14:00* Test Item Value Reference Range Interpretation Comme nts C3 (test code = 8856920858) 97 mg/dL 86-184 Lab Interpretation (test cod e = 70293-5) Normal [facility] TexasHCV [id number] 20:24:00* Test Item Value Reference Range Interpretation Comme nts HCV Ab (test code = 99573-3) Negative HCV Semi-Quantitative (test code = 45934-9) [facility] TexasSEDIMENTATION [id number] 20:23:00* Test Item Value Reference Range Interpretation Comme nts ESR (test code = 8915947494) See_Comment [Automated [employer]] The system which generated this result transmitted reference range: 0 - 20 mm/HR. The reference range was not used to interpret this result as normal/abnormal. Lab Interpretation (test code = 21486-5) Normal [facility] Texas[facility]INALYSIS2020-12-15 20:13:00* Test Item Value Reference Range Interpretation Comme nts APPEARANCE (test code = 9806779030) Clear Clear COLOR (test code = 6876741923) Straw Yellow A PH (test code = 9108567051) 4.8-8.0 SP GRAVITY (test code = 9340473548) 1.003-1.030 GLU U QUAL (test code = 8738038443) Normal Normal BLOOD (test code = 7491189354) 2+ Negative A KETONES (test code = 1934953073) Negative Negative PROTEIN (test code = 2887-8) Negative Negative UROBILIN (test code = 7715400724) Normal Normal BILIRUBIN (test code = 3143939358) Negative Negative NITRITE (test code = 1042653633) Negative Negative LEUK OBED (test code = 2087048689) Negative Negative RBC/HPF (test code = 6578342979) See_Comment [Automated [employer]] The system which generated this result transmitted reference range: 0 - 3 HPF. The reference range was not used to interpret this result as normal/abnormal. WBC/HPF (test code = 4165056425) See_Comment [Automated [employer]] The system which generated this result transmitted reference range: 0 - 5 HPF. The reference range was not used to interpret this result as normal/abnormal. BACTERIA (test code = 5703893402) Few Negative A SQ EPITH (test code = 5805703249) See_Comment [Automated [employer]] The system which generated this result transmitted reference range: <=2 HPF. The reference range was not used to interpret this result as normal/abnormal. Lab Interpretation (test code = 08736-2) [facility]normal [facility] [id number] 20:06:00 * Test Item Value Reference Range Interpretation Comme nts TSH (test code = 7771730047) See_Comment [Automated [employer]] The system which generated this result transmitted reference range: 0.45 - 4.70 mIU/L. The reference range was not used to interpret this result as normal/abnormal. Lab Interpretation (test code = 37951-1) Normal [facility] SURFACE [id number] 20:06:00 * Test Item Value Reference Range Interpretation Comme nts HBsAg Semi-Quantitative (julissa t code = 5195-3) Negative Negative [facility]COMP. METABOLIC PANEL (22983)2020-09-05 19:33:00* Test Item Value Reference Range Interpretation Comme nts NA (test code = 5218262842) 140 mmol/L 135-145 K (test code = 8361668534) 4.3 mmol/L 3.5-5 CL (test code = 3546184217) 106 mmol/L 98-108 CO2 TOTAL (test code = 1204421872) 23 mmol/L 23-31 AGAP (test code = 3514207166) 2-16 BUN (test code = 9952012339) 13 mg/dL 7-23 GLUCOSE (test code = 4182441584) 101 mg/dL 70-110 CREATININE (test code = 7806654076) 0.66 mg/dL 0.5-1.04 TOTAL BILI (test code = 0328898717) 0.3 mg/dL 0.1-1.1 CALCIUM (test code = 4429328486) 9.5 mg/dL 8.6-10.6 T PROTEIN (test code = 3754455141) 7.4 g/dL 6.3-8.2 ALBUMIN (test code = 7904938770) 4.4 g/dL 3.5-5 ALK PHOS (test code = 2192568944) 77 U/L 34-122 ALTv (test code = 1742-6) 16 U/L 5-35 AST(SGOT) (test code = 0591401983) 29 U/L 13-40 eGFR Calculation (Non-) (test code = 6805334624) mL/min/1.73m2 eGFR Calculation () (test code = 1991214011) mL/min/1.73m2 ESTELLA (test code = ESTELLA) Association of [...] or urine or abnormalities in imaging tests). [facility]CREAT[facility] [id number] 19:33:00* Test Item Value Reference Range Interpretation Comme nts CK (test code = 3515914625) 335 U/L 33-194 H Lab Interpretation (test cod e = 31523-9) Abnormal [facility]CBC WITH [id number] 19:00:00* Test Item Value Reference Range Interpretation Comme nts WBC (test code = 6690-2) See_Comment [Automated messa ge] The system which generated this result transmitted reference range: 4.30 - 11.10 10*3/?L. The reference range was not used to interpret this result as normal/abnormal. RBC (test code = 789-8) See_Comment [Automated messa ge] The system which generated this result transmitted reference range: 3.93 - 5.25 10*6/?L. The reference range was not used to interpret this result as normal/abnormal. HGB (test code = 718-7) 11.9 g/dL 11.6-15 HCT (test code = 4544-3) 39.1 % 35.7-45.2 MCV (test code = 787-2) 75.8 fL 80.6-95.5 L MCH (test code = 785-6) 23.1 pg 25.9-32.8 L MCHC (test code = 786-4) 30.4 g/dL 31.6-35.1 L RDW-SD (test code = 65614-1) 45.8 fL 39-49.9 RDW-CV (test code = 788-0) 16.9 % 12-15.5 H PLT (test code = 777-3) See_Comment [Automated messa ge] The system which generated this result transmitted reference range: 166 - 358 10*3/?L. The reference range was not used to interpret this result as normal/abnormal. MPV (test code = 80239-7) 11.6 fL 9.5-12.9 NRBC/100 WBC (test code = 9849662198) See_Comment [Automated [employer]] The system which generated this result transmitted reference range: 0.0 - 10.0 /100 WBCs. The reference range was not used to interpret this result as normal/abnormal. NRBC x10^3 (test code = 7371046816) <0.01 See_Comment [Automated messa ge] The system which generated this result transmitted reference range: 10*3/?L. The reference range was not used to interpret this result as normal/abnormal. GRAN MAT (NEUT) % (test code = 770-8) 77.5 % IMM GRAN % (test code = 0868746684) 0.30 % LYMPH % (test code = 736-9) 16.8 % MONO % (test code = 5905-5) 4.4 % EOS % (test code = 713-8) 0.4 % BASO % (test code = 706-2) 0.6 % GRAN MAT x10^3(ANC) (test code = 6848789004) 6.14 10*3/uL 1.88-7.09 IMM GRAN x10^3 (test code = 1561542346) <0.03 0-0.06 LYMPH x10^3 (test code = 731-0) 1.33 10*3/uL 1.32-3.29 MONO x10^3 (test code = 742-7) 0.35 10*3/uL 0.33-0.92 EOS x10^3 (test code = 711-2) 0.03 10*3/uL 0.03-0.39 BASO x10^3 (test code = 704-7) 0.05 10*3/uL 0.01-0.07 Lab Interpretation (test code = 96237-2) Abnormal [facility]"
[2024-08-11] MEDS ORDERED: ONDANSETRON 4 MG/2 ML VIAL ONE ×4 (05:17→13:34)
[2024-08-11] MEDS ORDERED: DIPHENOX/ATROP SULF 1 TAB PO ONE (05:18)
[2024-08-11] MEDS ORDERED: MORPHINE 2 MG/ML SYR ONE ×2 (05:18→13:34)
[2024-08-11] MEDS ORDERED: FAMOTIDINE 20 MG/2 ML VIAL IV ONE ×2 (05:18→13:34)
[2024-08-11] MEDS ORDERED: LORazepam 2 MG/ML VIAL ONE (05:18)
[2024-08-11] MEDS ORDERED: NA CHLORIDE 0.9% 2,000 ML ONE (05:19)
[2024-08-11 05:46] LABS: Absolute Lymphocytes (CBC) 0.9 K/uL (0.7-4.9); Absolute Monocytes 1.1 K/uL (0.1-1.3); Absolute Neutrophil 5.2 K/uL (1.8-8.0); Basophils % 0.4 % (0-1.3); Eosinophils % 0.4 % (0-4.4); Hematocrit 42.3 % (36.0-45.0); Lymphocytes % 12.9 % (15.3-44.8); MCH 28.2 pg (27.0-35.0); MCHC 33.1 g/dL (32.0-36.0); MCV 85.3 fL (80-100); MPV 10.1 fL (7.6-11.3); Monocytes % 14.6 % (3.3-12.3); Neutrophils % 71.7 % (41.7-73.7); Platelets 177 thou/uL (152-406); RBC Red Blood Cell Count 4.96 M/uL (3.86-4.86); Red Cell Distribution Width 16.7 % (12.1-15.2)
[2024-08-11 06:06] LABS: Albumin/Globulin Ratio 0.8 (1.1-1.8); Alkaline Phosphatase 66 U/L (45-117); Anion Gap 9.6 mEq/L (5.0-15.0); BUN Blood Urea Nitrogen 7 mg/dL (7-18); Bicarbonate 23 mEq/L (21-32); Bilirubin Total 0.4 mg/dL (0.2-1.0); Globulin 3.8 g/dL (2.3-3.5); Glomerular Filtration Rate 112 ml/min (=/>90); Glucose Level 100 mg/dL (74-106); Lipase 14 U/L (13-75); Protein, Total 6.8 g/dL (6.4-8.2); Sodium Level 136 mEq/L (136-145)
[2024-08-11 06:07] LABS: ALT/SGPT < 14 U/L (13-56); AST/SGOT 15 U/L (15-37); Potassium 3.6 mEq/L (3.5-5.1)
[2024-08-11] MEDS ORDERED: MORPHINE 4 MG/ML SYR ONE ×2 (06:53→16:09)
[2024-08-11 07:07] LABS: Specific Gravity 1.016 (1.005-1.030); Urine Bilirubin NEGATIVE (Negative); Urine Blood Negative (Negative); Urine Clarity Clear (Clear); Urine Color Light-Yellow (Yellow); Urine Glucose NEGATIVE (Negative); Urine Ketones 2+ (Negative); Urine Microscopic Reflex YN NO UMIC; Urine Nitrite NEGATIVE (Negative); Urine Protein NEGATIVE (Negative); Urine Urobilinogen Normal (Normal)
--- NOTE | 2024-08-11 07:42 | RAD REPORT ---
EXAMINATION: CT ABDOMEN AND PELVIS WITH CONTRAST CLINICAL INDICATION: ABD PAIN TECHNIQUE: CT abdomen and pelvis was performed, after the administration of IV contrast, [facility]. Axial, sagittal and coronal reconstructions were obtained. One or more of the following dose reduction techniques were used: Automated exposure control, adjustment of the mA and k V according to patient size, and iterative reconstruction. Unless otherwise specified, incidental findings do not require dedicated imaging follow-up. COMPARISON: 02/08/2017 FINDINGS: LOWER CHEST: The visualized lung bases are clear. LIVER: Normal in size and contour. No focal lesion. Grossly unremarkable gallbladder. SPLEEN: Normal size. No focal lesion. PANCREAS: No mass, ductal dilation, or gerardo-pancreatic fluid. ADRENALS: Normal; no mass. KIDNEYS: Normal size and contour. No hydronephrosis. GASTROINTESTINAL TRACT: No evidence of free air, significant intra-abdominal free fluid, bowel obstru ction or abscess. Postsurgical changes of gastric bypass. There is a mildly thickened appearance to the colon wall involving the cecum, ascending colon, transverse colon and descending colon suggest ing colitis. A few small adjacent lymph nodes are present. No pneumatosis. APPENDIX: Normal appendix. LYMPH NODES: No lymphadenopathy. MUSCULOSKELETAL: No acute or suspicious osseous abnormality. ADDITIONAL FINDINGS: IUD in the uterus. IMPRESSION: There is a mild to moderate nonspecific colitis pattern suspected as detailed.
--- NOTE | 2024-08-11 08:28 | ER ---
Nurse's Notes [facility] Name: Laura Lopez Age: 39 yrs Sex: Female : 1985 Arrival Date: 08/11/2024 Time: 04:43 Bed 13 Private MD: Diagnosis: Left sided colitis-PANCOLITIS;Abdominal tenderness;Vomiting;Diarrhea, unspecified Presentation: 08/11 04:52 Chief complaint: Patient states: abdominal pain, nausea, vomiting, X3 days. im on a lg3 weight loss shot and i may have double dosed myself this week. Coronavirus screen: Client denies travel out of the [place] in the last 14 days. At this time, the client does not indicate any symptoms associated with coronavirus-19. Ebola Screen: No symptoms or risks identified at this time. Initial Sepsis Screen: Does the patient meet any 2 criteria? No. Patient's initial sepsis screen is negative. Does the patient have a suspected source of infection? No. Patient's initial sepsis screen is negative. Risk Assessment: Do you want to hurt yourself or someone else? Patient reports no desire to harm self or others. Onset of symptoms was August 08, 2024. 04:52 Method Of Arrival: Ambulatory lg3 04:52 Acuity: BILL 3 lg3 Triage Assessment: 04:54 General: Appears in no apparent distress. uncomfortable, Behavior is cooperative, lg3 anxious, crying. Pain: Complains of pain in abdomen. EENT: No deficits noted. No signs and/or symptoms were reported regarding the EENT system. Neuro: No deficits noted. Kohli Agitation-Sedation Scale (RASS): 0 - Alert and Calm Level of Consciousness is awake, alert, obeys commands, Oriented to person, place, time, situation. Cardiovascular: No deficits noted. Denies chest pain, shortness of breath, Capillary refill < 3 seconds Clubbing of nail beds is absent JVD is absent Patient's skin is warm and dry. Respiratory: No deficits noted. Airway is patent Respiratory effort is even, unlabored, Respiratory pattern is regular, symmetrical. GI: Reports lower abdominal pain, upper abdominal pain, cramping, diarrhea, nausea, vomiting. : No signs and/or symptoms were reported regarding the genitourinary system. Derm: No deficits noted. No signs and/or symptoms reported regarding the dermatologic system. Skin is intact, is healthy with good turgor, Skin is dry, Skin is normal, Skin temperature is warm. Musculoskeletal: No deficits noted. No signs and/or symptoms reported regarding the musculoskeletal system. Circulation, motion, and sensation intact. Range of motion: intact in all extremities. 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 07/18/2024, unknown lg3 Historical: - Allergies: 04:54 Bactrim; lg3 04:54 NSAIDS; due to Gastric Bypass; lg3 04:54 Sulfa (Sulfonamide Antibiotics); lg3 04:54 Vancomycin; lg3 - Home Meds: 04:54 Zofran Oral [Active]; Levothroid Oral 125 mcg daily [Active]; Cymbalta 60 mg oral lg3 capsule,delayed release (e.c.) daily [Active]; Methotrexate (Anti-Rheumatic) Oral 7.5 mg daily [Active]; MS Contin 15 mg Oral tablet, extended release 1 tab every 8 hours [Active]; folic acid 1 mg Oral tablet daily [Active]; Vitamin D Oral 50,000 unit weekly [Active]; Zepbound subcutaneous every week [Active]; - PMHx: 04:54 Anemia; Anxiety; Chronic pain; Depression; Dominique's; Hypertension; Hypothyroidism; lg3 ibs; Lupus erythematosus; Panic Attacks; Rheumatoid Arthritis; WPW; - PSHx: 04:54 gastric bypass (WPW); left foot (WPW); lg3 - Immunization history:: Adult Immunizations up to date. - Infectious Disease History:: Denies. - Social history:: Smoking status: Patient reports the use of cigarette tobacco products, denies chronic smoking, but will smoke occasionally, Patient/guardian denies using alcohol, street drugs. - Family history:: not pertinent. Screenin:00 [facility] ED Fall Risk Assessment (Adult) History of falling in the last 3 months, lg3 including since admission No falls in past 3 months (0 pts) Confusion or Disorientation No (0 pts) Intoxicated or Sedated No (0 pts) Impaired Gait No (0 pts) Mobility Assist Device Used No (0 pt) Altered Elimination No (0 pt) Score/Fall Risk Level 0 - 2 = Low Risk Oriented to surroundings, Maintained a safe environment, Educated pt \T\ family on fall prevention, incl call for assistance when getting out of bed, Assessed \T\ reinforced patient's understanding of fall precautions. Abuse screen: Denies threats or abuse. Denies injuries from another. Nutritional screening: No deficits noted. Tuberculosis screening: No symptoms or risk factors identified. Assessment: 05:07 General: Appears in no apparent distress. uncomfortable, well groomed, well developed, kc6 Behavior is cooperative, crying. Pain: Complains of pain in abdomen. Neuro: Level of Consciousness is awake, alert, obeys commands, Oriented to person, place, time, situation, Appropriate for age. Cardiovascular: Capillary refill < 3 seconds. Respiratory: Airway is patent Trachea midline Respiratory effort is even, unlabored, Respiratory pattern is regular, symmetrical. GI: Abdomen is round non-distended, Reports lower abdominal pain, upper abdominal pain, diarrhea, nausea, vomiting. : No signs and/or symptoms were reported regarding the genitourinary system. EENT: No signs and/or symptoms were reported regarding the EENT system. Derm: No signs and/or symptoms reported regarding the dermatologic system. Skin is intact, is healthy with good turgor, Skin is pink, warm \T\ dry. Musculoskeletal: No signs and/or symptoms reported regarding the musculoskeletal system. Circulation, motion, and sensation intact. Capillary refill < 3 seconds, Range of motion: intact in all extremities. 06:12 Reassessment: Patient appears in no apparent distress at this time. No changes from kc6 previously documented assessment. Patient and/or family updated on plan of care and expected duration. Pain level reassessed. Patient is alert, oriented x 3, equal unlabored respirations, skin warm/dry/pink. Patient states feeling better. Patient states symptoms have improved. 07:11 Reassessment: Patient appears in no apparent distress at this time. No changes from kc6 previously documented assessment. Patient and/or family updated on plan of care and expected duration. Pain level reassessed. Patient is alert, oriented x 3, equal unlabored respirations, skin warm/dry/pink. 08:10 Reassessment: Patient appears in no apparent distress at this time. No changes from kc6 previously documented assessment. Patient and/or family updated on plan of care and expected duration. Pain level reassessed. Patient is alert, oriented x 3, equal unlabored respirations, skin warm/dry/pink. 08:40 Reassessment: Patient appears in no apparent distress at this time. No changes from kc6 previously documented assessment. Patient and/or family updated on plan of care and expected duration. Pain level reassessed. Patient is alert, oriented x 3, equal unlabored respirations, skin warm/dry/pink. Vital Signs: 04:52 BP 126 / 86; Pulse 112; Resp 19 S; Temp 98.8(O); Pulse Ox 100% on R/A; Weight 107.05 kg lg3 (R); Height 5 ft. 6 in. (R); Pain 10/10; 05:36 BP 140 / 78; Pulse 82; Resp 16 S; Pulse Ox 100% on R/A; kc6 06:12 BP 123 / 69; Pulse 80; Resp 15 S; Pulse Ox 100% on R/A; Pain 0/10; kc6 07:11 BP 128 / 75; Pulse 81; Resp 16 S; Pulse Ox 100% on R/A; kc6 08:10 BP 142 / 84; Pulse 85; Resp 17 S; Pulse Ox 100% on R/A; kc6 08:40 BP 128 / 75; Pulse 86; Resp 16 S; Temp 98.6(O); Pulse Ox 100% on R/A; Pain 7/10; kc6 04:52 Body Mass Index 38.09 (107.05 kg, 167.64 cm) lg3 04:52 Pain Scale: Adult lg3 06:12 Pain Scale: Adult kc6 08:40 Pain Scale: Adult kc6 [place] Coma Score: 07:14 Eye Response: spontaneous(4). Motor Response: obeys commands(6). Verbal Response: sp4 oriented(5). Total: 15. ED Course: 04:45 Patient arrived in ED. jj6 04:54 Triage completed. lg3 04:54 Arm band placed on left wrist. lg3 05:03 Bethany Moser RN is Primary Nurse. kc6 05:06 Yuan Johnson MD is Attending Physician. sp4 05:06 Patient maintains SpO2 saturation greater than 95% on room air. kc6 05:07 Patient has correct armband on for positive identification. Bed in low position. Call [facility] light in reach. Side rails up X 1. Adult w/ patient. Pulse ox on. NIBP on. Door closed. Noise minimized. Lights dimmed. Pillow given. 05:16 Inserted saline lock: 20 gauge in right forearm, using aseptic technique. Blood kc6 collected. Flushed with 10 mL NS. 05:29 Flu and/or RSV swab sent to lab. oe 06:49 Patient requests pain medication. kc6 06:49 Assisted to bathroom. kc6 06:56 CT Abd/Pelvis - IV Contrast Only In Process Unspecified. EDMS 07:16 Attending Physician role handed off by Yuan Johnson MD chadd 07:16 Gabriel Cardozo MD is Attending Physician. chadd 08:26 Zach Garcia MD is Hospitalizing Provider. chadd 08:30 No provider procedures requiring assistance completed. Patient admitted, IV remains in kc6 place. 12:45 1245 CM met with and her aunt at the bedside in the ED exam room. Patient ane identified by name and . Demographic sheet confirmed. PCP is Dr.Mitesh Yi. GI Specialist is Dr. Hinds. No MPOA in place. Patient states she lives in a singles story home with her Toney. No DME, no HH, no home oxygen or other medical services at this time. Patient states she was wondering how long she would be in the hospital and requested an update from the provider. CM reached out to KERRY Bangura and Willem stated he would visit patient again and reiterate plan of care. Her plan is to return home when discharged and she states either her or her mom will transport her home. CM team will continue to follow and coordinate care. Administered Medications: 05:35 Drug: Ativan IVP 2 mg IVP once Route: IVP; Site: right forearm; kc6 06:12 Follow up: Response: No adverse reaction; Anxiety decreased; RASS: Drowsy (-1) kc6 05:35 Drug: morphine IVP or IV 2 mg IVP once over 4 mins Route: IVP; Infused Over: 4 mins; kc6 Site: right forearm; 06:12 Follow up: Response: No adverse reaction; Pain is decreased; RASS: Alert and Calm (0) kc6 05:35 Drug: NS 0.9% IV 1000 ml IV at 1 bolus Per protocol; to be given as a bolus over 60 kc6 minutes Route: IV; Rate: 1 bolus; Site: right forearm; 05:35 Drug: NS 0.9% IV 1000 ml IV at 1 bolus Per protocol; to be given as a bolus over 60 kc6 minutes Route: IV; Rate: 1 bolus; Site: right forearm; 05:35 Drug: Famotidine IVP 20 mg IVP once; dilute with 10 mL 0.9% NaCl; give over 2 minutes kc6 Route: IVP; Site: right forearm; 06:11 Follow up: Response: No adverse reaction kc6 05:35 Drug: Ondansetron IVP 8 mg IVP once; over 2 minutes Route: IVP; Site: right forearm; kc6 06:11 Follow up: Response: No adverse reaction; Nausea is decreased; Vomiting decreased kc6 05:35 Drug: Diphenoxylate-Atropine PO 1 tabs PO once Route: PO; kc6 06:11 Follow up: Response: No adverse reaction kc6 07:04 Drug: morphine IVP or IV 4 mg IVP once over 4 mins Route: IVP; Infused Over: 4 mins; kc6 Site: right forearm; 07:26 Follow up: Response: No adverse reaction; Pain is decreased; RASS: Alert and Calm (0) kc6 08:39 Drug: Ondansetron IVP 4 mg IVP once; over 2 minutes Route: IVP; Site: right forearm; kc6 09:22 Follow up: Response: No adverse reaction kc6 08:40 Drug: Ciprofloxacin IVPB 400 mg 200 ml IVPB once over 60 mins Volume: 200 ml; Route: kc6 IVPB; Infused Over: 60 mins; Site: right forearm; 10:54 Follow up: Response: No adverse reaction; IV Status: Completed infusion; IV Intake: kc6 100ml 08:40 Drug: metroNIDAZOLE IVPB 500 mg 100 ml IVPB at 200 ml/hr once over 30 mins Volume: 100 kc6 ml; Route: IVPB; Rate: 200 ml/hr; Infused Over: 30 mins; Site: right forearm; 10:54 Follow up: Response: No adverse reaction; IV Status: Completed infusion; IV Intake: kc6 100ml 08:40 Drug: NS 0.9% IV 1000 ml IV at 125 ml/hr continuous Route: IV; Rate: 125 ml/hr; Site: 6 right forearm; 09:22 Follow up: Response: No adverse reaction; IV Status: Infusion continued upon admission kc6 08:40 Drug: HYDROmorphone IVP 1 mg IVP once Route: IVP; Site: right forearm; kc6 09:22 Follow up: Response: No adverse reaction; Pain is decreased; RASS: Alert and Calm (0) kc6 Medication: 08:30 VIS not applicable for this client. kc6 Intake: 10:54 IV: 100ml; Total: 100ml. kc6 10:54 IV: 100ml; Total: 200ml. kc6 Outcome: 08:22 Discharge ordered by . chadd 08:28 Decision to Hospitalize by Provider. [facility] 08:30 Admitted to ER Hold. Please see [facility] for further documentation. kc6 08:30 Condition: good 08:30 Instructed on the need for admit, 18:07 Patient left the ED. kc6 Signatures: Dispatcher [employer] EDMS Gabriel Cardozo MD MD cha Espinosa, [place] oe Able, Lacie, RN RN lg3 Brooklynn Louie Kaitlyn, RN RN kc6 Yuan Johnson MD MD sp4 Kathleen Bloom RN RN ane Corrections: (The following items were deleted from the chart) 05:00 04:52 Chief complaint: Patient states: abdominal pain, nausea, vomiting, X3 days. lg3 lg3
--- NOTE | 2024-08-11 08:28 | EDPHYS ---
Physician Documentation [facility] Name: Laura Lopez Age: 39 yrs Sex: Female : 1985 Arrival Date: 08/11/2024 Time: 04:43 Bed 13 Private MD: ED Physician Gabriel Cardozo HPI: 08/11 05:06 This 39 yrs old Female presents to ER via Ambulatory with complaints of sp4 Nausea/Vomiting/Diarrhea, Abdominal Pain. 07:14 3-year-old female history gastric bypass also history of anemia anxiety chronic pain sp4 depression Dominique's rheumatoid arthritis hypertension hypothyroidism presents with acute onset abdominal pain nausea vomiting diarrhea lower abdominal pain the last 3 days. Reports profuse watery diarrhea which is nonbloody. 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 07/18/2024, unknown lg3 Historical: - Allergies: 04:54 Bactrim; lg3 04:54 NSAIDS; due to Gastric Bypass; lg3 04:54 Sulfa (Sulfonamide Antibiotics); lg3 04:54 Vancomycin; lg3 - Home Meds: 04:54 Zofran Oral [Active]; Levothroid Oral 125 mcg daily [Active]; Cymbalta 60 mg oral lg3 capsule,delayed release (e.c.) daily [Active]; Methotrexate (Anti-Rheumatic) Oral 7.5 mg daily [Active]; MS Contin 15 mg Oral tablet, extended release 1 tab every 8 hours [Active]; folic acid 1 mg Oral tablet daily [Active]; Vitamin D Oral 50,000 unit weekly [Active]; Zepbound subcutaneous every week [Active]; - PMHx: 04:54 Anemia; Anxiety; Chronic pain; Depression; Dominique's; Hypertension; Hypothyroidism; lg3 ibs; Lupus erythematosus; Panic Attacks; Rheumatoid Arthritis; WPW; - PSHx: 04:54 gastric bypass (WPW); left foot (WPW); lg3 - Immunization history:: Adult Immunizations up to date. - Infectious Disease History:: Denies. - Social history:: Smoking status: Patient reports the use of cigarette tobacco products, denies chronic smoking, but will smoke occasionally, Patient/guardian denies using alcohol, street drugs. - Family history:: not pertinent. ROS: 07:14 Constitutional: Negative for fever, chills, and weight loss, positive for nausea sp4 vomiting diarrhea abdominal pain 07:14 All other systems are negative, Exam: 07:14 Constitutional: This is a well developed, well nourished patient who is awake, alert, sp4 and in no acute distress. Head/Face: Normocephalic, atraumatic. Eyes: Pupils equal round and reactive to light, extra-ocular motions intact. Lids and lashes normal. Conjunctiva and sclera are not injected. Cornea within normal limits. Periorbital areas with no swelling, redness, or edema. ENT: Nares patent. No nasal discharge, no septal abnormalities noted. Tympanic membranes are normal and external auditory canals are clear. Oropharynx with no redness, swelling, or masses, exudates, or evidence of obstruction, uvula midline. Mucous membranes moist. Neck: Trachea midline, no thyromegaly or masses palpated, and no cervical lymphadenopathy. Supple, full range of motion without nuchal rigidity, or vertebral point tenderness. Chest/axilla: Normal chest wall appearance and motion. Nontender with no deformity. No lesions are appreciated. Cardiovascular: Regular rate and rhythm with a normal S1 and S2. No gallops, murmurs, or rubs. Normal PMI, no JVD. No pulse deficits. Respiratory: Lungs have equal breath sounds bilaterally, clear to auscultation and percussion. No rales, rhonchi or wheezes noted. No increased work of breathing, no retractions or nasal flaring. Abdomen/GI: Soft, with normal bowel sounds. No distension or tympany. No guarding or rebound. No evidence of tenderness throughout. Back: No spinal tenderness. No costovertebral tenderness. Skin: Warm, dry with normal turgor. Normal color with no rashes, no lesions, and no evidence of cellulitis. MS/ Extremity: Pulses equal, no cyanosis. Neurovascular intact. Full, normal range of motion. Neuro: Awake and alert, GCS 15, oriented to person, place, time, and situation. Cranial nerves II-XII grossly intact. Motor strength 5/5 in all extremities. Sensory grossly intact. Psych: Awake, alert, with orientation to person, place and time. Behavior, mood, and affect are within normal limits Vital Signs: 04:52 BP 126 / 86; Pulse 112; Resp 19 S; Temp 98.8(O); Pulse Ox 100% on R/A; Weight 107.05 kg lg3 (R); Height 5 ft. 6 in. (R); Pain 10/10; 05:36 BP 140 / 78; Pulse 82; Resp 16 S; Pulse Ox 100% on R/A; kc6 06:12 BP 123 / 69; Pulse 80; Resp 15 S; Pulse Ox 100% on R/A; Pain 0/10; kc6 07:11 BP 128 / 75; Pulse 81; Resp 16 S; Pulse Ox 100% on R/A; kc6 08:10 BP 142 / 84; Pulse 85; Resp 17 S; Pulse Ox 100% on R/A; kc6 08:40 BP 128 / 75; Pulse 86; Resp 16 S; Temp 98.6(O); Pulse Ox 100% on R/A; Pain 7/10; kc6 04:52 Body Mass Index 38.09 (107.05 kg, 167.64 cm) lg3 04:52 Pain Scale: Adult lg3 06:12 Pain Scale: Adult kc6 08:40 Pain Scale: Adult kc6 Glynn Coma Score: 07:14 Eye Response: spontaneous(4). Motor Response: obeys commands(6). Verbal Response: sp4 oriented(5). Total: 15. MDM: 05:18 Medical Screening Exam initiated sp4 07:14 Transition of care: After a detail discussion of the patient's case, care is sp4 transferred to Gabriel Cardozo MD. ED course: Patient awaiting on CT report.. 07:17 Differential diagnosis: Nonspecific abd pain, gastritis, viral gastroenteritis, sp4 gastroenteritis. Data reviewed: vital signs, nurses notes, lab test result(s), radiologic studies, CT scan. Consideration of Admission/Observation Escalation of care including admission/observation considered. 07:17 Differential diagnosis: Nonspecific abd pain, gastritis, cholecystitis, pancreatitis, chadd appendicitis, diverticulitis, viral gastroenteritis, gastroenteritis. Data reviewed: vital signs, nurses notes, lab test result(s), radiologic studies, CT scan. Consideration of Admission/Observation Escalation of care including admission/observation considered. I considered the following discharge prescriptions or medication management in the emergency department Medications were administered in the Emergency Department. See MAR. Independent interpretation of the following test(s) in the Emergency Department CT Scan: My interpretation is ct ab/pel. Test considered but Not performed:. Historians other than the Patient: Family Member: family well informed. Care significantly affected by the following chronic conditions: Hypertension, ra, depression. 08/11 05:11 Order name: CBC with Diff; Complete Time: 06:09 [facility] 08/11 05:11 Order name: CMP; Complete Time: 06:09 [facility] 08/11 05:11 Order name: Lipase; Complete Time: 06:09 [facility] 08/11 05:11 Order name: Urinalysis w/ reflexes; Complete Time: 07:09 [facility] 08/11 05:11 Order name: Test, Serum; Complete Time: 06:09 [facility] 08/11 05:11 Order name: CRP; Complete Time: 06:09 [facility] 08/11 05:12 Order name: Influenza Screen (a \T\ B); Complete Time: 06:09 [facility] 08/11 08:24 Order name: Fecal Leukocyte Stain; Complete Time: 13:09 [facility] 08/11 08:24 Order name: Stool Culture [facility] 08/11 05:11 Order name: CT Abd/Pelvis - IV Contrast Only; Complete Time: 08:07 [facility] 08/11 05:11 Order name: IV Saline Lock; Complete Time: 05:15 [facility] 08/11 05:11 Order name: Labs collected and sent; Complete Time: 05:15 sp4 Administered Medications: 05:35 Drug: Ativan IVP 2 mg IVP once Route: IVP; Site: right forearm; kc6 06:12 Follow up: Response: No adverse reaction; Anxiety decreased; RASS: Drowsy (-1) 6 05:35 Drug: morphine IVP or IV 2 mg IVP once over 4 mins Route: IVP; Infused Over: 4 mins; kc6 Site: right forearm; 06:12 Follow up: Response: No adverse reaction; Pain is decreased; RASS: Alert and Calm (0) kc6 05:35 Drug: NS 0.9% IV 1000 ml IV at 1 bolus Per protocol; to be given as a bolus over 60 kc6 minutes Route: IV; Rate: 1 bolus; Site: right forearm; 05:35 Drug: NS 0.9% IV 1000 ml IV at 1 bolus Per protocol; to be given as a bolus over 60 kc6 minutes Route: IV; Rate: 1 bolus; Site: right forearm; 05:35 Drug: Famotidine IVP 20 mg IVP once; dilute with 10 mL 0.9% NaCl; give over 2 minutes kc6 Route: IVP; Site: right forearm; 06:11 Follow up: Response: No adverse reaction kc6 05:35 Drug: Ondansetron IVP 8 mg IVP once; over 2 minutes Route: IVP; Site: right forearm; kc6 06:11 Follow up: Response: No adverse reaction; Nausea is decreased; Vomiting decreased kc6 05:35 Drug: Diphenoxylate-Atropine PO 1 tabs PO once Route: PO; kc6 06:11 Follow up: Response: No adverse reaction kc6 07:04 Drug: morphine IVP or IV 4 mg IVP once over 4 mins Route: IVP; Infused Over: 4 mins; kc6 Site: right forearm; 07:26 Follow up: Response: No adverse reaction; Pain is decreased; RASS: Alert and Calm (0) kc6 08:39 Drug: Ondansetron IVP 4 mg IVP once; over 2 minutes Route: IVP; Site: right forearm; kc6 09:22 Follow up: Response: No adverse reaction kc6 08:40 Drug: Ciprofloxacin IVPB 400 mg 200 ml IVPB once over 60 mins Volume: 200 ml; Route: kc6 IVPB; Infused Over: 60 mins; Site: right forearm; 10:54 Follow up: Response: No adverse reaction; IV Status: Completed infusion; IV Intake: kc6 100ml 08:40 Drug: metroNIDAZOLE IVPB 500 mg 100 ml IVPB at 200 ml/hr once over 30 mins Volume: 100 kc6 ml; Route: IVPB; Rate: 200 ml/hr; Infused Over: 30 mins; Site: right forearm; 10:54 Follow up: Response: No adverse reaction; IV Status: Completed infusion; IV Intake: kc6 100ml 08:40 Drug: NS 0.9% IV 1000 ml IV at 125 ml/hr continuous Route: IV; Rate: 125 ml/hr; Site: [facility] right forearm; 09: Follow up: Response: No adverse reaction; IV Status: Infusion continued upon admission kc6 08:40 Drug: HYDROmorphone IVP 1 mg IVP once Route: IVP; Site: right forearm; kc6 09:22 Follow up: Response: No adverse reaction; Pain is decreased; RASS: Alert and Calm (0) kc6 Disposition Summary: 08/11/24 08:28 Hospitalization Ordered Notes: Hospitalization Status: Observation chadd Provider: Zach Garcia cha Condition: Fair(08/11/24 08:28) chadd Problem: new(08/11/24 08:28) chadd Symptoms: have improved(08/11/24 08:28) chadd Bed/Room Type: Standard chadd Location: Telemetry/MedSurg (Inpatient)(08/11/24 15:48) ss Room Assignment: 412(08/11/24 15:48) Diagnosis - Left sided colitis - PANCOLITIS chadd - Abdominal tenderness chadd - Vomiting(08/11/24 08:28) chadd - Diarrhea, unspecified(08/11/24 08:28) chadd Forms: - Medication Reconciliation Form chadd - SBAR form chadd - Leadership Thank You Letter chadd Signatures: Dispatcher [employer] EDBere Jamil Corey, MD MD cha Blanchard, Shelby, RN RN ss Willem Romero, [employer]OL[employer] COACH-C [employer]ACH-Cla1 Akiko Flores RN RN lg3 Bethany Moser RN RN kc6 Yuan Johnson MD MD sp4 Corrections: (The following items were deleted from the chart) 08:22 08:22 Home chadd chadd 08:22 08:22 new chadd chadd 08:22 08:22 have improved chadd chadd 08:22 08:22 Stable chadd chadd 08:22 08:22 Vomiting chadd chadd 08:22 08:22 Diarrhea, unspecified chadd chadd 08:22 08:22 Abdominal pain, Generalized chadd chadd 10:35 08:28 Telemetry/MedSurg (observation) chadd bd 10:35 08:28 chadd bd 15:48 10:35 [facility] ER HOLD bd ss 15:48 10:35 ERHOLD- bd ss
[2024-08-11] MEDS ORDERED: NA CHLORIDE 0.9% 1,000 ML ONE (08:29)
[2024-08-11] MEDS ORDERED: HYDROMORPHONE HCL 1 MG/ML INJ ONE (08:29)
[2024-08-11] MEDS ORDERED: CIPROFLOXACIN 400mg IV 400 MG/200 ML BAG IV ONE (08:29)
[2024-08-11] MEDS ORDERED: METRONIDAZOLE 500mg IVPB 500 MG/100 ML BAG IV ONE (08:30)
[2024-08-11] MEDS: NA CHLORIDE 0.9% 1,000 ML IV SCH (10:51)
[2024-08-11] MEDS: MORPHINE 4 MG/ML SYR IV PRN (11:21)
[2024-08-11] MEDS: MORPHINE 2 MG/ML SYR IV ONE (13:20)
[2024-08-11] MEDS: ONDANSETRON 4 MG/2 ML VIAL IV PRN (13:48)
[2024-08-11] MEDS: FAMOTIDINE 20 MG/2 ML VIAL IV ONE (13:48)
--- NOTE | 2024-08-11 14:45 | P.HP ---
Certification for Inpatient Patient admitted to: Observation With expected LOS: <2 Midnights Patient will require the following post-hospital care: None Practitioner: I am a practitioner with admitting privileges, knowledge of patient current condition, hospital course, and medical plan of care. Services: Services provided to patient in accordance with Admission requirements found in Title 42 Section 412.3 of the Code of Federal Regulations Patient History Date of Service: 08/11/24 Reason for admission: Colitis History of Present Illness: 39-year-old female with history of depression, hypertension, hypothyroidism, lupus, WPW, rheumatoid arthritis with history of gastric bypass in 2007 presents to the emergency department with chief complaint of abdominal pain, nausea, diarrhea for the last 2 days. Patient was evaluated in the emergency department her labs were significant for a C-reactive protein of 88.7 white blood cell count within normal limits, hemoglobin normal. CT of the abdomen pelvis was performed which showed suspected colitis pattern. Patient with significant pain, nausea, ongoing diarrhea and abdominal tenderness, will be admitted under observation for further management. Allergies cephalexin monohydrate [From Keflex] Allergy (Verified 11/30/14 12:43) Rash paroxetine HCl [From Paxil] Allergy (Unverified 12/21/14 22:00) Unknown quetiapine fumarate [From Seroquel] Allergy (Verified 11/30/14 12:43) Shortness of breath sulfamethoxazole [From Bactrim] Allergy (Unverified 09/14/15 07:39) Unknown trimethoprim [From Bactrim] Allergy (Unverified 09/14/15 07:39) Unknown vancomycin Allergy (Unverified 12/21/14 22:00) Unknown NSAIDS (Non-Steroidal Anti-Inflamma Adverse Reaction (Verified 11/30/14 12:43) Nausea/Vomiting Morphine Allergy (Uncoded 02/08/17 02:42) Unknown Home Medications: Hydrocodone/Acetaminophen [Hydrocodon-Acetaminophn 10-325] 1 each PO PRN PRN 11/30/14 Levothyroxine Sodium [Synthroid] 125 mcg PO DAILY 11/30/14 - Past Medical/Surgical History Has patient received pneumonia vaccine in the past: No Diabetic: No -: Lupus -: RA -: WPW -: Hypertension -: Hypothyroidism -: Gastric bypass 2007 Psychosocial/ Personal History: 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, lives at home with family - Social History Smoking Status: Unknown if ever smoked Alcohol use: No CD- Drugs: No Caffeine use: Yes Place of Residence: Home Review of Systems 10-point ROS is otherwise unremarkable Gastrointestinal: Nausea, Abdominal Pain, Diarrhea Physical Examination - Vital Signs Blood Pressure: 148/79 Pulse: 86 Respirations: 17 Pulse Ox (%): 100 - Physical Exam General: Alert, In no apparent distress, Oriented x3 HEENT: Atraumatic, PERRLA, EOMI Neck: Supple, 2+ carotid pulse no bruit, No LAD Respiratory: Clear to auscultation bilaterally, Normal air movement Cardiovascular: Regular rate/rhythm, Normal S1 S2 Gastrointestinal: Normal bowel sounds, Tenderness (Moderate periumbilical tenderness, right lower quadrant tenderness) Musculoskeletal: No tenderness Integumentary: No rashes Neurological: Normal gait, Normal speech, Normal strength at 5/5 x4 extr, Normal tone - Studies Laboratory Data (last 24 hrs) 08/11/24 08/11/24 05:20 05:20 WBC 7.20 Hgb 14.0 Hct 42.3 Plt Count 177 Sodium 136 Potassium 3.6 BUN 7 Creatinine 0.70 Glucose 100 Total Bilirubin 0.4 AST 15 ALT < 14 Alkaline Phosphatase 66 Lipase 14 Microbiology Data (last 24 hrs): 08/11/24 05:20 Nasopharnyx Influenza Type A Antigen Screen - Final 08/11/24 05:20 Nasopharnyx Influenza Type B Antigen Screen - Final Assessment and Plan - Plan Assessment: Colitis Nausea/diarrhea Lupus Rheumatoid arthritis Hypertension Hypothyroidism Plan: Colitis Nausea/diarrhea N.p.o. aside from ice chips and sips of water for today Continue antibiotics with Cipro/Flagyl Trend white count, monitor for fevers Serial abdominal exams Lupus Rheumatoid arthritis Hypertension Hypothyroidism Continue home medications DVT PPX: Lovenox Code status: Full Discharge Plan: Home Plan to discharge in: 24 Hours - Advance Directives Does patient have a Living Will: No Does patient have a Durable POA for Healthcare: No - Code Status/Comfort Care Code Status Assessed: Yes (Full code) Time Spent Managing Pts Care (In Minutes): 54
[2024-08-11] MEDS: LORazepam 2 MG/ML VIAL IV PRN (16:21)
[2024-08-11 18:16] VITALS: O2SAT 100
[2024-08-11] MEDS: METRONIDAZOLE 500mg IVPB 500 MG/100 ML BAG IV SCH (18:36)
[2024-08-11] MEDS: CIPROFLOXACIN 400mg IV 400 MG/200 ML BAG IV SCH (20:25)
[2024-08-11] MEDS: PROMETHAZINE INJ 25 MG/ML AMP IV ONE (23:15)
[2024-08-12 00:01] VITALS: BMI 38.0
[2024-08-12] MEDS: MORPHINE *EXTENDED RELEASE* 15 MG TAB PO SCH (00:20)
[2024-08-12 06:54] LABS: Absolute Lymphocytes (CBC) 1.8 K/uL (0.7-4.9); Absolute Monocytes 1.1 K/uL (0.1-1.3); Absolute Neutrophil 4.6 K/uL (1.8-8.0); Basophils % 0.3 % (0-1.3); Eosinophils % 0.4 % (0-4.4); Hematocrit 41.7 % (36.0-45.0); MCH 28.2 pg (27.0-35.0); MCHC 33.6 g/dL (32.0-36.0); MPV 9.4 fL (7.6-11.3); Monocytes % 15.1 % (3.3-12.3); Neutrophils % 60.2 % (41.7-73.7); Nucleated Red Blood Cells % 0.2 % (0-0); Platelets 238 thou/uL (152-406); RBC Red Blood Cell Count 4.96 M/uL (3.86-4.86)
[2024-08-12 07:18] LABS: Anion Gap 9.2 mEq/L (5.0-15.0); Magnesium 1.8 mg/dL (1.6-2.4); Potassium 3.2 mEq/L (3.5-5.1)
[2024-08-12] MEDS: ENOXAPARIN 40 MG/0.4 ML SQ SCH (07:30)
[2024-08-12] MEDS: FOLIC ACID 1 MG TABLET PO SCH (07:31)
[2024-08-12] MEDS: MORPHINE 15 MG IR TAB PO PRN (07:52)
[2024-08-12] MEDS: MAGNESIUM SULFATE 1 gm IVPB 1 GM/100 ML BAG IV ONE (11:06)
[2024-08-12] MEDS: POTASSIUM 25 MEQ EFFERV TAB PO SCH (11:06)
[2024-08-12 13:25] VITALS: BP 119/68; TEMP 97.1
--- NOTE | 2024-08-12 16:14 | P.DS ---
Admission Date: 08/11/24 Discharge Date: 08/12/24 Disposition: ROUTINE DISCHARGE Discharge Condition: GOOD Reason for Admission: Colitis Brief History of Present Illness: 39-year-old female with history of depression, hypertension, hypothyroidism, lupus, WPW, rheumatoid arthritis with history of gastric bypass in 2007 presents to the emergency department with chief complaint of abdominal pain, nausea, diarrhea for the last 2 days. Patient was evaluated in the emergency department her labs were significant for a C-reactive protein of 88.7 white blood cell count within normal limits, hemoglobin normal. CT of the abdomen pelvis was performed which showed suspected colitis pattern. Patient with significant pain, nausea, ongoing diarrhea and abdominal tenderness, will be admitted under observation for further management. Hospital Course: Assessment: Colitis Nausea/diarrhea Lupus Rheumatoid arthritis Hypertension Hypothyroidism Patient was admitted to the hospital for colitis, abdominal pain with nausea vomiting and diarrhea. Her symptoms improved with IV antibiotics, IV fluids. Today she has been able to tolerate a diet,white blood cell count remained within normal limits, she had been afebrile throughout hospitalization and is stable for discharge on oral antibiotics at this time. Vital Signs/Physical Exam: Temp Pulse Resp BP Pulse Ox 97.1 F 68 16 119/68 100 08/12/24 12:00 08/12/24 12:00 08/12/24 12:00 08/12/24 12:00 08/12/24 12:00 General: Alert, In no apparent distress, Oriented x3 HEENT: Atraumatic, PERRLA Neck: Supple, JVD not distended Respiratory: Clear to auscultation bilaterally, Normal air movement Cardiovascular: Regular rate/rhythm, Normal S1 S2 Gastrointestinal: Normal bowel sounds, No tenderness Musculoskeletal: No tenderness Integumentary: No rashes Neurological: Normal speech, Normal tone, Normal affect Laboratory Data at Discharge: WBC 7.60 thou/uL (4.3-10.9) 08/12/24 06:09 Hgb 14.0 g/dL (12.0-15.0) 08/12/24 06:09 Hct 41.7 % (36.0-45.0) 08/12/24 06:09 Plt Count 238 thou/uL (152-406) D 08/12/24 06:09 Sodium 139 mEq/L (136-145) 08/12/24 06:09 Potassium 3.2 mEq/L (3.5-5.1) L 08/12/24 06:09 BUN 3 mg/dL (7-18) L 08/12/24 06:09 Creatinine 0.71 mg/dL (0.55-1.02) 08/12/24 06:09 Glucose 96 mg/dL (74-106) 08/12/24 06:09 Magnesium 1.8 mg/dL (1.6-2.4) 08/12/24 06:09 Total Bilirubin 0.4 mg/dL (0.2-1.0) 08/11/24 05:20 AST 15 U/L (15-37) 08/11/24 05:20 ALT < 14 U/L (13-56) 08/11/24 05:20 Alkaline Phosphatase 66 U/L (45-117) 08/11/24 05:20 Lipase 14 U/L (13-75) 08/11/24 05:20 Home Medications: Duloxetine HCl [Cymbalta] 60 mg PO BEDTIME 08/11/24 Folic Acid 1 mg PO DAILY 08/11/24 Methotrexate [Methotrexate*] 17.5 mg PO UD 08/11/24 Morphine *Extended Release* [MS Contin*] 15 mg PO BID 08/11/24 Morphine Ir [MSIR (Morphine Sulfate IR)*] 15 mg PO Q8HP PRN 08/11/24 Tirzepatide [Zepbound] 10 mg SQ UD 08/11/24 Ciprofloxacin HCl 500 mg PO BID #10 tab 08/12/24 metroNIDAZOLE [Flagyl] 500 mg PO Q8H #15 tab 08/12/24 New Medications: Ciprofloxacin HCl 500 mg PO BID #10 tab metroNIDAZOLE [Flagyl] 500 mg PO Q8H #15 tab Physician Discharge Instructions: Patient was admitted to the hospital for colitis, abdominal pain with nausea vomiting and diarrhea. Her symptoms improved with IV antibiotics, IV fluids. Today she has been able to tolerate a diet,white blood cell count remained within normal limits, she had been afebrile throughout hospitalization and is stable for discharge on oral antibiotics at this time. Diet: [place] Activity: Ad anni Followup: Sandeep Yi DO [Primary Care Provider] - 1-2 Weeks Juma Wong MD [ASSOCIATE-ACTIVE - CAN ADMIT] - 1-2 Weeks Time spent managing pt's care (in minutes): 32
[2024-08-12] MEDS ORDERED: DULOXETINE 30 MG CAP PO SCH (21:00)
[2024-08-13] MEDS ORDERED: POTASSIUM 25 MEQ EFFERV TAB PO SCH (09:00)
== END 2024-08-12 15:12 | disposition home or self-care (01) ==
LOC: ER 04:43 → ERHOLD 09:28 → 4TH 16:48
PROVIDERS: ADMIT Hospitalist; ATTEND Hospitalist
DX: K52.9 Noninfective gastroenteritis and colitis, unspecified (principal); I10 Essential (primary) hypertension; E03.8 Other specified hypothyroidism; F32.A Depression, unspecified; R19.7 Diarrhea, unspecified; R11.0 Nausea; M06.9 Rheumatoid arthritis, unspecified; I45.6 Pre-excitation syndrome; Z98.84 Bariatric surgery status; Z88.2 Allergy status to sulfonamides; Z88.5 Allergy status to narcotic agent; Z88.8 Allergy status to other drugs, medicaments and biological substances; Z88.1 Allergy status to other antibiotic agents; R10.9 Unspecified abdominal pain; E06.3 Autoimmune thyroiditis; D64.9 Anemia, unspecified; F41.9 Anxiety disorder, unspecified; L93.0 Discoid lupus erythematosus; F17.210 Nicotine dependence, cigarettes, uncomplicated
CPT/HCPCS: 87045; 85025 ×2; 80048; 36415 ×2; 83735; 89055; 84703; 87046; 81003; 83690; 80053; 86140; 87804 ×2; 74177; Q9967; J2550; J3475; J1650; J2270 ×2; J1171; J2405 ×6; J0744 ×3; J7030 ×4; G0378 ×4

== ENCOUNTER 2024-10-20 07:34 | Day surgery (SDC) | payer OTHER ==
[2024-10-20] MEDS: Ringers Lactate 1,000 ML IV ONE (09:15)
[2024-10-20] MEDS ORDERED: propofoL 200 MG/20 ML VIAL IV ONE ×2 (09:27→10:16)
[2024-10-20] MEDS ORDERED: EPHEDRINE SULF 50 MG/ML VIAL ONE (09:27)
[2024-10-20 12:27] VITALS: BP 113/69; TEMP 97.9; O2SAT 100
[2024-10-21 09:15] LABS: Urine Specific Gravity/Preg >1.030 (1.005-1.030)
== END 2024-10-20 11:20 | disposition home or self-care (01) ==
LOC: OR 07:34
PROVIDERS: ATTEND Internal Medicine Gastroenterology
PROC: 0DJD8ZZ Inspection of Lower Intestinal Tract, Via Natural or Artificial Opening Endoscopic (ICD-10-PCS; principal; 2024-10-20 09:15)
PROC: 0DB68ZX Excision of Stomach, Via Natural or Artificial Opening Endoscopic, Diagnostic (ICD-10-PCS; 2024-10-20 09:15)
DX: K92.1 Melena (principal); R19.4 Change in bowel habit; R19.7 Diarrhea, unspecified; R11.0 Nausea; R10.11 Right upper quadrant pain; R10.32 Left lower quadrant pain; K57.30 Diverticulosis of large intestine without perforation or abscess without bleeding; K64.8 Other hemorrhoids; K31.89 Other diseases of stomach and duodenum; K29.50 Unspecified chronic gastritis without bleeding; Z98.84 Bariatric surgery status
CPT/HCPCS: 45378; 43239; 88312; 88305; J2704 ×2; J7120; 81025

== ENCOUNTER 2025-04-29 13:01 | Emergency (ER) | payer OTHER ==
--- OUTSIDE RECORDS SUMMARY | 2025-04-29 13:13 | XMS REPORT | Continuity of Care Document ---
Author Name Unknown Address [address] [facility] [place] [address] [facility] Address [address] 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 Role Phone Priyank Shen Primary Care Physician Sandeep Yi Attending Clinician Unavailable Doctor Unassigned, [place] Attending Clinician U TORREY Strauss Attending Clinician Unavailable Therapy, [facility] Attending Clinician Unavailable Torrey Yi MD Attending Clinician [phone] Doctor Unassigned, [place] Attending Clinician U odette Leung RN, Courtney Nunez Attending Clinician Unavailab le Only, Ang Db Test Attending Clinician UnavailYanet Marcelo Attending Clinician [phone] YANET CAMPBELL Attending Clinician Unavailable ZACH JAEGER Attending Clinician Unavailab ted Pcp-Lab Attending Clinician Unavailable Zach Jaeger DO Attending Clinician Payers Payer Name Policy Type Policy Number Effective Date Expirati on Date Source SHANNON 53 [id number] 2021 00:00:00 [facility] C1 [id number] 2016 00:00:00 [facility] C1 [id number] 2016 00:00:00 [facility] [employer] [id number] 2016 00:00:00 [facility] C1 [id number] 2016 00:00:00 [facility] [id number] 2016 00:00:00 [facility] Problems Condition Name Condition Details Condition Category Status Onset Date Resolution Date Last Treatment Date Treating Clinician Comments Source Chondromal acia of bilateral patellas Chondromal acia of Bilateral [place] Problem Active 11-23 00:00: 00 [facility] Primary hypothyroi dism Primary hypothyroi dism Disease Active 03-31 00:00: 00 [facility] Abnormal weight gain Abnormal weight gain Disease Active 03-31 00:00: 00 [facility] Fatigue, unspecifie d type Fatigue, unspecifie d type Disease Active 03-31 00:00: 00 [facility] Cushingoid facies Cushingoid facies Disease Active 03-31 00:00: 00 [facility] [id number] Primary osteoarthr itis of both knees Problem [facility] [id number] Pancolitis Problem [facility] [id number] Osteoarthr itis of right hip, unspecifie d osteoarthr itis type Problem [facility] [id number] Rheumatoid arthritis involving multiple sites, unspecifie d whether rheumatoid factor present Problem [facility] Diverticul itis Diverticul itis Problem [facility] [id number] Morbid obesity due to excess calories Problem [facility] [id number] Vitamin D deficiency disease Problem [facility] Iron deficiency anemia Iron deficiency anemia, unspecifie d iron deficiency anemia type Problem [facility] Gastroesop hageal reflux disease GERD (gastroeso phageal reflux disease) Problem [facility] [id number] Other chronic pain Problem [facility] [id number] Vitamin B12 deficiency Problem [facility] [id number] Low back pain Problem [facility] Dominique' s thyroiditi s Dominique' s thyroiditi s Problem [facility] [id number] Allergic rhinitis, unspecifie d seasonalit y, unspecifie d trigger Problem [facility] [id number] Degenerati ve disc disease, lumbar Problem [facility] [id number] Chondromal acia patellae of left knee Problem [facility] Bipolar disorder Bipolar disorder Problem [facility] Hypothyroi dism Hypothyroi dism Problem [facility] Mixed anxiety and depressive disorder Depression with anxiety Problem [facility] [id number] Sore throat Problem [facility] [id number] Sinusitis, unspecifie d chronicity , unspecifie d location Problem [facility] Autoimmune thyroiditi s Autoimmune thyroiditi s Problem [facility] Genital herpes simplex HSV (herpes simplex virus) anogenital infection Problem [facility] Acquired hypothyroi dism Acquired hypothyroi dism Problem [facility] [id number] Otalgia of right ear Problem [facility] Osteoarthr itis of multiple joints Osteoarthr itis of multiple joints Problem [facility] [id number] Adult BMI 50.0-59.9 kg/sq m Problem [facility] [id number] Primary osteoarthr itis of left knee Problem [facility] Irritable bowel syndrome Irritable bowel syndrome Problem [facility] [id number] Seasonal allergies Problem [facility] Chronic anemia Anemia in other chronic diseases classified elsewhere Problem [facility] Cervical disc disorder DDD (degenerat tobi disc disease), cervical Problem [facility] [id number] Pulmonary nodule, right Problem [facility] [id number] Anxiety Problem [facility] [id number] Depression , unspecifie d depression type Problem [facility] [id number] Systemic lupus erythemato edwin, unspecifie d SLE type, unspecifie d organ involvemen t status Problem [facility] Anemia due to chronic blood loss Iron deficiency anemia secondary to blood loss (chronic) Problem [facility] [id number] Environmen tavon allergies Problem [facility] [id number] History of Hansa-Park inson-Whit e (WPW) syndrome Problem [facility] [id number] Generalize d anxiety disorder Problem [facility] [id number] Panic disorder [episodic paroxysmal anxiety] Problem [facility] [id number] Contact with and (suspected ) exposure to other viral communicab le diseases Problem [facility] Chronic fatigue syndrome Chronic fatigue Problem [facility] Allergies, Adverse Reactions, Alerts Allergy Name Allergy Type Status Severity Reaction(s) Onset Date Inactive Date Treating Clinician Comments Source Nsaids (Non-Vinnie roidal Anti-Inf lammator y Drug) Propensi ty to adverse reaction s Active Other - See comments 01-11 00:00: 00 [facility] Sulfa (Sulfona mide Antibiot ics) Propensi ty to adverse reaction s Active Rash 01-11 00:00: 00 [facility] Vancomyc in (Bulk) Propensi ty to adverse reaction s Active Rash 01-11 00:00: 00 [facility] NSAIDS (NON-VINNIE ROIDAL ANTI-INF LAMMATOR Y DRUG) Drug Class Active Other-Cmnt 01-11 00:00: 00 [facility] SULFA (SULFONA MIDE ANTIBIOT ICS) Drug Class Active Rash 01-11 00:00: 00 [facility] VANCOMYC IN (BULK) DRUG Active Rash 01-11 00:00: 00 [facility] Nsaids (Non-Vinnie roidal Anti-Inf lammator y Drug) Propensi ty to adverse reaction s Active Other - See comments 01-11 00:00: 00 [facility] Sulfa (Sulfona mide Antibiot ics) Propensi ty to adverse reaction s Active Rash 01-11 00:00: 00 [facility] Lactose Allergy to substanc e Active [facility] Vancomyc in Vancomyc in Active Unknown [facility] 8091 Drug allergy Active Unknown [facility] sertrali ne sertrali ne Active Unknown [facility] quetiapi ne quetiapi ne Active Unknown [facility] paroxeti ne paroxeti ne Active Unknown [facility] tramadol tramadol Active Unknown [facility] Allergy to substanc e Active [facility] Social History Social Habit Start Date Stop Date Quantity Comments Source Sexual orientation U [facility] History of Tobacco Use Current Smoker [facility] Sex Assigned At [facility] Exposure to SARS-CoV-2 (event) 2020-09-11 00:00:00 2020-10-11 10:49:00 Not sure [facility] Alcohol intake 2020-10-11 00:00:00 2020-10-11 00:00:00 0 /d [facility] History of Social function 2020-10-11 00:00:00 2020-10-11 00:00:00 [facility] Tobacco use and exposure 2016-12-18 00:00:00 2016-12-18 00:00:00 Smokeless tobacco non-user [facility] Smoking Status Start Date Stop Date Source Tobacco smoking consumption unknown [facility] Light Tobacco Smoker [facility] Current Smoker 2025-04-08 00:00:00 [facility] Never smoked tobacco [facility] Medications Ordered Medication Name Filled Medication Name Start Date Stop Date Current Medication? Ordering Clinician Indication Dosage Frequency Signature (SIG) Comments Components Source Wegovy 0.5 MG/0.5ML Wegovy 0.5 MG/0.5ML 04-08 00:00: 00 No Wegovy 0.5 MG/0.5ML Cyanocobala min Cyanocobala min 2022-09 00:00: 00 No 1000ug [facility] casirivimab -imdevimab (REGEN-COV (EUA)) injection 1,200 mg 05-25 17:13: 00 05-25 17:08 :00 No [id number] 1200mg 1,200 mg, Subcutaneo us, ONCE, 1 dose, Fri05/25/21 at 1215, Routine [facility] Vitamin B12 (Cyanocobal tobin) Vitamin B12 (Cyanocobal tobin) 10-03 00:00: 00 No 1000ug [facility] acetaminoph en-codeine (TYLENOL #3) 300-30 mg tablet 2019-09 15:35: 30 Yes 1{tbl} Take 1 tablet by mouth at bedtime. [facility] acetaminoph en-codeine (TYLENOL #3) 300-30 mg tablet 2019-09 09:35: 30 Yes 1{tbl} Take 1 tablet by mouth at bedtime. [facility] valACYclovi r 500 mg tablet 06-13 00:00: 00 Yes [facility] LIDOCAINE HCL 10MG/ML LIDOCAINE HCL 10MG/ML 05-03 00:00: 00 No 4mL [facility] Kenalog (Triamcinol one) Kenalog (Triamcinol one) 05-03 00:00: 00 No 1mL [facility] levothyroxi ne 175 mcg tablet 04-04 00:00: 00 Yes 175ug Take 1 tablet by mouth every morning. [facility] acetaminoph en-codeine (TYLENOL #3) 300-30 mg tablet 12-18 18:18: 48 Yes 1{tbl} Take 1 tablet by mouth at bedtime. [facility] clindamycin 2 % vaginal cream clindamycin 2 [...] 4 MG Ondansetron 4 MG No 1{table t_on_ e_cami e_and_a llow_to _dissol ve} Ondansetro n 4 MG ALPRAZolam 0.5 MG ALPRAZolam 0.5 MG No 1{table t} ALPRAZolam 0.5 MG Valtrex 500 MG Valtrex 500 MG No 1{table t} QD Valtrex 500 MG Levothyroxi ne Sodium 150 MCG Levothyroxi ne Sodium 150 MCG No QD Levothyrox ine Sodium 150 MCG Synthroid 150 MCG Synthroid 150 MCG No QD Synthroid 150 MCG Azithromyci n 250 MG Azithromyci n 250 MG No QD Azithromyc in 250 MG Tylenol # 3 30-500-15 MG Tylenol # 3 30-500-15 MG No 2{table ts_as_n eeded} QID Tylenol # 3 30-500-15 MG acetaminoph en 300 mg-codeine 60 mg tablet [...] WEEK. [facility] Vital Signs Vital Name Observation Time Observation Value Comments S ource height 2025-02-21 10:45:00 65 [in_i] [facility] weight 2025-02-21 10:45:00 235 [lb_av] [facility] temperature 2025-02-21 10:45:00 97.7 [degF] [facility] bmi 2025-02-21 10:45:00 39.1 kg/m2 [facility] oximetry 2025-02-21 10:45:00 99 % [facility] respiratory rate 2025-02-21 10:45:00 16 /min [facility] blood pressure systolic 2025-02-21 10:45:00 120 mm[Hg] [facility] blood pressure diastolic 2025-02-21 10:45:00 68 mm[Hg] [facility] height 2025-02-09 11:30:00 65 [in_i] [facility] weight 2025-02-09 11:30:00 260 [lb_av] [facility] bmi 2025-02-09 11:30:00 43.26 kg/m2 [facility] height 2024-11-30 11:40:00 65 [in_i] [facility] weight 2024-11-30 11:40:00 260 [lb_av] [facility] bmi 2024-11-30 11:40:00 43.26 kg/m2 [facility] blood pressure systolic 2024-11-30 11:40:00 120 mm[Hg] [facility] blood pressure diastolic 2024-11-30 11:40:00 80 mm[Hg] [facility] height 2024-09-01 13:45:00 65 [in_i] [facility] weight 2024-09-01 13:45:00 235 [lb_av] [facility] bmi 2024-09-01 13:45:00 39.1 kg/m2 [facility] blood pressure systolic 2024-09-01 13:45:00 132 mm[Hg] [facility] blood pressure diastolic 2024-09-01 13:45:00 76 mm[Hg] [facility] height 2024-08-10 11:00:00 65 [in_i] [facility] weight 2024-08-10 11:00:00 238 [lb_av] [facility] bmi 2024-08-10 11:00:00 39.6 kg/m2 [facility] height 2024-07-23 11:00:00 65 [in_i] [facility] weight 2024-07-23 11:00:00 240 [lb_av] [facility] bmi 2024-07-23 11:00:00 39.93 kg/m2 [facility] height 2024-05-10 16:20:00 65 [in_i] [facility] weight 2024-05-10 16:20:00 260 [lb_av] [facility] bmi 2024-05-10 16:20:00 43.26 kg/m2 [facility] blood pressure systolic 2024-05-10 16:20:00 129 mm[Hg] [facility] blood pressure diastolic 2024-05-10 16:20:00 87 mm[Hg] [facility] height 2024-01-29 08:20:00 65 [in_i] [facility] weight 2024-01-29 08:20:00 265 [lb_av] [facility] bmi 2024-01-29 08:20:00 44.09 kg/m2 [facility] oximetry 2024-01-29 08:20:00 97 % [facility] blood pressure systolic 2024-01-29 08:20:00 138 mm[Hg] [facility] blood pressure diastolic 2024-01-29 08:20:00 80 mm[Hg] [facility] BMI (Body Mass Index) 2023-11-24 00:00:00 48.1 kg/m2 [facility] Height 2023-11-24 00:00:00 64 [in_i] [facility] Body Weight 2023-11-24 00:00:00 280 [lb_av] [facility] bmi 2023-09-24 16:20:00 44.09 kg/m2 [facility] blood pressure systolic 2023-09-24 16:20:00 128 mm[Hg] [facility] blood pressure diastolic 2023-09-24 16:20:00 72 mm[Hg] [facility] height 2023-09-24 16:20:00 65 [in_i] [facility] weight 2023-09-24 16:20:00 265 [lb_av] [facility] height 2023-06-05 11:00:00 65 [in_i] [facility] weight 2023-06-05 11:00:00 264.0 [lb_av] [facility] temperature 2023-06-05 11:00:00 98.0 [degF] [facility] bmi 2023-06-05 11:00:00 43.93 kg/m2 [facility] oximetry 2023-06-05 11:00:00 99 % [facility] respiratory rate 2023-06-05 11:00:00 18 /min [facility] blood pressure systolic 2023-06-05 11:00:00 124 mm[Hg] [facility] blood pressure diastolic 2023-06-05 11:00:00 72 mm[Hg] [facility] height 2023-01-22 10:30:00 65 [in_i] [facility] weight 2023-01-22 10:30:00 258 [lb_av] [facility] temperature 2023-01-22 10:30:00 98 [degF] [facility] bmi 2023-01-22 10:30:00 42.93 kg/m2 [facility] blood pressure systolic 2023-01-22 10:30:00 132 mm[Hg] [facility] blood pressure diastolic 2023-01-22 10:30:00 72 mm[Hg] [facility] height 2022-12-31 08:40:00 65 [in_i] [facility] weight 2022-12-31 08:40:00 260.7 [lb_av] [facility] temperature 2022-12-31 08:40:00 96.8 [degF] [facility] bmi 2022-12-31 08:40:00 43.38 kg/m2 [facility] oximetry 2022-12-31 08:40:00 100 % [facility] respiratory rate 2022-12-31 08:40:00 16 /min [facility] blood pressure systolic 2022-12-31 08:40:00 138 mm[Hg] [facility] blood pressure diastolic 2022-12-31 08:40:00 76 mm[Hg] [facility] height 2022-05-21 09:20:00 65 [in_i] [facility] weight 2022-05-21 09:20:00 240 [lb_av] [facility] bmi 2022-05-21 09:20:00 39.93 kg/m2 [facility] height 2022-02-27 11:20:00 65 [in_i] [facility] weight 2022-02-27 11:20:00 250 [lb_av] [facility] temperature 2022-02-27 11:20:00 98 [degF] [facility] bmi 2022-02-27 11:20:00 41.60 kg/m2 [facility] blood pressure systolic 2022-02-27 11:20:00 130 mm[Hg] [facility] blood pressure diastolic 2022-02-27 11:20:00 70 mm[Hg] [facility] height 2021-11-26 15:40:00 65 [in_i] [facility] weight 2021-11-26 15:40:00 256.9 [lb_av] [facility] temperature 2021-11-26 15:40:00 97.4 [degF] [facility] bmi 2021-11-26 15:40:00 42.75 kg/m2 [facility] oximetry 2021-11-26 15:40:00 100 % [facility] respiratory rate 2021-11-26 15:40:00 17 /min [facility] blood pressure systolic 2021-11-26 15:40:00 135 mm[Hg] [facility] blood pressure diastolic 2021-11-26 15:40:00 74 mm[Hg] [facility] height 2021-09-10 10:50:00 65 [in_i] [facility] weight 2021-09-10 10:50:00 240 [lb_av] [facility] temperature 2021-09-10 10:50:00 97.4 [degF] [facility] bmi 2021-09-10 10:50:00 39.93 kg/m2 [facility] Systolic blood pressure 2021-05-25 17:53:00 143 mm[Hg] [facility] Diastolic blood pressure 2021-05-25 17:53:00 98 mm[Hg] [facility] Heart rate 2021-05-25 17:53:00 70 /min [facility] Body temperature 2021-05-25 17:53:00 36.67 Myriam [facility] Respiratory rate 2021-05-25 17:53:00 20 /min [facility] Oxygen saturation in Arterial blood by Pulse oximetry 2021-05-25 17:53:00 98 /min [facility] Body height 2021-05-25 17:07:00 162.6 cm [facility] Body weight 2021-05-25 17:07:00 108.863 kg [facility] BMI 2021-05-25 17:07:00 41.20 kg/m2 [facility] height 2021-05-24 10:30:00 65 [in_i] [facility] weight 2021-05-24 10:30:00 240 [lb_av] [facility] temperature 2021-05-24 10:30:00 98 [degF] [facility] bmi 2021-05-24 10:30:00 39.93 kg/m2 [facility] blood pressure systolic 2021-05-24 10:30:00 131 mm[Hg] [facility] blood pressure diastolic 2021-05-24 10:30:00 70 mm[Hg] [facility] Body weight 2020-09-05 15:24:00 116.983 kg [facility] BMI 2020-09-05 15:24:00 44.27 kg/m2 [facility] Oxygen saturation in Arterial blood by Pulse oximetry 2020-09-05 15:24:00 99 /min room air [facility] Systolic blood pressure 2020-09-05 15:24:00 153 mm[Hg] pt states being nervous [facility] Diastolic blood pressure 2020-09-05 15:24:00 104 mm[Hg] pt states being nervous [facility] Heart rate 2020-09-05 15:24:00 86 /min [facility] Body temperature 2020-09-05 15:24:00 37 Myriam [facility] Respiratory rate 2020-09-05 15:24:00 18 /min [facility] Body height 2020-09-05 15:24:00 162.6 cm [facility] Procedures Procedure Date / Time Performed Performing Clinician Source [id number] CONSENT 2021-05-25 05:01:00 Doctor Ambrose signed, [place] [facility] URINALYSIS 2020-09-05 16:56:00 [facility] 2020-09-05 16:25:00 Zach Jaeger [facility] RHEUMATOID FACTOR 2020-09-05 16:25:00 Zach Jaeger [facility] C-REACTIVE PROTEIN 2020-09-05 16:25:00 Tayler, Bertin Ann [facility] C4 COMPLEMENT 2020-09-05 16:25:00 Zach Jaeger [facility] THYROID STIMULATING HORMONE 2020-09-05 16:25:00 Zach Jaeger [facility] COMP. METABOLIC PANEL ([id number]) 2020-09-05 16:25:00 Zach Jaeger [facility] SEDIMENTATION RATE 2020-09-05 16:25:00 Pertkunal, Bertin Ann [facility] CBC WITH DIFF 2020-09-05 16:25:00 Zach Jaeger [facility] HEPATITIS B SURFACE ANTIGEN 2020-09-05 16:25:00 Zach Jaeger [facility] HCV ANTIBODY 2020-09-05 16:25:00 [facility], 25-OH 2020-09-05 16:25:00 Zach Jaeger [facility] ANTI-CENTROMERE B 2020-09-05 16:25:00 Zach Jaeger [facility] ANTI-SSA(RO) 2020-09-05 16:25:00 Zach Jaeger [facility] ANTI-DOUBLE STRANDED DNA 2020-09-05 16:25:00 Zach Jaeger [facility] ASSIGNMENT OF BENEFITS 2020-09-05 15:13:04 Docto r Unassigned, [place] [facility] CT THORAX WO CONTRAST 2016-01-18 23:37:00 Apolonia Escobedo [facility] Encounters Start Date/Time End Date/Time Encounter Type Admission Type Attending Clinicians Care Facility Care Department Encounter ID Source 2024-05-07 10:30:[facility] [id number] [facility] 2024-01-28 11:02:00 [facility] [id number] [facility] 2023-06-03 16:08:00 Outpatient Kd Sandeep [facility] [id number] [facility] 2022-12-31 08:38:00 Outpatient Yi, Sandeep [facility] [id number] [facility] 2022-12-26 16:43:00 Outpatient Yi, Sandeep [facility]ML[facility] [id number] [facility] 2022-05-21 09:02:01 Outpatient Yi, Sandeep [facility] ST[facility] [id number] [facility] 2021-10-17 14:22:29 Outpatient Yi, Sandeep STLML[facility] ST[facility] [id number] [facility] 2021-10-17 14:16:37 Outpatient Yi, Sandeep [facility]LML[facility] ST[facility] [id number] [facility] 2021-10-17 13:27:44 Outpatient Yi, Sandeep [facility] [id number] [facility] 2021-10-17 13:24:52 Outpatient Yi, Sandeep [facility] [id number] [facility] 2021-10-17 12:44:19 Outpatient Yi, Sandeep [facility] [id number] [facility] 2021-10-17 12:37:26 Outpatient Yi, Sandeep [facility] ST[facility] [id number] [facility] 2021-10-17 12:35:43 Outpatient Yi, Sandeep [facility] ST[facility] [id number] [facility] 2021-10-17 12:35:24 Outpatient Yi, Sandeep [facility] ST[facility] [id number] [facility] 2021-10-17 12:20:04 Outpatient Yi, Sandeep [facility] [id number] [facility] 2021-10-17 12:09:05 Outpatient Yi, Sandeep [facility] [id number] [facility] 2021-10-17 11:53:31 Outpatient Yi, Sandeep [facility] [id number] [facility] 2021-10-17 11:28:47 Outpatient Yi, Sandeep [facility] [id number] [facility] 2021-10-17 11:24:19 Outpatient Yi, Sandeep [facility] ST[facility] [id number] [facility] 2021-10-17 11:17:40 Outpatient Yi, Sandeep [facility] [id number] [facility] 2021-10-17 11:00:14 Outpatient Yi, Sandeep [facility] [id number] [facility] 2025-04-12 00:00:00 2025-04-12 00:00:00 (TEL) STLMLC STL[facility] [id number] [facility] 2025-04-08 00:00:00 2025-04-08 00:00:00 (TEL) STLMLC ST[facility] [id number] [facility] 2025-04-08 00:00:00 2025-04-08 00:00:00 (TEL) STLMLC ST[facility] [id number] [facility] 2025-04-04 00:00:00 2025-04-04 00:00:00 (TEL) STLMLC ST[facility]C [id number] [facility] 2025-02-23 00:00:00 2025-02-23 00:00:00 (TEL) STLMLC STL[facility]C [id number] [facility] 2025-02-23 00:00:00 2025-02-23 00:00:00 (TEL) [facility] [id number] [facility] [facility] 2025-02-22 00:00:00 2025-02-22 00:00:00 (TEL) STLMLC STLMLC [id number] [facility] 2025-02-21 00:00:00 2025-02-21 00:00:00 (WELLNESS) Wellness Visit STLMLC STLMLC [id number] [facility] 2025-02-15 00:00:00 2025-02-15 00:00:00 (TEL) STLMLC STLMLC [id number] [facility] 2025-02-09 00:00:00 2025-02-09 00:00:00 (TEL) STLMLC STLMLC [id number] [facility] 2025-02-09 00:00:00 2025-02-09 00:00:00 (TEL) STLMLC STLMLC [id number] [facility] 2025-02-09 00:00:00 2025-02-09 00:00:00 OFFICE VISIT ESTAB PT LEVEL 3 STLMLC STLMLC [id number] [facility] 2025-02-01 00:00:00 2025-02-01 00:00:00 (TEL) STLMLC STLMLC [id number] [facility] 2025-01-03 00:00:00 2025-01-03 00:00:00 (TEL) STLMLC STLMLC [id number] [facility] 2024-12-28 00:00:00 2024-12-28 00:00:00 (TEL) STLMLC STLMLC [id number] [facility] 2024-11-30 00:00:00 2024-11-30 00:00:00 (TEL) STLMLC STLMLC [id number] [facility] 2024-11-30 00:00:00 2024-11-30 00:00:00 OFFICE VISIT ESTAB PT LEVEL 4 STLMLC STLMLC [id number] [facility] 2024-11-24 00:00:00 2024-11-24 00:00:00 (WEB) STLMLC STLMLC [id number] [facility] 2016-01-18 00:00:00 2024-11-06 04:16:04 Orders Only Doctor Unassigned, [place] Doctor Unassigned, [place] [facility] [id number] 350.1.13.10 4.2.7.2.686 [id number] [facility] 2024-09-01 00:00:00 2024-09-01 00:00:00 OFFICE VISIT ESTAB PT LEVEL 4 STLMLC STLMLC [id number] [facility] 2024-08-17 00:00:00 2024-08-17 00:00:00 (TEL) STLMLC STLMLC [id number] [facility] 2024-08-13 00:00:00 2024-08-13 00:00:00 (TEL) STLMLC STLMLC [id number] [facility] 2024-08-13 00:00:00 2024-08-13 00:00:00 (TEL) STLMLC STLMLC [id number] [facility] 2024-08-10 00:00:00 2024-08-10 00:00:00 (TEL) STLMLC STLMLC [id number] [facility] 2024-08-10 00:00:00 2024-08-10 00:00:00 OFFICE VISIT ESTAB PT LEVEL 4 STLMLC STLMLC [id number] [facility] 2024-08-10 00:00:00 2024-08-10 00:00:00 (TEL) STLMLC STLMLC [id number] [facility] 2024-07-23 00:00:00 2024-07-23 00:00:00 OFFICE VISIT ESTAB PT LEVEL 3 STLMLC STLMLC [id number] [facility] 2024-07-09 00:00:00 2024-07-09 00:00:00 (TEL) STLMLC STLMLC [id number] [facility] 2024-07-09 00:00:00 2024-07-09 00:00:00 (TEL) STLMLC STLMLC [id number] [facility] 2024-05-12 00:00:00 2024-05-12 00:00:00 (TEL) STLMLC STLMLC [id number] [facility] 2024-05-10 00:00:00 2024-05-10 00:00:00 OFFICE VISIT ESTAB PT LEVEL 4 STLMLC STLMLC [id number] [facility] 2024-05-05 00:00:00 2024-05-05 00:00:00 (TEL) STLMLC STLMLC [id number] [facility] 2024-05-04 00:00:00 2024-05-04 00:00:00 (TEL) STLMLC STLMLC [id number] [facility] 2024-04-27 00:00:00 2024-04-27 00:00:00 (TEL) STLMLC STLMLC [id number] [facility] 2024-04-22 00:00:00 2024-04-22 00:00:00 (TEL) STLMLC STLMLC [id number] [facility] 2024-02-27 00:00:00 2024-02-27 00:00:00 (TEL) STLMLC STLMLC [id number] [facility] 2024-02-08 00:00:00 2024-02-08 00:00:00 (TEL) STLMLC STLMLC [id number] [facility] 2024-01-29 00:00:00 2024-01-29 00:00:00 OFFICE VISIT ESTAB PT LEVEL 4 STLMLC STLMLC [id number] [facility] 2024-01-21 00:00:00 2024-01-21 00:00:00 (TEL) STLMLC STLMLC [id number] [facility] 2024-01-12 00:00:00 2024-01-12 00:00:00 (TEL) STLMLC STLMLC [id number] [facility] 2023-11-25 00:00:00 2023-11-25 00:00:00 (TEL) STLMLC STLMLC [id number] [facility] 2023-11-24 00:00:00 2023-11-24 00:00:00 Tray Joshi MD: [id number] [facility], [place] [address] , Ph. [facility] [place] - Ortho [place] - FOG_Ofc [facility] [id number] [facility] 2023-09-30 00:00:00 2023-09-30 00:00:00 (WEB) STLMLC STLMLC [id number] [facility] 2023-09-24 00:00:00 2023-09-24 00:00:00 (TEL) STLMLC STLMLC [id number] [facility] 2023-09-24 00:00:00 2023-09-24 00:00:00 OFFICE VISIT ESTAB PT LEVEL 4 STLMLC STLMLC [id number] [facility] 2023-06-06 00:00:00 2023-06-06 00:00:00 (WEB) STLMLC STLMLC [id number] [facility] 2023-06-05 00:00:00 2023-06-05 00:00:00 OFFICE VISIT ESTAB PT LEVEL 4 STLMLC STLMLC [id number] [facility] 2023-05-31 00:00:00 2023-05-31 00:00:00 (TEL) STLMLC STLMLC [id number] [facility] 2023-04-23 00:00:00 2023-04-23 00:00:00 (TEL) STLMLC STLMLC [id number] [facility] 2023-01-24 00:00:00 2023-01-24 00:00:00 (TEL) STLMLC STLMLC [id number] [facility] 2023-01-22 00:00:00 2023-01-22 00:00:00 OFFICE VISIT ESTAB PT LEVEL 4 STLMLC STLMLC [id number] [facility] 2023-01-03 00:00:00 2023-01-03 00:00:00 (TEL) STLMLC STLMLC [id number] [facility] 2022-12-31 00:00:00 2022-12-31 00:00:00 PREV VISIT EST AGE 18-39 STLMLC STLMLC [id number] [facility] 2022-12-23 00:00:00 2022-12-23 00:00:00 (TEL) STLMLC STLMLC [id number] [facility] 2022-09-11 00:00:00 2022-09-11 00:00:00 (TEL) STLMLC STLMLC [id number] [facility] 2022-09-06 00:00:00 2022-09-06 00:00:00 OFFICE VISIT ESTAB PT LEVEL 4 STLMLC STLMLC [id number] [facility] 2022-09-05 00:00:00 2022-09-05 00:00:00 (TEL) STLMLC STLMLC [id number] [facility] 2022-09-05 00:00:00 2022-09-05 00:00:00 (TEL) STLMLC STLMLC [id number] [facility] 2022-05-21 00:00:00 2022-05-21 00:00:00 OFFICE VISIT EST PT LEVEL 3 STLMLC STLMLC [id number] [facility] 2022-05-21 00:00:00 2022-05-21 00:00:00 (TEL) STLMLC STLMLC [id number] [facility] 2022-02-27 00:00:00 2022-02-27 00:00:00 OFFICE VISIT ESTAB PT LEVEL 4 STLMLC STLMLC [id number] [facility] 2021-11-27 00:00:00 2021-11-27 00:00:00 (TEL) STLMLC STLMLC [id number] [facility] 2021-11-26 00:00:00 2021-11-26 00:00:00 (TEL) STLMLC STLMLC [id number] [facility] 2021-11-26 00:00:00 2021-11-26 00:00:00 PREV VISIT EST AGE 18-39 STLMLC STLMLC [id number] [facility] 2021-09-10 00:00:00 2021-09-10 00:00:00 OFFICE VISIT EST PT LEVEL 3 STLMLC STLMLC [id number] [facility] 2021-09-10 00:00:00 2021-09-10 00:00:00 (TEL) STLMLC STLMLC [id number] [facility] 2021-08-29 00:00:00 2021-08-29 00:00:00 (TEL) STLMLC STLMLC [id number] [facility] 2021-07-03 00:00:00 2021-07-03 00:00:00 (TEL) STLMLC STLMLC [id number] [facility] 2021-06-18 00:00:00 2021-06-18 00:00:00 (TEL) STLMLC STLMLC [id number] [facility] 2021-05-25 12:00:00 2021-05-25 12:00:00 Outpatient TORREY SNEED [facility] [id number] [facility] 2021-05-25 09:31:54 2021-05-25 10:31:54 Nurse Visit Therapy, Adc Covid Torrey Bledsoe [facility] ..114 350.1.13.10 4.2.7.2.686 [id number] [facility] 2021-05-25 00:00:00 2021-05-25 00:00:00 Orders Only Doctor Unassigned, [place] [facility] 1..114 350.1.13.10 4.2.7.2.686 [id number] [facility] 2021-05-24 00:00:00 2021-05-24 00:00:00 OFFICE VISIT ESTAB PT LEVEL 4 STLMLC STLC [id number] [facility] 2021-05-24 00:00:00 2021-05-24 00:00:00 Patient Secure Msg Doctor Unassigned, [place] [facility] 1..840.114 350.1.13.10 4.2.7.2.686 [id number] [facility] 2021-05-24 00:00:00 2021-05-24 00:00:00 Letter (Out) Courtney Leung [facility] 1..840.114 350.1.13.10 4.2.7.2.686 [id number] [facility] 2021-05-23 00:00:00 2021-05-23 00:00:00 (TEL) [facility] [id number] [facility] 2021-05-22 15:09:54 2021-05-22 15:24:54 Laboratory Only Only, Ang Db Florencia Campbell [facility] 1..840.114 350.1.13.10 4.2.7.2.686 [id number] [facility] 2021-05-22 15:10:00 2021-05-22 15:10:00 Outpatient YANET BARR [facility] [id number] [facility] 2021-04-02 00:00:00 2021-04-02 00:00:00 Outpatient STLC STLC [id number] [facility] 2021-03-13 09:20:00 2021-03-13 09:20:00 Outpatient ZACH FENTON [facility] [id number] [facility] 2021-01-10 10:20:00 2021-01-10 10:20:00 Outpatient Bill JAEGER Z[facility] [id number] [facility] 2020-12-28 00:00:00 2020-12-28 00:00:00 Outpatient STLMLC STLMLC [id number] [facility] 2020-12-14 00:00:00 2020-12-14 00:00:00 Outpatient STLMLC STLMLC [id number] [facility] 2020-12-14 00:00:00 2020-12-14 00:00:00 Outpatient STLMLC STLMLC [id number] [facility] 2020-12-01 00:00:00 2020-12-01 00:00:00 Outpatient STLMLC STLMLC [id number] [facility] 2020-11-29 00:00:00 2020-11-29 00:00:00 Outpatient STLMLC STLMLC [id number] [facility] 2020-10-25 00:00:00 2020-10-25 00:00:00 Outpatient STLMLC STLMLC [id number] [facility] 2020-10-11 11:20:00 2020-10-11 11:20:00 Outpatient [facility] [id number] [facility] 2020-09-05 10:07:02 2020-09-05 11:18:11 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 Zach Jaeger [facility] 1.2.840.114 350.1.13.10 4.2.7.2.686 [id number] [facility] 2020-09-05 09:13:13 2020-09-05 10:04:30 Office Visit Zach Jaeger [facility] 1.2.840.114 350.1.13.10 4.2.7.2.686 [id number] [facility] 2020-09-05 09:00:00 2020-09-05 09:00:00 Outpatient Bill SARBAZACH [facility] [id number] [facility] 2020-09-05 00:00:00 2020-09-05 00:00:00 Orders Only Doctor Unassigned, [place] [facility] 1.2.840.114 350.1.13.10 4.2.7.2.686 [id number] [facility] 2020-08-22 00:00:00 2020-08-22 00:00:00 Outpatient STLMLC STLMLC [id number] [facility] 2020-06-29 00:00:00 2020-06-29 00:00:00 Outpatient STLMLC STLMLC [id number] [facility] 2020-06-26 00:00:00 2020-06-26 00:00:00 Outpatient STLMLC STLMLC [id number] [facility] 2020-06-22 00:00:00 2020-06-22 00:00:00 Outpatient STLMLC STLMLC [id number] [facility] 2020-04-21 15:55:00 2020-04-21 15:55:[address] [facility] [id number] [facility] 2020-03-23 13:15:00 2020-03-23 13:15:00 [facility] [id number] [facility] 2020-03-22 17:02:00 2020-03-22 17:02:00 [facility] [id number] [facility] 2020-03-21 13:23:00 2020-03-21 13:23:00 [facility] [id number] [facility] 2020-03-21 13:00:00 2020-03-21 13:00:00 [facility] [id number] [facility] 2020-03-20 16:07:00 2020-03-20 16:07:00 [facility] [id number] [facility] 2020-03-13 10:08:00 2020-03-13 10:08:00 [facility] [id number] [facility] 2020-02-15 09:30:00 2020-02-15 09:30:00 [facility] [id number] [facility] 2020-02-15 08:12:00 2020-02-15 08:12:00 [facility] [id number] [facility] 2020-02-01 16:14:00 2020-02-01 16:14:[address] [facility] [facility] [id number] [facility] 2019-12-16 15:26:00 2019-12-16 15:26:00 [facility] [id number] [facility] 2019-12-07 10:43:00 2019-12-07 10:43:00 [facility] [id number] [facility] 2019-11-09 16:30:00 2019-11-09 16:30:00 [facility] [id number] [facility] 2019-10-27 16:00:00 2019-10-27 16:00:00 [facility] [id number] [facility] 2019-10-04 14:30:00 2019-10-04 14:30:00 [facility] [id number] [facility] 2019-09-27 11:30:00 2019-09-27 11:30:00 [facility] [id number] [facility] 2019-08-18 09:36:00 2019-08-18 09:36:00 [place] [id number] [facility] 2019-08-09 09:30:00 2019-08-09 09:30:00 [facility] [id number] [facility] 2019-08-05 08:38:00 2019-08-05 08:38:00 [facility] [id number] [facility] 2019-07-30 15:01:00 2019-07-30 15:01:00 [facility] [id number] [facility] 2019-07-12 10:46:00 2019-07-12 10:46:00 [facility] [id number] [facility] 2019-06-15 11:16:00 2019-06-15 11:16:00 [facility] [id number] [facility] 2019-06-02 11:19:00 2019-06-02 11:19:00 [facility] [id number] [facility] 2019-05-25 16:16:00 2019-05-25 16:16:00 [facility] [id number] [facility] 2019-05-17 13:07:00 2019-05-17 13:07:00 [facility] [id number] [facility] 2019-05-04 13:49:00 2019-05-04 13:49:00 [facility] [id number] [facility] 2019-05-03 10:30:00 2019-05-03 10:30:00 [facility] [id number] [facility] 2019-03-23 17:29:00 2019-03-23 17:29:00 [facility] [id number] [facility] 2019-03-23 08:00:00 2019-03-23 08:00:00 [facility] [id number] [facility] 2019-03-16 10:12:00 2019-03-16 10:12:00 [facility] [id number] [facility] 2019-03-04 13:46:00 2019-03-04 13:46:00 [facility] [id number] [facility] 2019-03-03 16:30:00 2019-03-03 16:30:00 [facility] [id number] [facility] 2019-02-01 16:45:00 2019-02-01 16:45:00 [facility] [id number] [facility] 2019-01-01 11:02:00 2019-01-01 11:02:00 [facility] [id number] [facility] 2018-11-30 16:30:00 2018-11-30 16:30:00 [facility] [id number] [facility] 2018-07-08 10:02:00 2018-07-08 10:02:00 [facility] [id number] [facility] 2018-03-16 11:00:00 2018-03-16 11:00:00 [facility] [id number] [facility] 2018-03-09 09:15:00 2018-03-09 09:15:00 [facility] [id number] [facility] 2018-03-02 09:32:00 2018-03-02 09:32:00 [facility] [id number] [facility] 2018-01-12 12:15:00 2018-01-12 12:15:00 [facility] [id number] [facility] 2018-01-12 08:45:00 2018-01-12 08:45:00 [facility] [id number] [facility] 2018-01-08 09:53:00 2018-01-08 09:53:00 [facility] [id number] [facility] 2018-01-01 09:15:00 2018-01-01 09:15:00 [facility] [id number] [facility] 2017-12-09 15:15:00 2017-12-09 15:15:00 [facility] [id number] [facility] Results Test Description Test Time Test Comments Results Result Co mments Source [id number] 00:00:00* Test Item Value Reference Range Interpretation Comme nts NUCLEATED RBCS (test code = 32008-7) 0.0 /100 WBC'S See_Comment [Automated [facility]] The system which generated this result transmitted reference range: 0.0 /100 WBC'S. The reference range was not used to interpret this result as normal/abnormal. ABSOLUTE EOSINOPHILS (test code = 07615-4) 0.01 K/UL See_Comment [Automated [facility]] The system which generated this result transmitted reference range: 0.00-0.50 K/UL. The reference range was not used to interpret this result as normal/abnormal. ABSOLUTE LYMPHOCYTES (test code = 89763-9) 0.87 K/UL See_Comment L [Automated messa ge] The system which generated this result transmitted reference range: 1.00-4.00 K/UL. The reference range was not used to interpret this result as normal/abnormal. ABSOLUTE MONOCYTES (test code = 71922-9) 0.64 K/UL See_Comment [Automated messa ge] The system which generated this result transmitted reference range: 0.20-1.00 K/UL. The reference range was not used to interpret this result as normal/abnormal. ABSOLUTE NEUTROPHILS (test code = 92591-3) 6.40 K/UL See_Comment [Automated messa ge] The system which generated this result transmitted reference range: 1.50-7.50 K/UL. The reference range was not used to interpret this result as normal/abnormal. BASOPHILS (test code = 01448-2) 0.4 % EOSINOPHILS (test code = 70344-7) 0.1 % HEMATOCRIT (test code = 67731-1) 41.9 % See_Comment [Automated messa ge] The system which generated this result transmitted reference range: 34.0-45.0 %. The reference range was not used to interpret this result as normal/abnormal. HEMOGLOBIN (test code = 718-7) 13.6 G/DL See_Comment [Automated messa ge] The system which generated this result transmitted reference range: 11.5-15.5 G/DL. The reference range was not used to interpret this result as normal/abnormal. LYMPHOCYTES (test code = 32557-7) 10.9 % MCH (test code = 06231-7) 28.0 PG See_Comment [Automated messa ge] The system which generated this result transmitted reference range: 25.0-33.0 PG. The reference range was not used to interpret this result as normal/abnormal. MCHC (test code = 73707-4) 32.5 G/DL See_Comment [Automated messa ge] The system which generated this result transmitted reference range: 31.0-36.0 G/DL. The reference range was not used to interpret this result as normal/abnormal. MCV (test code = 88875-6) 86.2 fL See_Comment [Automated messa ge] The system which generated this result transmitted reference range: 80.0-99.0 fL. The reference range was not used to interpret this result as normal/abnormal. MONOCYTES (test code = 18478-2) 8.0 % NEUTROPHILS (test code = 49535-3) 80.5 % PLATELET COUNT (test code = 32536-8) 193 K/UL See_Comment [Automated messa ge] The system which generated this result transmitted reference range: 130-400 K/UL. The reference range was not used to interpret this result as normal/abnormal. RBC (test code = 70479-9) 4.86 M/UL See_Comment [Automated messa ge] The system which generated this result transmitted reference range: 3.80-5.40 M/UL. The reference range was not used to interpret this result as normal/abnormal. RDW (test code = 19966-4) 15.3 % See_Comment H [Automated messa ge] The system which generated this result transmitted reference range: 11.5-15.0 %. The reference range was not used to interpret this result as normal/abnormal. WBC (test code = 49280-1) 8.0 K/UL See_Comment [Automated messa ge] The system which generated this result transmitted reference range: 3.5-11.0 K/UL. The reference range was not used to interpret this result as normal/abnormal. ALBUMIN (test code = 1751-7) 3.6 G/DL See_Comment [Automated messa ge] The system which generated this result transmitted reference range: 3.5-5.2 G/DL. The reference range was not used to interpret this result as normal/abnormal. ALKALINE PHOSPHATASE (test code = 6768-6) 70 U/L See_Comment [Automated message] The system which generated this result transmitted reference range: 40-112 U/L. The reference range was not used to interpret this result as normal/abnormal. BILIRUBIN, TOTAL (test code = 1975-2) 0.2 MG/DL See_Comment [Automated message] The system which generated this result transmitted reference range: <=1.2 MG/DL. The reference range was not used to interpret this result as normal/abnormal. BUN (test code = 3094-0) 9 MG/DL See_Comment [Automated messa ge] The system which generated this result transmitted reference range: 6-20 MG/DL. The reference range was not used to interpret this result as normal/abnormal. CALCIUM (test code = 18677-9) 9.1 MG/DL See_Comment [Automated messa ge] The system which generated this result transmitted reference range: 8.5-10.5 MG/DL. The reference range was not used to interpret this result as normal/abnormal. CALC A/G RATIO (test code = 1759-0) 1.5 RATIO See_Comment [Automated messa ge] The system which generated this result transmitted reference range: 1.0-2.6 RATIO. The reference range was not used to interpret this result as normal/abnormal. CALC BUN/CREAT (test code = 3097-3) 13 RATIO See_Comment [Automated messa ge] The system which generated this result transmitted reference range: 6-28 RATIO. The reference range was not used to interpret this result as normal/abnormal. CALC GLOBULIN (test code = 91210-8) 2.4 G/DL See_Comment [Automated messa ge] The system which generated this result transmitted reference range: 1.9-3.7 G/DL. The reference range was not used to interpret this result as normal/abnormal. CARBON DIOXIDE (test code = 1963-8) 23 MEQ/L See_Comment [Automated messa ge] The system which generated this result transmitted reference range: 19-31 MEQ/L. The reference range was not used to interpret this result as normal/abnormal. CHLORIDE (test code = 2075-0) 103 MEQ/L See_Comment [Automated messa ge] The system which generated this result transmitted reference range: 95-107 MEQ/L. The reference range was not used to interpret this result as normal/abnormal. CREATININE (test code = 2160-0) 0.67 MG/DL See_Comment [Automated messa ge] The system which generated this result transmitted reference range: 0.60-1.30 MG/DL. The reference range was not used to interpret this result as normal/abnormal. eGFR (2020 CKD-EPI) (test code = 98463-7) 113 ML/MIN/1.73 See_Comment [Automated message] The system which generated this result transmitted reference range: >60 ML/MIN/1.73. The reference range was not used to interpret this result as normal/abnormal. GLUCOSE (test code = 1558-6) 90 MG/DL See_Comment [Automated messa ge] The system which generated this result transmitted reference range: 70-99 MG/DL. The reference range was not used to interpret this result as normal/abnormal. POTASSIUM (test code = 2823-3) 3.6 MEQ/L See_Comment [Automated messa ge] The system which generated this result transmitted reference range: 3.5-5.4 MEQ/L. The reference range was not used to interpret this result as normal/abnormal. PROTEIN, TOTAL (test code = 2885-2) 6.0 G/DL See_Comment L [Automated messa ge] The system which generated this result transmitted reference range: 6.1-8.3 G/DL. The reference range was not used to interpret this result as normal/abnormal. AST (test code = 1920-8) 15 U/L See_Comment [Automated messa ge] The system which generated this result transmitted reference range: 9-40 U/L. The reference range was not used to interpret this result as normal/abnormal. ALT (test code = 1742-6) 11 U/L See_Comment [Automated messa ge] The system which generated this result transmitted reference range: 5-40 U/L. The reference range was not used to interpret this result as normal/abnormal. SODIUM (test code = 2951-2) 136 MEQ/L See_Comment [Automated messa ge] The system which generated this result transmitted reference range: 133-146 MEQ/L. The reference range was not used to interpret this result as normal/abnormal. LIPASE (test code = 3040-3) 18 U/L See_Comment [Automated messa ge] The system which generated this result transmitted reference range: 13-60 U/L. The reference range was not used to interpret this result as normal/abnormal. VITAMIN B 12 AND FOLIC [id number] 00:00:00* Test Item Value Reference Range Interpretation Comme nts FOLIC ACID (test code = 2284-8) >20.0 UG/L SEE BELOW UG/L VITAMIN B-12 (test code = 2132-9) 551 PG/ML See_Comment [Automated messa ge] The system which generated this result transmitted reference range: 200-950 PG/ML. The reference range was not used to interpret this result as normal/abnormal. [id number] 00:00:00* Test Item Value Reference Range Interpretation Comme nts FERRITIN (test code = 53859-1) 3 NG/ML See_Comment L [Automated Tradeshifta ge] The system which generated this result transmitted reference range: 13-200 NG/ML. The reference range was not used to interpret this result as normal/abnormal. Lipid Panel With LDL/HDL [id number] 00:00:00* Test Item Value Reference Range Interpretation Comme nts Cholesterol, Total (test code = 2093-3) 176 100-199 Triglycerides (test code = 2571-8) 87 0-149 HDL Cholesterol (test code = 2085-9) 62 >39 ANTI-CENTROMERE [id number] 15:51:00* Test Item Value Reference Range Interpretation Comme nts ANTI-CENTR (test code = 2693353585) Negative Negative ESTELLA (test code = ESTELLA) Positive - Antibod y detected.Negative - No antibody detected. Lab Interpretation (test code = 03964-9) Normal [facility]-DOUBLE STRANDED [id number] 15:51:00* Test Item Value Reference Range Interpretation Comme nts ANTI-DSDNA (test code = 3020301183) See_Comment H [Automated message] The system which generated this result transmitted reference range: 0.0 - 4.0 IU/mL. The reference range was not used to interpret this result as normal/abnormal. ESTELLA (test code = ESTELLA) Negative ? ?< or = 4 IU/mLPositive ? ? ?> or = 10 IU/mLIndetermin ate ?5-9 IU/mL Lab Interpretation (test code = 70869-0) Abnormal [facility]-SCL-[id number] 15:51:00* Test Item Value Reference Range Interpretation Comme nts ANTI-SCL70 (test code = 5768305556) Negative Negative ESTELLA (test code = ESTELLA) Positive - Antibod y detected.Negative - No antibody detected. Lab Interpretation (test code = 77638-2) Normal [facility]-SM/[id number] 15:51:00* Test Item Value Reference Range Interpretation Comme nts ANTI-SMRNP (test code = 5657702871) Negative Negative ESTELLA (test code = ESTELLA) Positive - Antibod y detected.Negative - No antibody detected. Lab Interpretation (test code = 72630-3) [facility] 15:51:00* Test Item Value Reference Range Interpretation Comme nts ANTI-SSA(RO) (test code = 8233324226) Negative Negative ESTELLA (test code = ESTELLA) Positive - Antibod y detected.Negative - No antibody detected. Lab Interpretation (test code = 87068-3) [facility], [id number] 04:42:00* Test Item Value Reference Range Interpretation Comme nts VIT D 25OH (test code = 07015-2) 28 ng/mL 25-80 ESTELLA (test code = ESTELLA) Deficiency: <20 ng/mLInsufficiency : 20-24 ng/mLOptimal: 25-80 ng/mL Lab Interpretation (test code = 30709-0) [facility] SystemsRHEUMATOID [id number] 21:16:00* Test Item Value Reference Range Interpretation Comme nts RF (test code = 3230243229) <20 See_Comment [Automated Tradeshifta ge] The system which generated this result transmitted reference range: <20 IU/mL. The reference range was not used to interpret this result as normal/abnormal. Lab Interpretation (test code = 44233-2) Normal [facility] [id number] 21:15:00* Test Item Value Reference Range Interpretation Comme nts CRP (test code = 0919135148) 0.3 mg/dL <0.8 Lab Interpretation (test cod e = 09479-4) [facility]C4 [id number] 21:15:00* Test Item Value Reference Range Interpretation Comme nts C4 (test code = 6553403623) 23 mg/dL 20-59 Lab Interpretation (test cod e = 46431-7) [facility] [id number] 21:14:00* Test Item Value Reference Range Interpretation Comme nts C3 (test code = 1868357514) 97 mg/dL 86-184 Lab Interpretation (test cod e = 35928-9) [facility] SystemsHCV [id number] 20:24:00* Test Item Value Reference Range Interpretation Comme nts HCV Ab (test code = 83529-8) Negative HCV Semi-Quantitative (test code = 24780-4) [facility] LakeSEDIMENTATION [id number] 20:23:00* Test Item Value Reference Range Interpretation Comme nts ESR (test code = 9868217797) See_Comment [Automated Tradeshifta ge] The system which generated this result transmitted reference range: 0 - 20 mm/HR. The reference range was not used to interpret this result as normal/abnormal. Lab Interpretation (test code = 83804-9) Normal [facility] LakeURINALYSIS2020-12-15 20:13:00* Test Item Value Reference Range Interpretation Comme nts APPEARANCE (test code = 7021654993) Clear Clear COLOR (test code = 4269086435) Straw Yellow A PH (test code = 5940621608) 4.8-8.0 SP GRAVITY (test code = 7436450421) 1.003-1.030 GLU U QUAL (test code = 9153492046) Normal Normal BLOOD (test code = 0304890702) 2+ Negative A KETONES (test code = 1578486209) Negative Negative PROTEIN (test code = 2887-8) Negative Negative UROBILIN (test code = 8909377197) Normal Normal BILIRUBIN (test code = 2472028633) Negative Negative NITRITE (test code = 2236471613) Negative Negative LEUK OBED (test code = 7039333327) Negative Negative RBC/HPF (test code = 2709807857) See_Comment [Automated Tradeshifta ge] The system which generated this result transmitted reference range: 0 - 3 HPF. The reference range was not used to interpret this result as normal/abnormal. WBC/HPF (test code = 4060718435) See_Comment [Automated Tradeshifta ge] The system which generated this result transmitted reference range: 0 - 5 HPF. The reference range was not used to interpret this result as normal/abnormal. BACTERIA (test code = 3739608014) Few Negative A SQ EPITH (test code = 7270452447) See_Comment [Automated messa ge] The system which generated this result transmitted reference range: <=2 HPF. The reference range was not used to interpret this result as normal/abnormal. Lab Interpretation (test code = 76573-7) Abnormal [facility] LakeTHYROID STIMULATING [id number] 20:06:00 * Test Item Value Reference Range Interpretation Comme nts TSH (test code = 4956685263) See_Comment [Automated Tradeshifta ge] The system which generated this result transmitted reference range: 0.45 - 4.70 mIU/L. The reference range was not used to interpret this result as normal/abnormal. Lab Interpretation (test code = 71688-8) Normal [facility] LakeHEPATITIS B SURFACE [id number] 20:06:00 * Test Item Value Reference Range Interpretation Comme nts HBsAg Semi-Quantitative (julissa t code = 5195-3) Negative Negative [facility] LakeCOMP. METABOLIC PANEL (75638)2020-09-05 19:33:00* Test Item Value Reference Range Interpretation Comme nts NA (test code = 5629700556) 140 mmol/L 135-145 K (test code = 2766078577) 4.3 mmol/L 3.5-5 CL (test code = 2545724593) 106 mmol/L 98-108 CO2 TOTAL (test code = 9400174722) 23 mmol/L 23-31 AGAP (test code = 9226725019) 2-16 BUN (test code = 9068351001) 13 mg/dL 7-23 GLUCOSE (test code = 4625632898) 101 mg/dL 70-110 CREATININE (test code = 8756627014) 0.66 mg/dL 0.5-1.04 TOTAL BILI (test code = 6909716303) 0.3 mg/dL 0.1-1.1 CALCIUM (test code = 7620832080) 9.5 mg/dL 8.6-10.6 T PROTEIN (test code = 9473871150) 7.4 g/dL 6.3-8.2 ALBUMIN (test code = 0176324358) 4.4 g/dL 3.5-5 ALK PHOS (test code = 9945743828) 77 U/L 34-122 ALTv (test code = 1742-6) 16 U/L 5-35 AST(SGOT) (test code = 2310614873) 29 U/L 13-40 eGFR Calculation (Non-) (test code = 1717807190) mL/min/1.73m2 eGFR Calculation () (test code = 7142365389) mL/min/1.73m2 ESTELLA (test code = ESTELLA) Association [...] or urine or abnormalities in imaging tests). [facility] LakeCREATINE [id number] 19:33:00* Test Item Value Reference Range Interpretation Comme nts CK (test code = 0627115480) 335 U/L 33-194 H Lab Interpretation (test cod e = 89612-5) Abnormal [facility] LakeCBC WITH [id number] 19:00:00* Test Item Value Reference Range Interpretation Comme nts WBC (test code = 6690-2) See_Comment [Automated [employer]] The system which generated this result transmitted reference range: 4.30 - 11.10 10*3/?L. The reference range was not used to interpret this result as normal/abnormal. RBC (test code = 789-8) See_Comment [Automated Tradeshifta ge] The system which generated this result [...] g/dL 31.6-35.1 L RDW-SD (test code = 17103-9) 45.8 fL 39-49.9 RDW-CV (test code = 788-0) 16.9 % 12-15.5 H PLT (test code = 777-3) See_Comment [Automated Tradeshifta ge] The system which generated this result transmitted reference range: 166 - 358 10*3/?L. The reference range was not used to interpret this result as normal/abnormal. MPV (test code = 70508-7) 11.6 fL 9.5-12.9 NRBC/100 WBC (test code = 2244293042) See_Comment [Automated [employer] ssage] The system which generated this result transmitted reference range: 0.0 - 10.0 /100 WBCs. The reference range was not used to interpret this result as normal/abnormal. NRBC x10^3 (test code = 3530947145) <0.01 See_Comment [Automated Tradeshifta ge] The system which generated this result transmitted reference range: 10*3/?L. The reference range was not used to interpret this result as normal/abnormal. GRAN MAT (NEUT) % (test code = 770-8) 77.5 % IMM GRAN % (test code = 1400230270) 0.30 % LYMPH % (test code = 736-9) 16.8 % MONO % (test code = 5905-5) 4.4 % EOS % (test code = 713-8) 0.4 % BASO % (test code = 706-2) 0.6 % GRAN MAT x10^3(ANC) (test code = 4163613011) 6.14 10*3/uL 1.88-7.09 IMM GRAN x10^3 (test code = 8726315475) <0.03 0-0.06 LYMPH x10^3 (test code = 731-0) 1.33 10*3/uL 1.32-3.29 MONO x10^3 (test code = 742-7) 0.35 10*3/uL 0.33-0.92 EOS x10^3 (test code = 711-2) 0.03 10*3/uL 0.03-0.39 BASO x10^3 (test code = 704-7) 0.05 10*3/uL 0.01-0.07 Lab Interpretation (test code = 72553-3) Abnormal [facility] LakeCT THORAX WO [id number] 13:12:00 *.*.*.*.*.*.*.*.*.*.*.*.*.*FINAL*.*.*.*.*.*.*.*.*.*.*.*.*.*.*CT CHEST WITH CONTRAST HISTORY: lung nodules COMPARISON: None TECHNIQUE: ?Standard chest CT protocol without contrast. FINDINGS: A right middle lobe pulmonary nodule measuring 6 mm is appreciated withthree subcentimeter satellite nodules. The trachea and main bronchi are normal. No evidence of pleural effusionor pneumothorax is noted. ?The mediastinal structures including the heartand great vessels are normal. Changes of gastric bypass are partially visualized. No lymphadenopathy or destructive osseous lesion is noted. HUMBERTO MULLEN MD ?Personally interpreted by: GEM BEAULIEU MD /Signed/ GEM BEAULIEU MDUnCorpus Christi Medical Center [facility]"
[2025-04-29] MEDS ORDERED: MORPHINE 4 MG/ML SYR ONE (13:50)
[2025-04-29] MEDS ORDERED: ONDANSETRON 4 MG/2 ML VIAL ONE (13:50)
[2025-04-29] MEDS ORDERED: NA CHLORIDE 0.9% 1,000 ML ONE (13:50)
[2025-04-29 14:34] LABS: Absolute Lymphocytes (CBC) 0.9 K/uL (0.7-4.9); Hematocrit 37.4 % (36.0-45.0); Hemoglobin 12.2 g/dL (12.0-15.0); MCH 26.0 pg (27.0-35.0); MCHC 32.7 g/dL (32.0-36.0); MCV 79.5 fL (80-100); MPV 9.9 fL (7.6-11.3); Nucleated RBC Absolute Count 0.0 (0-0); Nucleated Red Blood Cells % 0.1 % (0-0); RBC Red Blood Cell Count 4.70 M/uL (3.86-4.86); White Blood Count 6.50 thou/uL (4.3-10.9)
[2025-04-29 14:36] LABS: Sqamous Epithelial <5 /HPF (None Seen); Urine Culture Reflex Order NOT NEEDED; Urine Microscopic Reflex YN ORDER UMIC
[2025-04-29 14:52] LABS: ALT/SGPT 19.0 U/L (13-56); AST/SGOT 19.0 U/L (15-37); Albumin 3.6 g/dL (3.4-5.0); Albumin/Globulin Ratio 1.1 (1.1-1.8); Alkaline Phosphatase 61.0 U/L (45-117); Anion Gap 10.7 mEq/L (5.0-15.0); BUN Blood Urea Nitrogen 10.0 mg/dL (7-18); Globulin 3.3 g/dL (2.3-3.5); Glucose Level 87.0 mg/dL (74-106); Lipase 22.0 U/L (13-75); Potassium 3.7 mEq/L (3.5-5.1)
--- NOTE | 2025-04-29 14:59 | RAD REPORT ---
EXAMINATION: CT ABDOMEN AND PELVIS WITH CONTRAST CLINICAL INDICATION: diffuse abd pain, h/o zuniga colitis TECHNIQUE: CT abdomen and pelvis was performed, after the administration of IV contrast, as per [facility] protocol. Axial, sagittal and coronal reconstructions were obtained. One or more of the following dose reduction techniques were used: Automated exposure control, adjustment of the mA and k V according to patient size, and iterative reconstruction. Unless otherwise specified, incidental findings do not require dedicated imaging follow-up. COMPARISON: 08/11/2024 FINDINGS: LOWER CHEST: The visualized lung bases are clear. Postsurgical changes in the stomach. LIVER: Normal in size and contour. No focal lesion. Grossly unremarkable gallbladder. SPLEEN: Normal size. No focal lesion. PANCREAS: No mass, ductal dilation, or gerardo-pancreatic fluid. ADRENALS: Normal; no mass. KIDNEYS: Normal size and contour. No hydronephrosis. GASTROINTESTINAL TRACT: No evidence of free air, significant intra-abdominal free fluid, bowel obstru ction or abscess. Mild liquid stool distention of the right colon. APPENDIX: Normal appendix. LYMPH NODES: No lymphadenopathy. MUSCULOSKELETAL: No acute or suspicious osseous abnormality. ADDITIONAL FINDINGS: IUD in the uterus. IMPRESSION: No acute abnormalities seen in the abdomen or pelvis.
--- NOTE | 2025-04-29 15:14 | ER ---
Nurse's Notes [facility] Name: Laura oLpez Age: 40 yrs Sex: Female : 1985 Arrival Date: 04/29/2025 Time: 13:01 Bed 11 Private MD: Diagnosis: Abdominal pain, Generalized Presentation: 04/29 13:18 Chief complaint: N/D and diffuse abdominal pain x 1 week, worse over last 2-3 days. hb Coronavirus screen: At this time, the client does not indicate any symptoms associated with coronavirus-19. Ebola Screen: No symptoms or risks identified at this time. Initial Sepsis Screen: Does the patient meet any 2 criteria? No. Patient's initial sepsis screen is negative. Does the patient have a suspected source of infection? No. Patient's initial sepsis screen is negative. Risk Assessment: Do you want to hurt yourself or someone else? Patient reports no desire to harm self or others. Onset of symptoms was April 23, 2025. 13:18 Method Of Arrival: Ambulatory hb 13:18 Acuity: BILL 3 hb Historical: - Allergies: 13:19 Bactrim; hb 13:19 NSAIDS; due to Gastric Bypass; hb 13:19 Sulfa (Sulfonamide Antibiotics); hb 13:19 Vancomycin; hb - PMHx: 13:19 Hypertension; Anemia; Chronic pain; Anxiety; Dominique's; ibs; Panic Attacks; hb Depression; Hypothyroidism; Lupus erythematosus; Rheumatoid Arthritis; WPW; - PSHx: 13:19 Gastric Bypass; left foot; hb - Immunization history:: Adult Immunizations unknown. - Infectious Disease History:: Denies. - Social history:: Smoking status: unknown. Screenin:30 [facility] ED Fall Risk Assessment (Adult) History of falling in the last 3 months, ar8 including since admission No falls in past 3 months (0 pts) Confusion or Disorientation No (0 pts) Intoxicated or Sedated No (0 pts) Impaired Gait No (0 pts) Mobility Assist Device Used No (0 pt) Altered Elimination No (0 pt) Score/Fall Risk Level 0 - 2 = Low Risk Oriented to surroundings, Maintained a safe environment. 14:30 Abuse screen: Denies threats or abuse. Nutritional screening: No deficits noted. ar8 Tuberculosis screening: No symptoms or risk factors identified. Assessment: 14:30 General: Appears uncomfortable, Behavior is cooperative. ar8 14:30 Pain: Complains of pain in abdomen Pain currently is 8 out of 10 on a pain scale. ar8 Neuro: No deficits noted. Level of Consciousness is awake, alert, obeys commands, Oriented to person, place, time, situation. Cardiovascular: No deficits noted. Respiratory: No deficits noted. Airway is patent Respiratory effort is even, unlabored, Respiratory pattern is regular, symmetrical. GI: Abdomen is round non-distended, Abdomen is tender to palpation diffuse abdominal tenderness Reports diarrhea, nausea, vomiting. Vital Signs: 13:18 BP 145 / 92; Pulse 92; Resp 16; Temp 98.5(O); Pulse Ox 100% on R/A; Weight 96.16 kg; hb Height 5 ft. 4 in. ; Pain 8/10; 15:00 BP 120 / 68; Pulse 78; Resp 17; Pulse Ox 99% on R/A; Pain 4/10; ar8 15:07 Pain 4/10; ar8 15:35 BP 111 / 68; Pulse 61; Resp 18; Pulse Ox 100% on R/A; Pain 4/10; ar8 13:18 Body Mass Index 36.39 (96.16 kg, 162.56 cm) hb 13:18 Pain Scale: Adult hb 15:00 Pain Scale: Adult ar8 15:07 Pain Scale: Adult ar8 15:35 Pain Scale: Adult ar8 ED Course: 13:07 Patient arrived in ED. im 13:09 Justin Zamorano MD is Attending Physician. jr11 13:12 Joseph Gallagher, JUHI is Primary Nurse. ar8 13:19 Triage completed. hb 13:20 Arm band placed on. hb 14:30 Bed in low position. Call light in reach. Side rails up X2. Provided Education on: plan ar8 of care. 14:30 CBC with Diff Sent. ar8 14:30 CMP Sent. ar8 14:30 Lipase Sent. ar8 14:30 Test, Urine Sent. ar8 14:30 UA Rfx Ollie Cult if indicated Sent. ar8 14:30 No provider procedures requiring assistance completed. Inserted saline lock: 22 gauge ar8 in right antecubital area, using aseptic technique. Blood collected. Flushed with 10 mL NS Missed attempt(s): 22 gauge in left antecubital area. Bleeding controlled, band aid applied, catheter tip intact. 14:55 CT Abd/Pelvis - IV Contrast Only In Process Unspecified. EDMS 15:38 IV discontinued, intact, bleeding controlled, No redness/swelling at site. Pressure ar8 dressing applied. Administered Medications: 14:20 Drug: Ondansetron IVP 4 mg IVP once; over 2 minutes Route: IVP; Site: right antecubital;ar8 15:07 Follow up: Response: No adverse reaction; Nausea is decreased ar8 14:20 Drug: NS 0.9% IV 1000 ml IV at 1 bolus Per protocol; to be given as a bolus over 60 ar8 minutes Route: IV; Rate: 1 bolus; Site: right antecubital; 15:30 Follow up: IV Status: Completed infusion; IV Intake: 1000ml ar8 14:23 Drug: morphine IVP or IV 4 mg IVP once over 4 mins Route: IVP; Infused Over: 4 mins; ar8 Site: right antecubital; 15:07 Follow up: Pain 4/10 Adult; Response: No adverse reaction; Pain is decreased ar8 Medication: 15:00 VIS not applicable for this client. ar8 Intake: 15:30 IV: 1000ml; Total: 1000ml. ar8 Outcome: 15:14 Discharge ordered by . 11 15:38 Discharged to home ambulatory, ar8 15:38 Condition: stable 15:38 Discharge instructions given to patient, Instructed on discharge instructions, follow up and referral plans. medication usage, Demonstrated understanding of instructions, follow-up care, medications, Prescriptions given X 2, 15:40 Patient left the ED. ar8 Signatures: Dispatcher [employer] EDIL Luciana Gill, JUHI RN Justin Huang MD MD jr11 Moon Abernathy Andrea, RN RN ar8
--- NOTE | 2025-04-29 15:14 | EDPHYS ---
Physician Documentation [facility] Name: Laura Lopez Age: 40 yrs Sex: Female : 1985 Arrival Date: 04/29/2025 Time: 13:01 Bed 11 Private MD: ED Physician Justin Zamorano HPI: 04/29 13:39 Chief Complaint: Stomach pain and inability to eat for one week. History of Present 11 Illness: The patient reports experiencing worsening stomach pain over the last week, with significant exacerbation in the past two to three days. The pain is severe and similar to previous pancolitis episodes experienced in July. The patient has difficulty eating; attempts to consume a protein shake led to immediate diarrhea, described as watery stools approximately three times yesterday. Nausea and vomiting, characterized by dry heaving, were noted this morning. The patient reports a burning sensation during urination, possibly attributed to an outbreak of genital herpes, and is currently taking Valtrex. Recent blood work on Friday revealed extremely low iron levels, with a ferritin of 5, while hemoglobin remained in the lower normal range. The patient has a history of pancolitis and possible Crohn's disease, previously treated with IV antibiotics. Past testing was positive for Campylobacter. ROS otherwise negative. . Historical: - Allergies: 13:19 Bactrim; hb 13:19 NSAIDS; due to Gastric Bypass; hb 13:19 Sulfa (Sulfonamide Antibiotics); hb 13:19 Vancomycin; hb - PMHx: 13:19 Hypertension; Anemia; Chronic pain; Anxiety; Dominique's; ibs; Panic Attacks; hb Depression; Hypothyroidism; Lupus erythematosus; Rheumatoid Arthritis; WPW; - PSHx: 13:19 Gastric Bypass; left foot; hb - Immunization history:: Adult Immunizations unknown. - Infectious Disease History:: Denies. - Social history:: Smoking status: unknown. Exam: 13:39 Constitutional: This is a well developed, well nourished patient who is awake, alert, jr11 and in no acute distress. Head/Face: Normocephalic, atraumatic. Eyes: Extra-ocular motions intact. Lids and lashes normal. Conjunctiva and sclera are non-icteric and not injected. Cornea within normal limits. Periorbital areas with no swelling, redness, or edema. ENT: Nares patent. No nasal discharge, no septal abnormalities noted. Oropharynx with no redness, swelling, or masses, exudates, or evidence of obstruction, uvula midline. Mucous membranes moist. Neck: Trachea midline, no thyromegaly or masses palpated, and no cervical lymphadenopathy. Supple, full range of motion without nuchal rigidity, or vertebral point tenderness. No Meningismus. Chest/axilla: Normal chest wall appearance and motion. Nontender with no deformity. No lesions are appreciated. Cardiovascular: Regular rate and rhythm with a normal S1 and S2. No gallops, murmurs, or rubs. Normal PMI, no JVD. No pulse deficits. Abdomen/GI: diffuse ttp, no peritonitis Skin: Warm, dry with normal turgor. Normal color with no rashes, no lesions, and no evidence of cellulitis. MS/ Extremity: Pulses equal, no cyanosis. Neurovascular intact. Full, normal range of motion. Vital Signs: 13:18 BP 145 / 92; Pulse 92; Resp 16; Temp 98.5(O); Pulse Ox 100% on R/A; Weight 96.16 kg; hb Height 5 ft. 4 in. ; Pain 8/10; 15:00 BP 120 / 68; Pulse 78; Resp 17; Pulse Ox 99% on R/A; Pain 4/10; ar8 15:07 Pain 4/10; ar8 15:35 BP 111 / 68; Pulse 61; Resp 18; Pulse Ox 100% on R/A; Pain 4/10; ar8 13:18 Body Mass Index 36.39 (96.16 kg, 162.56 cm) hb 13:18 Pain Scale: Adult hb 15:00 Pain Scale: Adult ar8 15:07 Pain Scale: Adult ar8 15:35 Pain Scale: Adult ar8 MDM: 13:23 Medical Screening Exam initiated jr11 13:39 Differential diagnosis: Medical Decision Makin. Iron Deficiency Anemia: Likely jr11 given low ferritin levels, though hemoglobin is in the low normal range. 2. Crohn's Disease: Possible, given history and previous GI testing suggesting this diagnosis, needs further evaluation. 3. Pancolitis: Possible recurrence given similar pain description, requires confirmation through imaging. 4. Urinary Tract Infection: Less likely, but burning urination warrants urine analysis to rule out. Plan: - Initiate IV fluids and medications for stomach pain. - Conduct CT scan of the abdomen and pelvis. - Obtain urine sample for analysis. - Ensure no vancomycin is administered. - Plan for the patient to remain in the ER for approximately two to two and a half hours. - Discuss findings post-CT scan to determine further management. - Follow up with GI for potential Crohn's disease workup and treatment. 15:14 ED course: CT to my read no acute abnormality, to f/u GI. [facility] 15:23 ED course: CT to my read, no abnormality . [facility] 04/29 13:24 Order name: CBC with Diff; Complete Time: 14:49 [facility] 04/29 13:24 Order name: CMP; Complete Time: 15:08 [facility] 04/29 13:24 Order name: Lipase; Complete Time: 15:08 [facility] 04/29 13:24 Order name: Test, Urine; Complete Time: 14:49 [facility] 04/29 13:25 Order name: UA Rfx Ollie Cult if indicated; Complete Time: 14:49 [facility] 04/29 13:24 Order name: CT Abd/Pelvis - IV Contrast Only; Complete Time: 15:08 [facility] 04/29 13:24 Order name: IV Saline Lock; Complete Time: 14:30 [facility] 04/29 13:24 Order name: Labs collected and sent; Complete Time: 14:30 [facility] Administered Medications: 14:20 Drug: Ondansetron IVP 4 mg IVP once; over 2 minutes Route: IVP; Site: right antecubital;ar8 15:07 Follow up: Response: No adverse reaction; Nausea is decreased ar8 14:20 Drug: NS 0.9% IV 1000 ml IV at 1 bolus Per protocol; to be given as a bolus over 60 ar8 minutes Route: IV; Rate: 1 bolus; Site: right antecubital; 15:30 Follow up: IV Status: Completed infusion; IV Intake: 1000ml ar8 14:23 Drug: morphine IVP or IV 4 mg IVP once over 4 mins Route: IVP; Infused Over: 4 mins; ar8 Site: right antecubital; 15:07 Follow up: Pain 4/10 Adult; Response: No adverse reaction; Pain is decreased ar8 Disposition Summary: 04/29/25 15:14 Discharge Ordered Notes: Location: Home [facility] Condition: Stable [facility] Diagnosis - Abdominal pain, Generalized jr Discharge Instructions: - Discharge Summary Sheet jr11 - Abdominal Pain, Adult jr11 Forms: - Medication Reconciliation Form jr11 - Antibiotic Education jr11 - Prescription Opioid Use jr11 - Patient Portal Instructions jr11 - Leadership Thank You Letter jr11 Prescriptions: - Zofran 4 mg Oral Tablet - take 1 tablet ORAL route every 12 hours As needed; 20 tablet; Refills: 0, jr11 Product Selection Permitted - dicyclomine 20 mg Oral tablet - take 1 tablet ORAL route 3 times per day prn cramps; 20 tablet; Refills: 0, jr11 Product Selection Permitted Signatures: Dispatcher [employer] Luciana Collazo RN RN Justin Huang MD MD jr11 Joseph Gallagher RN RN ar8
[2025-04-29 16:27] VITALS: O2SAT 100
[2025-04-29 16:30] VITALS: TEMP 97.2
[2025-04-29 16:31] VITALS: BP 120/71
== END 2025-04-29 15:40 | disposition home or self-care (01) ==
LOC: ER 13:01
DX: R10.84 Generalized abdominal pain (principal)
CPT/HCPCS: 96361; 85025; 81001; 36415; 81025; 83690; 80053; 74177; 96375; 96374; 99284; Q9967; J2405; J7030